=== PATIENT | male | born 1930 | race Caucasian/White ===

== ENCOUNTER 2018-05-08 16:20 | Inpatient (IN) | payer MEDICARE ==
[2018-05-08 16:20] VITALS: BMI 25.7
[2018-05-08] MEDS ORDERED: Sodium Chloride 0.9% 1,000 ML IV STA ×2 (16:53→18:51)
--- NOTE | 2018-05-08 17:20 | RAD ---
HISTORY: cough fever COMPARISON: No prior. FINDINGS: LUNGS: No active pulmonary disease. PLEURA: No significant pleural effusion identified, no pneumothorax apparent. CARDIOVASCULAR: Atherosclerotic aortic calcifications. Cardiomediastinal silhouette prominent. OSSEOUS STRUCTURES: Degenerative changes. VISUALIZED UPPER ABDOMEN: Normal. OTHER FINDINGS: None. IMPRESSION: No active disease.
[2018-05-08 17:49] LABS: VENOUS BLOOD GAS BASE EXCESS -3.9 mmol/L (0.0-2.0); VENOUS BLOOD GAS PCO2 29 mmHg (40-60); VENOUS BLOOD GAS PO2 38 mm/Hg (30-55); VENOUS BLOOD PH 7.43 (7.32-7.43)
[2018-05-08] MEDS ORDERED: Acetaminophen 160 mg/5 ml UD ONE (17:51)
[2018-05-08 17:56] LABS: PROTHROMBIN TIME 17.1 Seconds (9.8-13.1)
[2018-05-08 17:57] LABS: INR 1.5 (0.9-1.2); PARTIAL THROMBOPLASTIN TIME 30.2 Seconds (25.6-37.1)
[2018-05-08 18:00] LABS: ALB/GLOB RATIO 0.9 (1.0-2.1); ALBUMIN 3.6 g/dL (3.5-5.0); CALCIUM 8.4 mg/dL (8.4-10.2)
[2018-05-08 18:29] LABS: URINE BACTERIA MANY (<OCC); URINE BILIRUBIN NEGATIVE (NEGATIVE); URINE BLOOD MODERATE (NEGATIVE); URINE CLARITY TURBID (Clear); URINE COLOR AMBER (YELLOW); URINE GLUCOSE (UA) NEG (Normal); URINE LEUKOCYTE ESTERASE LARGE Leu/uL (Negative); URINE PROTEIN 100 mg/dL (NEGATIVE); URINE UROBILINOGEN 0.2-1.0 mg/dL (0.2-1.0); WBC CLUMPS MANY /hpf
[2018-05-08 18:35] LABS: HEMOGLOBIN 10.6 g/dL (12.0-18.0); LYMPH # 0.8 K/uL (1.0-4.3); LYMPH % 6.1 % (20.0-40.0); MEAN CELL VOLUME 88.5 fl (80.0-94.0); MEAN CORPUSCULAR HEMOGLOBIN 30.6 pg (27.0-31.0); MEAN CORPUSCULAR HGB CONC 34.6 g/dL (33.0-37.0); MEAN PLATELET VOLUME 8.9 fl (7.2-11.7); MONO # 1.4 K/uL (0.0-0.8); MONO % 11.1 % (0.0-10.0); NEUT # 10.5 K/uL (1.8-7.0); NEUT % 82.8 % (50.0-75.0); NRBC % 0.1 % (0.0-0.0); PLATELET COUNT 241 K/uL (130-400); RBC 3.45 Mil/uL (4.40-5.90); RED CELL DISTRIBUTION WIDTH 15.8 % (11.5-14.5); WHITE BLOOD COUNT 12.6 K/uL (4.8-10.8)
[2018-05-08 18:44] LABS: BANDS 3 % (0-2); LYMPHOCYTE 5 % (20-50); MONOCYTE 8 % (0-10); NEUTROPHIL 84 % (42-75); PLATELET ESTIMATE NORMAL (NORMAL); TOTAL CELLS COUNTED 100
[2018-05-08 18:45] LABS: ANISOCYTOSIS SLIGHT; OVALOCYTES SLIGHT; POIKILOCYTOSIS SLIGHT
--- NOTE | 2018-05-08 18:54 | ED PDOC ---
HPI: General Adult Time Seen by Provider: 05/08/18 16:43 Chief Complaint (Nursing): Fever Chief Complaint (Provider): fever History Per: Family History/Exam Limitations: clinical condition Onset/Duration Of Symptoms: Days (3) Current Symptoms Are (Timing): Still Present Severity: Moderate Recently: Hospitalized Additional Complaint(s): 87yo male recently suffered hemorrhagic stroke admitted to [facility], then to rehab, home for about a week, for last several days family has noted fevers, mild decreased responsiveness. They note mild cough and mild SOB. They state no vomiting, diarrhea and diapers have appeared wet without gross blood. They note chronic wound near rectum/sacrum. PEG feeds otherwise normal. They also believe he's had some facial swelling but no erythema, no trauma or falls. PMD [place] in , hasnt seen in awhile since [facility] admission for ICH Past Medical History Reviewed: Historical Data Vital Signs: Last Vital Signs Temp 100.9 F H 05/08/18 16:29 Pulse 110 H 05/08/18 18:16 Resp 19 05/08/18 18:16 BP 140/83 05/08/18 18:16 Pulse Ox 99 05/08/18 19:39 - Medical History PMH: CVA Denies: Anxiety, Bipolar Disorder, Depression, Post Traumatic Stress Disorder , Chronic Kidney Disease, Schizophrenia - Family History Family History: States: Unknown Family Hx - Living Arrangements Living Arrangements: With Family (home w family care) - Social History Current smoker - smoking cessation education provided: No - Immunization History Hx Tetanus Toxoid Vaccination: No Hx Influenza Vaccination: No Hx Pneumococcal Vaccination: No - Home Medications Home Medications: Ambulatory Orders Medication Instructions Recorded Ibuprofen [Motrin Tab] 200 mg PO Q6 PRN 05/08/18 amLODIPine [Norvasc] 10 mg PO DAILY PRN 05/08/18 - Allergies Allergies/Adverse Reactions: Allergies Allergy/AdvReac Type Severity Reaction Status Date / Time No Known Allergies Allergy Verified 05/03/17 22:46 Review of Systems Review Of Systems: ROS cannot be obtained secondary to pt's inabilty to answer questions. Physical Exam - Reviewed Nursing Documentation Reviewed: Yes Vital Signs Reviewed: Yes - Physical Exam Appears: Positive for: Uncomfortable (SOB, decreased responsiveness) Head Exam: Positive for: ATRAUMATIC, NORMAL INSPECTION, NORMOCEPHALIC Skin: Positive for: Normal Color, Warm, DRY Eye Exam: Positive for: EOMI, Normal appearance, PERRL Neck: Positive for: Normal, Painless ROM Cardiovascular/Chest: Positive for: Regular Rate, Rhythm Respiratory: Positive for: Decreased Breath Sounds Gastrointestinal/Abdominal: Positive for: Soft, Distended (bladder). Negative for: Asicites Back: Positive for: Other (sacral /rectal ulcer) Extremity: Positive for: Swelling (anasarca mild) Neurologic/Psych: Positive for: Other (L sided weakness, alert to physical stimuli, nonverbal (slightly diminished from baseline)) - Laboratory Results Result Diagrams: 05/08/18 17:41 05/08/18 17:41 - ECG O2 Sat by Pulse Oximetry: 99 - Critical Care Total Time (In Min): 45 Comments: pt required immediate bedside attention due to concern for AMS and sepsis Medical Decision Making Medical Decision Making: workup for fever initiated, r/o sepsis, r/o progression bleed, r/o urinary obstruction, metabolic derangement labs reviewed reveal marked elev 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, then clamped for 30min IVF initiated CXR report from radiologist reviewed CT brain and C/A/P ordered given AMS and fever, although source likely Urine which demonstrates +WBC and leuks Patient has been at [facility] hence hospital acquired infections suspected Vanco and Zosyn initiated after cultures obtained Lactate <2 d/w Dr Quigley for potential ICU stay, will keep in tele overflow in [employer] made aware d/w Dr Moran covering Dr Borrego nephrology all results d/w family 730p danielle blood tinged, turbid, clamped again to allow for further decompression Disposition - Clinical Impression Clinical Impression: Sepsis, Acute renal failure, Obstructive uropathy, Urinary retention, UTI ( urinary tract infection) - Disposition Disposition Time: 18:50 Condition: GUARDED - POA Present On Arrival: Pressure Ulcer (sacral rectal area)
[2018-05-08 19:23] LABS: TROPONIN I 0.013 ng/mL (0.00-0.120)
[2018-05-08] MEDS ORDERED: Vancomycin 1 g Inj ONE (19:41)
--- NOTE | 2018-05-08 19:42 | ED PDOC ---
- Laboratory Results Result Diagrams: 05/08/18 17:41 05/08/18 17:41 - ECG O2 Sat by Pulse Oximetry: 99 Medical Decision Making Medical Decision Making: Time: 1899 --Patient endorsed to provider by Dr. Ellis, pending return call from Dr. Garcia and CT imaging results to rule out pneumonia or other abdominal abnormalities. Patient will be admitted to telemetry after results. Time: 1951 --CT head FINDINGS: Brain: Small thin approximately 7 mm left parietal/posterior temporal/occipital convexity chronic subdural hematoma, which may contain some very trace debris or acute-subacute blood products. It results in minimal left parietotemporal mass effect. No midline shift. Lobulated ovoid approximately 2 cm diameter hypodensity at the right thalamus most likely represents focal infarct of indeterminate age, but most likely late subacute to chronic. Multiple small old scattered lacunar infarcts within the basal ganglia and periventricular white matter. Right frontal focal gliosis. Diffuse cerebral volume loss and chronic microvascular white matter changes. Ventricles: Unremarkable. Bones/joints: Unremarkable. No acute fracture. Soft tissues: Unremarkable. Sinuses: Unremarkable as visualized. Mastoid air cells: Unremarkable as visualized. IMPRESSION: Small thin approximately 7 mm left parietal/posterior temporal/occipital convexity chronic subdural hematoma, which may contain some very trace debris or acute-subacute blood products. It results in minimal left parietotemporal mass effect. Right thalamic small focal infarct of indeterminate age, but most probably late subacute to chronic. Correlation with prior imaging on-site or at outside institutions would be very helpful to determine the age of this focal infarct. Alternatively, a noncontrast brain MRI may be obtained for further evaluation if also clinically indicated. Other chronic changes as above. Scribe Attestation: Documented by Aura Joseph, acting as a scribe for Segun Ovalle MD. Provider Scribe Attestation: All medical record entries made by the Scribe were at my direction and personally dictated by me. I have reviewed the chart and agree that the record accurately reflects my personal performance of the history, physical exam, medical decision making, and the department course for this patient. I have also personally directed, reviewed, and agree with the discharge instructions and disposition. Disposition - Clinical Impression Clinical Impression: Sepsis, Acute renal failure, Obstructive uropathy, Urinary retention, UTI ( urinary tract infection) - Disposition Condition: GUARDED
[2018-05-09] MEDS: Dextrose 5%/0.45% NS 1,000 ML IV SCH ×2 (00:59→12:48)
[2018-05-09] MEDS ORDERED: Acetaminophen 325 MG/10.15 ML ONE ×2 (03:17→03:27)
[2018-05-09 06:46] LABS: BASO % 0.1 % (0.0-2.0); HEMOGLOBIN 8.8 g/dL (12.0-18.0); LYMPH # 0.6 K/uL (1.0-4.3); LYMPH % 4.5 % (20.0-40.0); MEAN CELL VOLUME 89.5 fl (80.0-94.0); MEAN CORPUSCULAR HEMOGLOBIN 30.4 pg (27.0-31.0); MEAN PLATELET VOLUME 8.7 fl (7.2-11.7); MONO # 0.8 K/uL (0.0-0.8); MONO % 6.6 % (0.0-10.0); NEUT # 10.9 K/uL (1.8-7.0); NEUT % 88.8 % (50.0-75.0); RBC 2.91 Mil/uL (4.40-5.90); RED CELL DISTRIBUTION WIDTH 16.4 % (11.5-14.5); WHITE BLOOD COUNT 12.3 K/uL (4.8-10.8)
[2018-05-09 06:53] LABS: ALB/GLOB RATIO 0.8 (1.0-2.1); ALBUMIN 2.9 g/dL (3.5-5.0); CALCIUM 8.3 mg/dL (8.4-10.2)
--- NOTE | 2018-05-09 08:28 | CT ---
PROCEDURE: CT HEAD WITHOUT CONTRAST. HISTORY: r/o ICH COMPARISON: None available. TECHNIQUE: Axial computed tomography images were obtained through the head/brain without intravenous contrast. Radiation dose: Total exam DLP = 1372.4 mGy-cm. This CT exam was performed using one or more of the following dose reduction techniques: Automated exposure control, adjustment of the mA and/or kV according to patient size, and/or use of iterative reconstruction technique. FINDINGS: HEMORRHAGE: Thin left parieto-occipital hypodense collection. BRAIN: No mass effect or edema. Atrophy. Chronic microvascular ischemic changes. Bilateral basal ganglia and left thalamic lacunar infarctions. Hypodense area in the right thalamus, age indeterminate but likely related to subacute to chronic infarction. VENTRICLES: Prominent. No hydrocephalus. CALVARIUM: Unremarkable. PARANASAL SINUSES: Unremarkable as visualized. No significant inflammatory changes. MASTOID AIR CELLS: Unremarkable as visualized. No inflammatory changes. OTHER FINDINGS: None. IMPRESSION: Small faint approximately 7 mm left parieto-occipital convexity subdural collection. Right thalamic area of hypodensity, age indeterminate, but likely represents a late subacute to chronic infarction.
[2018-05-09] MEDS: Pantoprazole 40 MG in Sodium Chloride 0.9% 100 ML IVPB SCH ×3 (10:03→19:00)
--- NOTE | 2018-05-09 10:34 | CP.PCM.CON ---
Past Patient History - Infectious Disease Hx of Infectious Diseases: None - Past Social History Smoking Status: Smoker Currrent Status Unknown - CARDIAC Hx Cardiac Disorders: No - PULMONARY Hx Respiratory Disorders: No - NEUROLOGICAL Hx Neurological Disorder: Yes HX Cerebrovascular Accident: Yes - HEENT Hx HEENT Problems: No - RENAL Hx Chronic Kidney Disease: No - ENDOCRINE/METABOLIC Hx Endocrine Disorders: No - HEMATOLOGICAL/ONCOLOGICAL Hx Blood Disorders: No - INTEGUMENTARY Hx Dermatological Problems: No - MUSCULOSKELETAL/RHEUMATOLOGICAL Other/Comment: Hx left knee swelling - GASTROINTESTINAL Hx Gastrointestinal Disorders: No - GENITOURINARY/GYNECOLOGICAL Hx Genitourinary Disorders: No - PSYCHIATRIC Hx Anxiety: No Hx Bipolar Disorder: No Hx Depression: No Hx Post Traumatic Stress Disorder: No Hx Schizophrenia: No Hx Substance Use: No - SURGICAL HISTORY Hx Surgeries: No - ANESTHESIA Hx Anesthesia: No Meds Allergies/Adverse Reactions: Allergies Allergy/AdvReac Type Severity Reaction Status Date / Time No Known Allergies Allergy Verified 05/03/17 22:46 - Medications Medications: Current Medications Acetaminophen (Tylenol 325mg Tab) 650 mg GT Q4 PRN PRN Reason: Fever >100.4 F Last Admin: 05/09/18 03:40 Dose: 650 mg Dextrose/Sodium Chloride (Dextrose 5%/0.45% Ns 1000 Ml) 1,000 mls @ 100 mls/hr IV .Q10H [facility] Stop: 05/10/18 01:59 Last Admin: 05/09/18 00:59 Dose: 100 mls/hr Piperacillin Sod/Tazobactam (Sod 2.25 gm/ Sodium Chloride) 100 mls @ 100 mls/ hr IVPB Q8 JIN PRN Reason: Protocol Pantoprazole Sodium 40 mg/ (Sodium Chloride) 100 mls @ 20 mls/hr IVPB Q5H JIN PRN Reason: 8 MG/HR Last Admin: 05/09/18 10:03 Dose: 20 mls/hr Tamsulosin HCl (Flomax) 0.8 mg PEG DAILY [facility] Results - Vital Signs Recent Vital Signs: Last Vital Signs Temp 99.9 F H 05/09/18 08:11 Pulse 105 H 05/09/18 08:11 Resp 18 05/09/18 08:11 BP 102/74 05/09/18 08:11 Pulse Ox 96 05/09/18 08:11 - Labs Result Diagrams: 05/09/18 06:27 05/09/18 06:27 Labs: Laboratory Results - last 24 hr 05/08/18 05/08/18 05/08/18 17:41 17:41 17:41 WBC 12.6 H RBC 3.45 L Hgb 10.6 L Hct 30.6 L MCV 88.5 MCH 30.6 MCHC 34.6 RDW 15.8 H Plt Count 241 MPV 8.9 Neut % (Auto) 82.8 H Lymph % (Auto) 6.1 L [place] % (Auto) 11.1 H Eos % (Auto) 0.0 Baso % (Auto) 0.0 Neut # (Auto) 10.5 H Lymph # (Auto) 0.8 L Knox # (Auto) 1.4 H Eos # (Auto) 0.0 Baso # (Auto) 0.0 Neutrophils % (Manual) 84 H Band Neutrophils % 3 H Lymphocytes % (Manual) 5 L Monocytes % (Manual) 8 Platelet Estimate Normal Poikilocytosis (manual Slight Anisocytosis (manual) Slight Ovalocytes Slight PT 17.1 H INR 1.5 H APTT 30.2 pO2 VBG pH VBG pCO2 VBG HCO3 VBG Total CO2 VBG O2 Sat (Calc) VBG Base Excess VBG Potassium Glucose Lactate FiO2 Sodium 135 Potassium 5.6 H Chloride 100 Carbon Dioxide 17 L Anion Gap 24 H BUN 117 H* Creatinine 10.7 H* Est GFR ( Amer) 6 Est GFR (Non-Af Amer) 5 Random Glucose 123 H Calcium 8.4 Phosphorus 2.9 Magnesium 2.8 H Total Bilirubin 0.8 AST 37 ALT 35 Alkaline Phosphatase 169 H Total Creatine Kinase Troponin I Total Protein 7.6 Albumin 3.6 Globulin 4.0 H Albumin/Globulin Ratio 0.9 L Lipase 245 TSH 3rd Generation Venous Blood Potassium Urine Color Urine Clarity Urine pH Ur Specific [place] Urine Protein Urine Glucose (UA) Urine Ketones Urine Blood Urine Nitrate Urine Bilirubin Urine Urobilinogen Ur Leukocyte Esterase Urine RBC (Auto) Urine WBC Clumps (Auto) Urine Microscopic WBC Urine Bacteria 05/08/18 05/08/18 05/08/18 17:44 18:17 18:59 WBC RBC Hgb Hct MCV MCH MCHC RDW Plt Count MPV Neut % (Auto) Lymph % (Auto) Knox % (Auto) Eos % (Auto) Baso % (Auto) Neut # (Auto) Lymph # (Auto) Knox # (Auto) Eos # (Auto) Baso # (Auto) Neutrophils % (Manual) Band Neutrophils % Lymphocytes % (Manual) Monocytes % (Manual) Platelet Estimate Poikilocytosis (manual Anisocytosis (manual) Ovalocytes PT INR APTT pO2 38 VBG pH 7.43 VBG pCO2 29 L VBG HCO3 21.3 VBG Total CO2 20.1 L VBG O2 Sat (Calc) 80.1 H VBG Base Excess -3.9 L VBG Potassium 5.7 H Glucose 133 H Lactate 1.6 FiO2 21.0 Sodium 132.0 Potassium Chloride 101.0 Carbon Dioxide Anion Gap BUN Creatinine Est GFR ( Amer) Est GFR (Non-Af Amer) Random Glucose Calcium Phosphorus Magnesium Total Bilirubin AST ALT Alkaline Phosphatase Total Creatine Kinase 40 L Troponin I 0.0130 Total Protein Albumin Globulin Albumin/Globulin Ratio Lipase TSH 3rd Generation Venous Blood Potassium 5.7 H Urine Color Tere Urine Clarity Turbid Urine pH 7.0 Ur Specific [place] 1.010 Urine Protein 100 Urine Glucose (UA) Neg Urine Ketones Negative Urine Blood Moderate Urine Nitrate Positive H Urine Bilirubin Negative Urine Urobilinogen 0.2-1.0 Ur Leukocyte Esterase Large Urine RBC (Auto) 95 H Urine WBC Clumps (Auto) Many H Urine Microscopic WBC 7604 H Urine Bacteria Many H 05/09/18 05/09/18 06:27 06:27 WBC 12.3 H RBC 2.91 L Hgb 8.8 L Hct 26.0 L MCV 89.5 MCH 30.4 MCHC 34.0 RDW 16.4 H Plt Count 197 MPV 8.7 Neut % (Auto) 88.8 H Lymph % (Auto) 4.5 L Knox % (Auto) 6.6 Eos % (Auto) 0.0 Baso % (Auto) 0.1 Neut # (Auto) 10.9 H Lymph # (Auto) 0.6 L [place] # (Auto) 0.8 Eos # (Auto) 0.0 Baso # (Auto) 0.0 Neutrophils % (Manual) Band Neutrophils % Lymphocytes % (Manual) Monocytes % (Manual) Platelet Estimate Poikilocytosis (manual Anisocytosis (manual) Ovalocytes PT INR APTT pO2 VBG pH VBG pCO2 VBG HCO3 VBG Total CO2 VBG O2 Sat (Calc) VBG Base Excess VBG Potassium Glucose Lactate FiO2 Sodium 140 Potassium 4.1 Chloride 109 H Carbon Dioxide 18 L Anion Gap 17 BUN 89 H Creatinine 6.7 H Est GFR ( Amer) 9 Est GFR (Non-Af Amer) 8 Random Glucose 169 H Calcium 8.3 L Phosphorus Magnesium Total Bilirubin 0.7 AST 33 ALT 29 Alkaline Phosphatase 124 Total Creatine Kinase Troponin I Total Protein 6.5 Albumin 2.9 L Globulin 3.6 Albumin/Globulin Ratio 0.8 L Lipase TSH 3rd Generation 1.66 Venous Blood Potassium Urine Color Urine Clarity Urine pH Ur Specific [place] Urine Protein Urine Glucose (UA) Urine Ketones Urine Blood Urine Nitrate Urine Bilirubin Urine Urobilinogen Ur Leukocyte Esterase Urine RBC (Auto) Urine WBC Clumps (Auto) Urine Microscopic WBC Urine Bacteria
[2018-05-09 15:03] LABS: ABG ALLEN TEST YES
--- NOTE | 2018-05-09 15:37 | CT ---
PROCEDURE: CT Chest, Abdomen and Pelvis without intravenous contrast HISTORY: fever, cough, abd distension recent stroke COMPARISON: None. TECHNIQUE: Radiation dose: Total exam DLP = 1148.8 mGy-cm. This CT exam was performed using one or more of the following dose reduction techniques: Automated exposure control, adjustment of the mA and/or kV according to patient size, and/or use of iterative reconstruction technique. FINDINGS: LUNGS: Left lower lobe atelectasis/infiltrate. No nodule, mass or consolidation. MEDIASTINUM: Unremarkable. Normal caliber aorta and pulmonary arterial trunk. Cardiomegaly. Coronary arterial and valvular calcifications. LYMPH NODES: Unremarkable. PLEURA: Unremarkable. No pneumothorax. No pleural fluid. LIVER: Unremarkable. No gross lesion or ductal dilatation. GALLBLADDER AND BILE DUCTS: Cholelithiasis without gallbladder wall thickening x-rays or pericholecystic fluid. PANCREAS: Unremarkable. No gross lesion or ductal dilatation. SPLEEN: Unremarkable. ADRENALS: Bilateral nodular thickening. KIDNEYS AND URETERS: Bilateral hydroureteronephrosis without obstructing calculus. No hydronephrosis. No solid mass. VASCULATURE: Calcific atherosclerosis. Infrarenal 3.5 cm abdominal aortic aneurysm. BOWEL: Gastrostomy. Smooth rectal wall thickening. No obstruction. No gross mural thickening. APPENDIX: Normal appendix. PERITONEUM: Unremarkable. No free fluid. No free air. LYMPH NODES: Unremarkable. No enlarged lymph nodes. BLADDER: Collapsed around a Rashid catheter with markedly thickened wall. REPRODUCTIVE: Prostatomegaly. BONES: Lucency within the T6 vertebral body. Multilevel degenerative changes. OTHER FINDINGS: None. IMPRESSION: Bilateral hydroureteronephrosis likely secondary to chronic bladder outlet obstruction despite presence of Rashid catheter. Cholelithiasis without CT evidence for acute cholecystitis. Smooth rectal wall thickening may be seen with proctitis in the proper clinical setting. Lucency within the T6 vertebral body with suggestion of sclerotic margins which may represent a nonacute finding. If there is clinical concern for acute fracture. MRI the thoracic spine can be obtained further evaluation. 3.5 cm infrarenal abdominal aortic aneurysm. Additional findings as above.
[2018-05-09 15:50] LABS: BASO % 0.3 % (0.0-2.0); HEMOGLOBIN 9.5 g/dL (12.0-18.0); LYMPH # 0.5 K/uL (1.0-4.3); LYMPH % 4.2 % (20.0-40.0); MEAN CELL VOLUME 88.5 fl (80.0-94.0); MEAN CORPUSCULAR HEMOGLOBIN 30.5 pg (27.0-31.0); MEAN CORPUSCULAR HGB CONC 34.4 g/dL (33.0-37.0); MEAN PLATELET VOLUME 8.7 fl (7.2-11.7); MONO # 0.7 K/uL (0.0-0.8); MONO % 5.7 % (0.0-10.0); NEUT # 11.4 K/uL (1.8-7.0); NEUT % 89.8 % (50.0-75.0); NRBC % 0.1 % (0.0-0.0); RBC 3.12 Mil/uL (4.40-5.90); RED CELL DISTRIBUTION WIDTH 15.9 % (11.5-14.5); WHITE BLOOD COUNT 12.7 K/uL (4.8-10.8)
[2018-05-09 16:10] LABS: ALB/GLOB RATIO 0.9 (1.0-2.1); ALBUMIN 3.1 g/dL (3.5-5.0); CALCIUM 8.3 mg/dL (8.4-10.2)
--- NOTE | 2018-05-09 16:50 | CP.PCM.CON ---
Past Patient History - Infectious Disease Hx of Infectious Diseases: None - Past Medical History & Family History Past Medical History?: No - Past Social History Smoking Status: Former Smoker - CARDIAC Hx Cardiac Disorders: Yes - PULMONARY Hx Respiratory Disorders: No - NEUROLOGICAL Hx Neurological Disorder: Yes - HEENT Hx HEENT Problems: No - RENAL Hx Chronic Kidney Disease: No - ENDOCRINE/METABOLIC Hx Endocrine Disorders: No - HEMATOLOGICAL/ONCOLOGICAL Hx Blood Disorders: No - INTEGUMENTARY Hx Dermatological Problems: No - MUSCULOSKELETAL/RHEUMATOLOGICAL Hx Falls: Yes Other/Comment: Hx left knee swelling - GASTROINTESTINAL Hx Gastrointestinal Disorders: No - GENITOURINARY/GYNECOLOGICAL Hx Genitourinary Disorders: No - PSYCHIATRIC Hx Anxiety: No Hx Bipolar Disorder: No Hx Depression: No Hx Post Traumatic Stress Disorder: No Hx Schizophrenia: No Hx Substance Use: No - SURGICAL HISTORY Hx Surgeries: No - ANESTHESIA Hx Anesthesia: No Meds Allergies/Adverse Reactions: Allergies Allergy/AdvReac Type Severity Reaction Status Date / Time No Known Allergies Allergy Verified 05/03/17 22:46 - Medications Medications: Current Medications Acetaminophen (Tylenol 325mg Tab) 650 mg GT Q4 PRN PRN Reason: Fever >100.4 F Last Admin: 05/09/18 12:47 Dose: 650 mg Dextrose/Sodium Chloride (Dextrose 5%/0.45% Ns 1000 Ml) 1,000 mls @ 100 mls/hr IV .Q10H [facility] Stop: 05/10/18 01:59 Last Admin: 05/09/18 12:48 Dose: 100 mls/hr Piperacillin Sod/Tazobactam (Sod 2.25 gm/ Sodium Chloride) 100 mls @ 100 mls/ hr IVPB Q8 JIN PRN Reason: Protocol Last Admin: 05/09/18 12:45 Dose: 100 mls/hr Pantoprazole Sodium 40 mg/ (Sodium Chloride) 100 mls @ 20 mls/hr IVPB Q5H [facility] PRN Reason: 8 MG/HR Last Admin: 05/09/18 14:09 Dose: 20 mls/hr Tamsulosin HCl (Flomax) 0.8 mg PEG DAILY [facility] Results - Vital Signs Recent Vital Signs: Last Vital Signs Temp 100.4 F H 05/09/18 12:47 Pulse 107 H 05/09/18 11:03 Resp 20 05/09/18 11:03 BP 120/77 05/09/18 11:03 Pulse Ox 95 07/07/18 11:03 - Labs Result Diagrams: 05/09/18 15:30 05/09/18 15:30 Labs: Laboratory Results - last 24 hr 05/08/18 05/08/18 05/08/18 17:41 17:41 17:41 WBC 12.6 H RBC 3.45 L Hgb 10.6 L Hct 30.6 L MCV 88.5 MCH 30.6 MCHC 34.6 RDW 15.8 H Plt Count 241 MPV 8.9 Neut % (Auto) 82.8 H Lymph % (Auto) 6.1 L [place] % (Auto) 11.1 H Eos % (Auto) 0.0 Baso % (Auto) 0.0 Neut # (Auto) 10.5 H Lymph # (Auto) 0.8 L [place] # (Auto) 1.4 H Eos # (Auto) 0.0 Baso # (Auto) 0.0 Neutrophils % (Manual) 84 H Band Neutrophils % 3 H Lymphocytes % (Manual) 5 L Monocytes % (Manual) 8 Platelet Estimate Normal Poikilocytosis (manual Slight Anisocytosis (manual) Slight Ovalocytes Slight PT 17.1 H INR 1.5 H APTT 30.2 pCO2 pO2 HCO3 ABG pH ABG Total CO2 ABG O2 Saturation ABG O2 Content ABG Base Excess ABG Hemoglobin ABG Carboxyhemoglobin POC ABG HHb (Measured) ABG Methemoglobin ABG O2 Capacity Guilherme Test VBG pH VBG pCO2 VBG HCO3 VBG Total CO2 VBG O2 Sat (Calc) VBG Base Excess VBG Potassium A-a O2 Difference Hgb O2 Saturation Glucose Lactate FiO2 Sodium 135 Potassium 5.6 H Chloride 100 Carbon Dioxide 17 L Anion Gap 24 H BUN 117 H* Creatinine 10.7 H* Est GFR ( Amer) 6 Est GFR (Non-Af Amer) 5 Random Glucose 123 H Calcium 8.4 Phosphorus 2.9 Magnesium 2.8 H Total Bilirubin 0.8 AST 37 ALT 35 Alkaline Phosphatase 169 H Total Creatine Kinase Troponin I Total Protein 7.6 Albumin 3.6 Globulin 4.0 H Albumin/Globulin Ratio 0.9 L Lipase 245 TSH 3rd Generation Venous Blood Potassium Urine Color Urine Clarity Urine pH Ur Specific [place] Urine Protein Urine Glucose (UA) Urine Ketones Urine Blood Urine Nitrate Urine Bilirubin Urine Urobilinogen Ur Leukocyte Esterase Urine RBC (Auto) Urine WBC Clumps (Auto) Urine Microscopic WBC Urine Bacteria 05/08/18 05/08/18 05/08/18 17:44 18:17 18:59 WBC RBC Hgb Hct MCV MCH MCHC RDW Plt Count MPV Neut % (Auto) Lymph % (Auto) [place] % (Auto) Eos % (Auto) Baso % (Auto) Neut # (Auto) Lymph # (Auto) [place] # (Auto) Eos # (Auto) Baso # (Auto) Neutrophils % (Manual) Band Neutrophils % Lymphocytes % (Manual) Monocytes % (Manual) Platelet Estimate Poikilocytosis (manual Anisocytosis (manual) Ovalocytes PT INR APTT pCO2 pO2 38 HCO3 ABG pH ABG Total CO2 ABG O2 Saturation ABG O2 Content ABG Base Excess ABG Hemoglobin ABG Carboxyhemoglobin POC ABG HHb (Measured) ABG Methemoglobin ABG O2 Capacity Guilherme Test VBG pH 7.43 VBG pCO2 29 L VBG HCO3 21.3 VBG Total CO2 20.1 L VBG O2 Sat (Calc) 80.1 H VBG Base Excess -3.9 L VBG Potassium 5.7 H A-a O2 Difference Hgb O2 Saturation Glucose 133 H Lactate 1.6 FiO2 21.0 Sodium 132.0 Potassium Chloride 101.0 Carbon Dioxide Anion Gap BUN Creatinine Est GFR ( Amer) Est GFR (Non-Af Amer) Random Glucose Calcium Phosphorus Magnesium Total Bilirubin AST ALT Alkaline Phosphatase Total Creatine Kinase 40 L Troponin I 0.0130 Total Protein Albumin Globulin Albumin/Globulin Ratio Lipase TSH 3rd Generation Venous Blood Potassium 5.7 H Urine Color Tere Urine Clarity Turbid Urine pH 7.0 Ur Specific [place] 1.010 Urine Protein 100 Urine Glucose (UA) Neg Urine Ketones Negative Urine Blood Moderate Urine Nitrate Positive H Urine Bilirubin Negative Urine Urobilinogen 0.2-1.0 Ur Leukocyte Esterase Large Urine RBC (Auto) 95 H Urine WBC Clumps (Auto) Many H Urine Microscopic WBC 7604 H Urine Bacteria Many H 05/09/18 05/09/18 05/09/18 06:27 06:27 14:45 WBC 12.3 H RBC 2.91 L Hgb 8.8 L Hct 26.0 L MCV 89.5 MCH 30.4 MCHC 34.0 RDW 16.4 H Plt Count 197 MPV 8.7 Neut % (Auto) 88.8 H Lymph % (Auto) 4.5 L [place] % (Auto) 6.6 Eos % (Auto) 0.0 Baso % (Auto) 0.1 Neut # (Auto) 10.9 H Lymph # (Auto) 0.6 L [place] # (Auto) 0.8 Eos # (Auto) 0.0 Baso # (Auto) 0.0 Neutrophils % (Manual) Band Neutrophils % Lymphocytes % (Manual) Monocytes % (Manual) Platelet Estimate Poikilocytosis (manual Anisocytosis (manual) Ovalocytes PT INR APTT pCO2 28 L pO2 76 L HCO3 23.4 ABG pH 7.48 H ABG Total CO2 21.8 L ABG O2 Saturation 98.9 H ABG O2 Content 12.6 L ABG Base Excess -1.9 ABG Hemoglobin 9.3 L ABG Carboxyhemoglobin 1.6 H POC ABG HHb (Measured) 1.1 ABG Methemoglobin 1.6 ABG O2 Capacity 12.7 L Guilherme Test Yes VBG pH VBG pCO2 VBG HCO3 VBG Total CO2 VBG O2 Sat (Calc) VBG Base Excess VBG Potassium A-a O2 Difference 39.0 Hgb O2 Saturation 95.6 Glucose Lactate FiO2 21.0 Sodium 140 Potassium 4.1 Chloride 109 H Carbon Dioxide 18 L Anion Gap 17 BUN 89 H Creatinine 6.7 H Est GFR ( Amer) 9 Est GFR (Non-Af Amer) 8 Random Glucose 169 H Calcium 8.3 L Phosphorus Magnesium Total Bilirubin 0.7 AST 33 ALT 29 Alkaline Phosphatase 124 Total Creatine Kinase Troponin I Total Protein 6.5 Albumin 2.9 L Globulin 3.6 Albumin/Globulin Ratio 0.8 L Lipase TSH 3rd Generation 1.66 Venous Blood Potassium Urine Color Urine Clarity Urine pH Ur Specific [place] Urine Protein Urine Glucose (UA) Urine Ketones Urine Blood Urine Nitrate Urine Bilirubin Urine Urobilinogen Ur Leukocyte Esterase Urine RBC (Auto) Urine WBC Clumps (Auto) Urine Microscopic WBC Urine Bacteria 05/09/18 05/09/18 15:30 15:30 WBC 12.7 H RBC 3.12 L Hgb 9.5 L Hct 27.6 L MCV 88.5 MCH 30.5 MCHC 34.4 RDW 15.9 H Plt Count 215 MPV 8.7 Neut % (Auto) 89.8 H Lymph % (Auto) 4.2 L [place] % (Auto) 5.7 Eos % (Auto) 0.0 Baso % (Auto) 0.3 Neut # (Auto) 11.4 H Lymph # (Auto) 0.5 L [place] # (Auto) 0.7 Eos # (Auto) 0.0 Baso # (Auto) 0.0 Neutrophils % (Manual) Band Neutrophils % Lymphocytes % (Manual) Monocytes % (Manual) Platelet Estimate Poikilocytosis (manual Anisocytosis (manual) Ovalocytes PT INR APTT pCO2 pO2 HCO3 ABG pH ABG Total CO2 ABG O2 Saturation ABG O2 Content ABG Base Excess ABG Hemoglobin ABG Carboxyhemoglobin POC ABG HHb (Measured) ABG Methemoglobin ABG O2 Capacity Guilherme Test VBG pH VBG pCO2 VBG HCO3 VBG Total CO2 VBG O2 Sat (Calc) VBG Base Excess VBG Potassium A-a O2 Difference Hgb O2 Saturation Glucose Lactate FiO2 Sodium 142 Potassium 3.6 Chloride 112 H Carbon Dioxide 18 L Anion Gap 16 BUN 73 H Creatinine 5.1 H Est GFR ( Amer) 13 Est GFR (Non-Af Amer) 11 Random Glucose 135 H Calcium 8.3 L Phosphorus Magnesium 2.2 Total Bilirubin 0.8 AST 27 ALT 31 Alkaline Phosphatase 124 Total Creatine Kinase Troponin I Total Protein 6.6 Albumin 3.1 L Globulin 3.6 Albumin/Globulin Ratio 0.9 L Lipase TSH 3rd Generation Venous Blood Potassium Urine Color Urine Clarity Urine pH Ur Specific [place] Urine Protein Urine Glucose (UA) Urine Ketones Urine Blood Urine Nitrate Urine Bilirubin Urine Urobilinogen Ur Leukocyte Esterase Urine RBC (Auto) Urine WBC Clumps (Auto) Urine Microscopic WBC Urine Bacteria
--- NOTE | 2018-05-09 17:24 | CP.PCM.CON ---
<Savanna Greene - Last Filed: 05/09/18 17:26> History of Present Illness - History of Present Illness History of Present Illness: Initial PGY5 GI Consult Jonathan Linn is a 87M who recently suffered hemorrhagic stroke [place] [facility] [place] to [place] for AMS, lethargy, fever, and chills. Pt was [place] [facility] [place]orr[place] CV[place]. He was then then sent to rehab. He has been home now for 1 week. As per family, he had fevers, mild decreased responsiveness. They also noted mild cough and mild SOB. They deny vomiting, diarrhea and diapers have appeared wet without gross blood. They note chronic wound near rectum/sacrum. PEG feeds otherwise normal a home. Upon checking residuals in the ER PMHx: CVA, HTN PSHx: family denies Social Hx: denies any smoking, illicit drugs, ETOH Family hx: Reviewed, neg as per family Endo hx: denies ROS: 12 point ROS conducted, neg other than above Past Patient History - Infectious Disease Hx of Infectious Diseases: None - Past Medical History & Family History Past Medical History?: No - Past Social History Smoking Status: Former Smoker - CARDIAC Hx Cardiac Disorders: Yes - PULMONARY Hx Respiratory Disorders: No - NEUROLOGICAL Hx Neurological Disorder: Yes - HEENT Hx HEENT Problems: No - RENAL Hx Chronic Kidney Disease: No - ENDOCRINE/METABOLIC Hx Endocrine Disorders: No - HEMATOLOGICAL/ONCOLOGICAL Hx Blood Disorders: No - INTEGUMENTARY Hx Dermatological Problems: No - MUSCULOSKELETAL/RHEUMATOLOGICAL Hx Falls: Yes Other/Comment: Hx left knee swelling - GASTROINTESTINAL Hx Gastrointestinal Disorders: No - GENITOURINARY/GYNECOLOGICAL Hx Genitourinary Disorders: No - PSYCHIATRIC Hx Anxiety: No Hx Bipolar Disorder: No Hx Depression: No Hx Post Traumatic Stress Disorder: No Hx Schizophrenia: No Hx Substance Use: No - SURGICAL HISTORY Hx Surgeries: No - ANESTHESIA Hx Anesthesia: No Meds Allergies/Adverse Reactions: Allergies Allergy/AdvReac Type Severity Reaction Status Date / Time No Known Allergies Allergy Verified 05/03/17 22:46 - Medications Medications: Current Medications Acetaminophen (Tylenol 325mg Tab) 650 mg GT Q4 PRN PRN Reason: Fever >100.4 F Last Admin: 05/09/18 12:47 Dose: 650 mg Dextrose/Sodium Chloride (Dextrose 5%/0.45% Ns 1000 Ml) 1,000 mls @ 100 mls/hr IV .Q10H [facility] Stop: 05/10/18 01:59 Last Admin: 05/09/18 12:48 Dose: 100 mls/hr Piperacillin Sod/Tazobactam (Sod 2.25 gm/ Sodium Chloride) 100 mls @ 100 mls/ hr IVPB Q8 JIN PRN Reason: Protocol Last Admin: 05/09/18 12:45 Dose: 100 mls/hr Pantoprazole Sodium 40 mg/ (Sodium Chloride) 100 mls @ 20 mls/hr IVPB Q5H [facility] PRN Reason: 8 MG/HR Last Admin: 05/09/18 14:09 Dose: 20 mls/hr Tamsulosin HCl (Flomax) 0.8 mg PEG DAILY [facility] Physical Exam - Constitutional Appears: No Acute Distress, Chronically Ill - Head Exam Head Exam: ATRAUMATIC, NORMOCEPHALIC - Eye Exam Eye Exam: Normal appearance Pupil Exam: NORMAL ACCOMODATION - ENT Exam ENT Exam: Mucous Membranes Moist, Normal Exam - Neck Exam Neck exam: Positive for: Normal Inspection - Respiratory Exam Respiratory Exam: Clear to Auscultation Bilateral, NORMAL BREATHING PATTERN. absent: Prolonged Expiratory Phase, Rales, Rhonchi, Wheezes, Respiratory Distress - Cardiovascular Exam Cardiovascular Exam: REGULAR RHYTHM, +S1, +S2 - GI/Abdominal Exam GI & Abdominal Exam: Normal Bowel Sounds, Soft. absent: Distended, Guarding, Hernia, Organomegaly, Rebound, Rigid Additional comments: PEG in place, without induation; PEG residuals revealed no bleeding or coffee- grounds - Extremities Exam Extremities exam: Negative for: joint swelling, pedal edema - Back Exam Back exam: NORMAL INSPECTION - Neurological Exam Neurological exam: Alert, Altered - Psychiatric Exam Additional comments: could not assess - Skin Skin Exam: Dry, Intact, Normal Color, Warm Results - Vital Signs Recent Vital Signs: Last Vital Signs Temp 100.4 F H 05/09/18 12:47 Pulse 107 H 05/09/18 11:03 Resp 20 05/09/18 11:03 BP 120/77 05/09/18 11:03 Pulse Ox 95 05/09/18 11:03 - Labs Result Diagrams: 05/09/18 15:30 05/09/18 15:30 Labs: Laboratory Results - last 24 hr 05/08/18 05/08/18 05/08/18 17:41 17:41 17:41 WBC 12.6 H RBC 3.45 L Hgb 10.6 L Hct 30.6 L MCV 88.5 MCH 30.6 MCHC 34.6 RDW 15.8 H Plt Count 241 MPV 8.9 Neut % (Auto) 82.8 H Lymph % (Auto) 6.1 L [place] % (Auto) 11.1 H Eos % (Auto) 0.0 Baso % (Auto) 0.0 Neut # (Auto) 10.5 H Lymph # (Auto) 0.8 L [place] # (Auto) 1.4 H Eos # (Auto) 0.0 Baso # (Auto) 0.0 Neutrophils % (Manual) 84 H Band Neutrophils % 3 H Lymphocytes % (Manual) 5 L Monocytes % (Manual) 8 Platelet Estimate Normal Poikilocytosis (manual Slight Anisocytosis (manual) Slight Ovalocytes Slight PT 17.1 H INR 1.5 H APTT 30.2 pCO2 pO2 HCO3 ABG pH ABG Total CO2 ABG O2 Saturation ABG O2 Content ABG Base Excess ABG Hemoglobin ABG Carboxyhemoglobin POC ABG HHb (Measured) ABG Methemoglobin ABG O2 Capacity Guilherme Test VBG pH VBG pCO2 VBG HCO3 VBG Total CO2 VBG O2 Sat (Calc) VBG Base Excess VBG Potassium A-a O2 Difference Hgb O2 Saturation Glucose Lactate FiO2 Sodium 135 Potassium 5.6 H Chloride 100 Carbon Dioxide 17 L Anion Gap 24 H BUN 117 H* Creatinine 10.7 H* Est GFR ( Amer) 6 Est GFR (Non-Af Amer) 5 Random Glucose 123 H Calcium 8.4 Phosphorus 2.9 Magnesium 2.8 H Total Bilirubin 0.8 AST 37 ALT 35 Alkaline Phosphatase 169 H Total Creatine Kinase Troponin I Total Protein 7.6 Albumin 3.6 Globulin 4.0 H Albumin/Globulin Ratio 0.9 L Lipase 245 TSH 3rd Generation Venous Blood Potassium Urine Color Urine Clarity Urine pH Ur Specific [place] Urine Protein Urine Glucose (UA) Urine Ketones Urine Blood Urine Nitrate Urine Bilirubin Urine Urobilinogen Ur Leukocyte Esterase Urine RBC (Auto) Urine WBC Clumps (Auto) Urine Microscopic WBC Urine Bacteria 05/08/18 05/08/18 05/08/18 17:44 18:17 18:59 WBC RBC Hgb Hct MCV MCH MCHC RDW Plt Count MPV Neut % (Auto) Lymph % (Auto) [place] % (Auto) Eos % (Auto) Baso % (Auto) Neut # (Auto) Lymph # (Auto) [place] # (Auto) Eos # (Auto) Baso # (Auto) Neutrophils % (Manual) Band Neutrophils % Lymphocytes % (Manual) Monocytes % (Manual) Platelet Estimate Poikilocytosis (manual Anisocytosis (manual) Ovalocytes PT INR APTT pCO2 pO2 38 HCO3 ABG pH ABG Total CO2 ABG O2 Saturation ABG O2 Content ABG Base Excess ABG Hemoglobin ABG Carboxyhemoglobin POC ABG HHb (Measured) ABG Methemoglobin ABG O2 Capacity Guilherme Test VBG pH 7.43 VBG pCO2 29 L VBG HCO3 21.3 VBG Total CO2 20.1 L VBG O2 Sat (Calc) 80.1 H VBG Base Excess -3.9 L VBG Potassium 5.7 H A-a O2 Difference Hgb O2 Saturation Glucose 133 H Lactate 1.6 FiO2 21.0 Sodium 132.0 Potassium Chloride 101.0 Carbon Dioxide Anion Gap BUN Creatinine Est GFR ( Amer) Est GFR (Non-Af Amer) Random Glucose Calcium Phosphorus Magnesium Total Bilirubin AST ALT Alkaline Phosphatase Total Creatine Kinase 40 L Troponin I 0.0130 Total Protein Albumin Globulin Albumin/Globulin Ratio Lipase TSH 3rd Generation Venous Blood Potassium 5.7 H Urine Color Tere Urine Clarity Turbid Urine pH 7.0 Ur Specific [place] 1.010 Urine Protein 100 Urine Glucose (UA) Neg Urine Ketones Negative Urine Blood Moderate Urine Nitrate Positive H Urine Bilirubin Negative Urine Urobilinogen 0.2-1.0 Ur Leukocyte Esterase Large Urine RBC (Auto) 95 H Urine WBC Clumps (Auto) Many H Urine Microscopic WBC 7604 H Urine Bacteria Many H 05/09/18 05/09/18 05/09/18 06:27 06:27 14:45 WBC 12.3 H RBC 2.91 L Hgb 8.8 L Hct 26.0 L MCV 89.5 MCH 30.4 MCHC 34.0 RDW 16.4 H Plt Count 197 MPV 8.7 Neut % (Auto) 88.8 H Lymph % (Auto) 4.5 L [place] % (Auto) 6.6 Eos % (Auto) 0.0 Baso % (Auto) 0.1 Neut # (Auto) 10.9 H Lymph # (Auto) 0.6 L [place] # (Auto) 0.8 Eos # (Auto) 0.0 Baso # (Auto) 0.0 Neutrophils % (Manual) Band Neutrophils % Lymphocytes % (Manual) Monocytes % (Manual) Platelet Estimate Poikilocytosis (manual Anisocytosis (manual) Ovalocytes PT INR APTT pCO2 28 L pO2 76 L HCO3 23.4 ABG pH 7.48 H ABG Total CO2 21.8 L ABG O2 Saturation 98.9 H ABG O2 Content 12.6 L ABG Base Excess -1.9 ABG Hemoglobin 9.3 L ABG Carboxyhemoglobin 1.6 H POC ABG HHb (Measured) 1.1 ABG Methemoglobin 1.6 ABG O2 Capacity 12.7 L Guilherme Test Yes VBG pH VBG pCO2 VBG HCO3 VBG Total CO2 VBG O2 Sat (Calc) VBG Base Excess VBG Potassium A-a O2 Difference 39.0 Hgb O2 Saturation 95.6 Glucose Lactate FiO2 21.0 Sodium 140 Potassium 4.1 Chloride 109 H Carbon Dioxide 18 L Anion Gap 17 BUN 89 H Creatinine 6.7 H Est GFR ( Amer) 9 Est GFR (Non-Af Amer) 8 Random Glucose 169 H Calcium 8.3 L Phosphorus Magnesium Total Bilirubin 0.7 AST 33 ALT 29 Alkaline Phosphatase 124 Total Creatine Kinase Troponin I Total Protein 6.5 Albumin 2.9 L Globulin 3.6 Albumin/Globulin Ratio 0.8 L Lipase TSH 3rd Generation 1.66 Venous Blood Potassium Urine Color Urine Clarity Urine pH Ur Specific Erin Urine Protein Urine Glucose (UA) Urine Ketones Urine Blood Urine Nitrate Urine Bilirubin Urine Urobilinogen Ur Leukocyte Esterase Urine RBC (Auto) Urine WBC Clumps (Auto) Urine Microscopic WBC Urine Bacteria 05/09/18 05/09/18 15:30 15:30 WBC 12.7 H RBC 3.12 L Hgb 9.5 L Hct 27.6 L MCV 88.5 MCH 30.5 MCHC 34.4 RDW 15.9 H Plt Count 215 MPV 8.7 Neut % (Auto) 89.8 H Lymph % (Auto) 4.2 L [place] % (Auto) 5.7 Eos % (Auto) 0.0 Baso % (Auto) 0.3 Neut # (Auto) 11.4 H Lymph # (Auto) 0.5 L [place] # (Auto) 0.7 Eos # (Auto) 0.0 Baso # (Auto) 0.0 Neutrophils % (Manual) Band Neutrophils % Lymphocytes % (Manual) Monocytes % (Manual) Platelet Estimate Poikilocytosis (manual Anisocytosis (manual) Ovalocytes PT INR APTT pCO2 pO2 HCO3 ABG pH ABG Total CO2 ABG O2 Saturation ABG O2 Content ABG Base Excess ABG Hemoglobin ABG Carboxyhemoglobin POC ABG HHb (Measured) ABG Methemoglobin ABG O2 Capacity Guilherme Test VBG pH VBG pCO2 VBG HCO3 VBG Total CO2 VBG O2 Sat (Calc) VBG Base Excess VBG Potassium A-a O2 Difference Hgb O2 Saturation Glucose Lactate FiO2 Sodium 142 Potassium 3.6 Chloride 112 H Carbon Dioxide 18 L Anion Gap 16 BUN 73 H Creatinine 5.1 H Est GFR ( Amer) 13 Est GFR (Non-Af Amer) 11 Random Glucose 135 H Calcium 8.3 L Phosphorus Magnesium 2.2 Total Bilirubin 0.8 AST 27 ALT 31 Alkaline Phosphatase 124 Total Creatine Kinase Troponin I Total Protein 6.6 Albumin 3.1 L Globulin 3.6 Albumin/Globulin Ratio 0.9 L Lipase TSH 3rd Generation Venous Blood Potassium Urine Color Urine Clarity Urine pH Ur Specific Erin Urine Protein Urine Glucose (UA) Urine Ketones Urine Blood Urine Nitrate Urine Bilirubin Urine Urobilinogen Ur Leukocyte Esterase Urine RBC (Auto) Urine WBC Clumps (Auto) Urine Microscopic WBC Urine Bacteria Assessment & Plan - Assessment and Plan (Free Text) Assessment: Jonathan Linn is a 87M w/ hx of CVA who presents to the ER for AMS, lethargy, fever, chills Coffee-grounds? 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 De Los Santos <Casey De Los Santos - Last Filed: 05/09/18 18:51> Meds - Medications Medications: Current Medications Acetaminophen (Tylenol 325mg Tab) 650 mg GT Q4 PRN PRN Reason: Fever >100.4 F Last Admin: 05/09/18 12:47 Dose: 650 mg Finasteride (Proscar) 5 mg PO DAILY [facility] Dextrose/Sodium Chloride (Dextrose 5%/0.45% Ns 1000 Ml) 1,000 mls @ 100 mls/hr IV .Q10H [facility] Stop: 05/10/18 01:59 Last Admin: 05/09/18 12:48 Dose: 100 mls/hr Piperacillin Sod/Tazobactam (Sod 2.25 gm/ Sodium Chloride) 100 mls @ 100 mls/ hr IVPB Q8 [facility] PRN Reason: Protocol Last Admin: 05/09/18 17:25 Dose: 100 mls/hr Pantoprazole Sodium 40 mg/ (Sodium Chloride) 100 mls @ 20 mls/hr IVPB Q5H [facility] PRN Reason: 8 MG/HR Last Admin: 05/09/18 14:09 Dose: 20 mls/hr Tamsulosin HCl (Flomax) 0.8 mg PEG DAILY [facility] Results - Vital Signs Recent Vital Signs: Last Vital Signs Temp 97.6 F 05/09/18 17:05 Pulse 107 H 05/09/18 17:05 Resp 17 05/09/18 17:05 BP 94/69 L 05/09/18 17:05 Pulse Ox 98 05/09/18 17:05 - Labs Result Diagrams: 05/09/18 15:30 05/09/18 15:30 Labs: Laboratory Results - last 24 hr 05/08/18 05/09/18 05/09/18 18:59 06:27 06:27 WBC 12.3 H RBC 2.91 L Hgb 8.8 L Hct 26.0 L MCV 89.5 MCH 30.4 MCHC 34.0 RDW 16.4 H Plt Count 197 MPV 8.7 Neut % (Auto) 88.8 H Lymph % (Auto) 4.5 L [place] % (Auto) 6.6 Eos % (Auto) 0.0 Baso % (Auto) 0.1 Neut # (Auto) 10.9 H Lymph # (Auto) 0.6 L [place] # (Auto) 0.8 Eos # (Auto) 0.0 Baso # (Auto) 0.0 pCO2 pO2 HCO3 ABG pH ABG Total CO2 ABG O2 Saturation ABG O2 Content ABG Base Excess ABG Hemoglobin ABG Carboxyhemoglobin POC ABG HHb (Measured) ABG Methemoglobin ABG O2 Capacity Guilherme Test A-a O2 Difference Hgb O2 Saturation FiO2 Sodium 140 Potassium 4.1 Chloride 109 H Carbon Dioxide 18 L Anion Gap 17 BUN 89 H Creatinine 6.7 H Est GFR ( Amer) 9 Est GFR (Non-Af Amer) 8 Random Glucose 169 H Calcium 8.3 L Magnesium Total Bilirubin 0.7 AST 33 ALT 29 Alkaline Phosphatase 124 Total Creatine Kinase 40 L Troponin I 0.0130 Total Protein 6.5 Albumin 2.9 L Globulin 3.6 Albumin/Globulin Ratio 0.8 L TSH 3rd Generation 1.66 05/09/18 05/09/18 05/09/18 14:45 15:30 15:30 WBC 12.7 H RBC 3.12 L Hgb 9.5 L Hct 27.6 L MCV 88.5 MCH 30.5 MCHC 34.4 RDW 15.9 H Plt Count 215 MPV 8.7 Neut % (Auto) 89.8 H Lymph % (Auto) 4.2 L [place] % (Auto) 5.7 Eos % (Auto) 0.0 Baso % (Auto) 0.3 Neut # (Auto) 11.4 H Lymph # (Auto) 0.5 L [place] # (Auto) 0.7 Eos # (Auto) 0.0 Baso # (Auto) 0.0 pCO2 28 L pO2 76 L HCO3 23.4 ABG pH 7.48 H ABG Total CO2 21.8 L ABG O2 Saturation 98.9 H ABG O2 Content 12.6 L ABG Base Excess -1.9 ABG Hemoglobin 9.3 L ABG Carboxyhemoglobin 1.6 H POC ABG HHb (Measured) 1.1 ABG Methemoglobin 1.6 ABG O2 Capacity 12.7 L Guilherme Test Yes A-a O2 Difference 39.0 Hgb O2 Saturation 95.6 FiO2 21.0 Sodium 142 Potassium 3.6 Chloride 112 H Carbon Dioxide 18 L Anion Gap 16 BUN 73 H Creatinine 5.1 H Est GFR ( Amer) 13 Est GFR (Non-Af Amer) 11 Random Glucose 135 H Calcium 8.3 L Magnesium 2.2 Total Bilirubin 0.8 AST 27 ALT 31 Alkaline Phosphatase 124 Total Creatine Kinase Troponin I Total Protein 6.6 Albumin 3.1 L Globulin 3.6 Albumin/Globulin Ratio 0.9 L TSH 3rd Generation Attending/Attestation - Attestation I have personally seen and examined this patient.: Yes I have fully participated in the care of the patient.: Yes I have reviewed all pertinent clinical information: Yes Notes (Text): 05/09/18 18:47 This is a 87 yr old M with history of CVA who presents to the ER for AMS, lethargy, fever, chills in setting of obstructive uropathy. PEG working and can be used for medications and feeds. No active GI bleeding. Thank you for letting us participate in the care of your patient. Local PEG care. Aspiration precautions
--- NOTE | 2018-05-09 18:38 | CP.PCM.CON ---
History of Present Illness - History of Present Illness History of Present Illness: Nephrology Consultation Note: Assessment: critical Acute Kidney Injury (N17.9) likely due to obstructive uropathy: improving sepsis with UTI b/l hydroureteronephrosis likely due to prostate enlargement HTN, hx of CVA comatose status Anemia, acidosis Plan No acute need for renal replacement therapy at this time. good UOP. cr trending down Patient not on ACEI/ARB due to FISH. maintain hemodynamics stable Monitor Input/Output, daily weights and renal function with basic metabolic panel continue with IVF , ID and GI consulted continue with flomax anemia management as per primary team Dose meds/antibiotics for reduced GFR. Avoid fleets enema/magnesium based laxatives. Avoid nephrotoxins/NSAIDs/ iodinated contrast (unless needed emergently) Glycemic control Further work up/management as per primary team Thanks for allowing me to participate in care of your patient. Will follow patient with you. Please call if any Qs. d/w daughter bedside Dr Abdon Salinas Office: [phone] Chief Complaint; fever reason for consult: FISH HPI: Pt is a 87 M with hx of hypertension (years), CVA resulting impaired swallow required PEG tube, non-communicative state since then, [place] [facility] [place], y[place] back home by family 1 week ago was brought to ER c /o fever and also dry diapers. pt unable to provide any hx. hx provided by daughter. renal consult for fish pt was found to be in urine retention in ER s/p danielle > 4 L urine output. seen by urologist as well ROS: pt unable to provide Physical Examination: General Appearance: Comfortable, in no acute respiratory distress. Vitals reviewed and noted as below Head; Atraumatic, normocephalic ENT: unable EYES: unable Neck; supple no lymphadenopathy, no thyromegaly or bruit Lungs: Normal respiratory rate/effort. Breath sounds bilateral equal and clear anteriorly Heart: Normal rate. s1s2 normal. No rub or gallop. Extremities: no edema. No varicose veins Neurological: Patient is non communicative, doesn't follow commands Skin: Warm and dry. Normal turgor. No rash. Palpitation: Normal elasticity for age Abdomen: Abdomen is soft. Bowel sounds +. There is no abdominal tenderness, no guarding/rigidity no organomegaly. has peg tube Psych: unable MSK: no joint tenderness or swelling. Digits and nails normal, no deformity : kidney or bladder not palpable. has danielle Labs/imaging reviewed. Past medical history, past surgical history, family history, social history, allergy reviewed and noted as below Family hx: no hx of CKD. Rest non-contributory Past Patient History - Infectious Disease Hx of Infectious Diseases: None - Past Medical History & Family History Past Medical History?: No - Past Social History Smoking Status: Former Smoker - CARDIAC Hx Cardiac Disorders: Yes - PULMONARY Hx Respiratory Disorders: No - NEUROLOGICAL Hx Neurological Disorder: Yes - HEENT Hx HEENT Problems: No - RENAL Hx Chronic Kidney Disease: No - ENDOCRINE/METABOLIC Hx Endocrine Disorders: No - HEMATOLOGICAL/ONCOLOGICAL Hx Blood Disorders: No - INTEGUMENTARY Hx Dermatological Problems: No - MUSCULOSKELETAL/RHEUMATOLOGICAL Hx Falls: Yes Other/Comment: Hx left knee swelling - GASTROINTESTINAL Hx Gastrointestinal Disorders: No - GENITOURINARY/GYNECOLOGICAL Hx Genitourinary Disorders: No - PSYCHIATRIC Hx Anxiety: No Hx Bipolar Disorder: No Hx Depression: No Hx Post Traumatic Stress Disorder: No Hx Schizophrenia: No Hx Substance Use: No - SURGICAL HISTORY Hx Surgeries: No - ANESTHESIA Hx Anesthesia: No Meds Allergies/Adverse Reactions: Allergies Allergy/AdvReac Type Severity Reaction Status Date / Time No Known Allergies Allergy Verified 05/03/17 22:46 - Medications Medications: Current Medications Acetaminophen (Tylenol 325mg Tab) 650 mg GT Q4 PRN PRN Reason: Fever >100.4 F Last Admin: 05/09/18 12:47 Dose: 650 mg Finasteride (Proscar) 5 mg PO DAILY JIN Dextrose/Sodium Chloride (Dextrose 5%/0.45% Ns 1000 Ml) 1,000 mls @ 100 mls/hr IV .Q10H JIN Stop: 05/10/18 01:59 Last Admin: 05/09/18 12:48 Dose: 100 mls/hr Piperacillin Sod/Tazobactam (Sod 2.25 gm/ Sodium Chloride) 100 mls @ 100 mls/ hr IVPB Q8 JIN PRN Reason: Protocol Last Admin: 05/09/18 17:25 Dose: 100 mls/hr Pantoprazole Sodium 40 mg/ (Sodium Chloride) 100 mls @ 20 mls/hr IVPB Q5H JIN PRN Reason: 8 MG/HR Last Admin: 05/09/18 14:09 Dose: 20 mls/hr Tamsulosin HCl (Flomax) 0.8 mg PEG DAILY [facility] Results - Vital Signs Recent Vital Signs: Last Vital Signs Temp 97.6 F 05/09/18 17:05 Pulse 107 H 05/09/18 17:05 Resp 17 05/09/18 17:05 BP 94/69 L 05/09/18 17:05 Pulse Ox 98 05/09/18 17:05 - Labs Result Diagrams: 05/09/18 15:30 05/09/18 15:30 Labs: Laboratory Results - last 24 hr 05/08/18 05/08/18 05/08/18 17:41 18:17 18:59 WBC 12.6 H RBC 3.45 L Hgb 10.6 L Hct 30.6 L MCV 88.5 MCH 30.6 MCHC 34.6 RDW 15.8 H Plt Count 241 MPV 8.9 Neut % (Auto) 82.8 H Lymph % (Auto) 6.1 L [place] % (Auto) 11.1 H Eos % (Auto) 0.0 Baso % (Auto) 0.0 Neut # (Auto) 10.5 H Lymph # (Auto) 0.8 L [place] # (Auto) 1.4 H Eos # (Auto) 0.0 Baso # (Auto) 0.0 Neutrophils % (Manual) 84 H Band Neutrophils % 3 H Lymphocytes % (Manual) 5 L Monocytes % (Manual) 8 Platelet Estimate Normal Poikilocytosis (manual Slight Anisocytosis (manual) Slight Ovalocytes Slight pCO2 pO2 HCO3 ABG pH ABG Total CO2 ABG O2 Saturation ABG O2 Content ABG Base Excess ABG Hemoglobin ABG Carboxyhemoglobin POC ABG HHb (Measured) ABG Methemoglobin ABG O2 Capacity Guilherme Test A-a O2 Difference Hgb O2 Saturation FiO2 Sodium Potassium Chloride Carbon Dioxide Anion Gap BUN Creatinine Est GFR ( Amer) Est GFR (Non-Af Amer) Random Glucose Calcium Magnesium Total Bilirubin AST ALT Alkaline Phosphatase Total Creatine Kinase 40 L Troponin I 0.0130 Total Protein Albumin Globulin Albumin/Globulin Ratio TSH 3rd Generation Urine Color Tere Urine Clarity Turbid Urine pH 7.0 Ur Specific [place] 1.010 Urine Protein 100 Urine Glucose (UA) Neg Urine Ketones Negative Urine Blood Moderate Urine Nitrate Positive H Urine Bilirubin Negative Urine Urobilinogen 0.2-1.0 Ur Leukocyte Esterase Large Urine RBC (Auto) 95 H Urine WBC Clumps (Auto) Many H Urine Microscopic WBC 7604 H Urine Bacteria Many H 05/09/18 05/09/18 05/09/18 06:27 06:27 14:45 WBC 12.3 H RBC 2.91 L Hgb 8.8 L Hct 26.0 L MCV 89.5 MCH 30.4 MCHC 34.0 RDW 16.4 H Plt Count 197 MPV 8.7 Neut % (Auto) 88.8 H Lymph % (Auto) 4.5 L [place] % (Auto) 6.6 Eos % (Auto) 0.0 Baso % (Auto) 0.1 Neut # (Auto) 10.9 H Lymph # (Auto) 0.6 L [place] # (Auto) 0.8 Eos # (Auto) 0.0 Baso # (Auto) 0.0 Neutrophils % (Manual) Band Neutrophils % Lymphocytes % (Manual) Monocytes % (Manual) Platelet Estimate Poikilocytosis (manual Anisocytosis (manual) Ovalocytes pCO2 28 L pO2 76 L HCO3 23.4 ABG pH 7.48 H ABG Total CO2 21.8 L ABG O2 Saturation 98.9 H ABG O2 Content 12.6 L ABG Base Excess -1.9 ABG Hemoglobin 9.3 L ABG Carboxyhemoglobin 1.6 H POC ABG HHb (Measured) 1.1 ABG Methemoglobin 1.6 ABG O2 Capacity 12.7 L Guilherme Test Yes A-a O2 Difference 39.0 Hgb O2 Saturation 95.6 FiO2 21.0 Sodium 140 Potassium 4.1 Chloride 109 H Carbon Dioxide 18 L Anion Gap 17 BUN 89 H Creatinine 6.7 H Est GFR ( Amer) 9 Est GFR (Non-Af Amer) 8 Random Glucose 169 H Calcium 8.3 L Magnesium Total Bilirubin 0.7 AST 33 ALT 29 Alkaline Phosphatase 124 Total Creatine Kinase Troponin I Total Protein 6.5 Albumin 2.9 L Globulin 3.6 Albumin/Globulin Ratio 0.8 L TSH 3rd Generation 1.66 Urine Color Urine Clarity Urine pH Ur Specific [place] Urine Protein Urine Glucose (UA) Urine Ketones Urine Blood Urine Nitrate Urine Bilirubin Urine Urobilinogen Ur Leukocyte Esterase Urine RBC (Auto) Urine WBC Clumps (Auto) Urine Microscopic WBC Urine Bacteria 05/09/18 05/09/18 15:30 15:30 WBC 12.7 H RBC 3.12 L Hgb 9.5 L Hct 27.6 L MCV 88.5 MCH 30.5 MCHC 34.4 RDW 15.9 H Plt Count 215 MPV 8.7 Neut % (Auto) 89.8 H Lymph % (Auto) 4.2 L [place] % (Auto) 5.7 Eos % (Auto) 0.0 Baso % (Auto) 0.3 Neut # (Auto) 11.4 H Lymph # (Auto) 0.5 L [place] # (Auto) 0.7 Eos # (Auto) 0.0 Baso # (Auto) 0.0 Neutrophils % (Manual) Band Neutrophils % Lymphocytes % (Manual) Monocytes % (Manual) Platelet Estimate Poikilocytosis (manual Anisocytosis (manual) Ovalocytes pCO2 pO2 HCO3 ABG pH ABG Total CO2 ABG O2 Saturation ABG O2 Content ABG Base Excess ABG Hemoglobin ABG Carboxyhemoglobin POC ABG HHb (Measured) ABG Methemoglobin ABG O2 Capacity Guilherme Test A-a O2 Difference Hgb O2 Saturation FiO2 Sodium 142 Potassium 3.6 Chloride 112 H Carbon Dioxide 18 L Anion Gap 16 BUN 73 H Creatinine 5.1 H Est GFR ( Amer) 13 Est GFR (Non-Af Amer) 11 Random Glucose 135 H Calcium 8.3 L Magnesium 2.2 Total Bilirubin 0.8 AST 27 ALT 31 Alkaline Phosphatase 124 Total Creatine Kinase Troponin I Total Protein 6.6 Albumin 3.1 L Globulin 3.6 Albumin/Globulin Ratio 0.9 L TSH 3rd Generation Urine Color Urine Clarity Urine pH Ur Specific [place] Urine Protein Urine Glucose (UA) Urine Ketones Urine Blood Urine Nitrate Urine Bilirubin Urine Urobilinogen Ur Leukocyte Esterase Urine RBC (Auto) Urine WBC Clumps (Auto) Urine Microscopic WBC Urine Bacteria
--- NOTE | 2018-05-09 19:18 | CP.PCM.CON ---
History of Present Illness - History of Present Illness History of Present Illness: Neurology Consultation Note: Mr. Linn is an 87-year-old man with a past medical history of hypertension and recent intracerebral hemorrhage in March 2018, [place] [facility] [place], but brought to [facility] for fever, chills and altered mental status. Labs showed elevated WBC and acute kidney injury. Neurology was consulted to assist with the management and care. CT scan of the head showed right frontal lobe encephalomalacia. The patient was somnolent when I saw him, but did move the right side and localized. His daughter was at bedside and said that he spoke with her earlier and said that he is tired. Review of Systems - Review of Systems All systems: reviewed and no additional remarkable complaints except Past Patient History - Infectious Disease Hx of Infectious Diseases: None - Past Medical History & Family History Past Medical History?: No - Past Social History Smoking Status: Former Smoker - CARDIAC Hx Cardiac Disorders: Yes - PULMONARY Hx Respiratory Disorders: No - NEUROLOGICAL Hx Neurological Disorder: Yes - HEENT Hx HEENT Problems: No - RENAL Hx Chronic Kidney Disease: No - ENDOCRINE/METABOLIC Hx Endocrine Disorders: No - HEMATOLOGICAL/ONCOLOGICAL Hx Blood Disorders: No - INTEGUMENTARY Hx Dermatological Problems: No - MUSCULOSKELETAL/RHEUMATOLOGICAL Hx Falls: Yes Other/Comment: Hx left knee swelling - GASTROINTESTINAL Hx Gastrointestinal Disorders: No - GENITOURINARY/GYNECOLOGICAL Hx Genitourinary Disorders: No - PSYCHIATRIC Hx Anxiety: No Hx Bipolar Disorder: No Hx Depression: No Hx Post Traumatic Stress Disorder: No Hx Schizophrenia: No Hx Substance Use: No - SURGICAL HISTORY Hx Surgeries: No - ANESTHESIA Hx Anesthesia: No Meds Allergies/Adverse Reactions: Allergies Allergy/AdvReac Type Severity Reaction Status Date / Time No Known Allergies Allergy Verified 05/03/17 22:46 - Medications Medications: Current Medications Acetaminophen (Tylenol 325mg Tab) 650 mg GT Q4 PRN PRN Reason: Fever >100.4 F Last Admin: 05/09/18 12:47 Dose: 650 mg Finasteride (Proscar) 5 mg PO DAILY JIN Dextrose/Sodium Chloride (Dextrose 5%/0.45% Ns 1000 Ml) 1,000 mls @ 100 mls/hr IV .Q10H JIN Stop: 05/10/18 01:59 Last Admin: 05/09/18 12:48 Dose: 100 mls/hr Piperacillin Sod/Tazobactam (Sod 2.25 gm/ Sodium Chloride) 100 mls @ 100 mls/ hr IVPB Q8 JIN PRN Reason: Protocol Last Admin: 05/09/18 17:25 Dose: 100 mls/hr Pantoprazole Sodium 40 mg/ (Sodium Chloride) 100 mls @ 20 mls/hr IVPB Q5H JIN PRN Reason: 8 MG/HR Last Admin: 05/09/18 14:09 Dose: 20 mls/hr Tamsulosin HCl (Flomax) 0.8 mg PEG DAILY [facility] Physical Exam - Neurological Exam Neurological exam: Altered, CN II-XII Intact Additional comments: Somnolent, but responsive. Moves RUE and RLE normally, little movement of left side noted. Reflexes are brisk on the left with upgoing plantar responses. Results - Vital Signs Recent Vital Signs: Last Vital Signs Temp 97.6 F 05/09/18 17:05 Pulse 107 H 05/09/18 17:05 Resp 17 05/09/18 17:05 BP 94/69 L 05/09/18 17:05 Pulse Ox 98 05/09/18 17:05 - Labs Result Diagrams: 05/09/18 15:30 05/09/18 15:30 Labs: Laboratory Results - last 24 hr 05/08/18 05/09/18 05/09/18 18:59 06:27 06:27 WBC 12.3 H RBC 2.91 L Hgb 8.8 L Hct 26.0 L MCV 89.5 MCH 30.4 MCHC 34.0 RDW 16.4 H Plt Count 197 MPV 8.7 Neut % (Auto) 88.8 H Lymph % (Auto) 4.5 L [place] % (Auto) 6.6 Eos % (Auto) 0.0 Baso % (Auto) 0.1 Neut # (Auto) 10.9 H Lymph # (Auto) 0.6 L [place] # (Auto) 0.8 Eos # (Auto) 0.0 Baso # (Auto) 0.0 pCO2 pO2 HCO3 ABG pH ABG Total CO2 ABG O2 Saturation ABG O2 Content ABG Base Excess ABG Hemoglobin ABG Carboxyhemoglobin POC ABG HHb (Measured) ABG Methemoglobin ABG O2 Capacity Guilherme Test A-a O2 Difference Hgb O2 Saturation FiO2 Sodium 140 Potassium 4.1 Chloride 109 H Carbon Dioxide 18 L Anion Gap 17 BUN 89 H Creatinine 6.7 H Est GFR ( Amer) 9 Est GFR (Non-Af Amer) 8 Random Glucose 169 H Calcium 8.3 L Magnesium Total Bilirubin 0.7 AST 33 ALT 29 Alkaline Phosphatase 124 Troponin I 0.0130 Total Protein 6.5 Albumin 2.9 L Globulin 3.6 Albumin/Globulin Ratio 0.8 L TSH 3rd Generation 1.66 05/09/18 05/09/18 05/09/18 14:45 15:30 15:30 WBC 12.7 H RBC 3.12 L Hgb 9.5 L Hct 27.6 L MCV 88.5 MCH 30.5 MCHC 34.4 RDW 15.9 H Plt Count 215 MPV 8.7 Neut % (Auto) 89.8 H Lymph % (Auto) 4.2 L [place] % (Auto) 5.7 Eos % (Auto) 0.0 Baso % (Auto) 0.3 Neut # (Auto) 11.4 H Lymph # (Auto) 0.5 L [place] # (Auto) 0.7 Eos # (Auto) 0.0 Baso # (Auto) 0.0 pCO2 28 L pO2 76 L HCO3 23.4 ABG pH 7.48 H ABG Total CO2 21.8 L ABG O2 Saturation 98.9 H ABG O2 Content 12.6 L ABG Base Excess -1.9 ABG Hemoglobin 9.3 L ABG Carboxyhemoglobin 1.6 H POC ABG HHb (Measured) 1.1 ABG Methemoglobin 1.6 ABG O2 Capacity 12.7 L Guilherme Test Yes A-a O2 Difference 39.0 Hgb O2 Saturation 95.6 FiO2 21.0 Sodium 142 Potassium 3.6 Chloride 112 H Carbon Dioxide 18 L Anion Gap 16 BUN 73 H Creatinine 5.1 H Est GFR ( Amer) 13 Est GFR (Non-Af Amer) 11 Random Glucose 135 H Calcium 8.3 L Magnesium 2.2 Total Bilirubin 0.8 AST 27 ALT 31 Alkaline Phosphatase 124 Troponin I Total Protein 6.6 Albumin 3.1 L Globulin 3.6 Albumin/Globulin Ratio 0.9 L TSH 3rd Generation Assessment & Plan (1) Toxic metabolic encephalopathy Assessment and Plan: This is likely due to acute renal failure, infection and dehydration. I recommend correction of underlying cause. CT head does not show any acute findings. Continue supportive care. Thank you. Status: Acute Priority: High
[2018-05-09] MEDS ORDERED: Acetaminophen 650mg/20.3ml solution UD PO PRN (22:09)
[2018-05-10] MEDS: Pantoprazole 40 MG in Sodium Chloride 0.9% 100 ML IVPB SCH ×5 (00:25→20:08)
--- NOTE | 2018-05-10 05:36 | CON ---
DATE: 05/09/2018 COMPREHENSIVE UROLOGIC CONSULTATION TIME OF CONSULTATION: Roughly 5:45 p.m. BRIEF HISTORY: The patient is an 87-year-old male from [facility], with a more than 12-year history of BPH, who originally started on BPH medications 12 years ago, but stopped these medications one year after starting the medications. The patient now presents with a hemorrhagic stroke on 03/28/2018 at the [facility] and was eventually discharged home for rehabilitation when he became weak and had to be re-admitted to [facility] via the ER. The patient was admitted with acute renal failure with BUN and creatinine of 117 and 10.7 respectively with a GFR of 5 on 05/08/2018. A Rashid catheter was inserted into the bladder with more than 900 mL of annalisa urine removed with the Rashid catheter. Most of the history for this patient was obtained from his daughter Cheryl because patient was slightly lethargic at this hour, but was more alert this morning according to his daughter Cheryl. The patient's only past medical history was hypertension and he was previously on Norvasc for treatment of hypertension. This medication was stopped during this admission and after the stroke. PAST SURGICAL HISTORY: The patient has no past surgical history. SOCIAL HISTORY: No history of any tobacco use or alcohol use. ALLERGIES: NO KNOWN ALLERGIES TO ANY MEDICATIONS. FAMILY HISTORY: No family history of cancer including prostate cancer. The patient is currently lethargic and unable to give any type of history. The patient had abdominopelvic CT done in the ER, which showed chronic bilateral hydronephrosis. No renal masses. PHYSICAL EXAMINATION: HEENT: Grossly within normal limits. NECK: Supple. Thyroid, not palpable. ABDOMEN: Soft. Not distended or tender. No CVA tenderness. No suprapubic tenderness, with an indwelling Rashid catheter. RECTAL: Shows normal rectal tone without fluctuance or masses. : Prostate is enlarged, wide, smooth, symmetrical, nontender, without nodules or indurations, and is relatively flat. LABORATORY EVALUATION: On 05/09/2018, shows a chem profile with a sodium of 142, potassium 3.6, chloride 112, CO2 18, BUN and creatinine of 73 and 5.1 which has markedly improved over 24 hours with an indwelling Rashid catheter. His CFR is now 11 up from 5 on admission with the indwelling Rashid catheter. His random glucose is 135. Calcium 8.3, phosphorus on 05/08/2018 was 2.9, magnesium today 05/09/2018 is 2.2, total bilirubin 0.8, AST 27, ALT 31, alkaline phosphatase was 124. His urinalysis on 05/08/2018 showed the color was annalisa, clarity was turbid, pH was 7, specific gravity 1.010, protein 100, glucose negative, ketones negative, blood moderate, nitrite positive, bilirubin negative, urobilinogen is 0.2 to 1, leukocyte esterase large, 95 rbc's, many wbc clumps, 7604 wbc's, and many bacteria per high-power field indicating a urosepsis. Her CBC on 05/09/2018 shows a WBC count of 12.7, hemoglobin of 9.5 and hematocrit of 27.6 indicating a severe anemia, platelet count was 215,000. Urine C and S shows positive to gram-negative rods. The patient was started on tamsulosin 0.8 mg in the ER and to this regimen, we will add finasteride 5 mg daily for treatment of BPH and acute urinary retention. The patient is currently on IV Zosyn and vancomycin. Blood culture is also positive for gram-negative rods. DIAGNOSTIC IMPRESSION: 1. Urosepsis. 2. Benign prostatic hypertrophy. 3. Urinary retention. 4. Acute renal failure. 5. Chronic bilateral hydronephrosis secondary to benign prostatic hypertrophy and outlet obstruction. PLAN: Plan for this patient will be to maintain the Rashid catheter till his BUN and creatinine return to normal and the urosepsis is completely resolved. Then, the patient can be given a voiding trial. The patient may eventually need a PSA after the urosepsis is completely resolved. Akira Lopez MD MTDAnne
--- NOTE | 2018-05-10 06:20 | CP.PCM.HP ---
History of Present Illness - History of Present Illness History of Present Illness: CC: AMS History of Present Illness: An 87yo male with H/O recently suffered hemorrhagic stroke admitted to [facility] [place], then to rehab, home PT/OT for about a week, for last several days family has noted fever, and decreased responsiveness. They note mild cough and mild SOB. They state no vomiting, diarrhea and diapers have appeared wet without gross blood. They note chronic wound near rectum/sacrum. PEG feeds otherwise normal. They also believe he's had some facial swelling but no erythema, no trauma or falls. In the ER, patient was found to have Acute Urinary Retention, Obstructive Uropathy, UTI/Sepsis, Acute Renal Failure and SDH with Mass Effect (First ICH March 28). As per the daughter, patient has been having recent Memory Issues and Wandering Problem even prior to the ICH but was able to come back home. +Residual Left sided Weakness since the first Ischemic CVA in 2013. Family declined Seizure Prophylaxis Present on Admission - Present on Admission Any Indicators Present on Admission: No Review of Systems - Review of Systems All systems: reviewed and no additional remarkable complaints except Past Patient History - Infectious Disease Hx of Infectious Diseases: None - Past Medical History & Family History Past Medical History?: No Past Family History: Reviewed and not pertinent - Past Social History Smoking Status: Former Smoker Alcohol: None Drugs: Denies - CARDIAC Hx Cardiac Disorders: Yes - PULMONARY Hx Respiratory Disorders: No - NEUROLOGICAL Hx Neurological Disorder: Yes - HEENT Hx HEENT Problems: No - RENAL Hx Chronic Kidney Disease: No - ENDOCRINE/METABOLIC Hx Endocrine Disorders: No - HEMATOLOGICAL/ONCOLOGICAL Hx Blood Disorders: No - INTEGUMENTARY Hx Dermatological Problems: No - MUSCULOSKELETAL/RHEUMATOLOGICAL Hx Falls: Yes Other/Comment: Hx left knee swelling - GASTROINTESTINAL Hx Gastrointestinal Disorders: No - GENITOURINARY/GYNECOLOGICAL Hx Genitourinary Disorders: No - PSYCHIATRIC Hx Anxiety: No Hx Bipolar Disorder: No Hx Depression: No Hx Post Traumatic Stress Disorder: No Hx Schizophrenia: No Hx Substance Use: No - SURGICAL HISTORY Hx Surgeries: No - ANESTHESIA Hx Anesthesia: No Meds Allergies/Adverse Reactions: Allergies Allergy/AdvReac Type Severity Reaction Status Date / Time No Known Allergies Allergy Verified 05/03/17 22:46 Physical Exam - Constitutional Appears: Toxic, Agitated, Chronically Ill - Head Exam Head Exam: ATRAUMATIC, NORMAL INSPECTION, NORMOCEPHALIC - Eye Exam Eye Exam: absent: Conjunctival injection, Scleral icterus Pupil Exam: NORMAL ACCOMODATION, PERRL - ENT Exam ENT Exam: Mucous Membranes Dry, Normal Exam - Neck Exam Neck exam: Positive for: Normal Inspection - Respiratory Exam Respiratory Exam: Clear to Auscultation Bilateral, NORMAL BREATHING PATTERN - Cardiovascular Exam Cardiovascular Exam: Tachycardia, REGULAR RHYTHM, +S1, +S2, Systolic Murmur - GI/Abdominal Exam GI & Abdominal Exam: Normal Bowel Sounds, Soft. absent: Guarding, Rigid, Tenderness Additional comments: +G-Tube - Exam Additional comments: Rashid Cath in place - Extremities Exam Extremities exam: Positive for: normal capillary refill, normal inspection - Back Exam Back exam: NORMAL INSPECTION - Neurological Exam Neurological exam: Altered, Motor Sensory Deficit - Psychiatric Exam Psychiatric exam: Normal Affect, Normal Mood - Skin Skin Exam: Dry, Intact, Normal Color, Warm Results - Vital Signs Recent Vital Signs: Last Vital Signs Temp 97.5 F L 05/10/18 02:18 Pulse 120 H 05/10/18 02:18 Resp 18 05/10/18 02:18 BP 106/69 05/10/18 02:18 Pulse Ox 97 05/10/18 02:18 - Labs Result Diagrams: 05/10/18 07:08 05/10/18 07:08 Labs: Laboratory Results - last 24 hr 05/09/18 05/09/18 05/09/18 06:27 06:27 14:45 WBC 12.3 H RBC 2.91 L Hgb 8.8 L Hct 26.0 L MCV 89.5 MCH 30.4 MCHC 34.0 RDW 16.4 H Plt Count 197 MPV 8.7 Neut % (Auto) 88.8 H Lymph % (Auto) 4.5 L Schleicher % (Auto) 6.6 Eos % (Auto) 0.0 Baso % (Auto) 0.1 Neut # (Auto) 10.9 H Lymph # (Auto) 0.6 L Schleicher # (Auto) 0.8 Eos # (Auto) 0.0 Baso # (Auto) 0.0 pCO2 28 L pO2 76 L HCO3 23.4 ABG pH 7.48 H ABG Total CO2 21.8 L ABG O2 Saturation 98.9 H ABG O2 Content 12.6 L ABG Base Excess -1.9 ABG Hemoglobin 9.3 L ABG Carboxyhemoglobin 1.6 H POC ABG HHb (Measured) 1.1 ABG Methemoglobin 1.6 ABG O2 Capacity 12.7 L Guilherme Test Yes A-a O2 Difference 39.0 Hgb O2 Saturation 95.6 FiO2 21.0 Sodium 140 Potassium 4.1 Chloride 109 H Carbon Dioxide 18 L Anion Gap 17 BUN 89 H Creatinine 6.7 H Est GFR ( Amer) 9 Est GFR (Non-Af Amer) 8 Random Glucose 169 H Calcium 8.3 L Magnesium Total Bilirubin 0.7 AST 33 ALT 29 Alkaline Phosphatase 124 Total Protein 6.5 Albumin 2.9 L Globulin 3.6 Albumin/Globulin Ratio 0.8 L TSH 3rd Generation 1.66 05/09/18 05/09/18 15:30 15:30 WBC 12.7 H RBC 3.12 L Hgb 9.5 L Hct 27.6 L MCV 88.5 MCH 30.5 MCHC 34.4 RDW 15.9 H Plt Count 215 MPV 8.7 Neut % (Auto) 89.8 H Lymph % (Auto) 4.2 L Schleicher % (Auto) 5.7 Eos % (Auto) 0.0 Baso % (Auto) 0.3 Neut # (Auto) 11.4 H Lymph # (Auto) 0.5 L Schleicher # (Auto) 0.7 Eos # (Auto) 0.0 Baso # (Auto) 0.0 pCO2 pO2 HCO3 ABG pH ABG Total CO2 ABG O2 Saturation ABG O2 Content ABG Base Excess ABG Hemoglobin ABG Carboxyhemoglobin POC ABG HHb (Measured) ABG Methemoglobin ABG O2 Capacity Guilherme Test A-a O2 Difference Hgb O2 Saturation FiO2 Sodium 142 Potassium 3.6 Chloride 112 H Carbon Dioxide 18 L Anion Gap 16 BUN 73 H Creatinine 5.1 H Est GFR ( Amer) 13 Est GFR (Non-Af Amer) 11 Random Glucose 135 H Calcium 8.3 L Magnesium 2.2 Total Bilirubin 0.8 AST 27 ALT 31 Alkaline Phosphatase 124 Total Protein 6.6 Albumin 3.1 L Globulin 3.6 Albumin/Globulin Ratio 0.9 L TSH 3rd Generation - EKG Data EKG Interpreted by: Myself EKG shows normal: Sinus rhythm Rate: Tachycardia - EKG Data EKG comments: RBBB. LAD. Non-Specific T-T Changes. - Imaging and Cardiology CT scan - head Status: Report reviewed by me Additional comment: CT HEAD WITHOUT CONTRAST. HISTORY: r/o ICH COMPARISON: None available. TECHNIQUE: Axial computed tomography images were obtained through the head/brain without intravenous contrast. Radiation dose: Total exam DLP = 1372.4 mGy-cm. This CT exam was performed using one or more of the following dose reduction techniques: Automated exposure control, adjustment of the mA and/or kV according to patient size, and/or use of iterative reconstruction technique. FINDINGS: HEMORRHAGE: Thin left parieto-occipital hypodense collection. BRAIN: No mass effect or edema. Atrophy. Chronic microvascular ischemic changes. Bilateral basal ganglia and left thalamic lacunar infarctions. Hypodense area in the right thalamus, age indeterminate but likely related to subacute to chronic infarction. VENTRICLES: Prominent. No hydrocephalus. CALVARIUM: Unremarkable. PARANASAL SINUSES: Unremarkable as visualized. No significant inflammatory changes. MASTOID AIR CELLS: Unremarkable as visualized. No inflammatory changes. OTHER FINDINGS: None. IMPRESSION: Small faint approximately 7 mm left parieto-occipital convexity subdural collection. Right thalamic area of hypodensity, age indeterminate, but likely represents a late subacute to chronic infarction. Chest x-ray Status: Report reviewed by me Additional comment: IMPRESSION: No active disease. CT Scan Abdomen/Pelvis: Status: Report reviewed by me Additional comment: CT Chest, Abdomen and Pelvis without intravenous contrast HISTORY: fever, cough, abd distension recent stroke COMPARISON: None. TECHNIQUE: Radiation dose: Total exam DLP = 1148.8 mGy-cm. This CT exam was performed using one or more of the following dose reduction techniques: Automated exposure control, adjustment of the mA and/or kV according to patient size, and/or use of iterative reconstruction technique. FINDINGS: LUNGS: Left lower lobe atelectasis/infiltrate. No nodule, mass or consolidation. MEDIASTINUM: Unremarkable. Normal caliber aorta and pulmonary arterial trunk. Cardiomegaly. Coronary arterial and valvular calcifications. LYMPH NODES: Unremarkable. PLEURA: Unremarkable. No pneumothorax. No pleural fluid. LIVER: Unremarkable. No gross lesion or ductal dilatation. GALLBLADDER AND BILE DUCTS: Cholelithiasis without gallbladder wall thickening x-rays or pericholecystic fluid. PANCREAS: Unremarkable. No gross lesion or ductal dilatation. SPLEEN: Unremarkable. ADRENALS: Bilateral nodular thickening. KIDNEYS AND URETERS: Bilateral hydroureteronephrosis without obstructing calculus. No hydronephrosis. No solid mass. VASCULATURE: Calcific atherosclerosis. Infrarenal 3.5 cm abdominal aortic aneurysm. BOWEL: Gastrostomy. Smooth rectal wall thickening. No obstruction. No gross mural thickening. APPENDIX: Normal appendix. PERITONEUM: Unremarkable. No free fluid. No free air. LYMPH NODES: Unremarkable. No enlarged lymph nodes. BLADDER: Collapsed around a Rashid catheter with markedly thickened wall. REPRODUCTIVE: Prostatomegaly. BONES: Lucency within the T6 vertebral body. Multilevel degenerative changes. OTHER FINDINGS: None. IMPRESSION: Bilateral hydroureteronephrosis likely secondary to chronic bladder outlet obstruction despite presence of Rashid catheter. Cholelithiasis without CT evidence for acute cholecystitis. Smooth rectal wall thickening may be seen with proctitis in the proper clinical setting. Lucency within the T6 vertebral body with suggestion of sclerotic margins which may represent a nonacute finding. If there is clinical concern for acute fracture. MRI the thoracic spine can be obtained further evaluation. 3.5 cm infrarenal abdominal aortic aneurysm. Additional findings as above. Assessment & Plan (1) Altered mental status Assessment and Plan: Toxic Metabolic Encephalopathy; Recent SDH Acute Renal Failure sec to Obstructive Uropathy; B/L Hydronephrosis due to BPH Sepsis sec to UTI IVF IV Vancomycin 1gm Given Zosyn 2.25mg IV Q8hrs PRN Blood Cultures and Urine Cultures Tylenol PRN ID, Renal, Urology and Neurology Consult CBC with diff BMP Status: Acute Priority: High (2) Cerebrovascular accident (CVA) with left hemiparesis Status: Chronic Priority: Medium (3) Hypertension Assessment and Plan: Hold Norvasc Status: Chronic Priority: Low (4) Dyslipidemia Status: Chronic Priority: Low
[2018-05-10 08:06] LABS: BASO % 0.2 % (0.0-2.0); HEMOGLOBIN 8.7 g/dL (12.0-18.0); LYMPH # 0.9 K/uL (1.0-4.3); LYMPH % 7.3 % (20.0-40.0); MEAN CELL VOLUME 89.4 fl (80.0-94.0); MEAN CORPUSCULAR HEMOGLOBIN 30.3 pg (27.0-31.0); MEAN CORPUSCULAR HGB CONC 33.9 g/dL (33.0-37.0); MEAN PLATELET VOLUME 8.9 fl (7.2-11.7); MONO # 0.9 K/uL (0.0-0.8); NEUT # 10.5 K/uL (1.8-7.0); NEUT % 85.5 % (50.0-75.0); RBC 2.87 Mil/uL (4.40-5.90); RED CELL DISTRIBUTION WIDTH 16.3 % (11.5-14.5); WHITE BLOOD COUNT 12.2 K/uL (4.8-10.8)
[2018-05-10] MEDS: Potassium CL 10 MEQ/50 ML 50 ML IVPB SCH ×4 (09:58→14:17)
--- NOTE | 2018-05-10 12:05 | CP.PCM.CON ---
History of Present Illness - History of Present Illness History of Present Illness: 87M who recently suffered hemorrhagic stroke managed at [facility] [place] then d/c to [facility] with PEG tube feedings before discharge home , now presents to the ER for AMS, lethargy, fever, and chills. He has been home now for 1 week. As per family, he had fevers, mild decreased responsiveness. They also noted mild cough and mild SOB. They deny vomiting, diarrhea and diapers have appeared wet without gross blood. They note chronic wound near rectum/sacrum. PEG feeds otherwise normal a home. Upon checking residuals in the ER PMHx: CVA, HTN PSHx: family denies Social Hx: denies any smoking, illicit drugs, ETOH Family hx: Reviewed, neg as per family Endo hx: denies ROS: 12 point ROS conducted, neg other than above Review of Systems - Review of Systems Systems not reviewed;Unavailable: Altered Mental Status - Constitutional Constitutional: As Per HPI - EENT Eyes: absent: As Per HPI, Blind Spots, Blurred Vision, Change in Vision, Decreased Night Vision, Diplopia, Discharge, Dry Eye, Exophthalmos, Floaters, Irritation, Itchy Eyes, Loss of Peripheral Vision, Pain, Photophobia, Requires Corrective Lenses, Sees Flashes, Spots in Vision, Tunnel Vision, Other Visual Disturbances, Loss of Vision, Other Ears: absent: As Per HPI, Decreased Hearing, Ear Discharge, Ear Pain, Tinnitus, Abnormal Hearing, Disequilibrium, Dizziness, Other Nose/Mouth/Throat: absent: As Per HPI, Epistaxis, Nasal Congestion, Nasal Discharge, Nasal Obstruction, Nasal Trauma, Nose Pain, Post Nasal Drip, Sinus Pain, Sinus Pressure, Bleeding Gums, Change in Voice, Dental Pain, Dry Mouth, Dysphagia, Halitosis, Hoarsness, Lip Swelling, Mouth Lesions, Mouth Pain, Odynophagia, Sore Throat, Throat Swelling, Tongue Swelling, Facial Pain, Neck Pain, Neck Mass, Other - Cardiovascular Cardiovascular: As Per HPI - Respiratory Respiratory: absent: As Per HPI, Cough, Dyspnea, Hemoptysis, Dyspnea on Exertion , Wheezing, Snoring, Stridor, Pain on Inspiration, Chest Congestion, Excessive Mucous Production, Change in Mucous Color, Pain with Coughing, Other - Gastrointestinal Gastrointestinal: As Per HPI - Genitourinary Genitourinary: absent: As Per HPI, Change in Urinary Stream, Difficulty Urinating, Dysuria, Flank Pain, Hematuria, Pyuria, Nocturia, Urinary Incontinence, Urinary Frequency, Urinary Hesitance, Urinary Urgency, Voiding Freq/Small Amts, Freq UTI, Hx Renal/Bladder Calculi, Hx /Renal Surgery, Bladder Distension, Other - Integumentary Integumentary: As Per HPI - Neurological Neurological: As Per HPI - Psychiatric Psychiatric: absent: As Per HPI, Abnormal Sleep Pattern, Anhedonia, Anxiety, Auditory Hallucinations, Behavioral Changes, Change in Appetite, Change in Libido, Confusion, Depression, Difficulty Concentrating, Hallucinations, Homicidal Ideation, Hopelessness, Irritability, Memory Loss, Mood Swings, Panic Attacks, Paranoia, Suicidal Ideation, Visual Hallucinations, Tactile Hallucinations, Other - Endocrine Endocrine: absent: As Per HPI, Change in Body Appearance, Change in Libido, Cold Intolorance, Deepening of Voice, Excessive Sweating, Fatigue, Flushing, Heat Intolorance, Increase in Ring/Shoe/Hat Size, Palpitations, Polydipsia, Polyphagia, Polyuria, Other - Hematologic/Lymphatic Hematologic: absent: As Per HPI, Easy Bleeding, Easy Bruising, Lymphadenopathy, Other Past Patient History - Infectious Disease Hx of Infectious Diseases: None - Past Medical History & Family History Past Medical History?: No Past Family History: Reviewed and not pertinent - Past Social History Smoking Status: Former Smoker Alcohol: None Drugs: Denies - CARDIAC Hx Cardiac Disorders: Yes - PULMONARY Hx Respiratory Disorders: No - NEUROLOGICAL Hx Neurological Disorder: Yes - HEENT Hx HEENT Problems: No - RENAL Hx Chronic Kidney Disease: No - ENDOCRINE/METABOLIC Hx Endocrine Disorders: No - HEMATOLOGICAL/ONCOLOGICAL Hx Blood Disorders: No - INTEGUMENTARY Hx Dermatological Problems: No - MUSCULOSKELETAL/RHEUMATOLOGICAL Hx Falls: Yes Other/Comment: Hx left knee swelling - GASTROINTESTINAL Hx Gastrointestinal Disorders: No - GENITOURINARY/GYNECOLOGICAL Hx Genitourinary Disorders: No - PSYCHIATRIC Hx Anxiety: No Hx Bipolar Disorder: No Hx Depression: No Hx Post Traumatic Stress Disorder: No Hx Schizophrenia: No Hx Substance Use: No - SURGICAL HISTORY Hx Surgeries: No - ANESTHESIA Hx Anesthesia: No Meds Allergies/Adverse Reactions: Allergies Allergy/AdvReac Type Severity Reaction Status Date / Time No Known Allergies Allergy Verified 05/03/17 22:46 - Medications Medications: Current Medications Acetaminophen (Tylenol 325mg Tab) 650 mg GT Q4 PRN PRN Reason: Fever >100.4 F Last Admin: 05/09/18 12:47 Dose: 650 mg Acetaminophen (Tylenol 650mg/20.3ml Solution Ud) 650 mg PO Q6 PRN PRN Reason: Pain, moderate (4-7) Last Admin: 05/09/18 22:25 Dose: 650 mg Ferrous Gluconate (Fergon) 324 mg PO TID [facility] Finasteride (Proscar) 5 mg PO DAILY [facility] Last Admin: 05/10/18 09:44 Dose: 5 mg Piperacillin Sod/Tazobactam (Sod 2.25 gm/ Sodium Chloride) 100 mls @ 100 mls/ hr IVPB Q8 JIN PRN Reason: Protocol Last Admin: 05/10/18 09:50 Dose: 100 mls/hr Pantoprazole Sodium 40 mg/ (Sodium Chloride) 100 mls @ 20 mls/hr IVPB Q5H JIN PRN Reason: 8 MG/HR Last Admin: 05/10/18 09:50 Dose: 20 mls/hr Potassium Chloride (Potassium Cl 10meq/50ml Sterile Water) 50 mls @ 50 mls/hr IVPB Q1 [facility] Stop: 05/10/18 13:59 Last Admin: 05/10/18 11:29 Dose: 50 mls/hr Pantoprazole Sodium (Protonix Inj) 40 mg IVP DAILY [facility] Last Admin: 05/10/18 09:45 Dose: 40 mg Sodium Bicarbonate (Sodium Bicarbonate Tab) 650 mg PO BID [facility] Tamsulosin HCl (Flomax) 0.8 mg PEG DAILY [facility] Last Admin: 05/10/18 09:43 Dose: 0.8 mg Vitamin B Complex/Vit C/Folic Acid (Nephro-Paul) 1 tab PO DAILY [facility] Physical Exam - Constitutional Appears: Confused, Chronically Ill - Head Exam Head Exam: ATRAUMATIC, NORMAL INSPECTION, NORMOCEPHALIC - Eye Exam Eye Exam: PERRL. absent: Scleral icterus - ENT Exam ENT Exam: Mucous Membranes Dry, Normal External Ear Exam - Neck Exam Neck exam: Negative for: Lymphadenopathy - Respiratory Exam Respiratory Exam: Decreased Breath Sounds, Prolonged Expiratory Phase, Rhonchi - Cardiovascular Exam Cardiovascular Exam: REGULAR RHYTHM, +S1, +S2 - GI/Abdominal Exam GI & Abdominal Exam: Diminished Bowel Sounds, Distended, Soft. absent: Guarding , Rebound, Rigid, Tenderness - Rectal Exam Rectal Exam: Deferred - Exam Exam: NORMAL INSPECTION - Extremities Exam Extremities exam: Positive for: pedal pulses present. Negative for: calf tenderness, pedal edema, tenderness - Back Exam Back exam: absent: CVA tenderness (L), CVA tenderness (R), paraspinal tenderness - Neurological Exam Neurological exam: Altered, CN II-XII Intact Additional comments: weakness left side - Psychiatric Exam Psychiatric exam: Depressed - Skin Skin Exam: Dry Results - Vital Signs Recent Vital Signs: Last Vital Signs Temp 98.8 F 05/10/18 05:00 Pulse 99 H 05/10/18 05:00 Resp 18 05/10/18 05:00 BP 100/65 05/10/18 05:00 Pulse Ox 100 05/10/18 05:00 - Labs Result Diagrams: 05/10/18 07:08 05/10/18 07:08 Labs: Laboratory Results - last 24 hr 05/09/18 05/09/18 05/09/18 14:45 15:30 15:30 WBC 12.7 H RBC 3.12 L Hgb 9.5 L Hct 27.6 L MCV 88.5 MCH 30.5 MCHC 34.4 RDW 15.9 H Plt Count 215 MPV 8.7 Neut % (Auto) 89.8 H Lymph % (Auto) 4.2 L Oto[place] % (Auto) 5.7 Eos % (Auto) 0.0 Baso % (Auto) 0.3 Neut # (Auto) 11.4 H Lymph # (Auto) 0.5 L [place] # (Auto) 0.7 Eos # (Auto) 0.0 Baso # (Auto) 0.0 pCO2 28 L pO2 76 L HCO3 23.4 ABG pH 7.48 H ABG Total CO2 21.8 L ABG O2 Saturation 98.9 H ABG O2 Content 12.6 L ABG Base Excess -1.9 ABG Hemoglobin 9.3 L ABG Carboxyhemoglobin 1.6 H POC ABG HHb (Measured) 1.1 ABG Methemoglobin 1.6 ABG O2 Capacity 12.7 L Guilherme Test Yes A-a O2 Difference 39.0 Hgb O2 Saturation 95.6 FiO2 21.0 Sodium 142 Potassium 3.6 Chloride 112 H Carbon Dioxide 18 L Anion Gap 16 BUN 73 H Creatinine 5.1 H Est GFR ( Amer) 13 Est GFR (Non-Af Amer) 11 Random Glucose 135 H Calcium 8.3 L Phosphorus Magnesium 2.2 Iron TIBC % Saturation Ferritin Total Bilirubin 0.8 AST 27 ALT 31 Alkaline Phosphatase 124 Total Protein 6.6 Albumin 3.1 L Globulin 3.6 Albumin/Globulin Ratio 0.9 L 05/10/18 05/10/18 05/10/18 07:08 07:08 07:08 WBC 12.2 H RBC 2.87 L Hgb 8.7 L Hct 25.7 L MCV 89.4 MCH 30.3 MCHC 33.9 RDW 16.3 H Plt Count 203 MPV 8.9 Neut % (Auto) 85.5 H Lymph % (Auto) 7.3 L Oto[place] % (Auto) 7.0 Eos % (Auto) 0.0 Baso % (Auto) 0.2 Neut # (Auto) 10.5 H Lymph # (Auto) 0.9 L [place] # (Auto) 0.9 H Eos # (Auto) 0.0 Baso # (Auto) 0.0 pCO2 pO2 HCO3 ABG pH ABG Total CO2 ABG O2 Saturation ABG O2 Content ABG Base Excess ABG Hemoglobin ABG Carboxyhemoglobin POC ABG HHb (Measured) ABG Methemoglobin ABG O2 Capacity Guilherme Test A-a O2 Difference Hgb O2 Saturation FiO2 Sodium 146 Potassium 3.2 L Chloride 115 H Carbon Dioxide 19 L Anion Gap 15 BUN 53 H Creatinine 3.3 H Est GFR ( Amer) 21 Est GFR (Non-Af Amer) 18 Random Glucose 174 H Calcium 8.0 L Phosphorus 3.8 Magnesium 2.0 Iron 10 L TIBC 222 L % Saturation 5 L Ferritin 663.0 H Total Bilirubin AST ALT Alkaline Phosphatase Total Protein Albumin Globulin Albumin/Globulin Ratio Assessment & Plan (1) Acute renal failure Status: Acute (2) Altered mental status Status: Acute Priority: High (3) Obstructive uropathy Status: Acute (4) Sepsis Status: Acute (5) Toxic metabolic encephalopathy Status: Acute Priority: High (6) UTI (urinary tract infection) Status: Acute (7) Urinary retention Status: Acute (8) Cerebrovascular accident (CVA) with left hemiparesis Status: Chronic Priority: Medium (9) Dyslipidemia Status: Chronic Priority: Low (10) Hypertension Status: Chronic Priority: Low - Assessment and Plan (Free Text) Assessment: severe dehydration and probable urosepsis wounds noted- will need careful wound care rx as ordered await cultures and will adjust IV antibiotics accordingly
[2018-05-10] MEDS: Multivitamin Vitamin B Complex (Nephro-Vite) Tab PO SCH (12:52)
[2018-05-10] MEDS: Cefepime 1 GM in Sodium Chloride 0.9% 100 ML IVPB SCH (12:59)
--- NOTE | 2018-05-10 17:11 | CP.PCM.PN ---
Subjective - Date & Time of Evaluation Date of Evaluation: 05/10/18 Time of Evaluation: 17:10 - Subjective Subjective: Nephrology Consultation Note: Assessment: stable Acute Kidney Injury (N17.9) likely due to obstructive uropathy: improving sepsis with UTI b/l hydroureteronephrosis likely due to prostate enlargement HTN, hx of CVA comatose status Anemia, acidosis Plan No acute need for renal replacement therapy at this time. good UOP. cr trending down Patient not on ACEI/ARB due to FISH. maintain hemodynamics stable Monitor Input/Output, daily weights and renal function with basic metabolic panel continue with IVF , ID and GI consulted continue with flomax anemia management as per primary team started iron, MVI and sodium bicarb Dose meds/antibiotics for reduced GFR. Avoid fleets enema/magnesium based laxatives. Avoid nephrotoxins/NSAIDs/ iodinated contrast (unless needed emergently) Glycemic control Further work up/management as per primary team Thanks for allowing me to participate in care of your patient. Will follow patient with you. Please call if any Qs. d/w daughter bedside Dr Abdon Salinas Office: [phone] Chief Complaint; unable reason for consult: FISH HPI: Pt is a 87 M with hx of hypertension (years), CVA resulting impaired swallow required PEG tube, non-communicative state since then, was [place] [facility]c to [place], [place] back home by family 1 week ago was brought to ER c /o fever and also dry diapers. pt unable to provide any hx. hx provided by daughter. renal consult for fish pt was found to be in urine retention in ER s/p danielle > 4 L urine output. seen by urologist as well ROS: pt unable to provide Physical Examination: General Appearance: Comfortable, in no acute respiratory distress. Vitals reviewed and noted as below Head; Atraumatic, normocephalic ENT: unable EYES: unable Neck; supple no lymphadenopathy, no thyromegaly or bruit Lungs: Normal respiratory rate/effort. Breath sounds bilateral equal and clear anteriorly Heart: Normal rate. s1s2 normal. No rub or gallop. Extremities: no edema. No varicose veins Neurological: Patient is non communicative, doesn't follow commands. open eyes Skin: Warm and dry. Normal turgor. No rash. Palpitation: Normal elasticity for age Abdomen: Abdomen is soft. Bowel sounds +. There is no abdominal tenderness, no guarding/rigidity no organomegaly. has peg tube Psych: unable MSK: no joint tenderness or swelling. Digits and nails normal, no deformity : kidney or bladder not palpable. has danielle Labs/imaging reviewed. Past medical history, past surgical history, family history, social history, allergy reviewed and noted as below Family hx: no hx of CKD. Rest non-contributory Objective - Vital Signs/Intake and Output Vital Signs (last 24 hours): Temp Pulse Resp BP Pulse Ox 99.7 F H 94 H 17 132/80 98 05/10/18 16:07 05/10/18 16:07 05/10/18 16:07 05/10/18 16:07 05/10/18 16:07 Intake and Output: 05/10/18 05/10/18 06:59 18:59 Intake Total 340 Output Total 2500 Balance -2160 - Medications Medications: Current Medications Acetaminophen (Tylenol 325mg Tab) 650 mg GT Q4 PRN PRN Reason: Fever >100.4 F Last Admin: 05/09/18 12:47 Dose: 650 mg Acetaminophen (Tylenol 650mg/20.3ml Solution Ud) 650 mg PO Q6 PRN PRN Reason: Pain, moderate (4-7) Last Admin: 05/09/18 22:25 Dose: 650 mg Ferrous Gluconate (Fergon) 324 mg PO TID [facility] Last Admin: 05/10/18 16:51 Dose: 324 mg Finasteride (Proscar) 5 mg PO DAILY [facility] Last Admin: 05/10/18 09:44 Dose: 5 mg Piperacillin Sod/Tazobactam (Sod 2.25 gm/ Sodium Chloride) 100 mls @ 100 mls/ hr IVPB Q8 JIN PRN Reason: Protocol Last Admin: 05/10/18 16:54 Dose: 100 mls/hr Pantoprazole Sodium 40 mg/ (Sodium Chloride) 100 mls @ 20 mls/hr IVPB Q5H JIN PRN Reason: 8 MG/HR Last Admin: 05/10/18 15:00 Dose: 20 mls/hr Cefepime HCl 1 gm/ Sodium (Chloride) 100 mls @ 100 mls/hr IVPB DAILY JIN PRN Reason: Protocol Last Admin: 05/10/18 12:59 Dose: 100 mls/hr Pantoprazole Sodium (Protonix Inj) 40 mg IVP DAILY JIN Last Admin: 05/10/18 09:45 Dose: 40 mg Sodium Bicarbonate (Sodium Bicarbonate Tab) 650 mg PO BID JIN Last Admin: 05/10/18 16:52 Dose: 650 mg Tamsulosin HCl (Flomax) 0.8 mg PEG DAILY JIN Last Admin: 05/10/18 09:43 Dose: 0.8 mg Vitamin B Complex/Vit C/Folic Acid (Nephro-Paul) 1 tab PO DAILY JIN Last Admin: 05/10/18 12:52 Dose: 1 tab - Labs Labs: 05/10/18 07:08 05/10/18 07:08 PT 17.1 Seconds (9.8-13.1) H 05/08/18 17:41 INR 1.5 (0.9-1.2) H 05/08/18 17:41 APTT 30.2 Seconds (25.6-37.1) 05/08/18 17:41
[2018-05-10] MEDS: Acetaminophen 650mg/20.3ml solution UD PO PRN (20:25)
[2018-05-11] MEDS: Pantoprazole 40 MG in Sodium Chloride 0.9% 100 ML IVPB SCH ×4 (00:26→15:41)
[2018-05-11] MEDS: Acetaminophen 650mg/20.3ml solution UD PO PRN (03:15)
[2018-05-11] MEDS ORDERED: Dextrose 5%/0.45% NS 1,000 ML IV SCH ×2 (06:15→15:20)
--- NOTE | 2018-05-11 07:09 | CP.PCM.PN ---
Subjective - Date & Time of Evaluation Date of Evaluation: 05/10/18 Time of Evaluation: 11:35 Objective - Vital Signs/Intake and Output Vital Signs (last 24 hours): Temp Pulse Resp BP Pulse Ox 98.8 F 110 H 18 107/68 98 05/11/18 04:47 05/11/18 04:47 05/11/18 04:47 05/11/18 04:47 05/11/18 04:47 Intake and Output: 05/11/18 05/11/18 06:59 18:59 Intake Total 3080 Output Total 4900 Balance -1820 - Medications Medications: Current Medications Acetaminophen (Tylenol 650mg/20.3ml Solution Ud) 650 mg PO Q6 PRN PRN Reason: Pain, moderate (4-7) Last Admin: 05/09/18 22:25 Dose: 650 mg Acetaminophen (Tylenol 650mg/20.3ml Solution Ud) 650 mg PO Q4 PRN PRN Reason: Temperature Last Admin: 05/11/18 03:15 Dose: 650 mg Ferrous Gluconate (Fergon) 324 mg PO TID [facility] Last Admin: 05/10/18 16:51 Dose: 324 mg Finasteride (Proscar) 5 mg PO DAILY [facility] Last Admin: 05/10/18 09:44 Dose: 5 mg Piperacillin Sod/Tazobactam (Sod 2.25 gm/ Sodium Chloride) 100 mls @ 100 mls/ hr IVPB Q8 JIN PRN Reason: Protocol Last Admin: 05/11/18 00:24 Dose: 100 mls/hr Pantoprazole Sodium 40 mg/ (Sodium Chloride) 100 mls @ 20 mls/hr IVPB Q5H JIN PRN Reason: 8 MG/HR Last Admin: 05/11/18 06:11 Dose: 20 mls/hr Cefepime HCl 1 gm/ Sodium (Chloride) 100 mls @ 100 mls/hr IVPB DAILY JIN PRN Reason: Protocol Last Admin: 05/10/18 12:59 Dose: 100 mls/hr Dextrose/Sodium Chloride (Dextrose 5%/0.45% Ns 1000 Ml) 1,000 mls @ 100 mls/hr IV .Q10H [facility] Stop: 05/12/18 06:02 Last Admin: 05/11/18 06:11 Dose: 100 mls/hr Pantoprazole Sodium (Protonix Inj) 40 mg IVP DAILY [facility] Last Admin: 05/10/18 09:45 Dose: 40 mg Sodium Bicarbonate (Sodium Bicarbonate Tab) 650 mg PO BID JIN Last Admin: 05/10/18 16:52 Dose: 650 mg Tamsulosin HCl (Flomax) 0.8 mg PEG DAILY [facility] Last Admin: 05/10/18 09:43 Dose: 0.8 mg Vitamin B Complex/Vit C/Folic Acid (Nephro-Paul) 1 tab PO DAILY [facility] Last Admin: 05/10/18 12:52 Dose: 1 tab - Labs Labs: 05/10/18 07:08 05/10/18 07:08 PT 17.1 Seconds (9.8-13.1) H 05/08/18 17:41 INR 1.5 (0.9-1.2) H 05/08/18 17:41 APTT 30.2 Seconds (25.6-37.1) 05/08/18 17:41 Assessment and Plan (1) Altered mental status Status: Acute (2) Cerebrovascular accident (CVA) with left hemiparesis Status: Chronic (3) Hypertension Status: Chronic (4) Dyslipidemia Status: Chronic
[2018-05-11 07:28] LABS: ALB/GLOB RATIO 0.7 (1.0-2.1); ALBUMIN 2.9 g/dL (3.5-5.0)
[2018-05-11 07:29] LABS: BASO % 0.2 % (0.0-2.0); EOS % 0.2 % (0.0-4.0); HEMOGLOBIN 9.5 g/dL (12.0-18.0); LYMPH # 0.9 K/uL (1.0-4.3); MEAN CELL VOLUME 87.4 fl (80.0-94.0); MEAN CORPUSCULAR HEMOGLOBIN 30.1 pg (27.0-31.0); MEAN CORPUSCULAR HGB CONC 34.5 g/dL (33.0-37.0); MEAN PLATELET VOLUME 8.8 fl (7.2-11.7); MONO # 0.8 K/uL (0.0-0.8); MONO % 7.9 % (0.0-10.0); NEUT # 8.7 K/uL (1.8-7.0); NEUT % 82.7 % (50.0-75.0); RBC 3.16 Mil/uL (4.40-5.90); WHITE BLOOD COUNT 10.5 K/uL (4.8-10.8)
[2018-05-11] MEDS ORDERED: Potassium CL 10 MEQ/50 ML 50 ML IVPB SCH (09:00)
[2018-05-11] MEDS: Multivitamin Vitamin B Complex (Nephro-Vite) Tab PO SCH (09:41)
[2018-05-11] MEDS: Cefepime 1 GM in Sodium Chloride 0.9% 100 ML IVPB SCH ×3 (09:52→21:00)
--- NOTE | 2018-05-11 10:23 | CARD ---
APPROVED REPORT EKG Measurement Heart [id number] <Conclusion> Sinus tachycardia Left axis deviation Right bundle branch block Possible Anterolateral infarct, age undetermined Abnormal ECG
--- NOTE | 2018-05-11 11:03 | CP.PCM.PN ---
Subjective - Date & Time of Evaluation Date of Evaluation: 05/11/18 Time of Evaluation: 10:00 - Subjective Subjective: arousable but confused easily agitated NAD Objective - Vital Signs/Intake and Output Vital Signs (last 24 hours): Temp Pulse Resp BP Pulse Ox 98.8 F 109 H 20 108/68 99 05/11/18 08:13 05/11/18 08:13 05/11/18 08:13 05/11/18 08:13 05/11/18 08:13 Intake and Output: 05/11/18 05/11/18 06:59 18:59 Intake Total 3080 Output Total 4900 Balance -1820 - Medications Medications: Current Medications Acetaminophen (Tylenol 650mg/20.3ml Solution Ud) 650 mg PO Q6 PRN PRN Reason: Pain, moderate (4-7) Last Admin: 05/09/18 22:25 Dose: 650 mg Acetaminophen (Tylenol 650mg/20.3ml Solution Ud) 650 mg PO Q4 PRN PRN Reason: Temperature Last Admin: 05/11/18 03:15 Dose: 650 mg Ferrous Gluconate (Fergon) 324 mg PO TID [facility] Last Admin: 05/11/18 09:41 Dose: 324 mg Finasteride (Proscar) 5 mg PO DAILY [facility] Last Admin: 05/11/18 09:40 Dose: 5 mg Piperacillin Sod/Tazobactam (Sod 2.25 gm/ Sodium Chloride) 100 mls @ 100 mls/ hr IVPB Q8 JIN PRN Reason: Protocol Last Admin: 05/11/18 09:41 Dose: 100 mls/hr Pantoprazole Sodium 40 mg/ (Sodium Chloride) 100 mls @ 20 mls/hr IVPB Q5H JIN PRN Reason: 8 MG/HR Last Admin: 05/11/18 10:21 Dose: 20 mls/hr Cefepime HCl 1 gm/ Sodium (Chloride) 100 mls @ 100 mls/hr IVPB DAILY JIN PRN Reason: Protocol Last Admin: 05/11/18 09:52 Dose: 100 mls/hr Dextrose/Sodium Chloride (Dextrose 5%/0.45% Ns 1000 Ml) 1,000 mls @ 100 mls/hr IV .Q10H [facility] Stop: 05/12/18 06:02 Last Admin: 05/11/18 06:11 Dose: 100 mls/hr Potassium Chloride (Potassium Cl 10meq/50ml Sterile Water) 50 mls @ 50 mls/hr IVPB Q1 [facility] Stop: 05/11/18 12:59 Last Admin: 05/11/18 09:42 Dose: 50 mls/hr Sodium Bicarbonate (Sodium Bicarbonate Tab) 650 mg PO BID [facility] Last Admin: 05/11/18 09:40 Dose: 650 mg Tamsulosin HCl (Flomax) 0.8 mg PEG DAILY [facility] Last Admin: 05/11/18 09:41 Dose: 0.8 mg Vitamin B Complex/Vit C/Folic Acid (Nephro-Paul) 1 tab PO DAILY [facility] Last Admin: 05/11/18 09:41 Dose: 1 tab - Labs Labs: 05/11/18 06:30 05/11/18 06:30 PT 17.1 Seconds (9.8-13.1) H 05/08/18 17:41 INR 1.5 (0.9-1.2) H 05/08/18 17:41 APTT 30.2 Seconds (25.6-37.1) 05/08/18 17:41 - Constitutional Appears: Non-toxic, Chronically Ill - Head Exam Head Exam: NORMOCEPHALIC - Eye Exam Eye Exam: absent: Scleral icterus - ENT Exam ENT Exam: Mucous Membranes Dry - Neck Exam Neck Exam: absent: Lymphadenopathy - Respiratory Exam Respiratory Exam: Decreased Breath Sounds, Rhonchi - Cardiovascular Exam Cardiovascular Exam: REGULAR RHYTHM, +S1, +S2 - GI/Abdominal Exam GI & Abdominal Exam: Distended, Soft - Rectal Exam Rectal Exam: Deferred - Exam Exam: NORMAL INSPECTION - Extremities Exam Extremities Exam: absent: Pedal Edema - Back Exam Back Exam: absent: CVA tenderness (L), CVA tenderness (R) - Neurological Exam Neurological Exam: Awake. absent: Oriented x3 Neuro motor strength exam: Left Upper Extremity: 2/1, Right Upper Extremity: 4, Left Lower Extremity: 2/1, Right Lower Extremity: 4 - Psychiatric Exam Psychiatric exam: Depressed - Skin Skin Exam: Dry Assessment and Plan (1) Acute renal failure Status: Acute (2) Altered mental status Status: Acute (3) Obstructive uropathy Status: Acute (4) Sepsis Status: Acute (5) Toxic metabolic encephalopathy Status: Acute (6) UTI (urinary tract infection) Status: Acute (7) Urinary retention Status: Acute (8) Cerebrovascular accident (CVA) with left hemiparesis Status: Chronic (9) Dyslipidemia Status: Chronic (10) Hypertension Status: Chronic - Assessment and Plan (Free Text) Assessment: cont rx for urosepsis secondary to klebsiella
[2018-05-11 11:11] LABS: ARTERIAL BLOOD GAS HCO3 20.1 mmol/L (21-28); ARTERIAL BLOOD GAS HEMOGLOBIN 10.9 g/dL (11.7-17.4); ARTERIAL BLOOD GAS O2 CAPACITY 15.2 mL/dL (16-24); ARTERIAL BLOOD GAS O2 CONTENT 15.2 ML/dL (15-23); ARTERIAL BLOOD GAS O2 SAT 99.8 % (95-98); ARTERIAL BLOOD GAS PCO2 18 mm/Hg (35-45); ARTERIAL BLOOD GAS PH 7.52 (7.35-7.45); ARTERIAL BLOOD GAS PO2 158 mm/Hg (80-100); ARTERIAL BLOOD GAS TCO2 15.3 mmol/L (22-28)
[2018-05-11] MEDS ORDERED: Potassium Chloride 20 mEq/15 ml LIQ UD PEG ONE ×2 (11:11→15:00)
--- NOTE | 2018-05-11 11:15 | CARD ---
APPROVED REPORT EKG Measurement Heart [id number] <Conclusion> Wide QRS tachycardia Right bundle branch block Left anterior fascicular block Bifascicular block Anterolateral infarct, age undetermined Abnormal ECG
--- NOTE | 2018-05-11 11:17 | PCM.RRT ---
<Rossy Herndon - Last Filed: 05/11/18 15:02> DELIVERY DIRECTOR Nurse Assessment - Situation DELIVERY DIRECTOR Reason for Call: Tachycardia DELIVERY DIRECTOR Called By: RN - IV IV Inserted during DELIVERY DIRECTOR?: Yes - Respiratory Oxygen Delivery Method: Mask Received Nebulizer Treatments: No Was the Patient Ventilated with Bag/Mask 100% O2?: No Secretions Suctioned?: No Was the Patient Intubated?: No Was the Patient Placed on a Ventilator?: No - Diagnostic Test Ordered EKG: Yes Chest X-Ray: Yes CT Scan: No - Stat Labs Ordered DELIVERY DIRECTOR Stat Labs Ordered: CBC, BMP, PT/PTT, TROPONIN, LACTIC ACID, BLOOD C&S X2, ABG CPR started during DELIVERY DIRECTOR?: No - Vital Signs Vital Signs: BP 115/73, RR 24, T 102.3, Pulse Ox 96%, HR 133 - Rama Coma Scale Coma Scale Eye Opening: Spontaneous Coma Scale Motor: Movement to pain stimulus Coma Scale Verbal: Confused/able to answer Coma Scale Total: 13 - Vital Signs at end of DELIVERY DIRECTOR Vital Signs at end of DELIVERY DIRECTOR: HR 112, BP 126/78, T 102.3 , RR 16, pulse Ox 100% on 12 L Non-reabreather. - Recommendations DELIVERY DIRECTOR Level of Care Recommendations: Remain in current setting Notifications: Attending Physician, Family or Designated Caregiver I.Reason for DELIVERY DIRECTOR - A) Acute Change in Patient: Subjective: DELIVERY DIRECTOR called for acute inset tachycardia and agitation, patient was getting IV KCL for hypokalemia when symptoms arose, patient was unable to verbalize any other complain at the time due to his baseline mental status. - Neurological Status (Select all that apply): Disoriented - Respiratory Oxygen Delivery Method: Non Rebreather @% (100 %) Oxygen Flow Rate: 12 - Constitutional Appears: Agitated - Eyes Eye Exam: EOMI, PERRL - Respiratory Exam Respiratory Exam: Clear to Ausculation Bilateral - Cardiovascular Exam Cardiovascular Exam: Tachycardia, REGULAR RHYTHM, RRR, +S1, +S2 - Neurological Exam Neurological Exam: Altered (chronic AMS) Plan - Assessment of Findings&Treatment Plan Ordered labs and imaging as documented above Attending Physician Dr. Murphy notified Tylenol sup given for fever Will continue to monitor patient <Alpa Salcido - Last Filed: 05/11/18 18:42> DELIVERY DIRECTOR Nurse Assessment - Vital Signs Vital Signs: Rapid Response Vital Sign Blood Pressure 115/73 Pulse Rate 151 Respiratory Rate 45 Temperature 102.9 F Oxygen Saturation 96 - Vital Signs at end of DELIVERY DIRECTOR Vital Signs at end of DELIVERY DIRECTOR: Rapid Response End Vital Sign Blood Pressure 126/78 Pulse Rate 141 Respiratory Rate 32 Temperature 102.7 F O2 Sat by Pulse Oximetry 98 Attending/Attestation - Attestation I have personally seen and examined this patient.: Yes I have fully participated in the care of the patient.: Yes I have reviewed all pertinent clinical information, including history, physical exam and plan: Yes Notes (Text): DELIVERY DIRECTOR called because of tachycardia Pt noted to be very agitated and tachycardic. Pt is nonverbal and unable to express what he was feeling ( has hx of CVA) however accdg to RN, she just started infusing KCl when patient suddenly became agitated. Pt was aslo febrile at 102.8 A/P: 1. Agitation, Tachycardia likely sec to Pain due to the KCl infusion and also from the fever - d/c KCL run - give KCl per PEG tube - CRX - EKG : sinus tach , RBBB, no change from previous - ABG - CBC, CMP, Lactic acid, Trop, Blood c/s -Tylenol suppository
[2018-05-11 11:34] LABS: HEMOGLOBIN 10.8 g/dL (12.0-18.0); MEAN CELL VOLUME 87.8 fl (80.0-94.0); MEAN CORPUSCULAR HGB CONC 34.2 g/dL (33.0-37.0); RBC 3.59 Mil/uL (4.40-5.90); RED CELL DISTRIBUTION WIDTH 15.8 % (11.5-14.5); WHITE BLOOD COUNT 12.4 K/uL (4.8-10.8)
[2018-05-11 11:50] LABS: TROPONIN I 0.031 ng/mL (0.00-0.120)
[2018-05-11 11:52] LABS: ALB/GLOB RATIO 0.8 (1.0-2.1); ALBUMIN 3.5 g/dL (3.5-5.0); CALCIUM 8.3 mg/dL (8.4-10.2)
--- NOTE | 2018-05-11 13:12 | RAD ---
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 Hazy opacity in the lung bases. Possible small left-sided effusion. PLEURA: No significant pleural effusion identified, no pneumothorax apparent.Biapical pleural parenchymal thickening noted. CARDIOVASCULAR: Stable cardiomediastinal silhouette. OSSEOUS STRUCTURES: The osseous structures demonstrate degenerative changes. VISUALIZED UPPER ABDOMEN: Upper abdomen is suboptimally evaluated. OTHER FINDINGS: None. IMPRESSION: Increased pulmonary vascular congestion. Hazy opacity in the lung bases. Possible effusion on the left.
--- NOTE | 2018-05-11 15:47 | CP.PCM.PN ---
Subjective - Date & Time of Evaluation Date of Evaluation: 05/11/18 Time of Evaluation: 08:45 - Subjective Subjective: Nephrology Consultation Note: Assessment: stable Acute Kidney Injury (N17.9) likely due to obstructive uropathy: improving sepsis with UTI b/l hydroureteronephrosis likely due to prostate enlargement HTN, hx of CVA comatose status Anemia, acidosis hypokalemia Plan No acute need for renal replacement therapy at this time. Cr continues to improve hold ACEI/ARB due to FISH. maintain hemodynamics stable Monitor Input/Output, daily weights and renal function with basic metabolic panel continue with IVF , ID and GI consulted abx per ID continue with flomax anemia management as per primary team started iron, MVI and sodium bicarb k was repleted this am S: seen and examined, no complaints Physical Examination: General Appearance: Comfortable, in no acute respiratory distress. Vitals reviewed and noted as below Head; Atraumatic, normocephalic ENT: dry op EYES: unable Neck; supple no lymphadenopathy, no thyromegaly or bruit Lungs: Normal respiratory rate/effort. Breath sounds bilateral equal and clear anteriorly Heart: Normal rate. s1s2 normal. No rub or gallop. Extremities: no edema. No varicose veins Neurological: Patient is non communicative, doesn't follow commands. open eyes Skin: Warm and dry. Normal turgor. No rash. Palpitation: Normal elasticity for age Abdomen: Abdomen is soft. Bowel sounds +. There is no abdominal tenderness, no guarding/rigidity no organomegaly. has peg tube Psych: flat MSK: no joint tenderness or swelling. Digits and nails normal, no deformity : kidney or bladder not palpable. has danielle Labs/imaging reviewed. Past medical history, past surgical history, family history, social history, allergy reviewed and noted as below Family hx: no hx of CKD. Rest non-contributory Objective - Vital Signs/Intake and Output Vital Signs (last 24 hours): Temp Pulse Resp BP Pulse Ox 99.7 F H 108 H 18 98/58 L 97 05/11/18 13:15 05/11/18 13:15 05/11/18 13:15 05/11/18 13:15 05/11/18 13:15 Intake and Output: 05/11/18 05/11/18 06:59 18:59 Intake Total 3080 Output Total 4900 Balance -1820 - Medications Medications: Current Medications Acetaminophen (Tylenol 650mg/20.3ml Solution Ud) 650 mg PO Q6 PRN PRN Reason: Pain, moderate (4-7) Last Admin: 05/09/18 22:25 Dose: 650 mg Acetaminophen (Tylenol 650mg/20.3ml Solution Ud) 650 mg PO Q4 PRN PRN Reason: Temperature Last Admin: 05/11/18 03:15 Dose: 650 mg Ferrous Gluconate (Fergon) 324 mg PO TID [facility] Last Admin: 05/11/18 15:40 Dose: Not Given Finasteride (Proscar) 5 mg PO DAILY [facility] Last Admin: 05/11/18 09:40 Dose: 5 mg Pantoprazole Sodium 40 mg/ (Sodium Chloride) 100 mls @ 20 mls/hr IVPB Q5H [facility] PRN Reason: 8 MG/HR Last Admin: 05/11/18 15:41 Dose: 20 mls/hr Cefepime HCl 1 gm/ Sodium (Chloride) 100 mls @ 100 mls/hr IVPB Q12 JIN PRN Reason: Protocol Last Admin: 05/11/18 14:02 Dose: Not Given Dextrose/Sodium Chloride (Dextrose 5%/0.45% Ns 1000 Ml) 1,000 mls @ 150 mls/hr IV .Q6H40M [facility] Stop: 05/12/18 06:02 Last Admin: 05/11/18 15:43 Dose: 150 mls/hr Sodium Bicarbonate (Sodium Bicarbonate Tab) 650 mg PO BID [facility] Last Admin: 05/11/18 09:40 Dose: 650 mg Tamsulosin HCl (Flomax) 0.8 mg PEG DAILY [facility] Last Admin: 05/11/18 09:41 Dose: 0.8 mg Vitamin B Complex/Vit C/Folic Acid (Nephro-Paul) 1 tab PO DAILY [facility] Last Admin: 05/11/18 09:41 Dose: 1 tab - Labs Labs: 05/11/18 11:20 05/11/18 11:20 PT 17.1 Seconds (9.8-13.1) H 05/08/18 17:41 INR 1.5 (0.9-1.2) H 05/08/18 17:41 APTT 30.2 Seconds (25.6-37.1) 05/08/18 17:41
--- NOTE | 2018-05-11 17:11 | CP.PCM.PN ---
<Savanna Greene - Last Filed: 05/11/18 17:14> Subjective - Date & Time of Evaluation Date of Evaluation: 05/11/18 Time of Evaluation: 16:45 - Subjective Subjective: PGY5 GI Follow-up Pt seen and examined bedside still febrile AMS, s/p CVA +fever, chills as per RN PEG dysfunction ROS: 12 point ROS conducted, neg other than above Objective - Vital Signs/Intake and Output Vital Signs (last 24 hours): Temp Pulse Resp BP Pulse Ox 98.1 F 91 H 18 94/60 L 99 05/11/18 16:51 05/11/18 16:51 05/11/18 16:51 05/11/18 16:51 05/11/18 16:51 Intake and Output: 05/11/18 05/11/18 06:59 18:59 Intake Total 3080 Output Total 4900 Balance -1820 - Medications Medications: Current Medications Acetaminophen (Tylenol 650mg/20.3ml Solution Ud) 650 mg PO Q6 PRN PRN Reason: Pain, moderate (4-7) Last Admin: 05/09/18 22:25 Dose: 650 mg Acetaminophen (Tylenol 650mg/20.3ml Solution Ud) 650 mg PO Q4 PRN PRN Reason: Temperature Last Admin: 05/11/18 03:15 Dose: 650 mg Ferrous Gluconate (Fergon) 324 mg PO TID [facility] Last Admin: 05/11/18 16:40 Dose: Not Given Finasteride (Proscar) 5 mg PO DAILY [facility] Last Admin: 05/11/18 09:40 Dose: 5 mg Pantoprazole Sodium 40 mg/ (Sodium Chloride) 100 mls @ 20 mls/hr IVPB Q5H [facility] PRN Reason: 8 MG/HR Last Admin: 05/11/18 15:41 Dose: 20 mls/hr Cefepime HCl 1 gm/ Sodium (Chloride) 100 mls @ 100 mls/hr IVPB Q12 [facility] PRN Reason: Protocol Last Admin: 05/11/18 14:02 Dose: Not Given Potassium Chloride/Dextrose/Sod Cl (Potassium Chl 20 Meq In D5-1/2ns) 1,000 mls @ 150 mls/hr IV .Q6H40M [facility] Stop: 05/12/18 06:02 Sodium Bicarbonate (Sodium Bicarbonate Tab) 650 mg PO BID [facility] Last Admin: 05/11/18 16:40 Dose: Not Given Tamsulosin HCl (Flomax) 0.8 mg PEG DAILY [facility] Last Admin: 05/11/18 09:41 Dose: 0.8 mg Vitamin B Complex/Vit C/Folic Acid (Nephro-Paul) 1 tab PO DAILY [facility] Last Admin: 05/11/18 09:41 Dose: 1 tab - Labs Labs: 05/11/18 11:20 05/11/18 11:20 PT 17.1 Seconds (9.8-13.1) H 05/08/18 17:41 INR 1.5 (0.9-1.2) H 05/08/18 17:41 APTT 30.2 Seconds (25.6-37.1) 05/08/18 17:41 - Constitutional Appears: No Acute Distress, Chronically Ill - Head Exam Head Exam: ATRAUMATIC, NORMOCEPHALIC - Eye Exam Eye Exam: Normal appearance - ENT Exam ENT Exam: Mucous Membranes Moist, Normal Exam - Neck Exam Neck Exam: Normal Inspection - Respiratory Exam Respiratory Exam: Clear to Ausculation Bilateral, NORMAL BREATHING PATTERN. absent: Rales, Rhonchi, Wheezes, Respiratory Distress - Cardiovascular Exam Cardiovascular Exam: REGULAR RHYTHM, +S1, +S2 - GI/Abdominal Exam GI & Abdominal Exam: Soft, Normal Bowel Sounds. absent: Firm, Guarding, Rigid, Tenderness, Organomegaly, Rebound Additional comments: PEG intact, but not flushing - Neurological Exam Neurological Exam: Altered - Skin Skin Exam: Dry, Intact, Normal Color, Warm Assessment and Plan - Assessment and Plan (Free Text) Assessment: Jonathan Linn is a 87M w/ hx of CVA who presents to the ER for AMS, lethargy, fever, chills PEG dysfunction dysphagia 2/2 CVA recent CVA Dysarthria Plan: -could not flush PEG -unsure of PEG placement, <3week? -will likley need new PEG vs EGD guided replacement -will tenatively plan for tomorrow -rest of care as per primary care -renal dysfuction 2/2 obstructive nephropathy -s/p danielle -keep NPO -do not use PEG D/W Dr. De Los Santos <Casey De Los Santos - Last Filed: 05/11/18 18:59> Objective - Vital Signs/Intake and Output Vital Signs (last 24 hours): Temp Pulse Resp BP Pulse Ox 98.1 F 91 H 18 94/60 L 99 05/11/18 16:51 05/11/18 16:51 05/11/18 16:51 05/11/18 16:51 05/11/18 16:51 Intake and Output: 05/11/18 05/11/18 06:59 18:59 Intake Total 3080 Output Total 4900 Balance -1820 - Medications Medications: Current Medications Acetaminophen (Tylenol 650mg/20.3ml Solution Ud) 650 mg PO Q6 PRN PRN Reason: Pain, moderate (4-7) Last Admin: 05/09/18 22:25 Dose: 650 mg Acetaminophen (Tylenol 650mg/20.3ml Solution Ud) 650 mg PO Q4 PRN PRN Reason: Temperature Last Admin: 05/11/18 03:15 Dose: 650 mg Acetaminophen (Tylenol 650 Mg Supp) 650 mg [place] Q4 PRN PRN Reason: Temperature Ferrous Gluconate (Fergon) 324 mg PO TID [facility] Last Admin: 05/11/18 16:40 Dose: Not Given Finasteride (Proscar) 5 mg PO DAILY [facility] Last Admin: 05/11/18 09:40 Dose: 5 mg Pantoprazole Sodium 40 mg/ (Sodium Chloride) 100 mls @ 20 mls/hr IVPB Q5H [facility] PRN Reason: 8 MG/HR Last Admin: 05/11/18 15:41 Dose: 20 mls/hr Cefepime HCl 1 gm/ Sodium (Chloride) 100 mls @ 100 mls/hr IVPB Q12 [facility] PRN Reason: Protocol Last Admin: 05/11/18 14:02 Dose: Not Given Potassium Chloride/Dextrose/Sod Cl (Potassium Chl 20 Meq In D5-1/2ns) 1,000 mls @ 150 mls/hr IV .Q6H40M [facility] Stop: 05/12/18 06:02 Last Admin: 05/11/18 18:00 Dose: 150 mls/hr Morphine Sulfate (Morphine) 1 mg IVP Q4 PRN PRN Reason: Pain, moderate (4-7) Sodium Bicarbonate (Sodium Bicarbonate Tab) 650 mg PO BID [facility] Last Admin: 05/11/18 16:40 Dose: Not Given Tamsulosin HCl (Flomax) 0.8 mg PEG DAILY [facility] Last Admin: 05/11/18 09:41 Dose: 0.8 mg Vitamin B Complex/Vit C/Folic Acid (Nephro-Paul) 1 tab PO DAILY [facility] Last Admin: 05/11/18 09:41 Dose: 1 tab - Labs Labs: 05/11/18 11:20 05/11/18 11:20 PT 17.1 Seconds (9.8-13.1) H 05/08/18 17:41 INR 1.5 (0.9-1.2) H 05/08/18 17:41 APTT 30.2 Seconds (25.6-37.1) 05/08/18 17:41 Attending/Attestation - Attestation I have personally seen and examined this patient.: Yes I have fully participated in the care of the patient.: Yes I have reviewed all pertinent clinical information, including history, physical exam and plan: Yes Notes (Text): 05/11/18 18:57 This is a 87 yr old M with history of CVA who presents to the ER for AMS, lethargy, fever, chills and PEG dysfunction. He has exchange PEG. As per family original PEG was placed at [facility] around 4 weeks ago which was displaced by the patient and then PEG was replaced at bedside in ER at [facility] last week. Since then PEG is not working. Discussed risks, benefits and alternatives of replacing endoscopic PEG. Will tentatively replace PEG tomorrow endoscopically. Do not use PEG.
[2018-05-11] MEDS: Potassium Ch 20mEq in D5-1/2NS 1,000 ML IV SCH (18:00)
[2018-05-11 19:11] LABS: INR 1.5 (0.9-1.2); PROTHROMBIN TIME 16.7 Seconds (9.8-13.1)
[2018-05-11 20:58] LABS: HEMOGLOBIN 8.7 g/dL (12.0-18.0); MEAN CELL VOLUME 87.2 fl (80.0-94.0); MEAN CORPUSCULAR HEMOGLOBIN 29.8 pg (27.0-31.0); MEAN CORPUSCULAR HGB CONC 34.1 g/dL (33.0-37.0); RBC 2.93 Mil/uL (4.40-5.90); RED CELL DISTRIBUTION WIDTH 16.2 % (11.5-14.5); WHITE BLOOD COUNT 10.8 K/uL (4.8-10.8)
[2018-05-11 21:22] LABS: TROPONIN I 0.047 ng/mL (0.00-0.120)
[2018-05-11 21:25] LABS: ALB/GLOB RATIO 0.7 (1.0-2.1); ALBUMIN 2.7 g/dL (3.5-5.0); CALCIUM 7.7 mg/dL (8.4-10.2)
[2018-05-12] MEDS: Pantoprazole 40 MG in Sodium Chloride 0.9% 100 ML IVPB SCH ×3 (00:04→08:28)
[2018-05-12] MEDS: Potassium Ch 20mEq in D5-1/2NS 1,000 ML IV SCH (00:05)
[2018-05-12 05:33] LABS: HEMOGLOBIN 9.9 g/dL (12.0-18.0); MEAN CELL VOLUME 87.2 fl (80.0-94.0); MEAN CORPUSCULAR HGB CONC 34.4 g/dL (33.0-37.0); RBC 3.28 Mil/uL (4.40-5.90); RED CELL DISTRIBUTION WIDTH 16.3 % (11.5-14.5); WHITE BLOOD COUNT 11.2 K/uL (4.8-10.8)
[2018-05-12 05:41] LABS: CALCIUM 7.8 mg/dL (8.4-10.2)
--- NOTE | 2018-05-12 08:14 | CP.PCM.PN ---
Subjective - Date & Time of Evaluation Date of Evaluation: 05/11/18 Time of Evaluation: 14:30 Objective - Vital Signs/Intake and Output Vital Signs (last 24 hours): Temp Pulse Resp BP Pulse Ox 100.1 F H 99 H 18 131/83 97 05/12/18 05:23 05/12/18 05:23 05/12/18 05:23 05/12/18 05:23 05/12/18 05:23 Intake and Output: 05/12/18 05/12/18 06:59 18:59 Intake Total 450 Output Total 1500 Balance -1050 - Medications Medications: Current Medications Acetaminophen (Tylenol 650mg/20.3ml Solution Ud) 650 mg PO Q6 PRN PRN Reason: Pain, moderate (4-7) Last Admin: 05/09/18 22:25 Dose: 650 mg Acetaminophen (Tylenol 650mg/20.3ml Solution Ud) 650 mg PO Q4 PRN PRN Reason: Temperature Last Admin: 05/11/18 03:15 Dose: 650 mg Acetaminophen (Tylenol 650 Mg Supp) 650 mg [place] Q4 PRN PRN Reason: Temperature Ferrous Gluconate (Fergon) 324 mg PO TID [facility] Last Admin: 05/11/18 16:40 Dose: Not Given Finasteride (Proscar) 5 mg PO DAILY [facility] Last Admin: 05/11/18 09:40 Dose: 5 mg Pantoprazole Sodium 40 mg/ (Sodium Chloride) 100 mls @ 20 mls/hr IVPB Q5H [facility] PRN Reason: 8 MG/HR Last Admin: 05/12/18 03:37 Dose: 20 mls/hr Cefepime HCl 1 gm/ Sodium (Chloride) 100 mls @ 100 mls/hr IVPB Q12 [facility] PRN Reason: Protocol Last Admin: 05/11/18 21:00 Dose: 100 mls/hr Potassium Chloride (Potassium Chloride 20 Meq/100 Ml) 100 mls @ 50 mls/hr IVPB Q2 [facility] Stop: 05/12/18 11:59 Morphine Sulfate (Morphine) 1 mg IVP Q4 PRN PRN Reason: Pain, moderate (4-7) Sodium Bicarbonate (Sodium Bicarbonate Tab) 650 mg PO BID [facility] Last Admin: 05/11/18 16:40 Dose: Not Given Tamsulosin HCl (Flomax) 0.8 mg PEG DAILY [facility] Last Admin: 05/11/18 09:41 Dose: 0.8 mg Vitamin B Complex/Vit C/Folic Acid (Nephro-Paul) 1 tab PO DAILY [facility] Last Admin: 05/11/18 09:41 Dose: 1 tab - Labs Labs: 05/12/18 04:20 05/12/18 04:20 PT 16.7 Seconds (9.8-13.1) H 05/11/18 17:59 INR 1.5 (0.9-1.2) H 05/11/18 17:59 APTT 30.2 Seconds (25.6-37.1) 05/08/18 17:41 Assessment and Plan (1) Altered mental status Status: Acute (2) Cerebrovascular accident (CVA) with left hemiparesis Status: Chronic (3) Hypertension Status: Chronic (4) Dyslipidemia Status: Chronic
[2018-05-12] MEDS: Cefepime 1 GM in Sodium Chloride 0.9% 100 ML IVPB SCH ×2 (08:26→22:00)
[2018-05-12] MEDS: Multivitamin Vitamin B Complex (Nephro-Vite) Tab PO SCH (08:49)
--- NOTE | 2018-05-12 09:35 | PN ---
DATE: 05/10/2018 FOLLOWUP NOTE TIME OF FOLLOWUP: Roughly 3:50 p.m. SUBJECTIVE: The patient is somewhat lethargic this afternoon. His Rashid catheter is draining annalisa urine well. His urine C and S was positive for Klebsiella pneumonia, sensitive to Bactrim, ciprofloxacin, cefepime, gentamicin, piperacillin/tazobactam. The patient is currently on cefepime and Zosyn IV antibiotics. It is also sensitive to ertapenem and meropenem. The patient's BUN and creatinine continues to improve with Rashid catheter drainage, got down to 53 and 3.3 respectively with a GFR of 18. This GFR has improved from the previous level of 11 on 05/09/2018. These labs show good progressive improvement in his renal function with the Rashid catheter drainage. However, the patient is still currently not ambulatory, status post his hemorrhagic stroke which may also make it more difficult for the patient to void. LABORATORY DATA: His CBC ranged relatively stable with a WBC count of 12.2, hemoglobin of 8.7 and hematocrit of 25.7 indicating a severe anemia. Platelet count was 203,000. DIAGNOSTIC IMPRESSION: 1. Urinary retention. 2. Benign prostatic hypertrophy. 3. Urosepsis. PLAN: Continue the patient on his current IV regimen as per Infectious Disease. The patient is currently on Flomax 0.8 mg plus finasteride 5 mg daily for treatment of BPH and acute urinary retention. Rashid catheter must remain indwelling till his urosepsis is completely resolved with a sterile urine and his BUN, creatinine and GFR stabilized. Akira Lopez MD MTDD
[2018-05-12] MEDS: Potassium Chloride 20 mEq 100 ML IVPB SCH (10:30)
[2018-05-12] MEDS: Potassium Chl 40 mEq in D5-1/2 1,000 ML IV SCH (10:31)
[2018-05-12] MEDS ORDERED: Propofol 10 mg/ml Inj (20 ML) ONE ×2 (11:01→12:41)
--- NOTE | 2018-05-12 11:11 | CP.PCM.PN ---
Subjective - Date & Time of Evaluation Date of Evaluation: 05/12/18 Time of Evaluation: 11:11 - Subjective Subjective: Patient M bed and the daughter at the bedside. Patient opening his eyes but not responding and not verbalizing Patient having intravenous fluid but not eating because that PEG is not working and is going for replacement. Objective - Vital Signs/Intake and Output Vital Signs (last 24 hours): Temp Pulse Resp BP Pulse Ox 98.4 F 107 H 18 145/83 97 05/12/18 08:21 05/12/18 08:21 05/12/18 08:21 05/12/18 08:21 05/12/18 08:21 Intake and Output: 05/12/18 05/12/18 06:59 18:59 Intake Total 450 Output Total 1500 Balance -1050 - Medications Medications: Current Medications Acetaminophen (Tylenol 650mg/20.3ml Solution Ud) 650 mg PO Q6 PRN PRN Reason: Pain, moderate (4-7) Last Admin: 05/09/18 22:25 Dose: 650 mg Acetaminophen (Tylenol 650mg/20.3ml Solution Ud) 650 mg PO Q4 PRN PRN Reason: Temperature Last Admin: 05/11/18 03:15 Dose: 650 mg Acetaminophen (Tylenol 650 Mg Supp) 650 mg [place] Q4 PRN PRN Reason: Temperature Ferrous Gluconate (Fergon) 324 mg PO TID [facility] Last Admin: 05/12/18 08:27 Dose: Not Given Finasteride (Proscar) 5 mg PO DAILY [facility] Last Admin: 05/12/18 08:28 Dose: Not Given Cefepime HCl 1 gm/ Sodium (Chloride) 100 mls @ 100 mls/hr IVPB Q12 [facility] PRN Reason: Protocol Last Admin: 05/12/18 08:26 Dose: 100 mls/hr Potassium Chloride (Potassium Chloride 20 Meq/100 Ml) 100 mls @ 50 mls/hr IVPB Q2 [facility] Stop: 05/12/18 11:59 Last Admin: 05/12/18 10:30 Dose: 50 mls/hr Potassium Chloride/Dextrose/Sod Cl (Potassium Chl 40 Meq In D5-1/2ns) 1,000 mls @ 150 mls/hr IV .Q6H40M [facility] Stop: 05/13/18 08:51 Last Admin: 05/12/18 10:31 Dose: 150 mls/hr Morphine Sulfate (Morphine) 1 mg IVP Q4 PRN PRN Reason: Pain, moderate (4-7) Pantoprazole Sodium (Protonix Inj) 40 mg IVP DAILY [facility] Last Admin: 05/12/18 10:30 Dose: 40 mg Sodium Bicarbonate (Sodium Bicarbonate Tab) 650 mg PO BID [facility] Last Admin: 05/12/18 08:28 Dose: Not Given Tamsulosin HCl (Flomax) 0.8 mg PEG DAILY [facility] Last Admin: 05/11/18 09:41 Dose: 0.8 mg Vitamin B Complex/Vit C/Folic Acid (Nephro-Paul) 1 tab PO DAILY [facility] Last Admin: 05/12/18 08:49 Dose: Not Given - Labs Labs: 05/12/18 04:20 05/12/18 04:20 PT 16.7 Seconds (9.8-13.1) H 05/11/18 17:59 INR 1.5 (0.9-1.2) H 05/11/18 17:59 APTT 30.2 Seconds (25.6-37.1) 05/08/18 17:41 - Constitutional Appears: No Acute Distress - ENT Exam ENT Exam: Mucous Membranes Moist - Neck Exam Neck Exam: absent: Lymphadenopathy - Respiratory Exam Respiratory Exam: NORMAL BREATHING PATTERN - Cardiovascular Exam Cardiovascular Exam: absent: JVD, Rubs - GI/Abdominal Exam GI & Abdominal Exam: Soft, Normal Bowel Sounds - Extremities Exam Extremities Exam: absent: Calf Tenderness - Back Exam Back Exam: absent: CVA tenderness (L), CVA tenderness (R) - Neurological Exam Neurological Exam: Altered - Psychiatric Exam Psychiatric exam: Flat Affect - Skin Skin Exam: absent: Cyanosis Assessment and Plan (1) Acute renal failure Assessment & Plan: Acute Kidney Injury (N17.9) likely due to obstructive uropathy: improving sepsis with UTI b/l hydroureteronephrosis likely due to prostate enlargement HTN, hx of CVA Anemia, acidosis corrected Hypokalemia Plan No acute need for renal replacement therapy at this time. good UOP. cr trending down Patient not on ACEI/ARB due to FISH. maintain hemodynamics stable Monitor Input/Output, daily weights and renal function with basic metabolic panel continue with IVF , ID and GI consulted continue with flomax anemia management as per primary team started iron, MVI and sodium bicarb Patient needed to be given additional doses of potassium chloride Patient is going for PEG replacement Status: Acute (2) Altered mental status Status: Acute (3) Obstructive uropathy Status: Acute (4) Sepsis Status: Acute (5) Urinary retention Status: Acute (6) Cerebrovascular accident (CVA) with left hemiparesis Status: Chronic
[2018-05-12] MEDS ORDERED: Sodium Chloride 0.9% 250 ML IV ONE (11:35)
--- NOTE | 2018-05-12 12:28 | CP.PCM.PN ---
Subjective - Date & Time of Evaluation Date of Evaluation: 05/12/18 Time of Evaluation: 09:00 - Subjective Subjective: growing klebs in urine and blood switched to cefepime renal function improving will need min 14 days iv rx Objective - Vital Signs/Intake and Output Vital Signs (last 24 hours): Temp Pulse Resp BP Pulse Ox 99.6 F 112 H 27 H 133/85 95 05/12/18 11:36 05/12/18 11:36 05/12/18 11:36 05/12/18 11:36 05/12/18 11:36 Intake and Output: 05/12/18 05/12/18 06:59 18:59 Intake Total 450 Output Total 1500 Balance -1050 - Medications Medications: Current Medications Acetaminophen (Tylenol 650mg/20.3ml Solution Ud) 650 mg PO Q6 PRN PRN Reason: Pain, moderate (4-7) Last Admin: 05/09/18 22:25 Dose: 650 mg Acetaminophen (Tylenol 650mg/20.3ml Solution Ud) 650 mg PO Q4 PRN PRN Reason: Temperature Last Admin: 05/11/18 03:15 Dose: 650 mg Acetaminophen (Tylenol 650 Mg Supp) [address] Q4 PRN PRN Reason: Temperature Ferrous Gluconate (Fergon) 324 mg PO TID [facility] Last Admin: 05/12/18 08:27 Dose: Not Given Finasteride (Proscar) 5 mg PO DAILY [facility] Last Admin: 05/12/18 08:28 Dose: Not Given Cefepime HCl 1 gm/ Sodium (Chloride) 100 mls @ 100 mls/hr IVPB Q12 [facility] PRN Reason: Protocol Last Admin: 05/12/18 08:26 Dose: 100 mls/hr Potassium Chloride/Dextrose/Sod Cl (Potassium Chl 40 Meq In D5-1/2ns) 1,000 mls @ 150 mls/hr IV .Q6H40M [facility] Stop: 05/13/18 08:51 Last Admin: 05/12/18 10:31 Dose: 150 mls/hr Morphine Sulfate (Morphine) 1 mg IVP Q4 PRN PRN Reason: Pain, moderate (4-7) Pantoprazole Sodium (Protonix Inj) 40 mg IVP DAILY [facility] Last Admin: 05/12/18 10:30 Dose: 40 mg Sodium Bicarbonate (Sodium Bicarbonate Tab) 650 mg PO BID [facility] Last Admin: 05/12/18 08:28 Dose: Not Given Tamsulosin HCl (Flomax) 0.8 mg PEG DAILY [facility] Last Admin: 05/11/18 09:41 Dose: 0.8 mg Vitamin B Complex/Vit C/Folic Acid (Nephro-Paul) 1 tab PO DAILY [facility] Last Admin: 05/12/18 08:49 Dose: Not Given - Labs Labs: 05/12/18 04:20 05/12/18 04:20 PT 16.7 Seconds (9.8-13.1) H 05/11/18 17:59 INR 1.5 (0.9-1.2) H 05/11/18 17:59 APTT 30.2 Seconds (25.6-37.1) 05/08/18 17:41 - Constitutional Appears: Non-toxic, Chronically Ill - Head Exam Head Exam: NORMOCEPHALIC - Eye Exam Eye Exam: PERRL - ENT Exam ENT Exam: Mucous Membranes Dry - Neck Exam Neck Exam: absent: Lymphadenopathy - Respiratory Exam Respiratory Exam: Decreased Breath Sounds - Cardiovascular Exam Cardiovascular Exam: REGULAR RHYTHM - GI/Abdominal Exam GI & Abdominal Exam: Distended - Rectal Exam Rectal Exam: Deferred - Exam Exam: NORMAL INSPECTION Assessment and Plan (1) Acute renal failure Status: Acute (2) Altered mental status Status: Acute (3) Obstructive uropathy Status: Acute (4) Sepsis Status: Acute (5) Toxic metabolic encephalopathy Status: Acute (6) UTI (urinary tract infection) Status: Acute (7) Urinary retention Status: Acute (8) Cerebrovascular accident (CVA) with left hemiparesis Status: Chronic (9) Dyslipidemia Status: Chronic (10) Hypertension Status: Chronic
[2018-05-12] MEDS ORDERED: Etomidate 20 mg/10ml Inj IV ONE (12:40)
[2018-05-12] MEDS ORDERED: ePHEDrine 50 mg/ml Inj ONE ×2 (13:03→13:19)
--- NOTE | 2018-05-12 19:22 | CP.PCM.PN ---
Subjective - Date & Time of Evaluation Date of Evaluation: 05/12/18 Time of Evaluation: 18:25 Objective - Vital Signs/Intake and Output Vital Signs (last 24 hours): Temp Pulse Resp BP Pulse Ox 98.1 F 113 H 20 132/86 97 05/12/18 16:37 05/12/18 16:37 05/12/18 16:37 05/12/18 16:37 05/12/18 16:37 Intake and Output: 05/12/18 05/13/18 18:59 06:59 Intake Total 100 Balance 100 - Medications Medications: Current Medications Acetaminophen (Tylenol 650mg/20.3ml Solution Ud) 650 mg PO Q6 PRN PRN Reason: Pain, moderate (4-7) Last Admin: 05/09/18 22:25 Dose: 650 mg Acetaminophen (Tylenol 650mg/20.3ml Solution Ud) 650 mg PO Q4 PRN PRN Reason: Temperature Last Admin: 05/11/18 03:15 Dose: 650 mg Acetaminophen (Tylenol 650 Mg Supp) 650 mg [place] Q4 PRN PRN Reason: Temperature Ferrous Gluconate (Fergon) 324 mg PO TID [facility] Last Admin: 05/12/18 16:50 Dose: 324 mg Finasteride (Proscar) 5 mg PO DAILY [facility] Last Admin: 05/12/18 08:28 Dose: Not Given Cefepime HCl 1 gm/ Sodium (Chloride) 100 mls @ 100 mls/hr IVPB Q12 [facility] PRN Reason: Protocol Last Admin: 05/12/18 08:26 Dose: 100 mls/hr Potassium Chloride/Dextrose/Sod Cl (Potassium Chl 40 Meq In D5-1/2ns) 1,000 mls @ 150 mls/hr IV .Q6H40M [facility] Stop: 05/13/18 08:51 Last Admin: 05/12/18 10:31 Dose: 150 mls/hr Morphine Sulfate (Morphine) 1 mg IVP Q4 PRN PRN Reason: Pain, moderate (4-7) Pantoprazole Sodium (Protonix Inj) 40 mg IVP BID [facility] Last Admin: 05/12/18 16:50 Dose: 40 mg Sodium Bicarbonate (Sodium Bicarbonate Tab) 650 mg PO BID [facility] Last Admin: 05/12/18 16:50 Dose: 650 mg Tamsulosin HCl (Flomax) 0.8 mg PEG DAILY [facility] Last Admin: 05/11/18 09:41 Dose: 0.8 mg Vitamin B Complex/Vit C/Folic Acid (Nephro-Paul) 1 tab PO DAILY [facility] Last Admin: 05/12/18 08:49 Dose: Not Given - Labs Labs: 05/12/18 04:20 05/12/18 04:20 PT 16.7 Seconds (9.8-13.1) H 05/11/18 17:59 INR 1.5 (0.9-1.2) H 05/11/18 17:59 APTT 30.2 Seconds (25.6-37.1) 05/08/18 17:41 Assessment and Plan (1) Altered mental status Status: Acute (2) Cerebrovascular accident (CVA) with left hemiparesis Status: Chronic (3) Hypertension Status: Chronic (4) Dyslipidemia Status: Chronic
[2018-05-13] MEDS: Potassium Chl 40 mEq in D5-1/2 1,000 ML IV SCH ×2 (00:52→09:56)
[2018-05-13 06:05] LABS: HEMOGLOBIN 9.8 g/dL (12.0-18.0); MEAN CELL VOLUME 87.3 fl (80.0-94.0); MEAN CORPUSCULAR HEMOGLOBIN 29.4 pg (27.0-31.0); MEAN CORPUSCULAR HGB CONC 33.7 g/dL (33.0-37.0); RBC 3.35 Mil/uL (4.40-5.90); RED CELL DISTRIBUTION WIDTH 16.4 % (11.5-14.5); WHITE BLOOD COUNT 13.4 K/uL (4.8-10.8)
[2018-05-13 06:16] LABS: BLOOD UREA NITROGEN 19 mg/dl (9-20); GFR AFRICAN-AMERICAN > 60; GFR NON-AFRICAN AMERICAN 52
[2018-05-13] MEDS: Cefepime 1 GM in Sodium Chloride 0.9% 100 ML IVPB SCH (09:45)
[2018-05-13] MEDS: Multivitamin Vitamin B Complex (Nephro-Vite) Tab PO SCH ×2 (10:03→12:34)
[2018-05-13] MEDS ORDERED: Potassium Chloride 20 mEq/15 ml LIQ UD PEG STA (10:52)
--- NOTE | 2018-05-13 11:07 | CP.PCM.PN ---
<Savanna Greene - Last Filed: 05/13/18 11:07> Subjective - Date & Time of Evaluation Date of Evaluation: 05/13/18 Time of Evaluation: 08:20 - Subjective Subjective: PGY GI Consult Pt seen and examined bedside without complaints no overnight events family at bedside ROS: 12 point ROS conducted, neg other than above Objective - Vital Signs/Intake and Output Vital Signs (last 24 hours): Temp Pulse Resp BP Pulse Ox 97.9 F 109 H 18 130/86 99 05/13/18 07:55 05/13/18 07:55 05/13/18 07:55 05/13/18 07:55 05/13/18 07:55 Intake and Output: 05/13/18 05/13/18 06:59 18:59 Intake Total 1800 Output Total 1600 Balance 200 - Medications Medications: Current Medications Acetaminophen (Tylenol 650mg/20.3ml Solution Ud) 650 mg PO Q6 PRN PRN Reason: Pain, moderate (4-7) Last Admin: 05/09/18 22:25 Dose: 650 mg Acetaminophen (Tylenol 650mg/20.3ml Solution Ud) 650 mg PO Q4 PRN PRN Reason: Temperature Last Admin: 05/11/18 03:15 Dose: 650 mg Acetaminophen (Tylenol 650 Mg Supp) 650 mg [place] Q4 PRN PRN Reason: Temperature Ferrous Gluconate (Fergon) 324 mg PO TID [facility] Last Admin: 05/12/18 16:50 Dose: 324 mg Finasteride (Proscar) 5 mg PO DAILY [facility] Last Admin: 05/12/18 08:28 Dose: Not Given Cefepime HCl 1 gm/ Sodium (Chloride) 100 mls @ 100 mls/hr IVPB Q12 [facility] PRN Reason: Protocol Last Admin: 05/13/18 09:45 Dose: 100 mls/hr Morphine Sulfate (Morphine) 1 mg IVP Q4 PRN PRN Reason: Pain, moderate (4-7) Pantoprazole Sodium (Protonix Inj) 40 mg IVP BID [facility] Last Admin: 05/13/18 09:58 Dose: 40 mg Potassium Chloride (Potassium Chloride Oral Soln) 40 meq PEG ONCE STA Stop: 05/13/18 10:53 Sodium Bicarbonate (Sodium Bicarbonate Tab) 650 mg PO BID [facility] Last Admin: 05/12/18 16:50 Dose: 650 mg Tamsulosin HCl (Flomax) 0.8 mg PEG DAILY [facility] Last Admin: 05/11/18 09:41 Dose: 0.8 mg Vitamin B Complex/Vit C/Folic Acid (Nephro-Paul) 1 tab PO DAILY [facility] Last Admin: 05/12/18 08:49 Dose: Not Given - Labs Labs: 05/13/18 04:20 05/13/18 04:20 PT 16.7 Seconds (9.8-13.1) H 05/11/18 17:59 INR 1.5 (0.9-1.2) H 05/11/18 17:59 APTT 30.2 Seconds (25.6-37.1) 05/08/18 17:41 - Constitutional Appears: No Acute Distress, Chronically Ill - Head Exam Head Exam: ATRAUMATIC, NORMOCEPHALIC - Eye Exam Eye Exam: Normal appearance - ENT Exam ENT Exam: Mucous Membranes Moist, Normal Exam - Neck Exam Neck Exam: Normal Inspection - Respiratory Exam Respiratory Exam: Clear to Ausculation Bilateral, NORMAL BREATHING PATTERN. absent: Rales, Rhonchi, Wheezes, Respiratory Distress - Cardiovascular Exam Cardiovascular Exam: REGULAR RHYTHM, +S1, +S2 - GI/Abdominal Exam GI & Abdominal Exam: Soft, Normal Bowel Sounds. absent: Firm, Guarding, Rigid, Tenderness, Mass, Organomegaly Additional comments: peg tube intact and functional - Extremities Exam Extremities Exam: absent: Joint Swelling, Pedal Edema - Neurological Exam Neurological Exam: Altered, Awake - Psychiatric Exam Additional comments: cannot assess due to AMS - Skin Skin Exam: Dry, Intact, Normal Color, Warm Assessment and Plan - Assessment and Plan (Free Text) Assessment: Jonathan Linn is a 87M w/ hx of CVA who presents to the ER for AMS, lethargy, fever, chills PEG dysfunction s/p replacement with new PEG 05/12/18 dysphagia 2/2 CVA recent CVA Dysarthria Plan: -keep NPO -can use PEG for feeds, water and meds -change dry dressing daily -feeds as per checker loader -use binder -flush with water 100cc after every every meal and use including meds -rest of care as per primary team -will sign off D/W Dr. De Los Santos <Casey De Los Santos - Last Filed: 05/13/18 14:22> Objective - Vital Signs/Intake and Output Vital Signs (last 24 hours): Temp Pulse Resp BP Pulse Ox 98.1 F 114 H 18 109/76 96 05/13/18 11:46 05/13/18 11:46 05/13/18 11:46 05/13/18 11:46 05/13/18 11:46 Intake and Output: 05/13/18 05/13/18 06:59 18:59 Intake Total 1800 Output Total 1600 Balance 200 - Medications Medications: Current Medications Acetaminophen (Tylenol 650mg/20.3ml Solution Ud) 650 mg PO Q6 PRN PRN Reason: Pain, moderate (4-7) Last Admin: 05/09/18 22:25 Dose: 650 mg Acetaminophen (Tylenol 650mg/20.3ml Solution Ud) 650 mg PO Q4 PRN PRN Reason: Temperature Last Admin: 05/11/18 03:15 Dose: 650 mg Acetaminophen (Tylenol 650 Mg Supp) 650 mg [place] Q4 PRN PRN Reason: Temperature Ferrous Gluconate (Fergon) 324 mg PO TID [facility] Last Admin: 05/13/18 12:35 Dose: Not Given Finasteride (Proscar) 5 mg PO DAILY [facility] Last Admin: 05/13/18 12:34 Dose: Not Given Meropenem 500 mg/ Sodium (Chloride) 100 mls @ 100 mls/hr IVPB Q8 [facility] PRN Reason: Protocol Morphine Sulfate (Morphine) 1 mg IVP Q4 PRN PRN Reason: Pain, moderate (4-7) Pantoprazole Sodium (Protonix Inj) 40 mg IVP BID [facility] Last Admin: 05/13/18 09:58 Dose: 40 mg Sodium Bicarbonate (Sodium Bicarbonate Tab) 650 mg PO BID [facility] Last Admin: 05/13/18 12:34 Dose: Not Given Tamsulosin HCl (Flomax) 0.8 mg PEG DAILY [facility] Last Admin: 05/11/18 09:41 Dose: 0.8 mg Vitamin B Complex/Vit C/Folic Acid (Nephro-Paul) 1 tab PO DAILY [facility] Last Admin: 05/13/18 12:34 Dose: Not Given - Labs Labs: 05/13/18 12:16 05/13/18 12:16 PT 16.7 Seconds (9.8-13.1) H 05/11/18 17:59 INR 1.5 (0.9-1.2) H 05/11/18 17:59 APTT 30.2 Seconds (25.6-37.1) 05/08/18 17:41 Attending/Attestation - Attestation I have personally seen and examined this patient.: Yes I have fully participated in the care of the patient.: Yes I have reviewed all pertinent clinical information, including history, physical exam and plan: Yes Notes (Text): 05/13/18 14:21 This is a 87 year old M with history of CVA who presents to the ER for AMS, lethargy, fever, chills and PEG dysfunction s/p replacement with new PEG from old stoma exchange done yesterday under endoscopy. Local PEG care and aspiration precautions. Can use PEG today. Thank you for letting us participate in the care of your patient
[2018-05-13 12:26] LABS: HEMOGLOBIN 9.7 g/dL (12.0-18.0); MEAN CELL VOLUME 86.6 fl (80.0-94.0); MEAN CORPUSCULAR HEMOGLOBIN 29.1 pg (27.0-31.0); MEAN CORPUSCULAR HGB CONC 33.6 g/dL (33.0-37.0); RBC 3.35 Mil/uL (4.40-5.90); RED CELL DISTRIBUTION WIDTH 16.2 % (11.5-14.5); WHITE BLOOD COUNT 14.2 K/uL (4.8-10.8)
[2018-05-13 12:27] LABS: HEPATITIS B SURFACE AG Negative (NEGATIVE)
--- NOTE | 2018-05-13 12:30 | CP.PCM.PN ---
Subjective - Date & Time of Evaluation Date of Evaluation: 05/13/18 Time of Evaluation: 08:00 - Subjective Subjective: awake and alert interacting with family aphasic nad Objective - Vital Signs/Intake and Output Vital Signs (last 24 hours): Temp Pulse Resp BP Pulse Ox 98.1 F 114 H 18 109/76 96 05/13/18 11:46 05/13/18 11:46 05/13/18 11:46 05/13/18 11:46 05/13/18 11:46 Intake and Output: 05/13/18 05/13/18 06:59 18:59 Intake Total 1800 Output Total 1600 Balance 200 - Medications Medications: Current Medications Acetaminophen (Tylenol 650mg/20.3ml Solution Ud) 650 mg PO Q6 PRN PRN Reason: Pain, moderate (4-7) Last Admin: 05/09/18 22:25 Dose: 650 mg Acetaminophen (Tylenol 650mg/20.3ml Solution Ud) 650 mg PO Q4 PRN PRN Reason: Temperature Last Admin: 05/11/18 03:15 Dose: 650 mg Acetaminophen (Tylenol 650 Mg Supp) 650 mg [place] Q4 PRN PRN Reason: Temperature Ferrous Gluconate (Fergon) 324 mg PO TID [facility] Last Admin: 05/12/18 16:50 Dose: 324 mg Finasteride (Proscar) 5 mg PO DAILY [facility] Last Admin: 05/12/18 08:28 Dose: Not Given Cefepime HCl 1 gm/ Sodium (Chloride) 100 mls @ 100 mls/hr IVPB Q12 [facility] PRN Reason: Protocol Last Admin: 05/13/18 09:45 Dose: 100 mls/hr Morphine Sulfate (Morphine) 1 mg IVP Q4 PRN PRN Reason: Pain, moderate (4-7) Pantoprazole Sodium (Protonix Inj) 40 mg IVP BID [facility] Last Admin: 05/13/18 09:58 Dose: 40 mg Sodium Bicarbonate (Sodium Bicarbonate Tab) 650 mg PO BID [facility] Last Admin: 05/12/18 16:50 Dose: 650 mg Tamsulosin HCl (Flomax) 0.8 mg PEG DAILY [facility] Last Admin: 05/11/18 09:41 Dose: 0.8 mg Vitamin B Complex/Vit C/Folic Acid (Nephro-Paul) 1 tab PO DAILY [facility] Last Admin: 05/12/18 08:49 Dose: Not Given - Labs Labs: 05/13/18 12:16 05/13/18 04:20 PT 16.7 Seconds (9.8-13.1) H 05/11/18 17:59 INR 1.5 (0.9-1.2) H 05/11/18 17:59 APTT 30.2 Seconds (25.6-37.1) 05/08/18 17:41 - Constitutional Appears: Non-toxic, Chronically Ill - Head Exam Head Exam: NORMOCEPHALIC - Eye Exam Eye Exam: absent: Scleral icterus - ENT Exam ENT Exam: Mucous Membranes Dry - Neck Exam Neck Exam: absent: Lymphadenopathy - Respiratory Exam Respiratory Exam: Decreased Breath Sounds - Cardiovascular Exam Cardiovascular Exam: REGULAR RHYTHM - GI/Abdominal Exam GI & Abdominal Exam: Distended - Rectal Exam Rectal Exam: Deferred - Exam Exam: NORMAL INSPECTION Assessment and Plan (1) Acute renal failure Status: Acute (2) Altered mental status Status: Acute (3) Obstructive uropathy Status: Acute (4) Sepsis Status: Acute (5) Toxic metabolic encephalopathy Status: Acute (6) UTI (urinary tract infection) Status: Acute (7) Urinary retention Status: Acute (8) Cerebrovascular accident (CVA) with left hemiparesis Status: Chronic (9) Dyslipidemia Status: Chronic (10) Hypertension Status: Chronic
[2018-05-13 12:33] LABS: HEPATITIS A IGM NEGATIVE (NEGATIVE); HEPATITIS B CORE AB NEGATIVE (NEGATIVE)
[2018-05-13 12:34] LABS: ALB/GLOB RATIO 0.7 (1.0-2.1); ALBUMIN 3.1 g/dL (3.5-5.0); ALT/SGPT 120 U/L (21-72); AST/SGOT 124 U/L (17-59); BLOOD UREA NITROGEN 19 mg/dl (9-20); GFR AFRICAN-AMERICAN > 60; GFR NON-AFRICAN AMERICAN 52
[2018-05-13 12:44] LABS: HEPATITIS C ANTIBODY NEGATIVE (NEGATIVE)
--- NOTE | 2018-05-13 13:49 | CP.PCM.PN ---
Subjective - Date & Time of Evaluation Date of Evaluation: 05/13/18 Time of Evaluation: 13:47 - Subjective Subjective: Patient is aphasic but his Noah interaction with the family No nausea no vomiting Objective - Vital Signs/Intake and Output Vital Signs (last 24 hours): Temp Pulse Resp BP Pulse Ox 98.1 F 114 H 18 109/76 96 05/13/18 11:46 05/13/18 11:46 05/13/18 11:46 05/13/18 11:46 05/13/18 11:46 Intake and Output: 05/13/18 05/13/18 06:59 18:59 Intake Total 1800 Output Total 1600 Balance 200 - Medications Medications: Current Medications Acetaminophen (Tylenol 650mg/20.3ml Solution Ud) 650 mg PO Q6 PRN PRN Reason: Pain, moderate (4-7) Last Admin: 05/09/18 22:25 Dose: 650 mg Acetaminophen (Tylenol 650mg/20.3ml Solution Ud) 650 mg PO Q4 PRN PRN Reason: Temperature Last Admin: 05/11/18 03:15 Dose: 650 mg Acetaminophen (Tylenol 650 Mg Supp) 650 mg [place] Q4 PRN PRN Reason: Temperature Ferrous Gluconate (Fergon) 324 mg PO TID [facility] Last Admin: 05/13/18 12:35 Dose: Not Given Finasteride (Proscar) 5 mg PO DAILY [facility] Last Admin: 05/13/18 12:34 Dose: Not Given Meropenem 500 mg/ Sodium (Chloride) 100 mls @ 100 mls/hr IVPB Q8 [facility] PRN Reason: Protocol Morphine Sulfate (Morphine) 1 mg IVP Q4 PRN PRN Reason: Pain, moderate (4-7) Pantoprazole Sodium (Protonix Inj) 40 mg IVP BID [facility] Last Admin: 05/13/18 09:58 Dose: 40 mg Sodium Bicarbonate (Sodium Bicarbonate Tab) 650 mg PO BID [facility] Last Admin: 05/13/18 12:34 Dose: Not Given Tamsulosin HCl (Flomax) 0.8 mg PEG DAILY [facility] Last Admin: 05/11/18 09:41 Dose: 0.8 mg Vitamin B Complex/Vit C/Folic Acid (Nephro-Paul) 1 tab PO DAILY [facility] Last Admin: 05/13/18 12:34 Dose: Not Given - Labs Labs: 05/13/18 12:16 05/13/18 12:16 PT 16.7 Seconds (9.8-13.1) H 05/11/18 17:59 INR 1.5 (0.9-1.2) H 05/11/18 17:59 APTT 30.2 Seconds (25.6-37.1) 05/08/18 17:41 - Constitutional Appears: No Acute Distress - ENT Exam ENT Exam: Mucous Membranes Moist - Neck Exam Neck Exam: absent: Lymphadenopathy - Respiratory Exam Respiratory Exam: NORMAL BREATHING PATTERN. absent: Rales - Cardiovascular Exam Cardiovascular Exam: absent: Gallop, JVD - GI/Abdominal Exam GI & Abdominal Exam: Soft, Normal Bowel Sounds - Extremities Exam Extremities Exam: absent: Calf Tenderness - Back Exam Back Exam: absent: CVA tenderness (L), CVA tenderness (R) - Neurological Exam Neurological Exam: Awake. absent: Normal Gait - Psychiatric Exam Psychiatric exam: Flat Affect - Skin Skin Exam: absent: Cyanosis Assessment and Plan (1) Acute renal failure Assessment & Plan: acute kidney injury Patient appeared to be recovering serum creatinine coming down and improving. sepsis with UTI b/l hydroureteronephrosis likely due to prostate enlargement HTN, hx of CVA Anemia, acidosis corrected Hypokalemia continue potassium supplement as needed Status: Acute (2) Altered mental status Status: Acute (3) Obstructive uropathy Status: Acute (4) Sepsis Status: Acute (5) Urinary retention Status: Acute (6) Cerebrovascular accident (CVA) with left hemiparesis Status: Chronic
[2018-05-13] MEDS: Meropenem 500 MG in Sodium Chloride 0.9% 100 ML IVPB SCH (17:38)
[2018-05-14] MEDS: Meropenem 500 MG in Sodium Chloride 0.9% 100 ML IVPB SCH ×3 (02:01→17:32)
[2018-05-14 05:38] LABS: HEMOGLOBIN 9.9 g/dL (12.0-18.0); MEAN CELL VOLUME 86.5 fl (80.0-94.0); MEAN CORPUSCULAR HEMOGLOBIN 29.6 pg (27.0-31.0); MEAN CORPUSCULAR HGB CONC 34.2 g/dL (33.0-37.0); RBC 3.33 Mil/uL (4.40-5.90); RED CELL DISTRIBUTION WIDTH 16.3 % (11.5-14.5); WHITE BLOOD COUNT 14.2 K/uL (4.8-10.8)
[2018-05-14] MEDS: Dextrose 5%/0.45% NS 1,000 ML IV SCH (05:48)
[2018-05-14 06:24] LABS: ALB/GLOB RATIO 0.6 (1.0-2.1); ALBUMIN 2.9 g/dL (3.5-5.0); ALT/SGPT 142 U/L (21-72); AST/SGOT 169 U/L (17-59); BLOOD UREA NITROGEN 20 mg/dl (9-20); CALCIUM 7.9 mg/dL (8.4-10.2); GFR AFRICAN-AMERICAN > 60; GFR NON-AFRICAN AMERICAN 57
--- NOTE | 2018-05-14 08:44 | CP.PCM.PN ---
Subjective - Date & Time of Evaluation Date of Evaluation: 05/13/18 Time of Evaluation: 16:30 - Subjective Subjective: Seen and examined at the bed side. No fever spike. S/P change PEG tube. Patient more awake. Continue Fail swallow evaluation. Objective - Vital Signs/Intake and Output Vital Signs (last 24 hours): Temp Pulse Resp BP Pulse Ox 99.6 F 109 H 18 118/80 96 05/14/18 08:17 05/14/18 08:17 05/14/18 08:17 05/14/18 08:17 05/14/18 08:17 Intake and Output: 05/14/18 05/14/18 06:59 18:59 Intake Total 1400 Output Total 1000 Balance 400 - Medications Medications: Current Medications Acetaminophen (Tylenol 650mg/20.3ml Solution Ud) 650 mg PO Q6 PRN PRN Reason: Pain, moderate (4-7) Last Admin: 05/09/18 22:25 Dose: 650 mg Acetaminophen (Tylenol 650mg/20.3ml Solution Ud) 650 mg PO Q4 PRN PRN Reason: Temperature Last Admin: 05/11/18 03:15 Dose: 650 mg Acetaminophen (Tylenol 650 Mg Supp) 650 mg [place] Q4 PRN PRN Reason: Temperature Ferrous Gluconate (Fergon) 324 mg PO TID [facility] Last Admin: 05/13/18 17:36 Dose: Not Given Finasteride (Proscar) 5 mg PO DAILY [facility] Last Admin: 05/13/18 12:34 Dose: Not Given Meropenem 500 mg/ Sodium (Chloride) 100 mls @ 100 mls/hr IVPB Q8 [facility] PRN Reason: Protocol Last Admin: 05/14/18 02:01 Dose: 100 mls/hr Dextrose/Sodium Chloride (Dextrose 5%/0.45% Ns 1000 Ml) 1,000 mls @ 80 mls/hr IV .[id number] [facility] Stop: 05/15/18 02:08 Last Admin: 05/14/18 05:48 Dose: 80 mls/hr Morphine Sulfate (Morphine) 1 mg IVP Q4 PRN PRN Reason: Pain, moderate (4-7) Pantoprazole Sodium (Protonix Inj) 40 mg IVP BID [facility] Last Admin: 05/13/18 17:50 Dose: 40 mg Sodium Bicarbonate (Sodium Bicarbonate Tab) 650 mg PO BID [facility] Last Admin: 05/13/18 17:57 Dose: Not Given Tamsulosin HCl (Flomax) 0.8 mg PEG DAILY [facility] Last Admin: 05/11/18 09:41 Dose: 0.8 mg Vitamin B Complex/Vit C/Folic Acid (Nephro-Paul) 1 tab PO DAILY [facility] Last Admin: 05/13/18 12:34 Dose: Not Given - Labs Labs: 05/14/18 05:10 05/14/18 05:10 PT 16.7 Seconds (9.8-13.1) H 05/11/18 17:59 INR 1.5 (0.9-1.2) H 05/11/18 17:59 APTT 30.2 Seconds (25.6-37.1) 05/08/18 17:41 - Constitutional Appears: No Acute Distress, Chronically Ill - Head Exam Head Exam: ATRAUMATIC, NORMAL INSPECTION, NORMOCEPHALIC - Eye Exam Eye Exam: EOMI, Normal appearance, PERRL Pupil Exam: NORMAL ACCOMODATION, PERRL - ENT Exam ENT Exam: Mucous Membranes Moist, Normal Exam - Neck Exam Neck Exam: Full ROM, Normal Inspection. absent: Lymphadenopathy - Respiratory Exam Respiratory Exam: Clear to Ausculation Bilateral, NORMAL BREATHING PATTERN - Cardiovascular Exam Cardiovascular Exam: REGULAR RHYTHM, +S1, +S2, Murmur - GI/Abdominal Exam GI & Abdominal Exam: Soft, Normal Bowel Sounds. absent: Tenderness Additional comments: +PEG site Clean - Extremities Exam Extremities Exam: Full ROM, Normal Capillary Refill, Normal Inspection. absent : Joint Swelling, Pedal Edema - Back Exam Back Exam: NORMAL INSPECTION - Neurological Exam Neurological Exam: Alert, Awake - Psychiatric Exam Psychiatric exam: Flat Affect - Skin Skin Exam: Dry, Intact, Normal Color, Warm Assessment and Plan (1) Altered mental status Assessment & Plan: Metabolic Encephalopathy- Sepsis/Uremia/CVA- Improving Klebsiella P Bactremia Sepsis, UTI Continue Cefepime 2gm IV Q12hrs ID and Nephrology onboard Status: Acute (2) Acute renal failure Assessment & Plan: Resolved Obstructie Uropathy S/P Rashid Cath B/L Hydronephrosis BPH IVF Status: Acute (3) Hypokalemia Assessment & Plan: Replenish PRN Monitor BMP Status: Acute (4) Cerebrovascular accident (CVA) with left hemiparesis Assessment & Plan: SDH Residual Dysphagia S/P PEG Change Physical Deconditoning Resume feeding PT/OT evaluation, and Treatment Status: Chronic (5) Hypertension Status: Chronic (6) Dyslipidemia Status: Chronic
[2018-05-14] MEDS ORDERED: Potassium Chloride 20 mEq/15 ml LIQ UD PEG ONE (08:49)
--- NOTE | 2018-05-14 09:22 | CP.PCM.PN ---
Subjective - Date & Time of Evaluation Date of Evaluation: 05/14/18 Time of Evaluation: 09:20 - Subjective Subjective: Patient and bed not verbalizing although his awake Patient has aphasia Objective - Vital Signs/Intake and Output Vital Signs (last 24 hours): Temp Pulse Resp BP Pulse Ox 99.6 F 109 H 18 118/80 96 05/14/18 08:17 05/14/18 08:17 05/14/18 08:17 05/14/18 08:17 05/14/18 08:17 Intake and Output: 05/14/18 05/14/18 06:59 18:59 Intake Total 1400 Output Total 1000 Balance 400 - Medications Medications: Current Medications Acetaminophen (Tylenol 650mg/20.3ml Solution Ud) 650 mg PO Q6 PRN PRN Reason: Pain, moderate (4-7) Last Admin: 05/09/18 22:25 Dose: 650 mg Acetaminophen (Tylenol 650mg/20.3ml Solution Ud) 650 mg PO Q4 PRN PRN Reason: Temperature Last Admin: 05/11/18 03:15 Dose: 650 mg Acetaminophen (Tylenol 650 Mg Supp) 650 mg [place] Q4 PRN PRN Reason: Temperature Ferrous Gluconate (Fergon) 324 mg PO TID [facility] Last Admin: 05/13/18 17:36 Dose: Not Given Finasteride (Proscar) 5 mg PO DAILY [facility] Last Admin: 05/13/18 12:34 Dose: Not Given Meropenem 500 mg/ Sodium (Chloride) 100 mls @ 100 mls/hr IVPB Q8 [facility] PRN Reason: Protocol Last Admin: 05/14/18 02:01 Dose: 100 mls/hr Dextrose/Sodium Chloride (Dextrose 5%/0.45% Ns 1000 Ml) 1,000 mls @ 80 mls/hr IV .[id number] [facility] Stop: 05/15/18 02:08 Last Admin: 05/14/18 05:48 Dose: 80 mls/hr Morphine Sulfate (Morphine) 1 mg IVP Q4 PRN PRN Reason: Pain, moderate (4-7) Pantoprazole Sodium (Protonix Inj) 40 mg IVP BID [facility] Last Admin: 05/13/18 17:50 Dose: 40 mg Sodium Bicarbonate (Sodium Bicarbonate Tab) 650 mg PO BID [facility] Last Admin: 05/13/18 17:57 Dose: Not Given Tamsulosin HCl (Flomax) 0.8 mg PEG DAILY [facility] Last Admin: 05/11/18 09:41 Dose: 0.8 mg Vitamin B Complex/Vit C/Folic Acid (Nephro-Paul) 1 tab PO DAILY [facility] Last Admin: 05/13/18 12:34 Dose: Not Given - Labs Labs: 05/14/18 05:10 05/14/18 05:10 PT 16.7 Seconds (9.8-13.1) H 05/11/18 17:59 INR 1.5 (0.9-1.2) H 05/11/18 17:59 APTT 30.2 Seconds (25.6-37.1) 05/08/18 17:41 - Constitutional Appears: No Acute Distress - ENT Exam ENT Exam: Mucous Membranes Moist - Respiratory Exam Respiratory Exam: NORMAL BREATHING PATTERN - Cardiovascular Exam Cardiovascular Exam: absent: Gallop, JVD, Rubs - GI/Abdominal Exam GI & Abdominal Exam: Soft, Normal Bowel Sounds - Extremities Exam Extremities Exam: absent: Calf Tenderness - Back Exam Back Exam: absent: CVA tenderness (L), CVA tenderness (R) - Neurological Exam Neurological Exam: Alert - Psychiatric Exam Psychiatric exam: Normal Affect - Skin Skin Exam: absent: Cyanosis Assessment and Plan (1) Acute renal failure Assessment & Plan: acute kidney injury Patient appeared to be recovering serum creatinine coming down and improving. sepsis with UTI history of CVA Suggest to do ultrasound of the kidney and PSA if not done Status: Acute (2) Altered mental status Status: Acute (3) Obstructive uropathy Status: Acute (4) Sepsis Status: Acute (5) Urinary retention Status: Acute (6) Cerebrovascular accident (CVA) with left hemiparesis Status: Chronic
[2018-05-14] MEDS: Multivitamin Vitamin B Complex (Nephro-Vite) Tab PO SCH (09:50)
--- NOTE | 2018-05-14 15:21 | PQF ---
PROVIDER RESPONSE TEXT: Removal of old PEG was endoscopic with replacement of new PEG REVIEWER QUERY TEXT: Procedure Clarification Requirements for documentation of procedures now require additional specificity regarding the approac h. Your help is needed in clarifying the following. Was the removal of the PEG tube via: Percutaneous or percutaneous endoscopic approach Or via natural or artificial opening approach Or via natural or artificial opening endoscopic approach Or an external approach 05/12 Upper GI Endoscopy report: Indications: Replace PEG tube due to clogged Gastrostomy tube Impression includes: Intact Gastrostomy with an occluded G-tube present.---An externally removable PE G placement was successfully completed; see full report in the EMR 05/13 GI progress note: PEG dysfunction s/p replacement with new PEG 05/12/18 from old stoma exchange d one yesterday under endoscopy Query created by: Zulema Pulido on 05/14/2018 2:41 PM Electronically signed by: Casey De Los Santos MD 05/14/2018 3:18 PM
--- NOTE | 2018-05-14 18:44 | US ---
Date of service: 05/14/2018 PROCEDURE: Ultrasound of the Kidneys HISTORY: arf COMPARISON: None available. TECHNIQUE: Sonogram of the kidneys. FINDINGS: RIGHT KIDNEY: Measures: 11.2 x 4.7 x 5.7 cm. Upper/ midpole cyst measuring 1.0 x 1.4 x 1.2 cm. Midpole cyst measured 1.3 x 1.3 x 1.5 cm. Normal in size, contour and echogenicity. No stone, solid mass lesion or hydronephrosis visualized. LEFT KIDNEY: Measures: 12.2 x 3.8 x 4.4 cm. Upper/midpole cyst measuring 3.5 x 3.1 x 3.7 cm. Lower pole cyst measuring 2.6 x 2.9 x 2.1 cm. Normal in size, contour and echogenicity. No stone, solid mass lesion or hydronephrosis visualized. OTHER FINDINGS: None. IMPRESSION: Bilateral renal cysts.
--- NOTE | 2018-05-14 22:33 | CP.PCM.PN ---
Subjective - Date & Time of Evaluation Date of Evaluation: 05/14/18 Time of Evaluation: 17:05 Objective - Vital Signs/Intake and Output Vital Signs (last 24 hours): Temp Pulse Resp BP Pulse Ox 98.3 F 114 H 20 106/75 97 05/14/18 20:02 05/14/18 20:02 05/14/18 20:02 05/14/18 20:02 05/14/18 20:02 - Medications Medications: Current Medications Acetaminophen (Tylenol 650mg/20.3ml Solution Ud) 650 mg PO Q6 PRN PRN Reason: Pain, moderate (4-7) Last Admin: 05/09/18 22:25 Dose: 650 mg Acetaminophen (Tylenol 650mg/20.3ml Solution Ud) 650 mg PO Q4 PRN PRN Reason: Temperature Last Admin: 05/11/18 03:15 Dose: 650 mg Acetaminophen (Tylenol 650 Mg Supp) 650 mg [place] Q4 PRN PRN Reason: Temperature Ferrous Gluconate (Fergon) 324 mg PO TID [facility] Last Admin: 05/14/18 17:31 Dose: 324 mg Finasteride (Proscar) 5 mg PO DAILY [facility] Last Admin: 05/14/18 09:50 Dose: 5 mg Meropenem 500 mg/ Sodium (Chloride) 100 mls @ 100 mls/hr IVPB Q8 [facility] PRN Reason: Protocol Last Admin: 05/14/18 17:32 Dose: 100 mls/hr Dextrose/Sodium Chloride (Dextrose 5%/0.45% Ns 1000 Ml) 1,000 mls @ 80 mls/hr IV .[id number] [facility] Stop: 05/15/18 02:08 Last Admin: 05/14/18 05:48 Dose: 80 mls/hr Morphine Sulfate (Morphine) 1 mg IVP Q4 PRN PRN Reason: Pain, moderate (4-7) Pantoprazole Sodium (Protonix Inj) 40 mg IVP BID [facility] Last Admin: 05/14/18 17:32 Dose: 40 mg Sodium Bicarbonate (Sodium Bicarbonate Tab) 650 mg PO BID [facility] Last Admin: 05/14/18 17:32 Dose: 650 mg Tamsulosin HCl (Flomax) 0.8 mg PEG DAILY [facility] Last Admin: 05/11/18 09:41 Dose: 0.8 mg Vitamin B Complex/Vit C/Folic Acid (Nephro-Paul) 1 tab PO DAILY [facility] Last Admin: 05/14/18 09:50 Dose: 1 tab - Labs Labs: 05/14/18 05:10 05/14/18 05:10 PT 16.7 Seconds (9.8-13.1) H 05/11/18 17:59 INR 1.5 (0.9-1.2) H 05/11/18 17:59 APTT 30.2 Seconds (25.6-37.1) 05/08/18 17:41 Assessment and Plan (1) Altered mental status Status: Acute (2) Acute renal failure Status: Acute (3) Hypokalemia Status: Acute (4) Cerebrovascular accident (CVA) with left hemiparesis Status: Chronic (5) Hypertension Status: Chronic (6) Dyslipidemia Status: Chronic
[2018-05-15] MEDS: Meropenem 500 MG in Sodium Chloride 0.9% 100 ML IVPB SCH ×3 (00:57→17:00)
[2018-05-15] MEDS: Dextrose 5%/0.45% NS 1,000 ML IV SCH (03:47)
[2018-05-15 05:43] LABS: HEMOGLOBIN 9.3 g/dL (12.0-18.0); MEAN CELL VOLUME 86.9 fl (80.0-94.0); MEAN CORPUSCULAR HEMOGLOBIN 29.6 pg (27.0-31.0); MEAN CORPUSCULAR HGB CONC 34.1 g/dL (33.0-37.0); RBC 3.15 Mil/uL (4.40-5.90); RED CELL DISTRIBUTION WIDTH 16.8 % (11.5-14.5); WHITE BLOOD COUNT 12.7 K/uL (4.8-10.8)
[2018-05-15 07:25] LABS: ALB/GLOB RATIO 0.6 (1.0-2.1); ALBUMIN 2.7 g/dL (3.5-5.0); ALT/SGPT 139 U/L (21-72); AST/SGOT 132 U/L (17-59); BLOOD UREA NITROGEN 26 mg/dl (9-20); CALCIUM 7.8 mg/dL (8.4-10.2); GFR AFRICAN-AMERICAN > 60; GFR NON-AFRICAN AMERICAN 57
--- NOTE | 2018-05-15 08:15 | CP.PCM.PN ---
Subjective - Date & Time of Evaluation Date of Evaluation: 05/15/18 Time of Evaluation: 08:13 - Subjective Subjective: No significant changes clinically Vital signs stable Feeding tube Objective - Vital Signs/Intake and Output Vital Signs (last 24 hours): Temp Pulse Resp BP Pulse Ox 98.8 F 93 H 20 98/64 L 97 05/15/18 08:02 05/15/18 08:02 05/15/18 08:02 05/15/18 08:02 05/15/18 08:02 Intake and Output: 05/15/18 05/15/18 06:59 18:59 Intake Total 1580 Output Total 300 Balance 1280 - Medications Medications: Current Medications Acetaminophen (Tylenol 650mg/20.3ml Solution Ud) 650 mg PO Q6 PRN PRN Reason: Pain, moderate (4-7) Last Admin: 05/09/18 22:25 Dose: 650 mg Acetaminophen (Tylenol 650mg/20.3ml Solution Ud) 650 mg PO Q4 PRN PRN Reason: Temperature Last Admin: 05/11/18 03:15 Dose: 650 mg Acetaminophen (Tylenol 650 Mg Supp) [address] Q4 PRN PRN Reason: Temperature Ferrous Gluconate (Fergon) 324 mg PO TID [facility] Last Admin: 05/14/18 17:31 Dose: 324 mg Finasteride (Proscar) 5 mg PO DAILY [facility] Last Admin: 05/14/18 09:50 Dose: 5 mg Meropenem 500 mg/ Sodium (Chloride) 100 mls @ 100 mls/hr IVPB Q8 JIN PRN Reason: Protocol Last Admin: 05/15/18 00:57 Dose: 100 mls/hr Morphine Sulfate (Morphine) 1 mg IVP Q4 PRN PRN Reason: Pain, moderate (4-7) Pantoprazole Sodium (Protonix Inj) 40 mg IVP BID [facility] Last Admin: 05/14/18 17:32 Dose: 40 mg Sodium Bicarbonate (Sodium Bicarbonate Tab) 650 mg PO BID [facility] Last Admin: 05/14/18 17:32 Dose: 650 mg Tamsulosin HCl (Flomax) 0.8 mg PEG DAILY [facility] Last Admin: 05/11/18 09:41 Dose: 0.8 mg Vitamin B Complex/Vit C/Folic Acid (Nephro-Paul) 1 tab PO DAILY [facility] Last Admin: 05/14/18 09:50 Dose: 1 tab - Labs Labs: 05/15/18 05:25 05/15/18 06:34 PT 16.7 Seconds (9.8-13.1) H 05/11/18 17:59 INR 1.5 (0.9-1.2) H 05/11/18 17:59 APTT 30.2 Seconds (25.6-37.1) 05/08/18 17:41 - Constitutional Appears: No Acute Distress - ENT Exam ENT Exam: Mucous Membranes Moist - Neck Exam Neck Exam: absent: Lymphadenopathy - Respiratory Exam Respiratory Exam: NORMAL BREATHING PATTERN - Cardiovascular Exam Cardiovascular Exam: absent: JVD, Rubs - GI/Abdominal Exam GI & Abdominal Exam: Soft, Normal Bowel Sounds - Extremities Exam Extremities Exam: absent: Calf Tenderness - Back Exam Back Exam: absent: CVA tenderness (L), CVA tenderness (R) - Neurological Exam Neurological Exam: Altered Assessment and Plan (1) Acute renal failure Assessment & Plan: Serum creatinine continued to improve patient is recovering from acute renal failure Ultrasound of the kidney no hydronephrosis bilateral renal cyst as noted Status: Acute (2) Altered mental status Status: Acute (3) Obstructive uropathy Status: Acute (4) Sepsis Status: Acute (5) Urinary retention Status: Acute (6) Cerebrovascular accident (CVA) with left hemiparesis Status: Chronic
[2018-05-15] MEDS ORDERED: Potassium Chloride 20 mEq ER Tab PO ONE (09:28)
[2018-05-15] MEDS ORDERED: Potassium Chloride 20 mEq/15 ml LIQ UD PO ONE (11:16)
[2018-05-15] MEDS: Multivitamin Vitamin B Complex (Nephro-Vite) Tab PO SCH (11:20)
[2018-05-15 12:32] VITALS: RESP 18; TEMP 97.9
--- NOTE | 2018-05-15 12:42 | CP.PCM.PN ---
Subjective - Date & Time of Evaluation Date of Evaluation: 05/15/18 Time of Evaluation: 07:00 - Subjective Subjective: awake alert responsive follows simple commands in his language daughter at bedside nad Objective - Vital Signs/Intake and Output Vital Signs (last 24 hours): Temp Pulse Resp BP Pulse Ox 97.9 F 100 H 18 100/67 98 05/15/18 12:31 05/15/18 12:31 05/15/18 12:31 05/15/18 12:31 05/15/18 12:31 Intake and Output: 05/15/18 05/15/18 06:59 18:59 Intake Total 1580 Output Total 300 Balance 1280 - Medications Medications: Current Medications Acetaminophen (Tylenol 650mg/20.3ml Solution Ud) 650 mg PO Q6 PRN PRN Reason: Pain, moderate (4-7) Last Admin: 05/09/18 22:25 Dose: 650 mg Acetaminophen (Tylenol 650mg/20.3ml Solution Ud) 650 mg PO Q4 PRN PRN Reason: Temperature Last Admin: 05/11/18 03:15 Dose: 650 mg Acetaminophen (Tylenol 650 Mg Supp) 650 mg [place] Q4 PRN PRN Reason: Temperature Ferrous Gluconate (Fergon) 324 mg PO TID [facility] Last Admin: 05/15/18 11:19 Dose: 324 mg Finasteride (Proscar) 5 mg PO DAILY [facility] Last Admin: 05/15/18 11:21 Dose: 5 mg Meropenem 500 mg/ Sodium (Chloride) 100 mls @ 100 mls/hr IVPB Q8 JIN PRN Reason: Protocol Last Admin: 05/15/18 09:10 Dose: 100 mls/hr Morphine Sulfate (Morphine) 1 mg IVP Q4 PRN PRN Reason: Pain, moderate (4-7) Pantoprazole Sodium (Protonix Inj) 40 mg IVP BID [facility] Last Admin: 05/15/18 11:19 Dose: 40 mg Sodium Bicarbonate (Sodium Bicarbonate Tab) 650 mg PO BID [facility] Last Admin: 05/15/18 11:21 Dose: 650 mg Tamsulosin HCl (Flomax) 0.8 mg PEG DAILY [facility] Last Admin: 05/11/18 09:41 Dose: 0.8 mg Vitamin B Complex/Vit C/Folic Acid (Nephro-Paul) 1 tab PO DAILY [facility] Last Admin: 05/15/18 11:20 Dose: 1 tab - Labs Labs: 05/15/18 05:25 05/15/18 06:34 PT 16.7 Seconds (9.8-13.1) H 05/11/18 17:59 INR 1.5 (0.9-1.2) H 05/11/18 17:59 APTT 30.2 Seconds (25.6-37.1) 05/08/18 17:41 - Constitutional Appears: Non-toxic, Chronically Ill - Head Exam Head Exam: NORMOCEPHALIC - Eye Exam Eye Exam: PERRL - ENT Exam ENT Exam: Mucous Membranes Dry - Neck Exam Neck Exam: absent: Lymphadenopathy - Respiratory Exam Respiratory Exam: Decreased Breath Sounds - Cardiovascular Exam Cardiovascular Exam: REGULAR RHYTHM - GI/Abdominal Exam GI & Abdominal Exam: Distended, Soft - Rectal Exam Rectal Exam: Deferred - Exam Exam: NORMAL INSPECTION - Extremities Exam Extremities Exam: absent: Pedal Edema - Back Exam Back Exam: absent: CVA tenderness (L), CVA tenderness (R) - Neurological Exam Neurological Exam: Alert, Awake, CN II-XII Intact, Motor Sensory Deficit Neuro motor strength exam: Left Upper Extremity: 2/1, Right Upper Extremity: 4, Left Lower Extremity: 2/1, Right Lower Extremity: 4 - Psychiatric Exam Psychiatric exam: Depressed - Skin Skin Exam: Dry, Intact Assessment and Plan (1) Acute renal failure Status: Acute (2) Altered mental status Status: Acute (3) Obstructive uropathy Status: Acute (4) Sepsis Status: Acute (5) Toxic metabolic encephalopathy Status: Acute (6) UTI (urinary tract infection) Status: Acute (7) Urinary retention Status: Acute (8) Cerebrovascular accident (CVA) with left hemiparesis Status: Chronic (9) Dyslipidemia Status: Chronic (10) Hypertension Status: Chronic - Assessment and Plan (Free Text) Assessment: cont iv rx for min 14 days
--- NOTE | 2018-05-15 14:19 | CP.PCM.PCO ---
Assessment/Plan - Assessment and Plan (Free Text) Assessment: Patient seen and examined this morning. VSS, labs reviewed with Dr Murphy. Patient's wbc decreasing 12.7. Potassium replaced via peg. New peg working well.
--- NOTE | 2018-05-15 14:44 | CP.PCM.PN ---
Subjective - Date & Time of Evaluation Date of Evaluation: 05/15/18 Time of Evaluation: 10:45 Objective - Vital Signs/Intake and Output Vital Signs (last 24 hours): Temp Pulse Resp BP Pulse Ox 97.9 F 100 H 18 100/67 98 05/15/18 12:31 05/15/18 12:31 05/15/18 12:31 05/15/18 12:31 05/15/18 12:31 Intake and Output: 05/15/18 05/15/18 06:59 18:59 Intake Total 1580 Output Total 300 Balance 1280 - Medications Medications: Current Medications Acetaminophen (Tylenol 650mg/20.3ml Solution Ud) 650 mg PO Q6 PRN PRN Reason: Pain, moderate (4-7) Last Admin: 05/09/18 22:25 Dose: 650 mg Acetaminophen (Tylenol 650mg/20.3ml Solution Ud) 650 mg PO Q4 PRN PRN Reason: Temperature Last Admin: 05/11/18 03:15 Dose: 650 mg Acetaminophen (Tylenol 650 Mg Supp) 650 mg [place] Q4 PRN PRN Reason: Temperature Ferrous Gluconate (Fergon) 324 mg PO TID [facility] Last Admin: 05/15/18 11:19 Dose: 324 mg Finasteride (Proscar) 5 mg PO DAILY [facility] Last Admin: 05/15/18 11:21 Dose: 5 mg Meropenem 500 mg/ Sodium (Chloride) 100 mls @ 100 mls/hr IVPB Q8 JIN PRN Reason: Protocol Last Admin: 05/15/18 09:10 Dose: 100 mls/hr Morphine Sulfate (Morphine) 1 mg IVP Q4 PRN PRN Reason: Pain, moderate (4-7) Pantoprazole Sodium (Protonix Inj) 40 mg IVP BID [facility] Last Admin: 05/15/18 11:19 Dose: 40 mg Sodium Bicarbonate (Sodium Bicarbonate Tab) 650 mg PO BID [facility] Last Admin: 05/15/18 11:21 Dose: 650 mg Tamsulosin HCl (Flomax) 0.8 mg PEG DAILY [facility] Last Admin: 05/11/18 09:41 Dose: 0.8 mg Vitamin B Complex/Vit C/Folic Acid (Nephro-Paul) 1 tab PO DAILY [facility] Last Admin: 05/15/18 11:20 Dose: 1 tab - Labs Labs: 05/15/18 05:25 05/15/18 06:34 PT 16.7 Seconds (9.8-13.1) H 05/11/18 17:59 INR 1.5 (0.9-1.2) H 05/11/18 17:59 APTT 30.2 Seconds (25.6-37.1) 05/08/18 17:41 Assessment and Plan (1) Altered mental status Status: Acute (2) Acute renal failure Status: Acute (3) Hypokalemia Status: Acute (4) Cerebrovascular accident (CVA) with left hemiparesis Status: Chronic (5) Hypertension Status: Chronic (6) Dyslipidemia Status: Chronic
[2018-05-15 16:24] VITALS: BP 109/72; PULSE 95; O2SAT 96
== END 2018-05-15 17:49 | DRG 853 ==
LOC: H.ER 16:20 → H.ERHOLD 18:24 → H.TEL 05-09 10:39
PROVIDERS: ADMIT Internal Medicine; ATTEND Internal Medicine
PROC: 0DP64UZ Removal of Feeding Device from Stomach, Percutaneous Endoscopic Approach (ICD-10-PCS; principal; 2018-05-11)
PROC: 0DH63UZ Insertion of Feeding Device into Stomach, Percutaneous Approach (ICD-10-PCS; 2018-05-11)
DX: A41.59 Other Gram-negative sepsis (principal); G92 Toxic encephalopathy; R40.20 Unspecified coma; K94.23 Gastrostomy malfunction; N17.9 Acute kidney failure, unspecified; E87.2 Acidosis; I69.154 Hemiplegia and hemiparesis following nontraumatic intracerebral hemorrhage affecting left non-dominant side; N39.0 Urinary tract infection, site not specified; N13.8 Other obstructive and reflux uropathy; N13.6 Pyonephrosis; E87.6 Hypokalemia; N40.1 Benign prostatic hyperplasia with lower urinary tract symptoms; I69.120 Aphasia following nontraumatic intracerebral hemorrhage; B96.1 Klebsiella pneumoniae [K. pneumoniae] as the cause of diseases classified elsewhere; E86.0 Dehydration; R33.8 Other retention of urine; I69.191 Dysphagia following nontraumatic intracerebral hemorrhage; R13.10 Dysphagia, unspecified; I10 Essential (primary) hypertension; E78.5 Hyperlipidemia, unspecified; D64.9 Anemia, unspecified; Z87.891 Personal history of nicotine dependence

== ENCOUNTER 2018-05-15 16:16 | Inpatient (IN) | payer OTHER ==
[2018-05-15 18:11] VITALS: BMI 22.9
[2018-05-15] MEDS ORDERED: Acetaminophen 650mg/20.3ml solution UD PO PRN ×2 (21:29→21:31)
[2018-05-16] MEDS ORDERED: Patient's Own Med (Meropenem 500 Mg In Ns [Merrem Iv 500 Mg/Ns 50 Ml] 500 MG) IV SCH (01:00)
[2018-05-16] MEDS: Meropenem 500 MG in Sodium Chloride 0.9% 100 ML IVPB SCH ×3 (01:00→16:52)
--- NOTE | 2018-05-16 08:42 | CP.PCM.PN ---
Subjective - Date & Time of Evaluation Date of Evaluation: 05/16/18 Time of Evaluation: 08:34 - Subjective Subjective: Patient seen and examined, daughter at bedside. No acute events overnight. No reported abdominal pain, nausea, vomiting. Tolerating PEG feeding without any difficulty. Review of vitals from today shows tachycardia. Review of systems not available secondary to patient altered mental status. Objective - Vital Signs/Intake and Output Vital Signs (last 24 hours): Temp Pulse Resp BP Pulse Ox 97.9 F 100 H 20 108/65 95 05/16/18 08:26 05/16/18 08:26 05/16/18 08:26 05/16/18 08:26 05/16/18 08:26 Intake and Output: 05/16/18 05/16/18 06:59 18:59 Intake Total 1700 Output Total 800 Balance 900 - Medications Medications: Current Medications Acetaminophen (Tylenol 650 Mg Supp) 650 mg [place] Q4 PRN PRN Reason: Fever >100.4 F Acetaminophen (Tylenol 650mg/20.3ml Solution Ud) 650 mg PO Q6 PRN PRN Reason: Pain, moderate (4-7) Acetaminophen (Tylenol 650mg/20.3ml Solution Ud) 650 mg PO Q4 PRN PRN Reason: Temperature Ferrous Gluconate (Fergon) 324 mg PO TID [facility] Finasteride (Proscar) 5 mg PO DAILY [facility] Meropenem 500 mg/ Sodium (Chloride) 100 mls @ 100 mls/hr IVPB Q8 [facility] Last Admin: 05/16/18 01:00 Dose: 100 mls/hr Dextrose/Sodium Chloride (Dextrose 5%-0.45% Ns 500 Ml) 1,000 mls @ 80 mls/hr IV .[id number] [facility] Stop: 05/16/18 21:36 Last Admin: 05/15/18 22:07 Dose: 80 mls/hr Pantoprazole Sodium (Protonix Inj) 40 mg IVP BID [facility] Sodium Bicarbonate (Sodium Bicarbonate Tab) 650 mg PO BID [facility] Vitamin B Complex/Vit C/Folic Acid (Nephro-Paul) 1 tab PO DAILY [facility] - Constitutional Appears: No Acute Distress, Chronically Ill - Head Exam Head Exam: NORMAL INSPECTION - Eye Exam Eye Exam: Normal appearance, PERRL - ENT Exam ENT Exam: Mucous Membranes Moist - Respiratory Exam Respiratory Exam: Clear to Ausculation Bilateral - Cardiovascular Exam Cardiovascular Exam: +S1, +S2 - GI/Abdominal Exam GI & Abdominal Exam: Soft, Normal Bowel Sounds Additional comments: PEG site in LUQ appears clean/dry non-tender to palpation in four quadrants - Extremities Exam Extremities Exam: Normal Inspection - Skin Skin Exam: Dry, Intact, Normal Color, Warm Assessment and Plan - Assessment and Plan (Free Text) Assessment: Altered mental status - recent CVA Dysphagia, s/p PEG Plan: - PEG site examined, appears normal - Gastrostomy tube functioning well, patient tolerating tube feeding without difficulty - No further planned GI intervention, will sign off case. Please reconsult as necessary, thank you.
[2018-05-16] MEDS ORDERED: Multivitamin Vitamin B Complex (Nephro-Vite) Tab PO SCH (09:00)
--- NOTE | 2018-05-16 10:44 | CP.PCM.CON ---
History of Present Illness - History of Present Illness History of Present Illness: Nephrology Consultation Note: Assessment: stable Acute Kidney Injury (N17.9) likely due to obstructive uropathy: improving sepsis with UTI b/l hydroureteronephrosis likely due to prostate enlargement HTN, hx of CVA Anemia, acidosis Plan Renal function improved danielle and abx for sepsis, continue to monitor, uop good continue with flomax follow h and h abx per ID on po iron on bicarb reason for consult: FISH HPI: Pt is a 87 M with hx of hypertension (years), CVA resulting impaired swallow required PEG tube, non-communicative state since then, was hospitalized at [facility], d/c to rehab, yara back home by family 1 week ago was brought to ER c /o fever found to have urosepsis and fish. He was treated w/ abx and danielle placement and FISH resolved. He is now in TCU for rehab following that hospitalization. ROS: pt unable to provide as pt non verbal pmh: as below famhx: no esrd in family sochx: no smoke/etoh/ivdu meds: as below all: nkda Physical Examination: General Appearance: Comfortable, in no acute respiratory distress. Vitals reviewed and noted as below Head; Atraumatic, normocephalic ENT: nc/at EYES: opens eyse to voice Neck; supple no lymphadenopathy, no thyromegaly or bruit Lungs: Normal respiratory rate/effort. Breath sounds bilateral equal and clear anteriorly Heart: Normal rate. s1s2 normal. No rub or gallop. Extremities: no edema. No varicose veins Neurological: Patient is non communicative, doesn't follow commands. open eyes Skin: Warm and dry. Normal turgor. No rash. Palpitation: Normal elasticity for age Abdomen: Abdomen is soft. Bowel sounds +. There is no abdominal tenderness, no guarding/rigidity no organomegaly. has peg tube Psych: unable to assess, appears flat MSK: no joint tenderness or swelling. Digits and nails normal, no deformity : kidney or bladder not palpable. has danielle Labs/imaging reviewed. Past medical history, past surgical history, family history, social history, allergy reviewed and noted as below Family hx: no hx of CKD. Rest non-contributory Past Patient History - Infectious Disease Hx of Infectious Diseases: None - Past Medical History & Family History Past Medical History?: Yes - Past Social History Smoking Status: Former Smoker - CARDIAC Hx Cardiac Disorders: Yes Hx Angina: No Hx Atrial Fibrillation: No (sinus tacycardia >150) Hx Cardia Arrhythmia: Yes Hx Circulatory Problems: No Hx Congestive Heart Failure: No Hx Heart Attack: No Hx Heart Murmur: No Hx Heart Transplant: No Hx Hypercholesterolemia: No Hx Hypertension: Yes Hx Hypotension: No Hx Internal Defibrillator: No Hx Mitral Valve Prolapse: No Hx Pacemaker: No Hx Peripheral Edema: No Hx Peripheral Vascular Disease: No - PULMONARY Hx Respiratory Disorders: No Hx Asthma: No Hx Bronchitis: No Hx Chronic Obstructive Pulmonary Disease (COPD): No Hx Emphysema: No Hx Lung Cancer: No Hx Pneumonia: No Hx Pulmonary Edema: No Hx Pulmonary Embolism: No Hx Respiratory Aspiration: No Hx Respiratory Tract Infection: No Hx Sleep Apnea: No Hx Tuberculosis: No - NEUROLOGICAL Hx Neurological Disorder: Yes Hx Alzheimer's Disease: No HX Cerebrovascular Accident: Yes Hx Dementia: Yes Hx Dizziness: Yes Hx Meningitis: No Hx Migraine: No Hx Multiple Sclerosis: No Hx Paralysis: Yes Hx Seizures: No Hx Syncope: No Hx Transient Ischemic Attacks (TIA): No Hx Vertigo: No - HEENT Hx HEENT Problems: Yes Hx Blind: No Hx Cataracts: Yes Hx Deafness: Yes Hx Epistaxis: No Hx Glaucoma: No Hx Macular Degeneration: No Hx Sinusitis: No - RENAL Hx Chronic Kidney Disease: Yes Hx Dialysis: No Hx Kidney Stones: No Hx Neurogenic Bladder: No Hx Pyelonephritis: No Hx Renal (Kidney) Cancer: No Hx Renal Failure: No Other/Comment: renal insuffiency - ENDOCRINE/METABOLIC Hx Endocrine Disorders: No Hx Adrenal Cancer: No Hx Diabetes Insipidus: No Hx Diabetes Mellitus Type 1: No Hx Diabetes Mellitus Type 2: No Hx Hyperthyroidism: No Hx Hypothyroidism: No Hx Systemic Lupus Erythematosus: No - HEMATOLOGICAL/ONCOLOGICAL Hx Blood Disorders: No Hx AIDS: No Hx Anemia: No Hx Blood Transfusions: No Hx Blood Transfusion Reaction: No Hx Bruising: No Hx Cancer: No Hx Chemotherapy: No Hx Cirrhosis: No Hx Gum Bleeding: No Hx Hemophilia: No Hx Hepatitis A: No Hx Hepatitis B: No Hx Hepatitis C: No Hx Human Immunodeficiency Virus (HIV): No Hx Leukemia: No Hx Metastesis: No Hx Shingles: No Hx Sickle Cell Disease: No Hx Unexplained Bleeding: No Hx von Willebrand's Disease: No - INTEGUMENTARY Hx Dermatological Problems: No Hx Basil Cell: No Hx Nicole: No Hx Cellulitis: No Hx Eczema: No Hx Melanoma: No Hx Psoriasis: No Hx Squamous Cell: No - MUSCULOSKELETAL/RHEUMATOLOGICAL Hx Musculoskeletal Disorders: Yes Hx Arthritis: Yes Hx Back Pain: Yes Hx Falls: Yes Hx Fractures: Yes (facial) Hx Gout: No Hx Herniated Disk: No Hx Myasthenia Gravis: No Hx Osteoarthritis: No Hx Osteomyelitis: No Hx Osteoporosis: No Hx Rhabdomyolysis: No Hx Rheumatoid Arthritis: No Hx Spinal Stenosis: No Hx Unsteady Gait: Yes Other/Comment: Hx left knee swelling - GASTROINTESTINAL Hx Gastrointestinal Disorders: No Hx Bowel Surgery: No Hx Clostridium Difficile: No Hx Colitis: No Hx Colostomy: No Hx Constipation: Yes Hx Crohn's Disease: No Hx Diarrhea: No Hx Diverticulitis: No Hx Esophageal Varices: No Hx Fatty Liver Disease: No Hx Gall Bladder Disease: No Hx Gastritis: No Hx Gastroesophageal Reflux: No Hx Hemorrhoids: No Hx Ileostomy: No Hx Irritable Bowel: No Hx Liver Failure: No Hx Nausea: No Hx Pancreatitis: No HX Swallowing Problems: No Hx Ulcer: No Hx Vomiting: No - GENITOURINARY/GYNECOLOGICAL Hx Genitourinary Disorders: No Hx Bladder Cancer: No Hx Bladder Stone: No Hx Hematuria: No Hx Incontinence: Yes Hx Prostate Cancer: No Hx Prostate Problems: Yes Hx Reproductive Disorders: No Hx Sexually Transmitted Disorders: No Hx Urinary Tract Infection: No - PSYCHIATRIC Hx Psychophysiologic Disorder: Yes Hx Anxiety: No Hx Bipolar Disorder: No Hx Depression: No Hx Emotional Abuse: No Hx Hallucinations: No Hx Panic Symptoms: No Hx Paranoia: No Hx Post Traumatic Stress Disorder: No Hx Psychosis: No Hx Physical Abuse: No Hx Schizophrenia: No Hx Sexual Abuse: No Hx Substance Use: No Other/Comment: confused - SURGICAL HISTORY Hx Surgeries: Yes Hx Abdominal Aortic Aneurysm Repair: No Hx Amputation: No Hx Angiogram: No Hx Angioplasty: No Hx Appendectomy: No Hx Arteriovenous Shunt: No Hx Arthroscopy: No Hx Bile Duct Stent: No Hx Breast Biopsy: No Hx Cataract Extraction: No Hx Cardiac Catheterization: No Hx Carotid Endarterectomy: No Hx Section: No Hx Cholecystectomy: No Hx Coronary Artery Bypass Graft: No Hx Coronary Stent: No Hx Dilation and Curettage: Yes Hx Eye Surgery: No Hx Femoral-Popliteal Bypass Graft: No Hx Gastric Bypass Surgery: No Hx Herniorrhaphy: No Hx Hysterectomy: No Hx Joint Replacement: No Hx Kidney Transplant: No Hx Liver Transplant: No Hx Mastectomy: No Hx Musculoskeletal Surgery: No Hx Open Heart Surgery: No Hx Open Reduction Internal Fixation: No Hx Orthopedic Surgery: No Hx Parathyroidectomy: No Hx Penile Implant: No Hx Pulmonary Surgery: No Hx Splenectomy: No Hx Thyroidectomy: No Hx Tonsillectomy: No Hx Tubal Ligation: No Hx Valve Replacement: No Hx Vascular Surgery: No Hx Vascular Access Device: No Other/Comment: peg tube insertion - ANESTHESIA Hx Anesthesia: Yes Hx Anesthesia Reactions: No Hx Malignant Hyperthermia: No Has any member of the family had a problem w/ anesthesia?: Yes (daughter heart racing) Meds Allergies/Adverse Reactions: Allergies Allergy/AdvReac Type Severity Reaction Status Date / Time No Known Allergies Allergy Verified 05/15/18 18:52 - Medications Medications: Current Medications Acetaminophen (Tylenol 650 Mg Supp) [address] Q4 PRN PRN Reason: Fever >100.4 F Acetaminophen (Tylenol 650mg/20.3ml Solution Ud) 650 mg PO Q6 PRN PRN Reason: Pain, moderate (4-7) Acetaminophen (Tylenol 650mg/20.3ml Solution Ud) 650 mg PO Q4 PRN PRN Reason: Temperature Ferrous Sulfate (Feosol Liq) 300 mg PEG BID [facility] Finasteride (Proscar) 5 mg PO DAILY [facility] Last Admin: 05/16/18 08:56 Dose: 5 mg Meropenem 500 mg/ Sodium (Chloride) 100 mls @ 100 mls/hr IVPB Q8 [facility] Last Admin: 05/16/18 08:55 Dose: 100 mls/hr Dextrose/Sodium Chloride (Dextrose 5%-0.45% Ns 500 Ml) 1,000 mls @ 80 mls/hr IV .[id number] [facility] Stop: 05/16/18 21:36 Last Admin: 05/15/18 22:07 Dose: 80 mls/hr Multivitamins/Vitamin C (Multi-Delyn Liquid) 15 ml PEG DAILY [facility] Pantoprazole Sodium (Protonix Inj) 40 mg IVP BID [facility] Last Admin: 05/16/18 08:56 Dose: 40 mg Sodium Bicarbonate (Sodium Bicarbonate Tab) 650 mg GT BID [facility] Results - Vital Signs Recent Vital Signs: Last Vital Signs Temp 97.9 F 05/16/18 08:26 Pulse 100 H 05/16/18 08:26 Resp 20 05/16/18 08:26 BP 108/65 05/16/18 08:26 Pulse Ox 95 05/16/18 08:26
--- NOTE | 2018-05-16 16:12 | CP.PCM.HP ---
History of Present Illness - History of Present Illness History of Present Illness: CC: TCU for IV abx and PT/OT for Physical Deconditioning History of Present Illness: An 87yom who was admitted to telemetry for Acute Renal Failure, Obstructive Uropathy, B/L Uretero-Hydronephrosis, Sepsis with G-ve Bactremia and SDH with Mass effect after he presented with AMS. In the Hospital course, he improved with Rashid ACth, IVF and IV antibiotics, and transfrred to TCU for IV merem for 10 days, and PT/OT. Today he is awake and alert with improved. No fever. Present on Admission - Present on Admission Any Indicators Present on Admission: No Review of Systems - Review of Systems All systems: reviewed and no additional remarkable complaints except Past Patient History - Infectious Disease Hx of Infectious Diseases: None - Past Medical History & Family History Past Medical History?: Yes Past Family History: Reviewed and not pertinent - Past Social History Smoking Status: Former Smoker Alcohol: None Drugs: Denies - CARDIAC Hx Cardiac Disorders: Yes Hx Angina: No Hx Atrial Fibrillation: No Hx Cardia Arrhythmia: Yes Hx Circulatory Problems: No Hx Congestive Heart Failure: No Hx Heart Attack: No Hx Heart Murmur: No Hx Heart Transplant: No Hx Hypercholesterolemia: No Hx Hypertension: Yes Hx Hypotension: No Hx Internal Defibrillator: No Hx Mitral Valve Prolapse: No Hx Pacemaker: No Hx Peripheral Edema: No Hx Peripheral Vascular Disease: No - PULMONARY Hx Respiratory Disorders: No Hx Asthma: No Hx Bronchitis: No Hx Chronic Obstructive Pulmonary Disease (COPD): No Hx Emphysema: No Hx Lung Cancer: No Hx Pneumonia: No Hx Pulmonary Edema: No Hx Pulmonary Embolism: No Hx Respiratory Aspiration: No Hx Respiratory Tract Infection: No Hx Sleep Apnea: No Hx Tuberculosis: No - NEUROLOGICAL HX Cerebrovascular Accident: Yes - HEENT Hx HEENT Problems: Yes Hx Blind: No Hx Cataracts: Yes Hx Deafness: Yes Hx Epistaxis: No Hx Glaucoma: No Hx Macular Degeneration: No Hx Sinusitis: No - RENAL Hx Chronic Kidney Disease: Yes Hx Dialysis: No Hx Kidney Stones: No Hx Neurogenic Bladder: No Hx Pyelonephritis: No Hx Renal (Kidney) Cancer: No Hx Renal Failure: No Other/Comment: renal insuffiency - ENDOCRINE/METABOLIC Hx Endocrine Disorders: No Hx Adrenal Cancer: No Hx Diabetes Insipidus: No Hx Diabetes Mellitus Type 1: No Hx Diabetes Mellitus Type 2: No Hx Hyperthyroidism: No Hx Hypothyroidism: No Hx Systemic Lupus Erythematosus: No - HEMATOLOGICAL/ONCOLOGICAL Hx Blood Disorders: No Hx AIDS: No Hx Anemia: No Hx Blood Transfusions: No Hx Blood Transfusion Reaction: No Hx Bruising: No Hx Cancer: No Hx Chemotherapy: No Hx Cirrhosis: No Hx Gum Bleeding: No Hx Hemophilia: No Hx Hepatitis A: No Hx Hepatitis B: No Hx Hepatitis C: No Hx Human Immunodeficiency Virus (HIV): No Hx Leukemia: No Hx Metastesis: No Hx Shingles: No Hx Sickle Cell Disease: No Hx Unexplained Bleeding: No Hx von Willebrand's Disease: No - INTEGUMENTARY Hx Dermatological Problems: No Hx Basil Cell: No Hx Nicole: No Hx Cellulitis: No Hx Eczema: No Hx Melanoma: No Hx Psoriasis: No Hx Squamous Cell: No - MUSCULOSKELETAL/RHEUMATOLOGICAL Hx Musculoskeletal Disorders: Yes Hx Arthritis: Yes Hx Back Pain: Yes Hx Falls: Yes Hx Fractures: Yes (facial) Hx Gout: No Hx Herniated Disk: No Hx Myasthenia Gravis: No Hx Osteoarthritis: No Hx Osteomyelitis: No Hx Osteoporosis: No Hx Rhabdomyolysis: No Hx Rheumatoid Arthritis: No Hx Spinal Stenosis: No Hx Unsteady Gait: Yes Other/Comment: Hx left knee swelling - GASTROINTESTINAL Hx Gastrointestinal Disorders: No Hx Bowel Surgery: No Hx Clostridium Difficile: No Hx Colitis: No Hx Colostomy: No Hx Constipation: Yes Hx Crohn's Disease: No Hx Diarrhea: No Hx Diverticulitis: No Hx Esophageal Varices: No Hx Fatty Liver Disease: No Hx Gall Bladder Disease: No Hx Gastritis: No Hx Gastroesophageal Reflux: No Hx Hemorrhoids: No Hx Ileostomy: No Hx Irritable Bowel: No Hx Liver Failure: No Hx Nausea: No Hx Pancreatitis: No HX Swallowing Problems: No Hx Ulcer: No Hx Vomiting: No - GENITOURINARY/GYNECOLOGICAL Hx Genitourinary Disorders: No Hx Bladder Cancer: No Hx Bladder Stone: No Hx Hematuria: No Hx Incontinence: Yes Hx Prostate Cancer: No Hx Prostate Problems: Yes Hx Reproductive Disorders: No Hx Sexually Transmitted Disorders: No Hx Urinary Tract Infection: No - PSYCHIATRIC Hx Psychophysiologic Disorder: Yes Hx Anxiety: No Hx Bipolar Disorder: No Hx Depression: No Hx Emotional Abuse: No Hx Hallucinations: No Hx Panic Symptoms: No Hx Paranoia: No Hx Post Traumatic Stress Disorder: No Hx Psychosis: No Hx Physical Abuse: No Hx Schizophrenia: No Hx Sexual Abuse: No Hx Substance Use: No Other/Comment: confused - SURGICAL HISTORY Hx Surgeries: Yes Hx Abdominal Aortic Aneurysm Repair: No Hx Amputation: No Hx Angiogram: No Hx Angioplasty: No Hx Appendectomy: No Hx Arteriovenous Shunt: No Hx Arthroscopy: No Hx Bile Duct Stent: No Hx Breast Biopsy: No Hx Cataract Extraction: No Hx Cardiac Catheterization: No Hx Carotid Endarterectomy: No Hx Section: No Hx Cholecystectomy: No Hx Coronary Artery Bypass Graft: No Hx Coronary Stent: No Hx Dilation and Curettage: Yes Hx Eye Surgery: No Hx Femoral-Popliteal Bypass Graft: No Hx Gastric Bypass Surgery: No Hx Herniorrhaphy: No Hx Hysterectomy: No Hx Joint Replacement: No Hx Kidney Transplant: No Hx Liver Transplant: No Hx Mastectomy: No Hx Musculoskeletal Surgery: No Hx Open Heart Surgery: No Hx Open Reduction Internal Fixation: No Hx Orthopedic Surgery: No Hx Parathyroidectomy: No Hx Penile Implant: No Hx Pulmonary Surgery: No Hx Splenectomy: No Hx Thyroidectomy: No Hx Tonsillectomy: No Hx Tubal Ligation: No Hx Valve Replacement: No Hx Vascular Surgery: No Hx Vascular Access Device: No Other/Comment: peg tube insertion - ANESTHESIA Hx Anesthesia: Yes Hx Anesthesia Reactions: No Hx Malignant Hyperthermia: No Has any member of the family had a problem w/ anesthesia?: Yes (Daughter Heart Racing) Meds Allergies/Adverse Reactions: Allergies Allergy/AdvReac Type Severity Reaction Status Date / Time No Known Allergies Allergy Verified 05/15/18 18:52 Physical Exam - Constitutional Appears: No Acute Distress - Head Exam Head Exam: ATRAUMATIC, NORMAL INSPECTION, NORMOCEPHALIC - Eye Exam Eye Exam: EOMI, Normal appearance, PERRL Pupil Exam: NORMAL ACCOMODATION, PERRL - ENT Exam ENT Exam: Mucous Membranes Moist, Normal Exam - Neck Exam Neck exam: Positive for: Full Rom, Normal Inspection - Respiratory Exam Respiratory Exam: Clear to Auscultation Bilateral, NORMAL BREATHING PATTERN - Cardiovascular Exam Cardiovascular Exam: REGULAR RHYTHM, +S1, +S2 - GI/Abdominal Exam GI & Abdominal Exam: Normal Bowel Sounds, Soft. absent: Tenderness Additional comments: +PEG site -Clean - Extremities Exam Extremities exam: Positive for: normal inspection - Back Exam Back exam: NORMAL INSPECTION - Neurological Exam Neurological exam: Altered, Motor Sensory Deficit - Psychiatric Exam Psychiatric exam: Flat Affect - Skin Skin Exam: Dry, Intact, Normal Color, Warm Results - Vital Signs Recent Vital Signs: Last Vital Signs Temp 98.2 F 05/16/18 15:54 Pulse 100 H 05/16/18 15:54 Resp 20 05/16/18 15:54 BP 103/64 05/16/18 15:54 Pulse Ox 98 05/16/18 15:54 - Labs Result Diagrams: 05/18/18 05:45 05/18/18 05:45 Assessment & Plan (1) Toxic metabolic encephalopathy Assessment and Plan: Uremia-resolved Sepsis- Improved Status: Resolved Priority: Medium (2) Physical deconditioning Assessment and Plan: PT/OT Status: Acute Priority: Low (3) Acute renal failure Assessment and Plan: Obstructive Uropathy S/P Rashid Cath IVF Nephrology onboard Status: Resolved Priority: Low (4) Dyslipidemia Status: Chronic Priority: Low (5) Hypertension Status: Chronic Priority: Low (6) Dysphagia as late effect of stroke Assessment and Plan: S/P PEG Tube G-tube feeding Speech Therapy Status: Chronic Priority: High
[2018-05-16] MEDS: Ferrous Sulfate 300 mg/5 mL Liq UD PEG SCH (16:51)
[2018-05-17] MEDS: Meropenem 500 MG in Sodium Chloride 0.9% 100 ML IVPB SCH ×3 (01:14→18:10)
[2018-05-17 07:32] LABS: HEMOGLOBIN 9.2 g/dL (12.0-18.0); MEAN CORPUSCULAR HEMOGLOBIN 29.8 pg (27.0-31.0); MEAN CORPUSCULAR HGB CONC 34.3 g/dL (33.0-37.0); RBC 3.09 Mil/uL (4.40-5.90); RED CELL DISTRIBUTION WIDTH 16.4 % (11.5-14.5); WHITE BLOOD COUNT 14.8 K/uL (4.8-10.8)
[2018-05-17 07:50] LABS: ALB/GLOB RATIO 0.6 (1.0-2.1); ALBUMIN 2.9 g/dL (3.5-5.0); ALT/SGPT 103 U/L (21-72); AST/SGOT 85 U/L (17-59); BLOOD UREA NITROGEN 26 mg/dl (9-20); GFR AFRICAN-AMERICAN > 60; GFR NON-AFRICAN AMERICAN > 60
[2018-05-17] MEDS: Multi Vitamins 15 mL UD Oral Solution PEG SCH (09:33)
[2018-05-17] MEDS: Ferrous Sulfate 300 mg/5 mL Liq UD PEG SCH ×2 (09:33→18:10)
[2018-05-17] MEDS ORDERED: Potassium Chloride 20 mEq/15 ml LIQ UD GT ONE (11:45)
--- NOTE | 2018-05-17 12:12 | CP.PCM.CON ---
History of Present Illness - History of Present Illness History of Present Illness: 87M who recently suffered hemorrhagic stroke managed at [facility] then d/c to [facility] with PEG tube feedings before discharge home , recently presented to the ER for AMS, lethargy, fever, and chills Admitted to Telemetry at [facility] for sepsis renal failure obstructive uropathy UTI and decubiti Now transferred to TCU for cont of antibotic rx PMHx: CVA, HTN PSHx: family denies Social Hx: denies any smoking, illicit drugs, ETOH Family hx: Reviewed, neg as per family Endo hx: denies Review of Systems - Review of Systems Systems not reviewed;Unavailable: Altered Mental Status - Constitutional Constitutional: As Per HPI - EENT Eyes: absent: As Per HPI, Blind Spots, Blurred Vision, Change in Vision, Decreased Night Vision, Diplopia, Discharge, Dry Eye, Exophthalmos, Floaters, Irritation, Itchy Eyes, Loss of Peripheral Vision, Pain, Photophobia, Requires Corrective Lenses, Sees Flashes, Spots in Vision, Tunnel Vision, Other Visual Disturbances, Loss of Vision, Other Ears: absent: As Per HPI, Decreased Hearing, Ear Discharge, Ear Pain, Tinnitus, Abnormal Hearing, Disequilibrium, Dizziness, Other Nose/Mouth/Throat: absent: As Per HPI, Epistaxis, Nasal Congestion, Nasal Discharge, Nasal Obstruction, Nasal Trauma, Nose Pain, Post Nasal Drip, Sinus Pain, Sinus Pressure, Bleeding Gums, Change in Voice, Dental Pain, Dry Mouth, Dysphagia, Halitosis, Hoarsness, Lip Swelling, Mouth Lesions, Mouth Pain, Odynophagia, Sore Throat, Throat Swelling, Tongue Swelling, Facial Pain, Neck Pain, Neck Mass, Other - Cardiovascular Cardiovascular: As Per HPI - Respiratory Respiratory: absent: As Per HPI, Cough, Dyspnea, Hemoptysis, Dyspnea on Exertion , Wheezing, Snoring, Stridor, Pain on Inspiration, Chest Congestion, Excessive Mucous Production, Change in Mucous Color, Pain with Coughing, Other - Gastrointestinal Gastrointestinal: As Per HPI - Genitourinary Genitourinary: absent: As Per HPI, Change in Urinary Stream, Difficulty Urinating, Dysuria, Flank Pain, Hematuria, Pyuria, Nocturia, Urinary Incontinence, Urinary Frequency, Urinary Hesitance, Urinary Urgency, Voiding Freq/Small Amts, Freq UTI, Hx Renal/Bladder Calculi, Hx /Renal Surgery, Bladder Distension, Other - Integumentary Integumentary: As Per HPI - Neurological Neurological: As Per HPI - Psychiatric Psychiatric: absent: As Per HPI, Abnormal Sleep Pattern, Anhedonia, Anxiety, Auditory Hallucinations, Behavioral Changes, Change in Appetite, Change in Libido, Confusion, Depression, Difficulty Concentrating, Hallucinations, Homicidal Ideation, Hopelessness, Irritability, Memory Loss, Mood Swings, Panic Attacks, Paranoia, Suicidal Ideation, Visual Hallucinations, Tactile Hallucinations, Other - Endocrine Endocrine: absent: As Per HPI, Change in Body Appearance, Change in Libido, Cold Intolorance, Deepening of Voice, Excessive Sweating, Fatigue, Flushing, Heat Intolorance, Increase in Ring/Shoe/Hat Size, Palpitations, Polydipsia, Polyphagia, Polyuria, Other - Hematologic/Lymphatic Hematologic: absent: As Per HPI, Easy Bleeding, Easy Bruising, Lymphadenopathy, Other Past Patient History - Infectious Disease Hx of Infectious Diseases: None - Past Medical History & Family History Past Medical History?: Yes - Past Social History Smoking Status: Former Smoker - CARDIAC Hx Cardiac Disorders: Yes Hx Angina: No Hx Atrial Fibrillation: No (sinus tacycardia >150) Hx Cardia Arrhythmia: Yes Hx Circulatory Problems: No Hx Congestive Heart Failure: No Hx Heart Attack: No Hx Heart Murmur: No Hx Heart Transplant: No Hx Hypercholesterolemia: No Hx Hypertension: Yes Hx Hypotension: No Hx Internal Defibrillator: No Hx Mitral Valve Prolapse: No Hx Pacemaker: No Hx Peripheral Edema: No Hx Peripheral Vascular Disease: No - PULMONARY Hx Respiratory Disorders: No Hx Asthma: No Hx Bronchitis: No Hx Chronic Obstructive Pulmonary Disease (COPD): No Hx Emphysema: No Hx Lung Cancer: No Hx Pneumonia: No Hx Pulmonary Edema: No Hx Pulmonary Embolism: No Hx Respiratory Aspiration: No Hx Respiratory Tract Infection: No Hx Sleep Apnea: No Hx Tuberculosis: No - NEUROLOGICAL HX Cerebrovascular Accident: Yes - HEENT Hx HEENT Problems: Yes Hx Blind: No Hx Cataracts: Yes Hx Deafness: Yes Hx Epistaxis: No Hx Glaucoma: No Hx Macular Degeneration: No Hx Sinusitis: No - RENAL Hx Chronic Kidney Disease: Yes Hx Dialysis: No Hx Kidney Stones: No Hx Neurogenic Bladder: No Hx Pyelonephritis: No Hx Renal (Kidney) Cancer: No Hx Renal Failure: No Other/Comment: renal insuffiency - ENDOCRINE/METABOLIC Hx Endocrine Disorders: No Hx Adrenal Cancer: No Hx Diabetes Insipidus: No Hx Diabetes Mellitus Type 1: No Hx Diabetes Mellitus Type 2: No Hx Hyperthyroidism: No Hx Hypothyroidism: No Hx Systemic Lupus Erythematosus: No - HEMATOLOGICAL/ONCOLOGICAL Hx Blood Disorders: No Hx AIDS: No Hx Anemia: No Hx Blood Transfusions: No Hx Blood Transfusion Reaction: No Hx Bruising: No Hx Cancer: No Hx Chemotherapy: No Hx Cirrhosis: No Hx Gum Bleeding: No Hx Hemophilia: No Hx Hepatitis A: No Hx Hepatitis B: No Hx Hepatitis C: No Hx Human Immunodeficiency Virus (HIV): No Hx Leukemia: No Hx Metastesis: No Hx Shingles: No Hx Sickle Cell Disease: No Hx Unexplained Bleeding: No Hx von Willebrand's Disease: No - INTEGUMENTARY Hx Dermatological Problems: No Hx Basil Cell: No Hx Nicole: No Hx Cellulitis: No Hx Eczema: No Hx Melanoma: No Hx Psoriasis: No Hx Squamous Cell: No - MUSCULOSKELETAL/RHEUMATOLOGICAL Hx Musculoskeletal Disorders: Yes Hx Arthritis: Yes Hx Back Pain: Yes Hx Falls: Yes Hx Fractures: Yes (facial) Hx Gout: No Hx Herniated Disk: No Hx Myasthenia Gravis: No Hx Osteoarthritis: No Hx Osteomyelitis: No Hx Osteoporosis: No Hx Rhabdomyolysis: No Hx Rheumatoid Arthritis: No Hx Spinal Stenosis: No Hx Unsteady Gait: Yes Other/Comment: Hx left knee swelling - GASTROINTESTINAL Hx Gastrointestinal Disorders: No Hx Bowel Surgery: No Hx Clostridium Difficile: No Hx Colitis: No Hx Colostomy: No Hx Constipation: Yes Hx Crohn's Disease: No Hx Diarrhea: No Hx Diverticulitis: No Hx Esophageal Varices: No Hx Fatty Liver Disease: No Hx Gall Bladder Disease: No Hx Gastritis: No Hx Gastroesophageal Reflux: No Hx Hemorrhoids: No Hx Ileostomy: No Hx Irritable Bowel: No Hx Liver Failure: No Hx Nausea: No Hx Pancreatitis: No HX Swallowing Problems: No Hx Ulcer: No Hx Vomiting: No - GENITOURINARY/GYNECOLOGICAL Hx Genitourinary Disorders: No Hx Bladder Cancer: No Hx Bladder Stone: No Hx Hematuria: No Hx Incontinence: Yes Hx Prostate Cancer: No Hx Prostate Problems: Yes Hx Reproductive Disorders: No Hx Sexually Transmitted Disorders: No Hx Urinary Tract Infection: No - PSYCHIATRIC Hx Psychophysiologic Disorder: Yes Hx Anxiety: No Hx Bipolar Disorder: No Hx Depression: No Hx Emotional Abuse: No Hx Hallucinations: No Hx Panic Symptoms: No Hx Paranoia: No Hx Post Traumatic Stress Disorder: No Hx Psychosis: No Hx Physical Abuse: No Hx Schizophrenia: No Hx Sexual Abuse: No Hx Substance Use: No Other/Comment: confused - SURGICAL HISTORY Hx Surgeries: Yes Hx Abdominal Aortic Aneurysm Repair: No Hx Amputation: No Hx Angiogram: No Hx Angioplasty: No Hx Appendectomy: No Hx Arteriovenous Shunt: No Hx Arthroscopy: No Hx Bile Duct Stent: No Hx Breast Biopsy: No Hx Cataract Extraction: No Hx Cardiac Catheterization: No Hx Carotid Endarterectomy: No Hx Section: No Hx Cholecystectomy: No Hx Coronary Artery Bypass Graft: No Hx Coronary Stent: No Hx Dilation and Curettage: Yes Hx Eye Surgery: No Hx Femoral-Popliteal Bypass Graft: No Hx Gastric Bypass Surgery: No Hx Herniorrhaphy: No Hx Hysterectomy: No Hx Joint Replacement: No Hx Kidney Transplant: No Hx Liver Transplant: No Hx Mastectomy: No Hx Musculoskeletal Surgery: No Hx Open Heart Surgery: No Hx Open Reduction Internal Fixation: No Hx Orthopedic Surgery: No Hx Parathyroidectomy: No Hx Penile Implant: No Hx Pulmonary Surgery: No Hx Splenectomy: No Hx Thyroidectomy: No Hx Tonsillectomy: No Hx Tubal Ligation: No Hx Valve Replacement: No Hx Vascular Surgery: No Hx Vascular Access Device: No Other/Comment: peg tube insertion - ANESTHESIA Hx Anesthesia: Yes Hx Anesthesia Reactions: No Hx Malignant Hyperthermia: No Has any member of the family had a problem w/ anesthesia?: Yes (daughter heart racing) Meds Allergies/Adverse Reactions: Allergies Allergy/AdvReac Type Severity Reaction Status Date / Time No Known Allergies Allergy Verified 05/15/18 18:52 - Medications Medications: Current Medications Acetaminophen (Tylenol 650 Mg Supp) 650 mg AL Q4 PRN PRN Reason: Fever >100.4 F Acetaminophen (Tylenol 650mg/20.3ml Solution Ud) 650 mg PO Q6 PRN PRN Reason: Pain, moderate (4-7) Acetaminophen (Tylenol 650mg/20.3ml Solution Ud) 650 mg PO Q4 PRN PRN Reason: Temperature Ferrous Sulfate (Feosol Liq) 300 mg PEG BID [facility] Last Admin: 05/17/18 09:33 Dose: 300 mg Finasteride (Proscar) 5 mg PO DAILY [facility] Last Admin: 05/17/18 09:33 Dose: 5 mg Meropenem 500 mg/ Sodium (Chloride) 100 mls @ 100 mls/hr IVPB Q8 [facility] Last Admin: 05/17/18 09:33 Dose: 100 mls/hr Lactulose (Enulose) 20 gm GT Q12 [facility] Multivitamins/Vitamin C (Multi-Delyn Liquid) 15 ml PEG DAILY [facility] Last Admin: 05/17/18 09:33 Dose: 15 ml Pantoprazole Sodium (Protonix Inj) 40 mg IVP BID [facility] Last Admin: 05/17/18 09:33 Dose: 40 mg Physical Exam - Constitutional Appears: No Acute Distress, Chronically Ill - Head Exam Head Exam: ATRAUMATIC, NORMOCEPHALIC - Eye Exam Eye Exam: absent: Scleral icterus - ENT Exam ENT Exam: Mucous Membranes Dry, Normal External Ear Exam - Neck Exam Neck exam: Negative for: Lymphadenopathy - Respiratory Exam Respiratory Exam: Decreased Breath Sounds, Clear to Auscultation Bilateral - Cardiovascular Exam Cardiovascular Exam: REGULAR RHYTHM, +S1, +S2 - GI/Abdominal Exam GI & Abdominal Exam: Diminished Bowel Sounds, Distended, Soft. absent: Guarding , Rebound, Rigid, Tenderness - Rectal Exam Rectal Exam: Deferred - Exam Exam: NORMAL INSPECTION - Extremities Exam Extremities exam: Positive for: pedal pulses present. Negative for: calf tenderness, pedal edema, tenderness - Back Exam Back exam: absent: CVA tenderness (L), CVA tenderness (R), paraspinal tenderness - Neurological Exam Neurological exam: Alert, Altered, CN II-XII Intact, Motor Sensory Deficit Additional comments: left sided weakness and aphasia noted - Psychiatric Exam Psychiatric exam: Depressed - Skin Skin Exam: Dry Results - Vital Signs Recent Vital Signs: Last Vital Signs Temp 98.2 F 05/17/18 09:26 Pulse 96 H 05/17/18 09:26 Resp 20 05/17/18 09:26 BP 96/64 L 05/17/18 09:26 Pulse Ox 97 05/17/18 09:26 - Labs Result Diagrams: 05/17/18 06:30 05/17/18 06:30 Labs: Laboratory Results - last 24 hr 05/17/18 05/17/18 06:30 06:30 WBC 14.8 H RBC 3.09 L Hgb 9.2 L Hct 26.9 L MCV 87.0 MCH 29.8 MCHC 34.3 RDW 16.4 H Plt Count 247 Sodium 143 Potassium 3.5 L Chloride 111 H Carbon Dioxide 25 Anion Gap 11 BUN 26 H Creatinine 1.0 Est GFR ( Amer) > 60 Est GFR (Non-Af Amer) > 60 Random Glucose 120 H Calcium 8.0 L Total Bilirubin 0.5 AST 85 H D ALT 103 H D Alkaline Phosphatase 187 H Total Protein 7.4 Albumin 2.9 L Globulin 4.6 H Albumin/Globulin Ratio 0.6 L Assessment & Plan (1) Acute renal failure Status: Acute (2) Altered mental status Status: Acute Priority: High (3) Obstructive uropathy Status: Acute (4) Sepsis Status: Acute (5) Toxic metabolic encephalopathy Status: Acute Priority: High - Assessment and Plan (Free Text) Assessment: will reculture for fever cont iv rx for min 14 days
--- NOTE | 2018-05-17 14:42 | CP.PCM.PN ---
Subjective - Date & Time of Evaluation Date of Evaluation: 05/17/18 Time of Evaluation: 14:00 - Subjective Subjective: Seen and examined at the bed side. No new complaint. Objective - Vital Signs/Intake and Output Vital Signs (last 24 hours): Temp Pulse Resp BP Pulse Ox 98.2 F 96 H 20 96/64 L 97 05/17/18 09:26 05/17/18 09:26 05/17/18 09:26 05/17/18 09:26 05/17/18 09:26 Intake and Output: 05/17/18 05/17/18 06:59 18:59 Intake Total 800 Output Total 700 Balance 100 - Medications Medications: Current Medications Acetaminophen (Tylenol 650 Mg Supp) 650 mg [place] Q4 PRN PRN Reason: Fever >100.4 F Acetaminophen (Tylenol 650mg/20.3ml Solution Ud) 650 mg PO Q6 PRN PRN Reason: Pain, moderate (4-7) Acetaminophen (Tylenol 650mg/20.3ml Solution Ud) 650 mg PO Q4 PRN PRN Reason: Temperature Ferrous Sulfate (Feosol Liq) 300 mg PEG BID [facility] Last Admin: 05/17/18 09:33 Dose: 300 mg Finasteride (Proscar) 5 mg PO DAILY [facility] Last Admin: 05/17/18 09:33 Dose: 5 mg Meropenem 500 mg/ Sodium (Chloride) 100 mls @ 100 mls/hr IVPB Q8 [facility] Last Admin: 05/17/18 09:33 Dose: 100 mls/hr Lactulose (Enulose) 20 gm GT Q12 [facility] Last Admin: 05/17/18 12:07 Dose: 20 gm Multivitamins/Vitamin C (Multi-Delyn Liquid) 15 ml PEG DAILY [facility] Last Admin: 05/17/18 09:33 Dose: 15 ml Pantoprazole Sodium (Protonix Inj) 40 mg IVP BID [facility] Last Admin: 05/17/18 09:33 Dose: 40 mg - Labs Labs: 05/17/18 06:30 05/17/18 06:30 - Constitutional Appears: No Acute Distress - Head Exam Head Exam: ATRAUMATIC, NORMAL INSPECTION, NORMOCEPHALIC - Eye Exam Eye Exam: EOMI, Normal appearance, PERRL Pupil Exam: NORMAL ACCOMODATION, PERRL - ENT Exam ENT Exam: Mucous Membranes Moist, Normal Exam - Neck Exam Neck Exam: Full ROM, Normal Inspection. absent: Lymphadenopathy - Respiratory Exam Respiratory Exam: Clear to Ausculation Bilateral, NORMAL BREATHING PATTERN - Cardiovascular Exam Cardiovascular Exam: REGULAR RHYTHM, +S1, +S2. absent: Murmur - GI/Abdominal Exam GI & Abdominal Exam: Soft. absent: Tenderness Additional comments: +PEG tube - Extremities Exam Extremities Exam: Full ROM, Normal Capillary Refill, Normal Inspection. absent : Joint Swelling, Pedal Edema - Back Exam Back Exam: NORMAL INSPECTION - Neurological Exam Neurological Exam: Motor Sensory Deficit - Psychiatric Exam Psychiatric exam: Flat Affect - Skin Skin Exam: Dry, Intact, Normal Color, Warm Assessment and Plan (1) Altered mental status Assessment & Plan: Uremia-resolved Sepsis- Improved Status: Resolved Priority: Medium (2) Physical deconditioning Assessment and Plan: PT/OT Status: Acute Priority: Low (3) Acute renal failure Assessment and Plan: Obstructive Uropathy S/P Rashid Cath IVF Nephrology onboard Status: Resolved Priority: Low (4) Dyslipidemia Status: Chronic Priority: Low (5) Hypertension Status: Chronic Priority: Low (6) Dysphagia as late effect of stroke Assessment and Plan: S/P PEG Tube G-tube feeding Speech Therapy Status: Resolved
[2018-05-17 18:36] LABS: URINE BILIRUBIN NEGATIVE (NEGATIVE); URINE BLOOD NEGATIVE (NEGATIVE); URINE CLARITY SLIGHTY-CLOUDY (Clear); URINE COLOR YELLOW (YELLOW); URINE GLUCOSE (UA) NEG (Normal); URINE LEUKOCYTE ESTERASE NEG Leu/uL (Negative); URINE PROTEIN 100 mg/dL (NEGATIVE)
--- NOTE | 2018-05-17 22:03 | PN ---
DATE: 05/17/2018 SUBJECTIVE: The patient is resting comfortably in the bed and so far has been mostly bedridden during this admission, currently in rehab. His Rashid catheter is still draining annalisa urine well. No hematuria or clots visualized. The patient has not been ambulating so far. PHYSICAL EXAMINATION: ABDOMEN: Soft, nondistended, nontender. No CVA tenderness. No suprapubic tenderness. : Rashid catheter draining annalisa urine well. PLAN: Plan for this patient is to continue to maintain the Rashid catheter to gravity drainage until the patient starts to possibly ambulate. Akira Lopez MD
[2018-05-18] MEDS: Meropenem 500 MG in Sodium Chloride 0.9% 100 ML IVPB SCH ×3 (01:05→16:40)
[2018-05-18 06:36] LABS: BASO % 0.3 % (0.0-2.0); EOS # 0.2 K/uL (0.0-0.7); EOS % 1.3 % (0.0-4.0); HEMOGLOBIN 9.2 g/dL (12.0-18.0); LYMPH # 2.1 K/uL (1.0-4.3); LYMPH % 16.6 % (20.0-40.0); MEAN CELL VOLUME 87.1 fl (80.0-94.0); MEAN CORPUSCULAR HEMOGLOBIN 30.2 pg (27.0-31.0); MEAN CORPUSCULAR HGB CONC 34.6 g/dL (33.0-37.0); MEAN PLATELET VOLUME 9.1 fl (7.2-11.7); MONO # 0.6 K/uL (0.0-0.8); MONO % 4.8 % (0.0-10.0); NEUT # 9.6 K/uL (1.8-7.0); NRBC % 0.1 % (0.0-0.0); RBC 3.05 Mil/uL (4.40-5.90); RED CELL DISTRIBUTION WIDTH 16.9 % (11.5-14.5); WHITE BLOOD COUNT 12.4 K/uL (4.8-10.8)
[2018-05-18 06:50] LABS: ALB/GLOB RATIO 0.7 (1.0-2.1); ALBUMIN 2.9 g/dL (3.5-5.0); ALT/SGPT 91 U/L (21-72); AST/SGOT 74 U/L (17-59); BLOOD UREA NITROGEN 27 mg/dl (9-20); CALCIUM 8.2 mg/dL (8.4-10.2); GFR AFRICAN-AMERICAN > 60; GFR NON-AFRICAN AMERICAN > 60
[2018-05-18] MEDS: Multi Vitamins 15 mL UD Oral Solution PEG SCH (09:34)
[2018-05-18] MEDS: Ferrous Sulfate 300 mg/5 mL Liq UD PEG SCH ×2 (09:34→16:40)
[2018-05-18 16:29] VITALS: RESP 20
[2018-05-18] MEDS ORDERED: Acetaminophen 650mg/20.3ml solution UD GT PRN ×2 (16:44→16:47)
--- NOTE | 2018-05-18 17:45 | RAD ---
Date of service: 05/18/2018 HISTORY: r/o pneumonia COMPARISON: Chest radiograph dated 05/11/2018. FINDINGS: LUNGS: Prominence of the pulmonary vasculature may be secondary to AP technique and/or pulmonary vascular congestion. No focal consolidation. PLEURA: No significant pleural effusion identified, no pneumothorax apparent. CARDIOVASCULAR: Atherosclerotic aortic calcifications. Cardiomediastinal silhouette within normal limits. OSSEOUS STRUCTURES: Unchanged. VISUALIZED UPPER ABDOMEN: Normal. OTHER FINDINGS: None. IMPRESSION: Prominence of the pulmonary vasculature may be secondary to AP technique and/or pulmonary vascular congestion. No focal consolidation or pleural effusion
[2018-05-18 19:42] VITALS: BP 124/71; PULSE 105; TEMP 98.1; O2SAT 97
--- NOTE | 2018-05-18 23:10 | CP.PCM.PN ---
Subjective - Date & Time of Evaluation Date of Evaluation: 05/18/18 Time of Evaluation: 09:50 - Subjective Subjective: Seen and examined at the bed side. PAtient feeling sleepy. As per his daughter at the bed side, he was awake and alert, and participated in PT/OT this morning and now feeling drowsy. Had diarrhea after Lactulose use for Constipation for several days. No fever or chills. Objective - Vital Signs/Intake and Output Vital Signs (last 24 hours): Temp Pulse Resp BP Pulse Ox 98.1 F 105 H 20 124/71 97 05/18/18 19:41 05/18/18 19:41 05/18/18 19:41 05/18/18 19:41 05/18/18 19:41 - Labs Labs: 05/18/18 05:45 05/18/18 05:45 Assessment and Plan (1) Altered mental status Assessment & Plan: Uremia-resolved Sepsis- Improved Status: Resolved Priority: Medium (2) Physical deconditioning Assessment and Plan: PT/OT Status: Acute Priority: Low (3) Acute renal failure Assessment and Plan: Obstructive Uropathy S/P Rashid Cath IVF Nephrology onboard Status: Resolved Priority: Low (4) Dyslipidemia Status: Chronic Priority: Low (5) Hypertension Status: Chronic Priority: Low (6) Dysphagia as late effect of stroke Assessment and Plan: S/P PEG Tube G-tube feeding Speech Therapy Status: Resolved
--- NOTE | 2018-05-19 17:06 | CP.PCM.DIS ---
Provider - Provider Date of Admission: 05/15/18 18:11 Attending physician: Millie Murphy MD Primary care physician: Ivette Rothman MD Time Spent in preparation of Discharge (in minutes): 25 Diagnosis - Discharge Diagnosis (1) Pulmonary congestion Status: Acute (2) Dvt femoral (deep venous thrombosis) Status: Acute Hospital Course - Lab Results Lab Results: Micro Results 05/17/18 18:23 Urine,Catheterized Urine Culture - Final No Growth (<1,000 CFU/ML) Most Recent Lab Values WBC 12.4 K/uL (4.8-10.8) H 05/18/18 05:45 RBC 3.05 Mil/uL (4.40-5.90) L 05/18/18 05:45 Hgb 9.2 g/dL (12.0-18.0) L 05/18/18 05:45 Hct 26.6 % (35.0-51.0) L 05/18/18 05:45 MCV 87.1 fl (80.0-94.0) 05/18/18 05:45 MCH 30.2 pg (27.0-31.0) 05/18/18 05:45 MCHC 34.6 g/dL (33.0-37.0) 05/18/18 05:45 RDW 16.9 % (11.5-14.5) H 05/18/18 05:45 Plt Count 260 K/uL (130-400) 05/18/18 05:45 MPV 9.1 fl (7.2-11.7) 05/18/18 05:45 Neut % (Auto) 77.0 % (50.0-75.0) H 05/18/18 05:45 Lymph % (Auto) 16.6 % (20.0-40.0) L 05/18/18 05:45 [place] % (Auto) 4.8 % (0.0-10.0) 05/18/18 05:45 Eos % (Auto) 1.3 % (0.0-4.0) 05/18/18 05:45 Baso % (Auto) 0.3 % (0.0-2.0) 05/18/18 05:45 Neut # (Auto) 9.6 K/uL (1.8-7.0) H 05/18/18 05:45 Lymph # (Auto) 2.1 K/uL (1.0-4.3) 05/18/18 05:45 [place] # (Auto) 0.6 K/uL (0.0-0.8) 05/18/18 05:45 Eos # (Auto) 0.2 K/uL (0.0-0.7) 05/18/18 05:45 Baso # (Auto) 0.0 K/uL (0.0-0.2) 05/18/18 05:45 Sodium 146 mmol/l (132-148) 05/18/18 05:45 Potassium 3.7 MMOL/L (3.6-5.0) 05/18/18 05:45 Chloride 112 mmol/L (98-107) H 05/18/18 05:45 Carbon Dioxide 23 mmol/L (22-30) 05/18/18 05:45 Anion Gap 15 (10-20) 05/18/18 05:45 BUN 27 mg/dl (9-20) H 05/18/18 05:45 Creatinine 0.9 mg/dl (0.8-1.5) 05/18/18 05:45 Est GFR ( Amer) > 60 05/18/18 05:45 Est GFR (Non-Af Amer) > 60 05/18/18 05:45 Random Glucose 127 mg/dL (75-110) H 05/18/18 05:45 Calcium 8.2 mg/dL (8.4-10.2) L 05/18/18 05:45 Total Bilirubin 0.4 mg/dl (0.2-1.3) 05/18/18 05:45 AST 74 U/L (17-59) H 05/18/18 05:45 ALT 91 U/L (21-72) H 05/18/18 05:45 Alkaline Phosphatase 193 U/L (38-126) H 05/18/18 05:45 Total Protein 7.3 G/DL (6.3-8.2) 05/18/18 05:45 Albumin 2.9 g/dL (3.5-5.0) L 05/18/18 05:45 Globulin 4.4 gm/dL (2.2-3.9) H 05/18/18 05:45 Albumin/Globulin Ratio 0.7 (1.0-2.1) L 05/18/18 05:45 Urine Color Yellow (YELLOW) 05/17/18 18:23 Urine Clarity Slighty-cloudy (Clear) 05/17/18 18:23 Urine pH 6.0 (5.0-8.0) 05/17/18 18:23 Ur Specific [place] 1.017 (1.003-1.030) 05/17/18 18:23 Urine Protein 100 mg/dL (NEGATIVE) 05/17/18 18:23 Urine Glucose (UA) Neg mg/dL (Normal) 05/17/18 18:23 Urine Ketones Negative mg/dL (NEGATIVE) 05/17/18 18: Urine Blood Negative (NEGATIVE) 05/17/18 18: Urine Nitrate Negative (NEGATIVE) 05/17/18 18:23 Urine Bilirubin Negative (NEGATIVE) 05/17/18 18:23 Urine Urobilinogen 4.0 mg/dL (0.2-1.0) 05/17/18 18:23 Ur Leukocyte Esterase Neg Lyle/uL (Negative) 05/17/18 18:23 Discharge Exam - Head Exam Head Exam: ATRAUMATIC, NORMAL INSPECTION, NORMOCEPHALIC Discharge Plan - Follow Up Plan Condition: GUARDED Disposition: Trans to Other Acute Care Hosp Instructions: Pulmonary Embolism (DC), Pulmonary Embolism (GEN), Deep Venous Thrombosis (DC), Deep Venous Thrombosis (GEN) Referrals: Ivette Rothman MD [Primary Care Provider] -
== END 2018-05-18 22:45 | disposition short-term general hospital (02) | DRG 871 ==
LOC: H.TCU 18:11
PROVIDERS: ADMIT Internal Medicine; ATTEND Internal Medicine
PROC: F07M6FZ Therapeutic Exercise Treatment of Musculoskeletal System - Whole Body using Assistive, Adaptive, Supportive or Protective Equipment (ICD-10-PCS; 2018-05-15)
PROC: F08Z4FZ Home Management Treatment using Assistive, Adaptive, Supportive or Protective Equipment (ICD-10-PCS; 2018-05-15)
PROC: 3E0G76Z Introduction of Nutritional Substance into Upper GI, Via Natural or Artificial Opening (ICD-10-PCS; principal; 2018-05-18)
PROC: 3E03329 Introduction of Other Anti-infective into Peripheral Vein, Percutaneous Approach (ICD-10-PCS; 2018-05-18)
DX: A41.9 Sepsis, unspecified organism (principal); G92 Toxic encephalopathy; E87.2 Acidosis; N13.30 Unspecified hydronephrosis; N17.9 Acute kidney failure, unspecified; N39.0 Urinary tract infection, site not specified; D64.9 Anemia, unspecified; E78.5 Hyperlipidemia, unspecified; F03.90 Unspecified dementia, unspecified severity, without behavioral disturbance, psychotic disturbance, mood disturbance, and anxiety; H91.90 Unspecified hearing loss, unspecified ear; I12.9 Hypertensive chronic kidney disease with stage 1 through stage 4 chronic kidney disease, or unspecified chronic kidney disease; I69.391 Dysphagia following cerebral infarction; K59.00 Constipation, unspecified; N18.9 Chronic kidney disease, unspecified; N40.0 Benign prostatic hyperplasia without lower urinary tract symptoms; Z74.01 Bed confinement status; Z87.891 Personal history of nicotine dependence; Z93.1 Gastrostomy status; F45.9 Somatoform disorder, unspecified; H26.9 Unspecified cataract; M19.90 Unspecified osteoarthritis, unspecified site; R00.0 Tachycardia, unspecified; R19.7 Diarrhea, unspecified; R26.81 Unsteadiness on feet; R05 Cough; R93.8 Abnormal findings on diagnostic imaging of other specified body structures; R91.8 Other nonspecific abnormal finding of lung field

== ENCOUNTER 2018-05-18 23:14 | Inpatient (IN) | payer MEDICARE ==
--- NOTE | 2018-05-18 23:34 | ED PDOC ---
Lower Extremity Pain/Injury Time Seen by Provider: 05/18/18 23:23 Chief Complaint (Nursing): Lower Extremity Problem/Injury Chief Complaint (Provider): DVT History Per: Patient History/Exam Limitations: clinical condition Onset/Duration Of Symptoms: Other Current Symptoms Are (Timing): Still Present Additional Complaint(s): 87 y/o [place] male with a PMHx of recent admission for sepsis with renal insufficiency and intracranial bleed brought to ED from TCU for medical admission. Patient currently on TCU, however he was sent for Doppler study of RLE. Doppler study showed that the patient had an acute DVT of the left common femoral vein. This was conveyed to Dr. Murphy, patients PCP, who requested that the patient be transferred to the ICU. Patient is a poor historian due to his clinical condition. PCP: Dr. Murphy Past Medical History Reviewed: Historical Data, Nursing Documentation, Vital Signs Vital Signs: Last Vital Signs Temp 98.9 F 05/18/18 23:16 Pulse 102 H 05/18/18 23:16 Resp 17 05/18/18 23:16 BP 92/63 L 05/18/18 23:16 Pulse Ox 96 05/18/18 23:16 - Medical History PMH: Arthritis, Cardia Arrhythmia, CVA, Dementia, Fractures (facial), HTN, Chronic Kidney Disease Denies: Alzheimer's Disease, Anemia, Anxiety, Asthma, Atrial Fibrillation ( sinus tacycardia >150), Bipolar Disorder, Bronchitis, CAD, CHF, COPD, Crohn's Disease, Depression, Diverticulitis, Emphysema, Gastritis, Gall Bladder Disease , HIV, Hypercholesterolemia, Hyperthyroidism, Hypothyroidism, Kidney Stones, Migraine, Mitral Valve Prolapse, Multiple Sclerosis, Osteoporosis, Pancreatitis , Paranoia, Peripheral Edema, Pneumonia, Post Traumatic Stress Disorder, Pulmonary Embolism, Rheumatoid Arthritis, Schizophrenia, Seizures, Sickle Cell Disease, Sexually Transmitted Disease, Sleep Apnea, TIA - Surgical History Surgical History: Denies: Appendectomy, CABG, Carotid Endarterectomy, Cholecystectomy, Coronary Stent, Pacemaker, Tonsillectomy - Family History Family History: States: Unknown Family Hx - Social History Current smoker - smoking cessation education provided: No Alcohol: None Drugs: Denies - Immunization History Hx Tetanus Toxoid Vaccination: No Hx Influenza Vaccination: No Hx Pneumococcal Vaccination: No - Home Medications Home Medications: Ambulatory Orders Medication Instructions Recorded Acetaminophen [Tylenol 650 mg Supp] [address] Q4 PRN sup 05/15/18 Finasteride [Proscar] 5 mg PO DAILY tab 05/15/18 MEROPENEM 500 MG in NS [Merrem IV 500 mg IV Q8 #30 bag 05/15/18 500 MG/NS 50 ML] Acetaminophen [Tylenol 650 mg GT Q4 PRN 05/18/18 325MG/10.15ML UD] Ferrous Sulfate [Feosol Liq] 300 mg PEG BID 05/18/18 Lactulose [Enulose] 20 gm GT Q12 05/18/18 Multivitamin UD 15 mL Oral 15 ml PEG DAILY 05/18/18 [Multi-Delyn Liquid] Pantoprazole [Protonix Inj] 40 mg IV BID 05/18/18 - Allergies Allergies/Adverse Reactions: Allergies Allergy/AdvReac Type Severity Reaction Status Date / Time No Known Allergies Allergy Verified 05/15/18 18:52 Review of Systems Review Of Systems: ROS cannot be obtained secondary to pt's inabilty to answer questions. Physical Exam - Reviewed Nursing Documentation Reviewed: Yes Vital Signs Reviewed: Yes - Physical Exam Appears: Positive for: Non-toxic, No Acute Distress Head Exam: Positive for: ATRAUMATIC, NORMAL INSPECTION, NORMOCEPHALIC Skin: Positive for: Normal Color, Warm, Dry. Negative for: Rash Eye Exam: Positive for: EOMI, Normal appearance, PERRL ENT: Positive for: Normal ENT Inspection Neck: Positive for: Normal, Painless ROM, Supple Cardiovascular/Chest: Positive for: Regular Rate, Rhythm. Negative for: Murmur Respiratory: Positive for: Normal Breath Sounds. Negative for: Respiratory Distress Gastrointestinal/Abdominal: Positive for: Normal Exam, Soft. Negative for: Tenderness Back: Positive for: Normal Inspection. Negative for: L CVA Tenderness, R CVA Tenderness, Other Extremity: Positive for: Swelling (mild swelling to LLE) Neurologic/Psych: Positive for: Alert, Oriented (person only), Mood/Affect (flat ). Negative for: Motor/Sensory Deficits - ECG O2 Sat by Pulse Oximetry: 96 (RA) Pulse Ox Interpretation: Normal Medical Decision Making Medical Decision Makin:29 Impression: 87 y/o male with acute DVT Plan: -CT angiochest -EKG -Reevaluation 02:11 Case was discussed with Dr. Murphy. Pt is not a candidate for anticoagulation due to history of intracerebral bleed. Pt to be admitted to ICU for likely IVC filter placement tomorrow. 4AM Patient downgraded to ICU as per dr corrigan decision based on patient being made DNR/DNI by him Scribe Attestation: Documented by Tapan Baltazar, acting as a scribe for Daniele Ybarra MD. Provider Scribe Attestation: All medical record entries made by the Scribe were at my direction and personally dictated by me. I have reviewed the chart and agree that the record accurately reflects my personal performance of the history, physical exam, medical decision making, and the department course for this patient. I have also personally directed, reviewed, and agree with the discharge instructions and disposition. Disposition - Clinical Impression Clinical Impression: Dvt femoral (deep venous thrombosis) - Patient ED Disposition Is Patient to be Admitted: Yes - Disposition Disposition Time: 02:11 Condition: STABLE - Pt Status Changed To: Hospital Disposition Of: Inpatient - Admit Certification Admit to Inpatient:: After my assessment, the patient will require hospitalization for at least two midnights. This is because of the severity of symptoms shown, intensity of services needed, and/or the medical risk in this patient being treated as an outpatient.
[2018-05-19] MEDS ORDERED: Iodixanol 320 MG/ML 100 ML BOTTLE IV ONE (00:42)
[2018-05-19] MEDS ORDERED: Sodium Chloride 0.9% 50 ML IV ONE (00:42)
--- NOTE | 2018-05-19 00:54 | CP.PCM.CON ---
History of Present Illness - History of Present Illness History of Present Illness: Attending: Dr Murphy PMD: Dr Padilla ID: Dr Rodney Nephrology : Dr Vazquez Reason for consult: Request for admisddCritical care management Chief Complaint: Lower extremity DVT The patient was seen and examined in the ED HPI: The Hx was obtained from the patient's family and after review of the medical records. He is an 87 years old male with hx of CVA in 2013, and recently suffered a hemorrhagic stroke admitted to [facility], then rehab and on admitted to the [facility] with fever and diagnosed with UTI/Sepsis with E Coli Bacteremia, and acute Kidney Injury secondary to obstructive Uropathy. He was transferred to TCU on 05/15/18 for continued care and antibiotics. Because of pain to the lower extremities, Duplex Ultra Sound was done which showed Left femoral DVT.The patient was then Transferred down to ED to be readmitted on the Medical floors. PMH: Arthritis, Cardia Arrhythmia, CVA 2013 with left side , Dementia, Fractures (facial), HTN, Chronic Kidney Injury, Bilateral Hydroureteonephrosis; Cholelithiasis; Urinary retention; PSH: Appendectomy; CABG; Carotod Endarterectomy; Coronary stents placement; Pacemaker, Tonsillectomy SH: No illegal drug use; No Alcohol; Former Smoker; live with family Allergies: NKDA Medication: reviewed Review of Systems - Review of Systems Review of Systems: Review of systems is limited because the patient is slow in mentation. Past Patient History - Infectious Disease Hx of Infectious Diseases: None - Past Medical History & Family History Past Medical History?: Yes - Past Social History Smoking Status: Former Smoker Chewing Tobacco Use: No Cigar Use: No Alcohol: None Home Situation {Lives}: With Family - CARDIAC Hx Atrial Fibrillation: No (sinus tacycardia >150) Hx Cardia Arrhythmia: Yes Hx Congestive Heart Failure: No Hx Hypercholesterolemia: No Hx Hypertension: Yes Hx Mitral Valve Prolapse: No Hx Pacemaker: No Hx Peripheral Edema: No - PULMONARY Hx Asthma: No Hx Bronchitis: No Hx Chronic Obstructive Pulmonary Disease (COPD): No Hx Emphysema: No Hx Pneumonia: No Hx Pulmonary Embolism: No Hx Sleep Apnea: No - NEUROLOGICAL Hx Alzheimer's Disease: No Hx Dementia: Yes Hx Migraine: No Hx Multiple Sclerosis: No Hx Seizures: No Hx Transient Ischemic Attacks (TIA): No - HEENT Hx HEENT Problems: Yes Hx Blind: No Hx Cataracts: Yes Hx Deafness: Yes Hx Epistaxis: No Hx Glaucoma: No Hx Macular Degeneration: No - RENAL Hx Chronic Kidney Disease: Yes Hx Kidney Stones: No Hx Renal Failure: Yes - ENDOCRINE/METABOLIC Hx Hyperthyroidism: No Hx Hypothyroidism: No - HEMATOLOGICAL/ONCOLOGICAL Hx Anemia: No Hx Human Immunodeficiency Virus (HIV): No Hx Sickle Cell Disease: No - INTEGUMENTARY Hx Dermatological Problems: No Hx Basil Cell: No Hx Nicole: No Hx Cellulitis: No Hx Eczema: No Hx Melanoma: No Hx Psoriasis: No Hx Squamous Cell: No - MUSCULOSKELETAL/RHEUMATOLOGICAL Hx Arthritis: Yes Hx Fractures: Yes (facial) Hx Osteoporosis: No Hx Rheumatoid Arthritis: No - GASTROINTESTINAL Hx Crohn's Disease: No Hx Diverticulitis: No Hx Gall Bladder Disease: No Hx Gastritis: No Hx Pancreatitis: No - GENITOURINARY/GYNECOLOGICAL Hx Sexually Transmitted Disorders: No - PSYCHIATRIC Hx Anxiety: No Hx Bipolar Disorder: No Hx Depression: No Hx Post Traumatic Stress Disorder: No Hx Schizophrenia: No Hx Substance Use: No - SURGICAL HISTORY Hx Appendectomy: No Hx Carotid Endarterectomy: No Hx Cholecystectomy: No Hx Coronary Artery Bypass Graft: No Hx Coronary Stent: No Hx Tonsillectomy: No - ANESTHESIA Hx Anesthesia: Yes Hx Anesthesia Reactions: No Hx Malignant Hyperthermia: No Meds Allergies/Adverse Reactions: Allergies Allergy/AdvReac Type Severity Reaction Status Date / Time No Known Allergies Allergy Verified 05/15/18 18:52 Physical Exam - Constitutional Appears: No Acute Distress - Head Exam Head Exam: ATRAUMATIC, NORMAL INSPECTION, NORMOCEPHALIC - Eye Exam Eye Exam: EOMI, Normal appearance Pupil Exam: NORMAL ACCOMODATION, PERRL - ENT Exam ENT Exam: Mucous Membranes Moist, Normal External Ear Exam - Neck Exam Neck exam: Positive for: Full Rom, Normal Inspection. Negative for: Lymphadenopathy, Tenderness - Respiratory Exam Respiratory Exam: absent: Rales, Rhonchi, Wheezes - Cardiovascular Exam Cardiovascular Exam: absent: Gallop, REGULAR RHYTHM, RRR, +S1, +S2 - GI/Abdominal Exam GI & Abdominal Exam: Normal Bowel Sounds, Soft Additional comments: PEG in center of abdomen - Rectal Exam Rectal Exam: Deferred - Extremities Exam Extremities exam: Positive for: normal inspection. Negative for: joint swelling , pedal edema Additional comments: Tendernness to the - Back Exam Back exam: NORMAL INSPECTION. absent: CVA tenderness (L), CVA tenderness (R) - Neurological Exam Neurological exam: CN II-XII Intact, Oriented x3, Reflexes Normal - Psychiatric Exam Psychiatric exam: Flat Affect - Skin Skin Exam: Normal Color, Urticaria, Warm Results - Vital Signs Recent Vital Signs: Last Vital Signs Temp 98.9 F 05/18/18 23:16 Pulse 102 H 05/18/18 23:16 Resp 17 05/18/18 23:16 BP 92/63 L 05/18/18 23:16 Pulse Ox 96 05/18/18 23:34 - Imaging and Cardiology US lower extremities Status: Report reviewed by me Additional comment: EXAM: US Duplex Bilateral Lower Extremity Veins EXAM DATE/TIME: 05/18/2018 8:24 PM FINDINGS: Right deep veins: Unremarkable. No DVT in the right common femoral, femoral, proximal deep femoral or popliteal veins. The veins demonstrate normal color flow, are normally compressible, with normal phasic flow and/or augmentation response. Right superficial veins: Unremarkable. No thrombus in the visualized right great saphenous vein. Left deep veins: Nonocclusive deep venous thrombus extending from the left common femoral artery through the distal femoral vein. The popliteal vein is patent. Left superficial veins: No thrombus in the visualized left great saphenous vein. Soft tissues: No acute findings. No popliteal cyst. IMPRESSION: Nonocclusive deep venous thrombus extending from the left common femoral artery through the distal femoral vein. CTA Chest Additional comment: EXAM: CT Angiography Chest With Intravenous Contrast FINDINGS: Pulmonary arteries: Unremarkable. No pulmonary embolism. Aorta: Calcified tortuous thoracic aorta. No thoracic aortic aneurysm. Lungs: Atelectasis posterior lungs. No mass. Pleural space: Unremarkable. No significant effusion. No pneumothorax. Heart: Coronary artery calcifications. No significant pericardial effusion. No evidence of RV dysfunction. Bones/joints: No acute fracture. No dislocation. Soft tissues: Unremarkable. Lymph nodes: Unremarkable. No enlarged lymph nodes. Gallbladder and bile ducts: Large stone in the gallbladder. Gallbladder otherwise unremarkable. Small amount of probable pneumobilia in the liver. Kidneys and ureters: Bilateral renal cysts some measuring larger than a centimeter in size. There is some high attenuation exophytic lesions in the right kidney possibly representing very small hemorrhagic cysts but incompletely characterized on this exam. Tubes, lines and devices: PEG tube. IMPRESSION: 1. No pulmonary embolism. 2. Large stone in the gallbladder. Gallbladder otherwise unremarkable. Assessment & Plan - Assessment and Plan (Free Text) Assessment: #. DVT from left common femoral artery through the distal femoral #. Physical Deconditioning #. Dysphagia as late effect of stroke #. Acute Kidney Injury #. Sepsis secondary to UTI with obstructive Uropathy Plan: 87 years old male with hx of CVA in 2013, and recently suffered a hemorrhagic stroke admitted to [facility], then rehab and on 05/08/18 admitted to the [facility] with fever and diagnosed with UTI/Sepsis with E Coli Bacteremia, and acute Kidney Injury secondary to obstructive Uropathy. He was transferred to TCU on 05/15/18 for continued care and antibiotics. Because of pain to the lower extremities, Duplex Ultra Sound was done which showed Left femoral DVT.The patient was then Transferred down to ED to be readmitted on the Medical floors. #. DVT from left common femoral artery through the distal femoral. Because of recent Cerebral Hemorrhage Anticoagulant would not be given at this time - Consult IR For IVC filter #. Physical Deconditioning - PT/OT #. Dysphagia as late effect of stroke - PEG Tube Feeding #. Acute Kidney Injury - Dr vazquez nephrology was on Consult #. Sepsis secondary to UTI with obstructive Uropathy - Dr Rodney Id on consult - continue with Meropenem #. DVT prophylaxis: No Anticoagulant Because of recent Intracraneal bleed. No SCD because of the DVT in left lower extremity The Patient will need a IVC Filter placement. #. Code Status: DNR/DNI In Conclusion This patient being DNR/DNI does not meet criteria for Admission to the ICU. Dave Peralta MD - Date & Time Date: 05/19/18 Time: 00:54
[2018-05-19] MEDS ORDERED: Acetaminophen 325 MG/10.15 ML GT PRN (02:04)
[2018-05-19 03:38] VITALS: BMI 21.3
--- NOTE | 2018-05-19 07:42 | CT ---
Date of service: 05/19/2018 PROCEDURE: CT Chest with contrast (Pulmonary Angiogram) HISTORY: chest pain r/o PE COMPARISON: None available. TECHNIQUE: Axial computed tomography images were obtained of the chest in the pulmonary arterial phase of enhancement. Coronal and sagittal reformatted images were created and reviewed. Maximum intensity projection (MIP) reconstructed images in the following planes: Axial only. Intravenous contrast dose: 90 cc Visipaque 320. Mean Hounsfield unit values in the main pulmonary artery: 299.50 Radiation dose: Total exam DLP = 425.48 mGy-cm. This CT exam was performed using one or more of the following dose reduction techniques: Automated exposure control, adjustment of the mA and/or kV according to patient size, and/or use of iterative reconstruction technique. FINDINGS: PULMONARY ARTERIES: Unremarkable. No pulmonary embolism. AORTA: No acute findings. No thoracic aortic aneurysm. LUNGS: Unremarkable. No nodule, mass or pulmonary consolidation. PLEURAL SPACES: Unremarkable. No effusion or pneumothorax. HEART: Unremarkable. No cardiomegaly. No significant pericardial effusion. LYMPH NODES: No lymphadenopathy. BONES, CHEST WALL: Multilevel degenerative changes. . No fracture or destructive lesion OTHER FINDINGS: Cholelithiasis without CT evidence of acute cholecystitis. IMPRESSION: Unremarkable CT pulmonary angiogram. No pulmonary embolus. Additional benign and/or incidental findings described above. Concordant results (preliminary interpretation) provided by [employer]. Procedure Completed: 01:08 Preliminary ([facility]) Report: Dictated and Authenticated: 02:11 Final Interpretation: 07:41
[2018-05-19 08:15] LABS: BASO % 0.2 % (0.0-2.0); EOS # 0.1 K/uL (0.0-0.7); EOS % 0.3 % (0.0-4.0); HEMOGLOBIN 9.6 g/dL (12.0-18.0); LYMPH # 2.2 K/uL (1.0-4.3); LYMPH % 12.4 % (20.0-40.0); MEAN CELL VOLUME 87.9 fl (80.0-94.0); MEAN CORPUSCULAR HEMOGLOBIN 30.1 pg (27.0-31.0); MEAN CORPUSCULAR HGB CONC 34.3 g/dL (33.0-37.0); MEAN PLATELET VOLUME 9.3 fl (7.2-11.7); MONO % 5.6 % (0.0-10.0); NEUT # 14.5 K/uL (1.8-7.0); NEUT % 81.5 % (50.0-75.0); NRBC % 0.1 % (0.0-0.0); RBC 3.19 Mil/uL (4.40-5.90); RED CELL DISTRIBUTION WIDTH 17.1 % (11.5-14.5); WHITE BLOOD COUNT 17.8 K/uL (4.8-10.8)
[2018-05-19 08:30] LABS: BLOOD UREA NITROGEN 28 mg/dl (9-20); CALCIUM 8.3 mg/dL (8.4-10.2); GFR AFRICAN-AMERICAN > 60; GFR NON-AFRICAN AMERICAN > 60
[2018-05-19 08:38] LABS: INR 1.4 (0.9-1.2); PARTIAL THROMBOPLASTIN TIME 31.9 Seconds (25.6-37.1); PROTHROMBIN TIME 15.2 Seconds (9.8-13.1)
[2018-05-19] MEDS ORDERED: Patient's Own Med (Meropenem 500 Mg In Ns [Merrem Iv 500 Mg/Ns 50 Ml] 500 MG) IV SCH (09:00)
--- NOTE | 2018-05-19 09:40 | PCM.IRP ---
Chief Complaint: IR requested to perform mechanical thrombectomy for DVT. Mr. Linn seen this am. Pt with bilateral SFV DVT on recent venous duplex, negative PE. Pt has no significant leg swelling. Thrombectomy is not indicated in this pt given lack of leg swelling and advanced age. Also, mechanical thrombectomy device is not availabe at [facility]. Objective - Vital Signs/Intake and Output Vital Signs (last 24 hours): Vital Signs - 24 hr 05/18/18 05/19/18 05/19/18 23:16 02:12 02:55 Temperature 98.9 F 99.1 F 98.4 F Pulse Rate 102 H 99 H 98 H Pulse Rate [ Apical] Respiratory 17 17 23 Rate Blood Pressure 92/63 L 126/74 105/66 O2 Sat by Pulse 96 99 95 Oximetry 05/19/18 05/19/18 05/19/18 03:01 03:34 05:00 Temperature 99.1 F 98.1 F Pulse Rate 99 H 96 H Pulse Rate [ 97 H Apical] Respiratory 17 18 20 Rate Blood Pressure 126/74 106/76 O2 Sat by Pulse 99 Oximetry 05/19/18 05/19/18 05/19/18 05:15 08:10 08:27 Temperature 98.3 F Pulse Rate 98 H 97 H Pulse Rate [ Apical] Respiratory 12 Rate Blood Pressure 116/62 O2 Sat by Pulse 96 99 Oximetry Intake and Output (last 12 hours): Intake & Output 05/18/18 05/19/18 05/19/18 18:59 06:59 18:59 Output Total 850 Balance -850 Weight 153 lb 1.6 oz Output: Urine 850 Urethral (Rashid) 850 Other: # Voids Urethral (Rashid) 0 - Medications Medications: Current Medications Acetaminophen (Tylenol 325mg/10.15ml Ud) 650 mg GT Q4 PRN PRN Reason: Fever >100.4 F Acetaminophen (Tylenol 650 Mg Supp) 650 mg ND Q4 PRN PRN Reason: Temperature Ferrous Sulfate (Feosol Liq) 300 mg PEG BID JIN Finasteride (Proscar) 5 mg PO DAILY JIN Home Med (Meropenem 500 Mg In Ns [Merrem Iv 500 Mg/Ns 50 Ml]) 500 mg IV Q8 JIN Lactulose (Enulose) 20 gm GT Q12 JIN Multivitamins/Vitamin C (Multi-Delyn Liquid) 15 ml PEG DAILY JIN Pantoprazole Sodium (Protonix Inj) 40 mg IV BID JIN - Labs Labs (last 24 hours): Laboratory Results - last 24 hr 05/19/18 05/19/18 05/19/18 07:40 07:40 07:40 WBC 17.8 H RBC 3.19 L Hgb 9.6 L Hct 28.0 L MCV 87.9 MCH 30.1 MCHC 34.3 RDW 17.1 H Plt Count 302 MPV 9.3 Neut % (Auto) 81.5 H Lymph % (Auto) 12.4 L Garrard % (Auto) 5.6 Eos % (Auto) 0.3 Baso % (Auto) 0.2 Neut # (Auto) 14.5 H Lymph # (Auto) 2.2 Garrard # (Auto) 1.0 H Eos # (Auto) 0.1 Baso # (Auto) 0.0 PT 15.2 H INR 1.4 H APTT 31.9 Sodium 144 Potassium 4.8 Chloride 111 H Carbon Dioxide 23 Anion Gap 15 BUN 28 H Creatinine 0.9 Est GFR ( Amer) > 60 Est GFR (Non-Af Amer) > 60 Random Glucose 110 Calcium 8.3 L
--- NOTE | 2018-05-19 10:57 | CP.PCM.CON ---
History of Present Illness - History of Present Illness History of Present Illness: 87 years old male with hx of CVA in 2013, and recently suffered a hemorrhagic stroke admitted to [facility], then rehab and on 05/08/18 admitted to the [facility] with fever and diagnosed with UTI/Sepsis with E Coli Bacteremia, and acute Kidney Injury secondary to obstructive Uropathy. He was transferred to TCU on 05/15/18 for continued care and antibiotics. Because of pain to the lower extremities, Duplex Ultra Sound was done which showed Left femoral DVT.The patient was then Transferred down to ED to be readmitted on the Medical floors. PMH: Arthritis, Cardia Arrhythmia, CVA 2013 with left side , Dementia, Fractures (facial), HTN, Chronic Kidney Injury, Bilateral Hydroureteonephrosis; Cholelithiasis; Urinary retention; PSH: Appendectomy; CABG; Carotod Endarterectomy; Coronary stents placement; Pacemaker, Tonsillectomy SH: No illegal drug use; No Alcohol; Former Smoker; live with family Allergies: NKDA Medication: reviewed Review of Systems - Review of Systems Systems not reviewed;Unavailable: Altered Mental Status All systems: reviewed and no additional remarkable complaints except - Constitutional Constitutional: As Per HPI - EENT Eyes: absent: As Per HPI, Blind Spots, Blurred Vision, Change in Vision, Decreased Night Vision, Diplopia, Discharge, Dry Eye, Exophthalmos, Floaters, Irritation, Itchy Eyes, Loss of Peripheral Vision, Pain, Photophobia, Requires Corrective Lenses, Sees Flashes, Spots in Vision, Tunnel Vision, Other Visual Disturbances, Loss of Vision, Other Ears: absent: As Per HPI, Decreased Hearing, Ear Discharge, Ear Pain, Tinnitus, Abnormal Hearing, Disequilibrium, Dizziness, Other Nose/Mouth/Throat: absent: As Per HPI, Epistaxis, Nasal Congestion, Nasal Discharge, Nasal Obstruction, Nasal Trauma, Nose Pain, Post Nasal Drip, Sinus Pain, Sinus Pressure, Bleeding Gums, Change in Voice, Dental Pain, Dry Mouth, Dysphagia, Halitosis, Hoarsness, Lip Swelling, Mouth Lesions, Mouth Pain, Odynophagia, Sore Throat, Throat Swelling, Tongue Swelling, Facial Pain, Neck Pain, Neck Mass, Other - Cardiovascular Cardiovascular: As Per HPI - Respiratory Respiratory: As Per HPI - Gastrointestinal Gastrointestinal: absent: As Per HPI, Abdominal Pain, Belching, Bloating, Change in Bowel Habits, Change in Stool Character, Coffee Ground Emesis, Constipation, Cramping, Diarrhea, Dyspepsia, Dysphagia, Early Satiety, Excessive Flatus, Fecal Incontinence, Heartburn, Hematemesis, Hematochezia, Loose Stools, Melena, Nausea, Odynophagia, Temesmus, Vomiting, Other - Genitourinary Genitourinary: As Per HPI - Musculoskeletal Musculoskeletal: absent: As Per HPI, Abnormal Gait, Arthralgias, Atrophy, Back Pain, Deformity, Joint Swelling, Limited Range of Motion, Loss of Height, Muscle Cramps, Muscle Weakness, Myalgias, Neck Pain, Numbness, Radiating Pain into Limb, Stiffness, Tingling, Other Past Patient History - Infectious Disease Hx of Infectious Diseases: None - Past Medical History & Family History Past Medical History?: Yes - Past Social History Alcohol: None Drugs: Denies - CARDIAC Hx Atrial Fibrillation: No (sinus tacycardia >150) Hx Cardia Arrhythmia: Yes Hx Congestive Heart Failure: No Hx Hypercholesterolemia: No Hx Hypertension: Yes Hx Mitral Valve Prolapse: No Hx Pacemaker: No Hx Peripheral Edema: No - PULMONARY Hx Asthma: No Hx Bronchitis: No Hx Chronic Obstructive Pulmonary Disease (COPD): No Hx Emphysema: No Hx Pneumonia: No Hx Pulmonary Embolism: No Hx Sleep Apnea: No - NEUROLOGICAL Hx Alzheimer's Disease: No Hx Dementia: Yes Hx Migraine: No Hx Multiple Sclerosis: No Hx Seizures: No Hx Transient Ischemic Attacks (TIA): No - HEENT Hx HEENT Problems: Yes Hx Blind: No Hx Cataracts: Yes Hx Deafness: Yes Hx Epistaxis: No Hx Glaucoma: No Hx Macular Degeneration: No - RENAL Hx Chronic Kidney Disease: Yes Hx Kidney Stones: No - ENDOCRINE/METABOLIC Hx Hyperthyroidism: No Hx Hypothyroidism: No - HEMATOLOGICAL/ONCOLOGICAL Hx Anemia: No Hx Human Immunodeficiency Virus (HIV): No Hx Sickle Cell Disease: No - INTEGUMENTARY Hx Dermatological Problems: No Hx Basil Cell: No Hx Nicole: No Hx Cellulitis: No Hx Eczema: No Hx Melanoma: No Hx Psoriasis: No Hx Squamous Cell: No - MUSCULOSKELETAL/RHEUMATOLOGICAL Hx Arthritis: Yes Hx Fractures: Yes (facial) Hx Osteoporosis: No Hx Rheumatoid Arthritis: No - GASTROINTESTINAL Hx Crohn's Disease: No Hx Diverticulitis: No Hx Gall Bladder Disease: No Hx Gastritis: No Hx Pancreatitis: No - GENITOURINARY/GYNECOLOGICAL Hx Sexually Transmitted Disorders: No - PSYCHIATRIC Hx Anxiety: No Hx Bipolar Disorder: No Hx Depression: No Hx Paranoia: No Hx Post Traumatic Stress Disorder: No Hx Schizophrenia: No - SURGICAL HISTORY Hx Appendectomy: No Hx Carotid Endarterectomy: No Hx Cholecystectomy: No Hx Coronary Artery Bypass Graft: No Hx Coronary Stent: No Hx Tonsillectomy: No - ANESTHESIA Hx Anesthesia: Yes Hx Anesthesia Reactions: No Hx Malignant Hyperthermia: No Meds Allergies/Adverse Reactions: Allergies Allergy/AdvReac Type Severity Reaction Status Date / Time No Known Allergies Allergy Verified 05/15/18 18:52 - Medications Medications: Current Medications Acetaminophen (Tylenol 325mg/10.15ml Ud) 650 mg GT Q4 PRN PRN Reason: Fever >100.4 F Acetaminophen (Tylenol 650 Mg Supp) 650 mg MD Q4 PRN PRN Reason: Temperature Ferrous Sulfate (Feosol Liq) 300 mg PEG BID JIN Finasteride (Proscar) 5 mg PO DAILY JIN Home Med (Meropenem 500 Mg In Ns [Merrem Iv 500 Mg/Ns 50 Ml]) 500 mg IV Q8 JIN Lactulose (Enulose) 20 gm GT Q12 JIN Multivitamins/Vitamin C (Multi-Delyn Liquid) 15 ml PEG DAILY JIN Pantoprazole Sodium (Protonix Inj) 40 mg IV BID JIN Physical Exam - Constitutional Appears: Confused, Chronically Ill - Head Exam Head Exam: NORMOCEPHALIC - Eye Exam Eye Exam: absent: Scleral icterus - ENT Exam ENT Exam: Mucous Membranes Dry, Normal External Ear Exam - Neck Exam Neck exam: Negative for: Lymphadenopathy - Respiratory Exam Respiratory Exam: Decreased Breath Sounds, Rhonchi - Cardiovascular Exam Cardiovascular Exam: REGULAR RHYTHM, +S1, +S2 - GI/Abdominal Exam GI & Abdominal Exam: Diminished Bowel Sounds, Distended, Soft. absent: Tenderness - Rectal Exam Rectal Exam: Deferred - Exam Exam: NORMAL INSPECTION - Extremities Exam Extremities exam: Positive for: pedal edema, pedal pulses present. Negative for : calf tenderness, tenderness - Back Exam Back exam: absent: CVA tenderness (L), CVA tenderness (R) - Neurological Exam Neurological exam: Alert, CN II-XII Intact Additional comments: left hemiparesis - Psychiatric Exam Psychiatric exam: Depressed - Skin Skin Exam: Dry Results - Vital Signs Recent Vital Signs: Last Vital Signs Temp 98.3 F 05/19/18 08:27 Pulse 103 H 05/19/18 10:34 Resp 14 05/19/18 10:34 BP 111/72 05/19/18 10:34 Pulse Ox 97 05/19/18 10:34 - Labs Result Diagrams: 05/19/18 07:40 05/19/18 07:40 Labs: Laboratory Results - last 24 hr 05/19/18 05/19/18 05/19/18 07:40 07:40 07:40 WBC 17.8 H RBC 3.19 L Hgb 9.6 L Hct 28.0 L MCV 87.9 MCH 30.1 MCHC 34.3 RDW 17.1 H Plt Count 302 MPV 9.3 Neut % (Auto) 81.5 H Lymph % (Auto) 12.4 L [place] % (Auto) 5.6 Eos % (Auto) 0.3 Baso % (Auto) 0.2 Neut # (Auto) 14.5 H Lymph # (Auto) 2.2 [place] # (Auto) 1.0 H Eos # (Auto) 0.1 Baso # (Auto) 0.0 PT 15.2 H INR 1.4 H APTT 31.9 Sodium 144 Potassium 4.8 Chloride 111 H Carbon Dioxide 23 Anion Gap 15 BUN 28 H Creatinine 0.9 Est GFR ( Amer) > 60 Est GFR (Non-Af Amer) > 60 Random Glucose 110 Calcium 8.3 L Assessment & Plan (1) Dvt femoral (deep venous thrombosis) Status: Acute (2) Sepsis Status: Acute (3) UTI (urinary tract infection) Status: Acute (4) Cerebrovascular accident (CVA) with left hemiparesis Status: Chronic Priority: Medium (5) Toxic metabolic encephalopathy Status: Resolved Priority: Medium - Assessment and Plan (Free Text) Assessment: cont iv antibiotics PE negative + DVT prognosis poor
[2018-05-19] MEDS: Ferrous Sulfate 300 mg/5 mL Liq UD PEG SCH ×2 (12:47→17:10)
[2018-05-19] MEDS: Meropenem 500 MG in Sodium Chloride 0.9% 100 ML IVPB SCH ×2 (12:49→17:09)
[2018-05-19] MEDS: Multi Vitamins 15 mL UD Oral Solution PEG SCH (13:11)
--- NOTE | 2018-05-19 15:25 | CARD ---
APPROVED REPORT Date of service: 05/19/2018 EKG Measurement Heart [id number] <Conclusion> Normal sinus rhythm Right bundle branch block Abnormal ECG
[2018-05-19] MEDS: Cefepime 2 GM in Sodium Chloride 0.9% 100 ML IVPB SCH ×2 (16:08→21:21)
--- NOTE | 2018-05-19 19:26 | CP.PCM.HP ---
History of Present Illness - History of Present Illness History of Present Illness: CC: Admitted to TCU for IV antibiotics and PT/OT due to Physical deconditioning and Recent SDH History of Present Illness: An 87yom who was admitted to ICU for New Left Common Femoral Vein DVT and dyspnea, and anable to anticoagulate due to SDH. Was admitted first for Acute Renal Failure, Obstructive Uropathy, B/L Uretero-Hydronephrosis, Sepsis with G- ve Bactremia and SDH with Mass effect after he presented with AMS. In the Hospital course, he improved with chamge IV antibiotics to Cefepime and supportive care, and transferred to TCU for IV Cefpime for 10 more days, and PT/ OT for Physical Deconditioning and Dysphagia.. Today he is awake and alert with significant improved. No fever. Present on Admission - Present on Admission Any Indicators Present on Admission: No Review of Systems - Review of Systems All systems: reviewed and no additional remarkable complaints except Past Patient History - Infectious Disease Hx of Infectious Diseases: None - Past Medical History & Family History Past Medical History?: Yes Past Family History: Reviewed and not pertinent - Past Social History Smoking Status: Never Smoked Alcohol: None Drugs: Denies - CARDIAC Hx Atrial Fibrillation: No (sinus tacycardia >150) Hx Cardia Arrhythmia: Yes Hx Congestive Heart Failure: No Hx Hypercholesterolemia: No Hx Hypertension: Yes Hx Mitral Valve Prolapse: No Hx Pacemaker: No Hx Peripheral Edema: No - PULMONARY Hx Asthma: No Hx Bronchitis: No Hx Chronic Obstructive Pulmonary Disease (COPD): No Hx Emphysema: No Hx Pneumonia: No Hx Pulmonary Embolism: No Hx Sleep Apnea: No - NEUROLOGICAL Hx Alzheimer's Disease: No Hx Dementia: Yes Hx Migraine: No Hx Multiple Sclerosis: No Hx Seizures: No Hx Transient Ischemic Attacks (TIA): No - HEENT Hx HEENT Problems: Yes Hx Blind: No Hx Cataracts: Yes Hx Deafness: Yes Hx Epistaxis: No Hx Glaucoma: No Hx Macular Degeneration: No - RENAL Hx Chronic Kidney Disease: Yes Hx Kidney Stones: No - ENDOCRINE/METABOLIC Hx Hyperthyroidism: No Hx Hypothyroidism: No - HEMATOLOGICAL/ONCOLOGICAL Hx Anemia: No Hx Human Immunodeficiency Virus (HIV): No Hx Sickle Cell Disease: No - INTEGUMENTARY Hx Dermatological Problems: No Hx Basil Cell: No Hx Nicole: No Hx Cellulitis: No Hx Eczema: No Hx Melanoma: No Hx Psoriasis: No Hx Squamous Cell: No - MUSCULOSKELETAL/RHEUMATOLOGICAL Hx Arthritis: Yes Hx Fractures: Yes (facial) Hx Osteoporosis: No Hx Rheumatoid Arthritis: No - GASTROINTESTINAL Hx Crohn's Disease: No Hx Diverticulitis: No Hx Gall Bladder Disease: No Hx Gastritis: No Hx Pancreatitis: No - GENITOURINARY/GYNECOLOGICAL Hx Sexually Transmitted Disorders: No - PSYCHIATRIC Hx Anxiety: No Hx Bipolar Disorder: No Hx Depression: No Hx Paranoia: No Hx Post Traumatic Stress Disorder: No Hx Schizophrenia: No - SURGICAL HISTORY Hx Appendectomy: No Hx Carotid Endarterectomy: No Hx Cholecystectomy: No Hx Coronary Artery Bypass Graft: No Hx Coronary Stent: No Hx Tonsillectomy: No - ANESTHESIA Hx Anesthesia: Yes Hx Anesthesia Reactions: No Hx Malignant Hyperthermia: No Meds Home Medications: Home Medication List Medication Instructions Recorded Confirmed Type Cefepime IV 2 gm in NS [Maxipime 2 gm IVPB Q12 10 Days #20 bag 05/22/18 Rx 2gm] Allergies/Adverse Reactions: Allergies Allergy/AdvReac Type Severity Reaction Status Date / Time No Known Allergies Allergy Verified 05/15/18 18:52 Physical Exam - Constitutional Appears: No Acute Distress, Chronically Ill - Head Exam Head Exam: ATRAUMATIC, NORMAL INSPECTION, NORMOCEPHALIC - Eye Exam Eye Exam: EOMI, Normal appearance, PERRL Pupil Exam: NORMAL ACCOMODATION, PERRL - ENT Exam ENT Exam: Mucous Membranes Moist, Normal Exam - Neck Exam Neck exam: Positive for: Normal Inspection - Respiratory Exam Respiratory Exam: Clear to Auscultation Bilateral, NORMAL BREATHING PATTERN - Cardiovascular Exam Cardiovascular Exam: REGULAR RHYTHM, +S1, +S2, Systolic Murmur - GI/Abdominal Exam GI & Abdominal Exam: Normal Bowel Sounds, Soft. absent: Tenderness Additional comments: +PEG Tube site clean, and on Continuous feeding - Extremities Exam Extremities exam: Positive for: normal capillary refill, normal inspection - Back Exam Back exam: NORMAL INSPECTION - Neurological Exam Neurological exam: Alert, Motor Sensory Deficit - Psychiatric Exam Psychiatric exam: Flat Affect - Skin Skin Exam: Dry, Intact, Normal Color, Warm Results - Vital Signs Recent Vital Signs: Last Vital Signs Temp 97.7 F 05/19/18 16:00 Pulse 87 05/19/18 18:11 Resp 26 H 05/19/18 18:11 BP 99/68 L 05/19/18 18:11 Pulse Ox 98 05/19/18 18:11 - Labs Result Diagrams: 05/21/18 10:06 05/21/18 10:06 Labs: Laboratory Results - last 24 hr 05/19/18 05/19/18 05/19/18 07:40 07:40 07:40 WBC 17.8 H RBC 3.19 L Hgb 9.6 L Hct 28.0 L MCV 87.9 MCH 30.1 MCHC 34.3 RDW 17.1 H Plt Count 302 MPV 9.3 Neut % (Auto) 81.5 H Lymph % (Auto) 12.4 L [place] % (Auto) 5.6 Eos % (Auto) 0.3 Baso % (Auto) 0.2 Neut # (Auto) 14.5 H Lymph # (Auto) 2.2 [place] # (Auto) 1.0 H Eos # (Auto) 0.1 Baso # (Auto) 0.0 PT 15.2 H INR 1.4 H APTT 31.9 Sodium 144 Potassium 4.8 Chloride 111 H Carbon Dioxide 23 Anion Gap 15 BUN 28 H Creatinine 0.9 Est GFR ( Amer) > 60 Est GFR (Non-Af Amer) > 60 POC Glucose (mg/dL) Random Glucose 110 Calcium 8.3 L 05/19/18 05/19/18 11:44 16:52 WBC RBC Hgb Hct MCV MCH MCHC RDW Plt Count MPV Neut % (Auto) Lymph % (Auto) [place] % (Auto) Eos % (Auto) Baso % (Auto) Neut # (Auto) Lymph # (Auto) [place] # (Auto) Eos # (Auto) Baso # (Auto) PT INR APTT Sodium Potassium Chloride Carbon Dioxide Anion Gap BUN Creatinine Est GFR ( Amer) Est GFR (Non-Af Amer) POC Glucose (mg/dL) 108 104 Random Glucose Calcium - Imaging and Cardiology US lower extremities Status: Report reviewed by me CT Chest with PE Protocol: Status: Report reviewed by me Additional comment: Date of service: 05/19/2018 PROCEDURE: CT Chest with contrast (Pulmonary Angiogram) HISTORY: chest pain r/o PE COMPARISON: None available. TECHNIQUE: Axial computed tomography images were obtained of the chest in the pulmonary arterial phase of enhancement. Coronal and sagittal reformatted images were created and reviewed. Maximum intensity projection (MIP) reconstructed images in the following planes : Axial only. Intravenous contrast dose: 90 cc Visipaque 320. Mean Hounsfield unit values in the main pulmonary artery: 299.50 Radiation dose: Total exam DLP = 425.48 mGy-cm. This CT exam was performed using one or more of the following dose reduction techniques: Automated exposure control, adjustment of the mA and/or kV according to patient size, and/or use of iterative reconstruction technique. FINDINGS: PULMONARY ARTERIES: Unremarkable. No pulmonary embolism. AORTA: No acute findings. No thoracic aortic aneurysm. LUNGS: Unremarkable. No nodule, mass or pulmonary consolidation. PLEURAL SPACES: Unremarkable. No effusion or pneumothorax. HEART: Unremarkable. No cardiomegaly. No significant pericardial effusion. LYMPH NODES: No lymphadenopathy. BONES, CHEST WALL: Multilevel degenerative changes. . No fracture or destructive lesion OTHER FINDINGS: Cholelithiasis without CT evidence of acute cholecystitis. IMPRESSION: Unremarkable CT pulmonary angiogram. No pulmonary embolus. Additional benign and/or incidental findings described above. Concordant results (preliminary interpretation) provided by [facility]. Assessment & Plan (1) Toxic metabolic encephalopathy Assessment and Plan: Urosepsis, Bactremia Continue IV Cefepime for atotal of 14 days (Today Day#4) C/W IV Cefepime ID On board Status: Resolved Priority: Medium (2) Dvt femoral (deep venous thrombosis) Assessment and Plan: Anticoagulation Contraindicated due to Recent SDH with Mass Effect Family Declined IVC Filter, and family understands the risk for PE Physical Therapy to the Right LE and Upper body Status: Acute Priority: High (3) Cerebrovascular accident (CVA) with left hemiparesis Assessment and Plan: Continue Statin Status: Chronic Priority: Medium (4) Obstructive uropathy Assessment and Plan: due to BPH, Septic Shock Acute Renal Failure0 Resolved after Rashid Catheter B/L Hydronephrosis Continue Folycath IV Cefepime for 10 More days Urology onbaord Status: Acute (5) Hypertension Status: Chronic Priority: Low (6) Physical deconditioning Assessment and Plan: PT/OT Status: Chronic Priority: Low
[2018-05-19] MEDS ORDERED: Albuterol-Ipratrop 3 mg / 0.5 (3 ml) UD INH STA (21:32)
[2018-05-20] MEDS: Meropenem 500 MG in Sodium Chloride 0.9% 100 ML IVPB SCH ×2 (01:23→08:50)
[2018-05-20] MEDS: Cefepime 2 GM in Sodium Chloride 0.9% 100 ML IVPB SCH ×2 (08:43→22:02)
[2018-05-20] MEDS: Ferrous Sulfate 300 mg/5 mL Liq UD PEG SCH ×2 (08:58→17:53)
[2018-05-20] MEDS: Multi Vitamins 15 mL UD Oral Solution PEG SCH (08:59)
--- NOTE | 2018-05-20 11:01 | CP.PCM.PN ---
Subjective - Date & Time of Evaluation Date of Evaluation: 05/20/18 Time of Evaluation: 10:00 - Subjective Subjective: afeb nad weak bedridden NAD Objective - Vital Signs/Intake and Output Vital Signs (last 24 hours): Temp Pulse Resp BP Pulse Ox 98.1 F 90 32 H 103/63 95 05/20/18 08:00 05/20/18 09:00 05/20/18 08:00 05/20/18 08:00 05/20/18 08:00 Intake and Output: 05/20/18 05/20/18 06:59 18:59 Intake Total 740 Output Total 700 Balance 40 - Medications Medications: Current Medications Acetaminophen (Tylenol 325mg/10.15ml Ud) 650 mg GT Q4 PRN PRN Reason: Fever >100.4 F Last Admin: 05/19/18 13:20 Dose: 650 mg Acetaminophen (Tylenol 650 Mg Supp) 650 mg GA Q4 PRN PRN Reason: Temperature Ferrous Sulfate (Feosol Liq) 300 mg PEG BID [facility] Last Admin: 05/20/18 08:58 Dose: 300 mg Finasteride (Proscar) 5 mg PO DAILY JIN Last Admin: 05/20/18 08:59 Dose: 5 mg Cefepime HCl 2 gm/ Sodium (Chloride) 100 mls @ 100 mls/hr IVPB Q12 JIN PRN Reason: Protocol Last Admin: 05/20/18 08:43 Dose: 100 mls/hr Multivitamins/Vitamin C (Multi-Delyn Liquid) 15 ml PEG DAILY [facility] Last Admin: 05/20/18 08:59 Dose: 15 ml Pantoprazole Sodium (Protonix Inj) 40 mg IV BID JIN Last Admin: 05/20/18 08:59 Dose: 40 mg - Labs Labs: 05/19/18 07:40 05/19/18 07:40 PT 15.2 Seconds (9.8-13.1) H 05/19/18 07:40 INR 1.4 (0.9-1.2) H 05/19/18 07:40 APTT 31.9 Seconds (25.6-37.1) 05/19/18 07:40 - Constitutional Appears: Non-toxic, Chronically Ill - Head Exam Head Exam: NORMOCEPHALIC - Eye Exam Eye Exam: PERRL - ENT Exam ENT Exam: Mucous Membranes Dry - Neck Exam Neck Exam: absent: Lymphadenopathy - Respiratory Exam Respiratory Exam: Decreased Breath Sounds - Cardiovascular Exam Cardiovascular Exam: REGULAR RHYTHM - GI/Abdominal Exam GI & Abdominal Exam: Distended, Soft - Rectal Exam Rectal Exam: Deferred - Exam Exam: NORMAL INSPECTION - Extremities Exam Extremities Exam: Pedal Edema - Back Exam Back Exam: absent: CVA tenderness (L), CVA tenderness (R) - Neurological Exam Neurological Exam: Alert, Altered, Awake, Motor Sensory Deficit - Psychiatric Exam Psychiatric exam: Depressed Assessment and Plan (1) Dvt femoral (deep venous thrombosis) Status: Acute (2) Sepsis Status: Acute (3) UTI (urinary tract infection) Status: Acute (4) Cerebrovascular accident (CVA) with left hemiparesis Status: Chronic (5) Toxic metabolic encephalopathy Status: Resolved - Assessment and Plan (Free Text) Assessment: iv antibiotics renewed to complete 14 days rx
[2018-05-20 14:24] LABS: URINE BILIRUBIN NEGATIVE (NEGATIVE); URINE BLOOD SMALL (NEGATIVE); URINE CLARITY SLIGHTY-CLOUDY (Clear); URINE COLOR YELLOW (YELLOW); URINE GLUCOSE (UA) NEG (Normal); URINE HYALINE CAST 0-2 /hpf (0-2); URINE LEUKOCYTE ESTERASE NEG Leu/uL (Negative); URINE PROTEIN 30 mg/dL (NEGATIVE); URINE UROBILINOGEN 0.2-1.0 mg/dL (0.2-1.0)
[2018-05-21] MEDS: Ferrous Sulfate 300 mg/5 mL Liq UD PEG SCH ×2 (10:02→16:32)
[2018-05-21] MEDS: Cefepime 2 GM in Sodium Chloride 0.9% 100 ML IVPB SCH ×2 (10:02→21:08)
[2018-05-21] MEDS: Multi Vitamins 15 mL UD Oral Solution PEG SCH (10:02)
[2018-05-21 10:19] LABS: BASO # 0.1 K/uL (0.0-0.2); BASO % 0.4 % (0.0-2.0); EOS # 0.4 K/uL (0.0-0.7); EOS % 3.5 % (0.0-4.0); LYMPH # 1.7 K/uL (1.0-4.3); LYMPH % 13.6 % (20.0-40.0); MEAN CELL VOLUME 89.7 fl (80.0-94.0); MEAN CORPUSCULAR HEMOGLOBIN 30.3 pg (27.0-31.0); MEAN CORPUSCULAR HGB CONC 33.8 g/dL (33.0-37.0); MEAN PLATELET VOLUME 9.6 fl (7.2-11.7); MONO # 0.8 K/uL (0.0-0.8); NEUT # 9.6 K/uL (1.8-7.0); NEUT % 76.5 % (50.0-75.0); NRBC % 0.1 % (0.0-0.0); RBC 3.29 Mil/uL (4.40-5.90); RED CELL DISTRIBUTION WIDTH 16.8 % (11.5-14.5); WHITE BLOOD COUNT 12.6 K/uL (4.8-10.8)
[2018-05-21 10:49] LABS: ALB/GLOB RATIO 0.7 (1.0-2.1); ALBUMIN 3.2 g/dL (3.5-5.0); ALT/SGPT 71 U/L (21-72); AST/SGOT 81 U/L (17-59); BLOOD UREA NITROGEN 35 mg/dl (9-20); CALCIUM 8.5 mg/dL (8.4-10.2); GFR AFRICAN-AMERICAN > 60; GFR NON-AFRICAN AMERICAN > 60
--- NOTE | 2018-05-21 17:33 | CP.PCM.PN ---
Subjective - Date & Time of Evaluation Date of Evaluation: 05/21/18 Time of Evaluation: 08:00 - Subjective Subjective: low grade temps nad Objective - Vital Signs/Intake and Output Vital Signs (last 24 hours): Temp Pulse Resp BP Pulse Ox 99.6 F 100 H 20 100/62 95 05/21/18 16:15 05/21/18 16:15 05/21/18 16:15 05/21/18 16:15 05/21/18 16:15 Intake and Output: 05/21/18 05/21/18 06:59 18:59 Intake Total 570 Output Total 700 Balance -130 - Medications Medications: Current Medications Acetaminophen (Tylenol 325mg/10.15ml Ud) 650 mg GT Q4 PRN PRN Reason: Fever >100.4 F Last Admin: 05/19/18 13:20 Dose: 650 mg Acetaminophen (Tylenol 650 Mg Supp) 650 mg SC Q4 PRN PRN Reason: Temperature Ferrous Sulfate (Feosol Liq) 300 mg PEG BID [facility] Last Admin: 05/21/18 16:32 Dose: 300 mg Finasteride (Proscar) 5 mg PO DAILY [facility] Last Admin: 05/21/18 10:02 Dose: 5 mg Cefepime HCl 2 gm/ Sodium (Chloride) 100 mls @ 100 mls/hr IVPB Q12 JIN PRN Reason: Protocol Last Admin: 05/21/18 10:02 Dose: 100 mls/hr Multivitamins/Vitamin C (Multi-Delyn Liquid) 15 ml PEG DAILY [facility] Last Admin: 05/21/18 10:02 Dose: 15 ml Pantoprazole Sodium (Protonix Inj) 40 mg IV BID [facility] Last Admin: 05/21/18 16:32 Dose: 40 mg - Labs Labs: 05/21/18 10:06 05/21/18 10:06 PT 15.2 Seconds (9.8-13.1) H 05/19/18 07:40 INR 1.4 (0.9-1.2) H 05/19/18 07:40 APTT 31.9 Seconds (25.6-37.1) 05/19/18 07:40 - Constitutional Appears: Non-toxic, Confused, Cachectic, Chronically Ill - Head Exam Head Exam: NORMOCEPHALIC - Eye Exam Eye Exam: PERRL. absent: Scleral icterus - ENT Exam ENT Exam: Mucous Membranes Dry - Neck Exam Neck Exam: absent: Lymphadenopathy - Respiratory Exam Respiratory Exam: Decreased Breath Sounds - Cardiovascular Exam Cardiovascular Exam: REGULAR RHYTHM - GI/Abdominal Exam GI & Abdominal Exam: Distended - Rectal Exam Rectal Exam: Deferred - Exam Exam: NORMAL INSPECTION - Extremities Exam Extremities Exam: absent: Pedal Edema - Back Exam Back Exam: absent: CVA tenderness (L), CVA tenderness (R) - Neurological Exam Neurological Exam: Alert, Altered, CN II-XII Intact. absent: Oriented x3 - Psychiatric Exam Psychiatric exam: Depressed Assessment and Plan (1) Dvt femoral (deep venous thrombosis) Status: Acute (2) Sepsis Status: Acute (3) UTI (urinary tract infection) Status: Acute (4) Cerebrovascular accident (CVA) with left hemiparesis Status: Chronic (5) Toxic metabolic encephalopathy Status: Resolved - Assessment and Plan (Free Text) Assessment: cont iv cefepime 2 g q12h x 14 days
--- NOTE | 2018-05-21 18:32 | RAD ---
Date of service: 05/21/2018 HISTORY: congestion COMPARISON: Portable chest 05/18/2018. FINDINGS: LUNGS: No interval acute infiltrate identified bilaterally. PLEURA: Trace of pleural effusion is difficult to completely exclude. Patient rotated toward the left limiting the evaluation. No right pleural effusion. No pneumothorax bilaterally. CARDIOVASCULAR: Pulmonary vascular pattern appears unremarkable. Cardiac size is stable and remains normal in size. OSSEOUS STRUCTURES: No significant abnormalities. VISUALIZED UPPER ABDOMEN: Normal. OTHER FINDINGS: None. IMPRESSION: Trace left pleural effusion is in question. No pulmonary vascular congestion, infiltrate or pneumothorax bilaterally.
--- NOTE | 2018-05-22 07:42 | CP.PCM.PN ---
Subjective - Date & Time of Evaluation Date of Evaluation: 05/20/18 Objective - Vital Signs/Intake and Output Vital Signs (last 24 hours): Temp Pulse Resp BP Pulse Ox 98.8 F 100 H 19 92/58 L 96 05/22/18 00:00 05/22/18 00:00 05/22/18 00:00 05/22/18 00:00 05/22/18 00:00 Intake and Output: 05/22/18 05/22/18 06:59 18:59 Intake Total 640 Output Total 700 Balance -60 - Medications Medications: Current Medications Acetaminophen (Tylenol 325mg/10.15ml Ud) 650 mg GT Q4 PRN PRN Reason: Fever >100.4 F Last Admin: 05/19/18 13:20 Dose: 650 mg Acetaminophen (Tylenol 650 Mg Supp) 650 mg [place] Q4 PRN PRN Reason: Temperature Ferrous Sulfate (Feosol Liq) 300 mg PEG BID [facility] Last Admin: 05/21/18 16:32 Dose: 300 mg Finasteride (Proscar) 5 mg PO DAILY [facility] Last Admin: 05/21/18 10:02 Dose: 5 mg Cefepime HCl 2 gm/ Sodium (Chloride) 100 mls @ 100 mls/hr IVPB Q12 JIN PRN Reason: Protocol Last Admin: 05/21/18 21:08 Dose: 100 mls/hr Multivitamins/Vitamin C (Multi-Delyn Liquid) 15 ml PEG DAILY [facility] Last Admin: 05/21/18 10:02 Dose: 15 ml Pantoprazole Sodium (Protonix Inj) 40 mg IV BID [facility] Last Admin: 05/21/18 16:32 Dose: 40 mg - Labs Labs: 05/21/18 10:06 05/21/18 10:06 PT 15.2 Seconds (9.8-13.1) H 05/19/18 07:40 INR 1.4 (0.9-1.2) H 05/19/18 07:40 APTT 31.9 Seconds (25.6-37.1) 05/19/18 07:40 Assessment and Plan (1) Dvt femoral (deep venous thrombosis) Status: Acute (2) Cerebrovascular accident (CVA) with left hemiparesis Status: Chronic (3) Hypertension Status: Chronic
--- NOTE | 2018-05-22 07:43 | CP.PCM.PN ---
Subjective - Date & Time of Evaluation Date of Evaluation: 05/21/18 Time of Evaluation: 12:15 Objective - Vital Signs/Intake and Output Vital Signs (last 24 hours): Temp Pulse Resp BP Pulse Ox 98.8 F 100 H 19 92/58 L 96 05/22/18 00:00 05/22/18 00:00 05/22/18 00:00 05/22/18 00:00 05/22/18 00:00 Intake and Output: 05/22/18 05/22/18 06:59 18:59 Intake Total 640 Output Total 700 Balance -60 - Medications Medications: Current Medications Acetaminophen (Tylenol 325mg/10.15ml Ud) 650 mg GT Q4 PRN PRN Reason: Fever >100.4 F Last Admin: 05/19/18 13:20 Dose: 650 mg Acetaminophen (Tylenol 650 Mg Supp) 650 mg [place] Q4 PRN PRN Reason: Temperature Ferrous Sulfate (Feosol Liq) 300 mg PEG BID [facility] Last Admin: 05/21/18 16:32 Dose: 300 mg Finasteride (Proscar) 5 mg PO DAILY [facility] Last Admin: 05/21/18 10:02 Dose: 5 mg Cefepime HCl 2 gm/ Sodium (Chloride) 100 mls @ 100 mls/hr IVPB Q12 JIN PRN Reason: Protocol Last Admin: 05/21/18 21:08 Dose: 100 mls/hr Multivitamins/Vitamin C (Multi-Delyn Liquid) 15 ml PEG DAILY [facility] Last Admin: 05/21/18 10:02 Dose: 15 ml Pantoprazole Sodium (Protonix Inj) 40 mg IV BID [facility] Last Admin: 05/21/18 16:32 Dose: 40 mg - Labs Labs: 05/21/18 10:06 05/21/18 10:06 PT 15.2 Seconds (9.8-13.1) H 05/19/18 07:40 INR 1.4 (0.9-1.2) H 05/19/18 07:40 APTT 31.9 Seconds (25.6-37.1) 05/19/18 07:40 Assessment and Plan (1) Dvt femoral (deep venous thrombosis) Status: Acute (2) Cerebrovascular accident (CVA) with left hemiparesis Status: Chronic (3) Hypertension Status: Chronic
[2018-05-22] MEDS: Cefepime 2 GM in Sodium Chloride 0.9% 100 ML IVPB SCH (09:21)
[2018-05-22] MEDS: Ferrous Sulfate 300 mg/5 mL Liq UD PEG SCH (09:23)
[2018-05-22] MEDS: Multi Vitamins 15 mL UD Oral Solution PEG SCH (09:24)
--- NOTE | 2018-05-22 14:29 | CP.PCM.PN ---
Subjective - Date & Time of Evaluation Date of Evaluation: 05/22/18 Time of Evaluation: 09:00 - Subjective Subjective: AWAKE ALERT NAD AFEB Objective - Vital Signs/Intake and Output Vital Signs (last 24 hours): Temp Pulse Resp BP Pulse Ox 98.4 F 100 H 20 94/60 L 98 05/22/18 07:59 05/22/18 07:59 05/22/18 07:59 05/22/18 07:59 05/22/18 07:59 Intake and Output: 05/22/18 05/22/18 06:59 18:59 Intake Total 640 Output Total 700 Balance -60 - Medications Medications: Current Medications Acetaminophen (Tylenol 325mg/10.15ml Ud) 650 mg GT Q4 PRN PRN Reason: Fever >100.4 F Last Admin: 05/19/18 13:20 Dose: 650 mg Acetaminophen (Tylenol 650 Mg Supp) 650 mg [place] Q4 PRN PRN Reason: Temperature Ferrous Sulfate (Feosol Liq) 300 mg PEG BID [facility] Last Admin: 05/22/18 09:23 Dose: 300 mg Finasteride (Proscar) 5 mg PO DAILY [facility] Last Admin: 05/22/18 09:24 Dose: 5 mg Cefepime HCl 2 gm/ Sodium (Chloride) 100 mls @ 100 mls/hr IVPB Q12 JIN PRN Reason: Protocol Last Admin: 05/22/18 09:21 Dose: 100 mls/hr Multivitamins/Vitamin C (Multi-Delyn Liquid) 15 ml PEG DAILY [facility] Last Admin: 05/22/18 09:24 Dose: 15 ml Pantoprazole Sodium (Protonix Inj) 40 mg IV BID [facility] Last Admin: 05/22/18 09:23 Dose: 40 mg - Labs Labs: 05/21/18 10:06 05/21/18 10:06 PT 15.2 Seconds (9.8-13.1) H 05/19/18 07:40 INR 1.4 (0.9-1.2) H 05/19/18 07:40 APTT 31.9 Seconds (25.6-37.1) 05/19/18 07:40 - Constitutional Appears: Non-toxic, Chronically Ill - Head Exam Head Exam: NORMOCEPHALIC - Eye Exam Eye Exam: absent: Scleral icterus - ENT Exam ENT Exam: Mucous Membranes Dry - Neck Exam Neck Exam: absent: Thyromegaly - Respiratory Exam Respiratory Exam: Decreased Breath Sounds - Cardiovascular Exam Cardiovascular Exam: REGULAR RHYTHM - GI/Abdominal Exam GI & Abdominal Exam: Distended, Soft Assessment and Plan (1) Dvt femoral (deep venous thrombosis) Status: Acute (2) Sepsis Status: Acute (3) UTI (urinary tract infection) Status: Acute (4) Cerebrovascular accident (CVA) with left hemiparesis Status: Chronic (5) Toxic metabolic encephalopathy Status: Resolved
[2018-05-22 15:01] VITALS: BP 104/70; PULSE 99; RESP 18; TEMP 97.8; O2SAT 99
--- NOTE | 2018-05-22 18:42 | CP.PCM.DIS ---
Provider - Provider Date of Admission: 05/18/18 23:30 Attending physician: Millie Murphy MD Time Spent in preparation of Discharge (in minutes): 25 Diagnosis - Discharge Diagnosis (1) Dvt femoral (deep venous thrombosis) Status: Acute (2) Cerebrovascular accident (CVA) with left hemiparesis Status: Chronic Priority: Medium (3) Hypertension Status: Chronic Priority: Low Hospital Course - Lab Results Lab Results: Micro Results 05/20/18 22:21 Naris MRSA Culture (Admit) - Final MRSA NOT DETECTED 05/20/18 13:45 Urine,Rashid Urine Culture - Final No Growth (<1,000 CFU/ML) 05/19/18 18:00 Naris MRSA Culture (Admit) - Final MRSA NOT DETECTED Most Recent Lab Values WBC 12.6 K/uL (4.8-10.8) H 05/21/18 10:06 RBC 3.29 Mil/uL (4.40-5.90) L 05/21/18 10:06 Hgb 10.0 g/dL (12.0-18.0) L 05/21/18 10:06 Hct 29.5 % (35.0-51.0) L 05/21/18 10:06 MCV 89.7 fl (80.0-94.0) 05/21/18 10:06 MCH 30.3 pg (27.0-31.0) 05/21/18 10:06 MCHC 33.8 g/dL (33.0-37.0) 05/21/18 10:06 RDW 16.8 % (11.5-14.5) H 05/21/18 10:06 Plt Count 303 K/uL (130-400) 05/21/18 10:06 MPV 9.6 fl (7.2-11.7) 05/21/18 10:06 Neut % (Auto) 76.5 % (50.0-75.0) H 05/21/18 10:06 Lymph % (Auto) 13.6 % (20.0-40.0) L 05/21/18 10:06 Cass % (Auto) 6.0 % (0.0-10.0) 05/21/18 10:06 Eos % (Auto) 3.5 % (0.0-4.0) 05/21/18 10:06 Baso % (Auto) 0.4 % (0.0-2.0) 05/21/18 10:06 Neut # (Auto) 9.6 K/uL (1.8-7.0) H 05/21/18 10:06 Lymph # (Auto) 1.7 K/uL (1.0-4.3) 05/21/18 10:06 Cass # (Auto) 0.8 K/uL (0.0-0.8) 05/21/18 10:06 Eos # (Auto) 0.4 K/uL (0.0-0.7) 05/21/18 10:06 Baso # (Auto) 0.1 K/uL (0.0-0.2) 05/21/18 10:06 PT 15.2 Seconds (9.8-13.1) H 05/19/18 07:40 INR 1.4 (0.9-1.2) H 05/19/18 07:40 APTT 31.9 Seconds (25.6-37.1) 05/19/18 07:40 Sodium 142 mmol/l (132-148) 05/21/18 10:06 Potassium 4.6 MMOL/L (3.6-5.0) 05/21/18 10:06 Chloride 111 mmol/L (98-107) H 05/21/18 10:06 Carbon Dioxide 21 mmol/L (22-30) L 05/21/18 10:06 Anion Gap 15 (10-20) 05/21/18 10:06 BUN 35 mg/dl (9-20) H 05/21/18 10:06 Creatinine 0.8 mg/dl (0.8-1.5) 05/21/18 10:06 Est GFR ( Amer) > 60 05/21/18 10:06 Est GFR (Non-Af Amer) > 60 05/21/18 10:06 POC Glucose (mg/dL) 115 mg/dL (65-110) H 05/20/18 12:08 Random Glucose 122 mg/dL (75-110) H 05/21/18 10:06 Calcium 8.5 mg/dL (8.4-10.2) 05/21/18 10:06 Total Bilirubin 0.8 mg/dl (0.2-1.3) 05/21/18 10:06 AST 81 U/L (17-59) H 05/21/18 10:06 ALT 71 U/L (21-72) 05/21/18 10:06 Alkaline Phosphatase 159 U/L (38-126) H 05/21/18 10:06 Total Protein 8.1 G/DL (6.3-8.2) 05/21/18 10:06 Albumin 3.2 g/dL (3.5-5.0) L 05/21/18 10:06 Globulin 4.9 gm/dL (2.2-3.9) H 05/21/18 10:06 Albumin/Globulin Ratio 0.7 (1.0-2.1) L 05/21/18 10:06 Urine Color Yellow (YELLOW) 05/20/18 13:45 Urine Clarity Slighty-cloudy (Clear) 05/20/18 13:45 Urine pH 6.0 (5.0-8.0) 05/20/18 13:45 Ur Specific [place] 1.021 (1.003-1.030) 05/20/18 13:45 Urine Protein 30 mg/dL (NEGATIVE) 05/20/18 13:45 Urine Glucose (UA) Neg mg/dL (Normal) 05/20/18 13:45 Urine Ketones Negative mg/dL (NEGATIVE) 05/20/18 13:45 Urine Blood Small (NEGATIVE) 05/20/18 13:45 Urine Nitrate Negative (NEGATIVE) 05/20/18 13:45 Urine Bilirubin Negative (NEGATIVE) 05/20/18 13:45 Urine Urobilinogen 0.2-1.0 mg/dL (0.2-1.0) 05/20/18 13:45 Ur Leukocyte Esterase Neg Lyle/uL (Negative) 05/20/18 13:45 Urine RBC (Auto) 9 /hpf (0-3) H 05/20/18 13:45 Urine Microscopic WBC 2 /hpf (0-5) 05/20/18 13:45 Hyaline Casts 0-2 /hpf (0-2) 05/20/18 13:45 Discharge Exam - Head Exam Head Exam: NORMOCEPHALIC Discharge Plan - Discharge Medications Prescriptions: Cefepime IV 2 gm in NS [Maxipime 2gm] 2 gm IVPB Q12 10 Days #20 bag - Follow Up Plan Condition: STABLE Disposition: REHAB FACILITY/REHAB UNIT Instructions: Deep Vein Thrombosis (Blood Clots in the Legs) (DC) Additional Instructions: pt. cleared for discharge to TCU today by pt. will continue Cefip Referrals: Parag Rodney MD [Staff Provider] - Millie Murphy MD [Staff Provider] -
== END 2018-05-22 16:10 | DRG 299 ==
LOC: H.ER 23:14 → H.ERHOLD 23:30 → H.ICU/CCU 05-19 02:50 → H.MEDSURG1 05-20 21:20
PROVIDERS: ADMIT Internal Medicine; ATTEND Internal Medicine
DX: I82.412 Acute embolism and thrombosis of left femoral vein (principal); A41.9 Sepsis, unspecified organism; G92 Toxic encephalopathy; N39.0 Urinary tract infection, site not specified; I69.354 Hemiplegia and hemiparesis following cerebral infarction affecting left non-dominant side; I74.3 Embolism and thrombosis of arteries of the lower extremities; K80.20 Calculus of gallbladder without cholecystitis without obstruction; N13.9 Obstructive and reflux uropathy, unspecified; N18.9 Chronic kidney disease, unspecified; Z66 Do not resuscitate; Z74.01 Bed confinement status; Z87.891 Personal history of nicotine dependence; Z95.1 Presence of aortocoronary bypass graft; Z95.5 Presence of coronary angioplasty implant and graft; H26.9 Unspecified cataract; M19.90 Unspecified osteoarthritis, unspecified site; F03.90 Unspecified dementia, unspecified severity, without behavioral disturbance, psychotic disturbance, mood disturbance, and anxiety; H91.90 Unspecified hearing loss, unspecified ear; I12.9 Hypertensive chronic kidney disease with stage 1 through stage 4 chronic kidney disease, or unspecified chronic kidney disease; I69.391 Dysphagia following cerebral infarction

== ENCOUNTER 2018-05-22 13:59 | Inpatient (IN) | payer MEDICARE, OTHER ==
[2018-05-22 16:15] VITALS: BMI 22.9
[2018-05-22 16:50] VITALS: RESP 20
[2018-05-22] MEDS ORDERED: Acetaminophen 325 MG/10.15 ML GT PRN (17:00)
[2018-05-22] MEDS: Ferrous Sulfate 300 mg/5 mL Liq UD PEG SCH (17:45)
[2018-05-22] MEDS: Cefepime 2 GM in Sodium Chloride 0.9% 100 ML IVPB SCH (20:42)
[2018-05-22] MEDS ORDERED: Patient's Own Med (Cefepime Iv 2 Gm In Ns [Maxipime 2gm] 2 GM) IVPB SCH (22:00)
[2018-05-23] MEDS: Cefepime 2 GM in Sodium Chloride 0.9% 100 ML IVPB SCH ×2 (08:38→22:00)
[2018-05-23] MEDS: Multi Vitamins 15 mL UD Oral Solution PEG SCH (08:41)
[2018-05-23] MEDS: Ferrous Sulfate 300 mg/5 mL Liq UD PEG SCH ×2 (08:41→16:31)
--- NOTE | 2018-05-23 17:53 | CP.PCM.CON ---
History of Present Illness - History of Present Illness History of Present Illness: 87 year old male with a history of HTN, CKD, recurrent CVA, last one in 03/2018, LLE DCT, currently admitted to TCU. The patient was found to have a non occlusive thrombus of the left femoral and superficial femoral vein. He has not been receiving anticoagulation due to his recent CVA. CT angio of the chest was negative for PE. Per the patients son, he is recuperating well. Past medical history: HTN, CKD, CVA, LLE DVT Past surgical history: None Family history: Denies hematologic and oncologic problems Social history: Former tobacco abuse, denies alcohol and illicit drug use. Allergies: NKA Review of systems: All remaining review of systems including HEENT, cardiovascular, respiratory, gastrointestinal, genitourinary, musculoskeletal, dermatologic, neurologic, and psychiatric are negative unless mentioned in the HPI. Past Patient History - Infectious Disease Hx of Infectious Diseases: None - Past Medical History & Family History Past Medical History?: Yes - Past Social History Smoking Status: Former Smoker - CARDIAC Hx Congestive Heart Failure: No Hx Hypercholesterolemia: No Hx Hypertension: Yes - PULMONARY Hx Chronic Obstructive Pulmonary Disease (COPD): No - NEUROLOGICAL Hx Alzheimer's Disease: No Hx Dementia: Yes Hx Migraine: No Hx Multiple Sclerosis: No Hx Seizures: No Hx Transient Ischemic Attacks (TIA): No - HEENT Hx HEENT Problems: Yes Hx Blind: No Hx Cataracts: Yes Hx Deafness: Yes Hx Epistaxis: No Hx Glaucoma: No Hx Macular Degeneration: No - RENAL Hx Chronic Kidney Disease: Yes Hx Kidney Stones: No - ENDOCRINE/METABOLIC Hx Hypothyroidism: No - HEMATOLOGICAL/ONCOLOGICAL Hx AIDS: No Hx Human Immunodeficiency Virus (HIV): No Other/Comment: DVT left femoral - INTEGUMENTARY Hx Dermatological Problems: No Hx Basil Cell: No Hx Nicole: No Hx Cellulitis: No Hx Eczema: No Hx Melanoma: No Hx Psoriasis: No Hx Squamous Cell: No - MUSCULOSKELETAL/RHEUMATOLOGICAL Hx Falls: Yes - GASTROINTESTINAL Hx Constipation: Yes Hx Crohn's Disease: No Hx Diverticulitis: No Hx Gall Bladder Disease: No Hx Gastritis: No Hx Pancreatitis: No - GENITOURINARY/GYNECOLOGICAL Hx Sexually Transmitted Disorders: No Other/Comment: Obstructive uropathy - PSYCHIATRIC Hx Substance Use: No Other/Comment: Dementia - SURGICAL HISTORY Hx Appendectomy: No Hx Carotid Endarterectomy: No Hx Cholecystectomy: No Hx Coronary Artery Bypass Graft: No Hx Coronary Stent: No Hx Tonsillectomy: No - ANESTHESIA Hx Anesthesia: Yes Hx Anesthesia Reactions: No Hx Malignant Hyperthermia: No Meds Allergies/Adverse Reactions: Allergies Allergy/AdvReac Type Severity Reaction Status Date / Time No Known Allergies Allergy Verified 05/15/18 18:52 - Medications Medications: Current Medications Acetaminophen (Tylenol 325mg/10.15ml Ud) 650 mg GT Q4 PRN PRN Reason: Fever >100.4 F Acetaminophen (Tylenol 650 Mg Supp) 650 mg [place] Q4 PRN PRN Reason: Temperature Ferrous Sulfate (Feosol Liq) 300 mg PEG BID [facility] Last Admin: 05/23/18 16:31 Dose: 300 mg Finasteride (Proscar) 5 mg PO DAILY [facility] Last Admin: 05/23/18 08:40 Dose: 5 mg Cefepime HCl 2 gm/ Sodium (Chloride) 100 mls @ 100 mls/hr IVPB Q12 [facility] Last Admin: 05/23/18 08:38 Dose: 100 mls/hr Multivitamins/Vitamin C (Multi-Delyn Liquid) 15 ml PEG DAILY [facility] Last Admin: 05/23/18 08:41 Dose: 15 ml Pantoprazole Sodium (Protonix Inj) 40 mg IV Q12 [facility] Last Admin: 05/23/18 08:39 Dose: 40 mg Physical Exam - Head Exam Head Exam: ATRAUMATIC - Eye Exam Eye Exam: Normal appearance - ENT Exam ENT Exam: Mucous Membranes Dry - Respiratory Exam Respiratory Exam: NORMAL BREATHING PATTERN - Cardiovascular Exam Cardiovascular Exam: +S1, +S2 - GI/Abdominal Exam GI & Abdominal Exam: Normal Bowel Sounds - Extremities Exam Extremities exam: Positive for: pedal edema Results - Vital Signs Recent Vital Signs: Last Vital Signs Temp 97.0 F L 05/23/18 16:25 Pulse 90 05/23/18 16:25 Resp 20 05/23/18 16:25 BP 113/75 05/23/18 16:25 Pulse Ox 98 05/23/18 16:25 Assessment & Plan (1) DVT (deep venous thrombosis) Assessment and Plan: likely provoked from immobility anticoagulation has been held due to CVA in 03/2018 agree that patient is high risk for anticoagulation given recent intracranial hemorrhage can consider IVC filter if patient not to be anticoagulated Status: Acute (2) Anemia Assessment and Plan: elevated ferritin consistent with chronic disease Thank you for this interesting consult. Status: Acute
[2018-05-24] MEDS: Cefepime 2 GM in Sodium Chloride 0.9% 100 ML IVPB SCH ×2 (09:14→21:14)
[2018-05-24] MEDS: Multi Vitamins 15 mL UD Oral Solution PEG SCH (09:15)
[2018-05-24] MEDS: Ferrous Sulfate 300 mg/5 mL Liq UD PEG SCH ×2 (09:16→17:43)
[2018-05-24] MEDS ORDERED: Acetaminophen 650mg/20.3ml solution UD GT PRN (09:45)
--- NOTE | 2018-05-24 12:58 | CP.PCM.CON ---
History of Present Illness - History of Present Illness History of Present Illness: 87 years old male with hx of CVA in 2013, and recently suffered a hemorrhagic stroke admitted to [facility] [place], then rehab and on 05/08/18 admitted to the [facility] with fever and diagnosed with UTI/Sepsis with E Coli Bacteremia, and acute Kidney Injury secondary to obstructive Uropathy. He was transferred to TCU on 05/15/18 for continued care and antibiotics. Because of pain to the lower extremities, Duplex Ultra Sound was done which showed Left femoral DVT.The patient was then Transferred down to ED to be readmitted on the Medical floors. currently admitted to TCU. The patient was found to have a non occlusive thrombus of the left femoral and superficial femoral vein. He has not been receiving anticoagulation due to his recent CVA. CT angio of the chest was negative for PE. Per the patients son, he is recuperating well. PMH: Arthritis, Cardia Arrhythmia, CVA 2013 with left side , Dementia, Fractures (facial), HTN, Chronic Kidney Injury, Bilateral Hydroureteonephrosis; Cholelithiasis; Urinary retention; PSH: Appendectomy; CABG; Carotod Endarterectomy; Coronary stents placement; Pacemaker, Tonsillectomy Past surgical history: None Family history: Denies hematologic and oncologic problems Social history: Former tobacco abuse, denies alcohol and illicit drug use. Allergies: NKA medication: reviewed Review of Systems - Review of Systems Systems not reviewed;Unavailable: Altered Mental Status All systems: reviewed and no additional remarkable complaints except - Constitutional Constitutional: As Per HPI - EENT Eyes: absent: As Per HPI, Blind Spots, Blurred Vision, Change in Vision, Decreased Night Vision, Diplopia, Discharge, Dry Eye, Exophthalmos, Floaters, Irritation, Itchy Eyes, Loss of Peripheral Vision, Pain, Photophobia, Requires Corrective Lenses, Sees Flashes, Spots in Vision, Tunnel Vision, Other Visual Disturbances, Loss of Vision, Other Ears: absent: As Per HPI, Decreased Hearing, Ear Discharge, Ear Pain, Tinnitus, Abnormal Hearing, Disequilibrium, Dizziness, Other Nose/Mouth/Throat: absent: As Per HPI, Epistaxis, Nasal Congestion, Nasal Discharge, Nasal Obstruction, Nasal Trauma, Nose Pain, Post Nasal Drip, Sinus Pain, Sinus Pressure, Bleeding Gums, Change in Voice, Dental Pain, Dry Mouth, Dysphagia, Halitosis, Hoarsness, Lip Swelling, Mouth Lesions, Mouth Pain, Odynophagia, Sore Throat, Throat Swelling, Tongue Swelling, Facial Pain, Neck Pain, Neck Mass, Other - Cardiovascular Cardiovascular: As Per HPI - Respiratory Respiratory: As Per HPI - Gastrointestinal Gastrointestinal: absent: As Per HPI, Abdominal Pain, Belching, Bloating, Change in Bowel Habits, Change in Stool Character, Coffee Ground Emesis, Constipation, Cramping, Diarrhea, Dyspepsia, Dysphagia, Early Satiety, Excessive Flatus, Fecal Incontinence, Heartburn, Hematemesis, Hematochezia, Loose Stools, Melena, Nausea, Odynophagia, Temesmus, Vomiting, Other - Genitourinary Genitourinary: As Per HPI - Musculoskeletal Musculoskeletal: absent: As Per HPI, Abnormal Gait, Arthralgias, Atrophy, Back Pain, Deformity, Joint Swelling, Limited Range of Motion, Loss of Height, Muscle Cramps, Muscle Weakness, Myalgias, Neck Pain, Numbness, Radiating Pain into Limb, Stiffness, Tingling, Other Past Patient History - Infectious Disease Hx of Infectious Diseases: None - Past Medical History & Family History Past Medical History?: Yes - Past Social History Smoking Status: Former Smoker - CARDIAC Hx Congestive Heart Failure: No Hx Hypercholesterolemia: No Hx Hypertension: Yes - PULMONARY Hx Chronic Obstructive Pulmonary Disease (COPD): No - NEUROLOGICAL Hx Alzheimer's Disease: No Hx Dementia: Yes Hx Migraine: No Hx Multiple Sclerosis: No Hx Seizures: No Hx Transient Ischemic Attacks (TIA): No - HEENT Hx HEENT Problems: Yes Hx Blind: No Hx Cataracts: Yes Hx Deafness: Yes Hx Epistaxis: No Hx Glaucoma: No Hx Macular Degeneration: No - RENAL Hx Chronic Kidney Disease: Yes Hx Kidney Stones: No - ENDOCRINE/METABOLIC Hx Hypothyroidism: No - HEMATOLOGICAL/ONCOLOGICAL Hx AIDS: No Hx Human Immunodeficiency Virus (HIV): No Other/Comment: DVT left femoral - INTEGUMENTARY Hx Dermatological Problems: No Hx Basil Cell: No Hx Nicole: No Hx Cellulitis: No Hx Eczema: No Hx Melanoma: No Hx Psoriasis: No Hx Squamous Cell: No - MUSCULOSKELETAL/RHEUMATOLOGICAL Hx Falls: Yes - GASTROINTESTINAL Hx Constipation: Yes Hx Crohn's Disease: No Hx Diverticulitis: No Hx Gall Bladder Disease: No Hx Gastritis: No Hx Pancreatitis: No - GENITOURINARY/GYNECOLOGICAL Hx Sexually Transmitted Disorders: No Other/Comment: Obstructive uropathy - PSYCHIATRIC Hx Substance Use: No Other/Comment: Dementia - SURGICAL HISTORY Hx Appendectomy: No Hx Carotid Endarterectomy: No Hx Cholecystectomy: No Hx Coronary Artery Bypass Graft: No Hx Coronary Stent: No Hx Tonsillectomy: No - ANESTHESIA Hx Anesthesia: Yes Hx Anesthesia Reactions: No Hx Malignant Hyperthermia: No Meds Allergies/Adverse Reactions: Allergies Allergy/AdvReac Type Severity Reaction Status Date / Time No Known Allergies Allergy Verified 05/15/18 18:52 - Medications Medications: Current Medications Acetaminophen (Tylenol 650 Mg Supp) 650 mg [place] Q4 PRN PRN Reason: Temperature Acetaminophen (Tylenol 650mg/20.3ml Solution Ud) 650 mg GT Q4 PRN PRN Reason: Fever >100.4 F Ferrous Sulfate (Feosol Liq) 300 mg PEG BID [facility] Last Admin: 05/24/18 09:16 Dose: 300 mg Finasteride (Proscar) 5 mg PO DAILY [facility] Last Admin: 05/24/18 09:16 Dose: 5 mg Cefepime HCl 2 gm/ Sodium (Chloride) 100 mls @ 100 mls/hr IVPB Q12 [facility] Last Admin: 05/24/18 09:14 Dose: 100 mls/hr Multivitamins/Vitamin C (Multi-Delyn Liquid) 15 ml PEG DAILY [facility] Last Admin: 05/24/18 09:15 Dose: 15 ml Pantoprazole Sodium (Protonix Inj) 40 mg IV Q12 [facility] Last Admin: 05/24/18 09:15 Dose: 40 mg Physical Exam - Constitutional Appears: No Acute Distress, Confused, Chronically Ill - Head Exam Head Exam: NORMOCEPHALIC - Eye Exam Eye Exam: PERRL - ENT Exam ENT Exam: Mucous Membranes Dry, Normal External Ear Exam - Neck Exam Neck exam: Negative for: Lymphadenopathy - Respiratory Exam Respiratory Exam: Decreased Breath Sounds, Rhonchi - Cardiovascular Exam Cardiovascular Exam: REGULAR RHYTHM, +S1, +S2 - GI/Abdominal Exam GI & Abdominal Exam: Diminished Bowel Sounds, Soft. absent: Tenderness - Rectal Exam Rectal Exam: Deferred - Exam Exam: NORMAL INSPECTION - Extremities Exam Extremities exam: Negative for: pedal edema - Back Exam Back exam: absent: CVA tenderness (L), CVA tenderness (R) - Neurological Exam Neurological exam: Alert, CN II-XII Intact, Oriented x3, Reflexes Normal - Psychiatric Exam Psychiatric exam: Normal Mood - Skin Skin Exam: Dry, Intact Results - Vital Signs Recent Vital Signs: Last Vital Signs Temp 97.7 F 05/24/18 08:33 Pulse 94 H 05/24/18 08:33 Resp 20 05/24/18 08:33 BP 99/65 L 05/24/18 08:33 Pulse Ox 98 05/24/18 08:33 Assessment & Plan (1) Anemia Status: Acute (2) DVT (deep venous thrombosis) Status: Acute (3) Obstructive uropathy Status: Acute (4) Sepsis Status: Acute (5) UTI (urinary tract infection) Status: Acute - Assessment and Plan (Free Text) Assessment: grew klebs in urine and zBlood iv rx to cont for 14 days
--- NOTE | 2018-05-24 19:43 | CP.PCM.HP ---
History of Present Illness - History of Present Illness History of Present Illness: CC: IV Antibiotics for 10 more days, and PT/OT and Speech Therapy in TCU History of Present Illness: An 87yom who was admitted to ICU for New Left Common Femoral Vein DVT and dyspnea, and anable to anticoagulate due to SDH. Was admitted first for Acute Renal Failure, Obstructive Uropathy, B/L Uretero-Hydronephrosis, Sepsis with G- ve Bactremia and SDH with Mass effect after he presented with AMS. In the Hospital course, he improved with chamge IV antibiotics to Cefepime and supportive care, and transferred to TCU for IV Cefpime for 10 more days, and PT/ OT for Physical Deconditioning and Dysphagia.. Today he is awake and alert with significant improved. No fever. Present on Admission - Present on Admission Any Indicators Present on Admission: No Review of Systems - Review of Systems All systems: reviewed and no additional remarkable complaints except Past Patient History - Infectious Disease Hx of Infectious Diseases: None - Past Medical History & Family History Past Medical History?: Yes - Past Social History Smoking Status: Former Smoker Alcohol: None Drugs: Denies - CARDIAC Hx Congestive Heart Failure: No Hx Hypercholesterolemia: No Hx Hypertension: Yes - PULMONARY Hx Chronic Obstructive Pulmonary Disease (COPD): No - NEUROLOGICAL Hx Alzheimer's Disease: No Hx Dementia: Yes Hx Migraine: No Hx Multiple Sclerosis: No Hx Seizures: No Hx Transient Ischemic Attacks (TIA): No - HEENT Hx HEENT Problems: Yes Hx Blind: No Hx Cataracts: Yes Hx Deafness: Yes Hx Epistaxis: No Hx Glaucoma: No Hx Macular Degeneration: No - RENAL Hx Chronic Kidney Disease: Yes Hx Kidney Stones: No - ENDOCRINE/METABOLIC Hx Hypothyroidism: No - HEMATOLOGICAL/ONCOLOGICAL Hx AIDS: No Hx Human Immunodeficiency Virus (HIV): No Other/Comment: DVT left femoral - INTEGUMENTARY Hx Dermatological Problems: No Hx Basil Cell: No Hx Nicole: No Hx Cellulitis: No Hx Eczema: No Hx Melanoma: No Hx Psoriasis: No Hx Squamous Cell: No - MUSCULOSKELETAL/RHEUMATOLOGICAL Hx Falls: Yes - GASTROINTESTINAL Hx Constipation: Yes Hx Crohn's Disease: No Hx Diverticulitis: No Hx Gall Bladder Disease: No Hx Gastritis: No Hx Pancreatitis: No - GENITOURINARY/GYNECOLOGICAL Hx Sexually Transmitted Disorders: No Other/Comment: Obstructive uropathy - PSYCHIATRIC Hx Substance Use: No Other/Comment: Dementia - SURGICAL HISTORY Hx Appendectomy: No Hx Carotid Endarterectomy: No Hx Cholecystectomy: No Hx Coronary Artery Bypass Graft: No Hx Coronary Stent: No Hx Tonsillectomy: No - ANESTHESIA Hx Anesthesia: Yes Hx Anesthesia Reactions: No Hx Malignant Hyperthermia: No Meds Allergies/Adverse Reactions: Allergies Allergy/AdvReac Type Severity Reaction Status Date / Time No Known Allergies Allergy Verified 05/15/18 18:52 Physical Exam - Constitutional Appears: No Acute Distress, Chronically Ill - Head Exam Head Exam: ATRAUMATIC, NORMAL INSPECTION, NORMOCEPHALIC - Eye Exam Eye Exam: EOMI, Normal appearance, PERRL Pupil Exam: NORMAL ACCOMODATION, PERRL - ENT Exam ENT Exam: Mucous Membranes Moist, Normal Exam - Neck Exam Neck exam: Positive for: Normal Inspection - Respiratory Exam Respiratory Exam: Clear to Auscultation Bilateral, NORMAL BREATHING PATTERN - Cardiovascular Exam Cardiovascular Exam: +S1, +S2, Systolic Murmur - GI/Abdominal Exam GI & Abdominal Exam: Normal Bowel Sounds, Soft. absent: Tenderness - Extremities Exam Extremities exam: Positive for: normal capillary refill, normal inspection - Back Exam Back exam: NORMAL INSPECTION - Neurological Exam Neurological exam: Alert, Motor Sensory Deficit Additional comments: Left Hemiplegia, and Dysphagia - Psychiatric Exam Psychiatric exam: Flat Affect - Skin Skin Exam: Dry, Intact, Normal Color, Warm Results - Vital Signs Recent Vital Signs: Last Vital Signs Temp 97.5 F L 05/24/18 16:38 Pulse 95 H 05/24/18 16:38 Resp 20 05/24/18 16:38 BP 120/76 05/24/18 16:38 Pulse Ox 96 05/24/18 16:38 - Labs Result Diagrams: 05/25/18 04:30 05/25/18 04:30 Assessment & Plan (1) Acute deep vein thrombosis (DVT) of left lower extremity Assessment and Plan: Anticoagulation Contraindicated due to Recent SDH with Mass Effect Family Declined IVC Filter, and family understands the risk for PE Physical Therapy to the Right LE and Upper body Status: Acute Priority: High (2)Toxic metabolic encephalopathy Assessment and Plan: Urosepsis, Bactremia Continue IV Cefepime for atotal of 14 days (Today Day#4) C/W IV Cefepime ID On board Status: Resolved Priority: Medium (3) Cerebrovascular accident (CVA) with left hemiparesis, Dysphagia Assessment and Plan: Continue Statin Swallow eval Speech Therapy Status: Chronic Priority: Medium (4) Obstructive uropathy Assessment and Plan: due to BPH, Septic Shock Acute Renal Failure0 Resolved after Rashid Catheter B/L Hydronephrosis Continue Folycath IV Cefepime for 10 More days Urology onbaord Status: Acute (5) Hypertension Status: Chronic Priority: Low (6) Physical deconditioning Assessment and Plan: PT/OT Status: Chronic Priority: Low (7) DNR/DNI Status: Acute Priority: Low
--- NOTE | 2018-05-24 19:59 | PCM.IRP ---
Objective - Vital Signs/Intake and Output Vital Signs (last 24 hours): Vital Signs - 24 hr 05/23/18 05/24/18 05/24/18 20:06 08:33 16:38 Temperature 97.0 F L 97.7 F 97.5 F L Pulse Rate 98 H 94 H 95 H Respiratory 20 20 20 Rate Blood Pressure 98/62 L 99/65 L 120/76 O2 Sat by Pulse 97 98 96 Oximetry Intake and Output (last 12 hours): Intake & Output 05/24/18 05/24/18 05/25/18 06:59 18:59 06:59 Intake Total 890 Output Total 500 Balance 390 Intake: IV 350 Tube Feeding 540 Output: Urine 500 Urethral (Rashid) 500 Other: Voiding Method Indwelling Catheter Indwelling Catheter - Medications Medications: Current Medications Acetaminophen (Tylenol 650 Mg Supp) 650 mg [place] Q4 PRN PRN Reason: Temperature Acetaminophen (Tylenol 650mg/20.3ml Solution Ud) 650 mg [place] Q4 PRN PRN Reason: Fever >100.4 F Ferrous Sulfate (Feosol Liq) 300 mg PEG BID [facility] Last Admin: 05/24/18 17:43 Dose: 300 mg Finasteride (Proscar) 5 mg PO DAILY [facility] Last Admin: 05/24/18 09:16 Dose: 5 mg Cefepime HCl 2 gm/ Sodium (Chloride) 100 mls @ 100 mls/hr IVPB Q12 [facility] Last Admin: 05/24/18 09:14 Dose: 100 mls/hr Multivitamins/Vitamin C (Multi-Delyn Liquid) 15 ml PEG DAILY [facility] Last Admin: 05/24/18 09:15 Dose: 15 ml Pantoprazole Sodium (Protonix Inj) 40 mg IV Q12 [facility] Last Admin: 05/24/18 09:15 Dose: 40 mg
[2018-05-25 05:17] LABS: BASO % 0.5 % (0.0-2.0); EOS # 0.2 K/uL (0.0-0.7); HEMOGLOBIN 9.4 g/dL (12.0-18.0); LYMPH # 1.7 K/uL (1.0-4.3); LYMPH % 21.4 % (20.0-40.0); MEAN CELL VOLUME 87.8 fl (80.0-94.0); MEAN CORPUSCULAR HEMOGLOBIN 29.6 pg (27.0-31.0); MEAN CORPUSCULAR HGB CONC 33.8 g/dL (33.0-37.0); MEAN PLATELET VOLUME 9.1 fl (7.2-11.7); MONO # 0.6 K/uL (0.0-0.8); MONO % 7.6 % (0.0-10.0); NEUT # 5.3 K/uL (1.8-7.0); NEUT % 68.5 % (50.0-75.0); RBC 3.18 Mil/uL (4.40-5.90); RED CELL DISTRIBUTION WIDTH 16.4 % (11.5-14.5); WHITE BLOOD COUNT 7.8 K/uL (4.8-10.8)
[2018-05-25 05:28] LABS: ALB/GLOB RATIO 0.7 (1.0-2.1); ALBUMIN 3.3 g/dL (3.5-5.0); ALT/SGPT 63 U/L (21-72); AST/SGOT 50 U/L (17-59); BLOOD UREA NITROGEN 30 mg/dl (9-20); CALCIUM 8.9 mg/dL (8.4-10.2); GFR NON-AFRICAN AMERICAN > 60
[2018-05-25] MEDS: Cefepime 2 GM in Sodium Chloride 0.9% 100 ML IVPB SCH ×2 (10:24→20:46)
[2018-05-25] MEDS: Multi Vitamins 15 mL UD Oral Solution PEG SCH (10:25)
[2018-05-25] MEDS: Ferrous Sulfate 300 mg/5 mL Liq UD PEG SCH ×2 (10:25→18:08)
--- NOTE | 2018-05-25 11:27 | CP.PCM.PN ---
Subjective - Date & Time of Evaluation Date of Evaluation: 05/25/18 Time of Evaluation: 09:00 - Subjective Subjective: afeb on iv RX FAMILY BY BEDSIDE APPEARS COMFORTABLE Objective - Vital Signs/Intake and Output Vital Signs (last 24 hours): Temp Pulse Resp BP Pulse Ox 97.1 F L 98 H 20 96/66 L 95 05/25/18 08:20 05/25/18 08:20 05/25/18 08:20 05/25/18 08:20 05/25/18 08:20 - Medications Medications: Current Medications Acetaminophen (Tylenol 650 Mg Supp) 650 mg [place] Q4 PRN PRN Reason: Temperature Acetaminophen (Tylenol 650mg/20.3ml Solution Ud) 650 mg GT Q4 PRN PRN Reason: Fever >100.4 F Ferrous Sulfate (Feosol Liq) 300 mg PEG BID [facility] Last Admin: 05/25/18 10:25 Dose: 300 mg Finasteride (Proscar) 5 mg PO DAILY [facility] Last Admin: 05/25/18 10:25 Dose: 5 mg Cefepime HCl 2 gm/ Sodium (Chloride) 100 mls @ 100 mls/hr IVPB Q12 [facility] Last Admin: 05/25/18 10:24 Dose: 100 mls/hr Multivitamins/Vitamin C (Multi-Delyn Liquid) 15 ml PEG DAILY [facility] Last Admin: 05/25/18 10:25 Dose: 15 ml Pantoprazole Sodium (Protonix Inj) 40 mg IV Q12 [facility] Last Admin: 05/25/18 10:23 Dose: 40 mg - Labs Labs: 05/25/18 04:30 05/25/18 04:30 - Constitutional Appears: Non-toxic, Chronically Ill - Head Exam Head Exam: NORMOCEPHALIC - Eye Exam Eye Exam: PERRL - ENT Exam ENT Exam: Mucous Membranes Dry - Neck Exam Neck Exam: absent: Lymphadenopathy - Respiratory Exam Respiratory Exam: Decreased Breath Sounds - Cardiovascular Exam Cardiovascular Exam: REGULAR RHYTHM - GI/Abdominal Exam GI & Abdominal Exam: Distended - Rectal Exam Rectal Exam: Deferred - Exam Exam: NORMAL INSPECTION - Extremities Exam Extremities Exam: absent: Pedal Edema - Back Exam Back Exam: absent: CVA tenderness (L), CVA tenderness (R) - Neurological Exam Neurological Exam: Alert, Awake Assessment and Plan (1) Anemia Status: Acute (2) DVT (deep venous thrombosis) Status: Acute (3) Obstructive uropathy Status: Acute (4) Sepsis Status: Acute (5) UTI (urinary tract infection) Status: Acute - Assessment and Plan (Free Text) Assessment: CONT IV RX ORDERED
--- NOTE | 2018-05-25 23:59 | CP.PCM.PN ---
Subjective - Date & Time of Evaluation Date of Evaluation: 05/25/18 Time of Evaluation: 14:20 - Subjective Subjective: No New complaint. Failed swallow evaluation. Objective - Vital Signs/Intake and Output Vital Signs (last 24 hours): Temp Pulse Resp BP Pulse Ox 97.7 F 97 H 20 104/70 100 05/25/18 20:53 05/25/18 20:53 05/25/18 20:53 05/25/18 20:53 05/25/18 20:53 - Medications Medications: Current Medications Acetaminophen (Tylenol 650 Mg Supp) 650 mg [place] Q4 PRN PRN Reason: Temperature Acetaminophen (Tylenol 650mg/20.3ml Solution Ud) 650 mg GT Q4 PRN PRN Reason: Fever >100.4 F Ferrous Sulfate (Feosol Liq) 300 mg PEG BID [facility] Last Admin: 05/25/18 18:08 Dose: 300 mg Finasteride (Proscar) 5 mg PO DAILY [facility] Last Admin: 05/25/18 10:25 Dose: 5 mg Cefepime HCl 2 gm/ Sodium (Chloride) 100 mls @ 100 mls/hr IVPB Q12 [facility] Last Admin: 05/25/18 20:46 Dose: 100 mls/hr Multivitamins/Vitamin C (Multi-Delyn Liquid) 15 ml PEG DAILY [facility] Last Admin: 05/25/18 10:25 Dose: 15 ml Pantoprazole Sodium (Protonix Inj) 40 mg IV Q12 [facility] Last Admin: 05/25/18 20:45 Dose: 40 mg - Labs Labs: 05/25/18 04:30 05/25/18 04:30 Assessment and Plan (1) Acute deep vein thrombosis (DVT) of left lower extremity Assessment & Plan: Anticoagulation Contraindicated due to Recent SDH with Mass Effect Family Declined IVC Filter, and family understands the risk for PE Physical Therapy to the Right LE and Upper body Status: Acute Priority: High (2)Toxic metabolic encephalopathy Assessment and Plan: Urosepsis, Bactremia Continue IV Cefepime for atotal of 14 days (Day#7) ID On board Status: Resolved Priority: Medium (3) Cerebrovascular accident (CVA) with left hemiparesis, Dysphagia Assessment and Plan: Continue Statin Periodially Swallow eval Speech Therapy Status: Chronic Priority: Medium (4) Obstructive uropathy Assessment and Plan: due to BPH, Septic Shock Acute Renal Failure0 Resolved after Rashid Catheter B/L Hydronephrosis Continue Folycath IV Cefepime for 10 More days Urology on[facility]ord Status: Acute (5) Hypertension,Essential Status: Chronic Priority: Low (6) Physical deconditioning Assessment and Plan: PT/OT Status: Chronic Priority: Low (7) DNR/DNI Status: Acute
[2018-05-26] MEDS: Cefepime 2 GM in Sodium Chloride 0.9% 100 ML IVPB SCH ×2 (08:47→21:49)
[2018-05-26] MEDS: Multi Vitamins 15 mL UD Oral Solution PEG SCH (08:48)
[2018-05-26] MEDS: Ferrous Sulfate 300 mg/5 mL Liq UD PEG SCH ×2 (08:48→16:38)
--- NOTE | 2018-05-26 19:23 | CP.PCM.PN ---
Subjective - Date & Time of Evaluation Date of Evaluation: 05/26/18 Time of Evaluation: 12:00 - Subjective Subjective: Appears comfortable, daughter at bedside. Objective - Vital Signs/Intake and Output Vital Signs (last 24 hours): Temp Pulse Resp BP Pulse Ox 97.3 F L 103 H 20 98/70 L 96 05/26/18 15:37 05/26/18 15:37 05/26/18 15:37 05/26/18 15:37 05/26/18 15:37 - Medications Medications: Current Medications Acetaminophen (Tylenol 650 Mg Supp) 650 mg [place] Q4 PRN PRN Reason: Temperature Acetaminophen (Tylenol 650mg/20.3ml Solution Ud) 650 mg GT Q4 PRN PRN Reason: Fever >100.4 F Ferrous Sulfate (Feosol Liq) 300 mg PEG BID [facility] Last Admin: 05/26/18 16:38 Dose: 300 mg Finasteride (Proscar) 5 mg PO DAILY [facility] Last Admin: 05/26/18 08:48 Dose: 5 mg Cefepime HCl 2 gm/ Sodium (Chloride) 100 mls @ 100 mls/hr IVPB Q12 [facility] Last Admin: 05/26/18 08:47 Dose: 100 mls/hr Multivitamins/Vitamin C (Multi-Delyn Liquid) 15 ml PEG DAILY [facility] Last Admin: 05/26/18 08:48 Dose: 15 ml Pantoprazole Sodium (Protonix Inj) 40 mg IV Q12 [facility] Last Admin: 05/26/18 08:49 Dose: 40 mg Pantoprazole Sodium (Protonix Susp) 40 mg PEG DAILY [facility] - Labs Labs: 05/25/18 04:30 05/25/18 04:30 - Head Exam Head Exam: ATRAUMATIC - Eye Exam Eye Exam: Normal appearance - ENT Exam ENT Exam: Mucous Membranes Dry - Respiratory Exam Respiratory Exam: NORMAL BREATHING PATTERN - Cardiovascular Exam Cardiovascular Exam: +S1, +S2 - GI/Abdominal Exam GI & Abdominal Exam: Normal Bowel Sounds - Extremities Exam Extremities Exam: Normal Inspection Assessment and Plan (1) DVT (deep venous thrombosis) Assessment & Plan: likely provoked from immobility unable to anticoagulate given recent intracranial hemorrhage family declined IVC filter Status: Acute (2) Anemia Assessment & Plan: anemia of chronic disease Status: Acute
[2018-05-27] MEDS: Ferrous Sulfate 300 mg/5 mL Liq UD PEG SCH ×2 (09:01→16:52)
[2018-05-27] MEDS: Multi Vitamins 15 mL UD Oral Solution PEG SCH (09:01)
[2018-05-27] MEDS: Cefepime 2 GM in Sodium Chloride 0.9% 100 ML IVPB SCH ×2 (09:02→21:58)
[2018-05-27] MEDS: Pantoprazole 40 mg Susp UD PEG SCH (10:02)
--- NOTE | 2018-05-27 12:38 | CP.PCM.PN ---
Subjective - Date & Time of Evaluation Date of Evaluation: 05/27/18 Time of Evaluation: 09:00 - Subjective Subjective: events noted dr herrera on consult Objective - Vital Signs/Intake and Output Vital Signs (last 24 hours): Temp Pulse Resp BP Pulse Ox 97.5 F L 93 H 20 93/71 L 98 05/27/18 08:16 05/27/18 08:16 05/27/18 08:16 05/27/18 08:16 05/27/18 08:16 Intake and Output: 05/27/18 05/27/18 06:59 18:59 Output Total 1000 Balance -1000 - Medications Medications: Current Medications Acetaminophen (Tylenol 650 Mg Supp) 650 mg [place] Q4 PRN PRN Reason: Temperature Acetaminophen (Tylenol 650mg/20.3ml Solution Ud) 650 mg GT Q4 PRN PRN Reason: Fever >100.4 F Ferrous Sulfate (Feosol Liq) 300 mg PEG BID [facility] Last Admin: 05/27/18 09:01 Dose: 300 mg Finasteride (Proscar) 5 mg PO DAILY [facility] Last Admin: 05/27/18 09:01 Dose: 5 mg Cefepime HCl 2 gm/ Sodium (Chloride) 100 mls @ 100 mls/hr IVPB Q12 [facility] Last Admin: 05/27/18 09:02 Dose: 100 mls/hr Multivitamins/Vitamin C (Multi-Delyn Liquid) 15 ml PEG DAILY [facility] Last Admin: 05/27/18 09:01 Dose: 15 ml Pantoprazole Sodium (Protonix Susp) 40 mg PEG DAILY [facility] Last Admin: 05/27/18 10:02 Dose: 40 mg - Labs Labs: 05/25/18 04:30 05/25/18 04:30 - Constitutional Appears: Non-toxic, Chronically Ill - Head Exam Head Exam: NORMOCEPHALIC - Eye Exam Eye Exam: PERRL - ENT Exam ENT Exam: Mucous Membranes Dry - Neck Exam Neck Exam: absent: Lymphadenopathy - Respiratory Exam Respiratory Exam: Decreased Breath Sounds - Cardiovascular Exam Cardiovascular Exam: REGULAR RHYTHM - GI/Abdominal Exam GI & Abdominal Exam: Distended, Soft Assessment and Plan (1) Anemia Status: Acute (2) DVT (deep venous thrombosis) Status: Acute (3) Obstructive uropathy Status: Acute (4) Sepsis Status: Acute (5) UTI (urinary tract infection) Status: Acute - Assessment and Plan (Free Text) Assessment: cont iv cefepime
[2018-05-28] MEDS: Cefepime 2 GM in Sodium Chloride 0.9% 100 ML IVPB SCH ×2 (09:48→20:26)
[2018-05-28] MEDS: Ferrous Sulfate 300 mg/5 mL Liq UD PEG SCH ×2 (09:49→16:29)
[2018-05-28] MEDS: Multi Vitamins 15 mL UD Oral Solution PEG SCH (09:49)
[2018-05-28] MEDS: Pantoprazole 40 mg Susp UD PEG SCH (09:50)
--- NOTE | 2018-05-29 00:33 | PN ---
DATE: 05/28/2018 FOLLOWUP NOTE SUBJECTIVE: The patient seems to be slowly improving, status post hemorrhagic stroke, causing eventually acute urinary retention with a history of BPH. The patient was on Flomax 0.8 mg daily plus finasteride 5 mg daily for treatment of both BPH and acute urinary retention, but the Flomax was discontinued one week ago when they found that it could not be placed via the PEG tube. The patient has had his Rashid catheter indwelling for almost three weeks and should be changed approximately every six weeks. LABORATORY DATA: His CBC on 05/25/2018 shows a WBC count of 7.8, hemoglobin of 9.4, and hematocrit of 27.9 with a platelet count of 309,000. His chem profile shows a sodium of 138, potassium 3.8, CO2 of 22, BUN and creatinine 30 and 0.8 respectively with a GFR of greater than 60. His random glucose is 126. Calcium 8.9. Total bilirubin 0.4, AST 50, ALT 63, alkaline phosphatase 187. DIAGNOSTIC IMPRESSION: As discussed with the nursing staff this evening, he will have followup evaluation done on 05/28/2018 roughly at around 6:45 p.m. We will now try the patient on Hytrin instead of Flomax, and this can be crushed and passed through the percutaneous endoscopic gastrostomy tube. The patient has a history of hypotension, status post the stroke. Hytrin can affect the blood pressure to some degree. PLAN: Plan will be to start this patient on Hytrin 2 mg at bedtime and gradually increase to 5 mg daily. We will start the patient with 2 mg for one day, monitoring his blood pressure, and if his blood pressure stays stable, we can increase this to 4 mg the next day, and if his blood pressure still stays stable, we can increase to the normal dose of 5 mg daily for treatment of BPH. The patient can be seen for office followup in about three weeks. Akira Lopez MD
[2018-05-29] MEDS: Pantoprazole 40 mg Susp UD PEG SCH (10:04)
[2018-05-29] MEDS: Multi Vitamins 15 mL UD Oral Solution PEG SCH (10:04)
[2018-05-29] MEDS: Cefepime 2 GM in Sodium Chloride 0.9% 100 ML IVPB SCH ×2 (10:04→22:07)
[2018-05-29] MEDS: Ferrous Sulfate 300 mg/5 mL Liq UD PEG SCH ×2 (10:05→18:13)
--- NOTE | 2018-05-29 12:57 | CP.PCM.PN ---
Subjective - Date & Time of Evaluation Date of Evaluation: 05/28/18 Time of Evaluation: 16:00 - Subjective Subjective: Appears comfortable Objective - Vital Signs/Intake and Output Vital Signs (last 24 hours): Temp Pulse Resp BP Pulse Ox 97.7 F 107 H 20 120/73 94 L 05/29/18 07:47 05/29/18 07:47 05/29/18 07:47 05/29/18 07:47 05/29/18 07:47 - Medications Medications: Current Medications Acetaminophen (Tylenol 650 Mg Supp) 650 mg [place] Q4 PRN PRN Reason: Temperature Acetaminophen (Tylenol 650mg/20.3ml Solution Ud) 650 mg [place] Q4 PRN PRN Reason: Fever >100.4 F Ferrous Sulfate (Feosol Liq) 300 mg PEG BID [facility] Last Admin: 05/29/18 10:05 Dose: 300 mg Finasteride (Proscar) 5 mg PO DAILY [facility] Last Admin: 05/29/18 10:04 Dose: 5 mg Cefepime HCl 2 gm/ Sodium (Chloride) 100 mls @ 100 mls/hr IVPB Q12 [facility] Last Admin: 05/29/18 10:04 Dose: 100 mls/hr Multivitamins/Vitamin C (Multi-Delyn Liquid) 15 ml PEG DAILY [facility] Last Admin: 05/29/18 10:04 Dose: 15 ml Pantoprazole Sodium (Protonix Susp) 40 mg PEG DAILY [facility] Last Admin: 05/29/18 10:04 Dose: 40 mg Terazosin HCl (Hytrin) 2 mg PO HS [facility] Last Admin: 05/28/18 22:00 Dose: 2 mg - Labs Labs: 05/25/18 04:30 05/25/18 04:30 - Head Exam Head Exam: ATRAUMATIC - Eye Exam Eye Exam: Normal appearance - ENT Exam ENT Exam: Mucous Membranes Dry - Respiratory Exam Respiratory Exam: NORMAL BREATHING PATTERN - Cardiovascular Exam Cardiovascular Exam: +S1, +S2 - GI/Abdominal Exam GI & Abdominal Exam: Normal Bowel Sounds Assessment and Plan (1) DVT (deep venous thrombosis) Assessment & Plan: provoked from immobility unable to anticoagulate given intracranial hemorrhage family deferred IVC filter placement Status: Acute (2) Anemia Assessment & Plan: chronic disease Status: Acute
--- NOTE | 2018-05-29 14:20 | CP.PCM.PN ---
Subjective - Date & Time of Evaluation Date of Evaluation: 05/29/18 Time of Evaluation: 09:00 - Subjective Subjective: alert confused more congested CXR ordered Objective - Vital Signs/Intake and Output Vital Signs (last 24 hours): Temp Pulse Resp BP Pulse Ox 97.7 F 107 H 20 120/73 94 L 05/29/18 07:47 05/29/18 07:47 05/29/18 07:47 05/29/18 07:47 05/29/18 07:47 - Medications Medications: Current Medications Acetaminophen (Tylenol 650 Mg Supp) 650 mg [place] Q4 PRN PRN Reason: Temperature Acetaminophen (Tylenol 650mg/20.3ml Solution Ud) 650 mg GT Q4 PRN PRN Reason: Fever >100.4 F Ferrous Sulfate (Feosol Liq) 300 mg PEG BID [facility] Last Admin: 05/29/18 10:05 Dose: 300 mg Finasteride (Proscar) 5 mg PO DAILY [facility] Last Admin: 05/29/18 10:04 Dose: 5 mg Cefepime HCl 2 gm/ Sodium (Chloride) 100 mls @ 100 mls/hr IVPB Q12 [facility] Last Admin: 05/29/18 10:04 Dose: 100 mls/hr Multivitamins/Vitamin C (Multi-Delyn Liquid) 15 ml PEG DAILY [facility] Last Admin: 05/29/18 10:04 Dose: 15 ml Pantoprazole Sodium (Protonix Susp) 40 mg PEG DAILY [facility] Last Admin: 05/29/18 10:04 Dose: 40 mg Terazosin HCl (Hytrin) 2 mg PO HS [facility] Last Admin: 05/28/18 22:00 Dose: 2 mg - Labs Labs: 05/25/18 04:30 05/25/18 04:30 - Constitutional Appears: Confused, Cachectic, Chronically Ill - Head Exam Head Exam: NORMOCEPHALIC - Eye Exam Eye Exam: PERRL - ENT Exam ENT Exam: Mucous Membranes Dry - Neck Exam Neck Exam: absent: Lymphadenopathy - Respiratory Exam Respiratory Exam: Decreased Breath Sounds - Cardiovascular Exam Cardiovascular Exam: REGULAR RHYTHM - GI/Abdominal Exam GI & Abdominal Exam: Distended - Rectal Exam Rectal Exam: Deferred - Exam Exam: NORMAL INSPECTION Assessment and Plan (1) Anemia Status: Acute (2) DVT (deep venous thrombosis) Status: Acute (3) Obstructive uropathy Status: Acute (4) Sepsis Status: Acute (5) UTI (urinary tract infection) Status: Acute
--- NOTE | 2018-05-29 15:29 | RAD ---
Date of service: 05/29/2018 HISTORY: r/o pneumonia r/o chf COMPARISON: 05/21/2018. FINDINGS: LUNGS: No active pulmonary disease. PLEURA: No significant pleural effusion identified, no pneumothorax apparent. CARDIOVASCULAR: No radiographic findings to suggest acute or significant cardiovascular disease. OSSEOUS STRUCTURES: No significant abnormalities. VISUALIZED UPPER ABDOMEN: Normal. OTHER FINDINGS: None. IMPRESSION: No active disease. No significant interval change compared to the prior examination(s).
[2018-05-30 07:15] LABS: BASO % 0.4 % (0.0-2.0); EOS # 0.2 K/uL (0.0-0.7); EOS % 2.5 % (0.0-4.0); HEMOGLOBIN 9.9 g/dL (12.0-18.0); LYMPH # 1.9 K/uL (1.0-4.3); LYMPH % 23.4 % (20.0-40.0); MEAN CELL VOLUME 86.9 fl (80.0-94.0); MEAN CORPUSCULAR HEMOGLOBIN 29.5 pg (27.0-31.0); MEAN PLATELET VOLUME 8.7 fl (7.2-11.7); MONO # 0.4 K/uL (0.0-0.8); MONO % 5.2 % (0.0-10.0); NEUT # 5.6 K/uL (1.8-7.0); NEUT % 68.5 % (50.0-75.0); RBC 3.34 Mil/uL (4.40-5.90); RED CELL DISTRIBUTION WIDTH 16.3 % (11.5-14.5); WHITE BLOOD COUNT 8.2 K/uL (4.8-10.8)
[2018-05-30 07:39] LABS: ALB/GLOB RATIO 0.7 (1.0-2.1); ALBUMIN 3.4 g/dL (3.5-5.0); ALT/SGPT 38 U/L (21-72); AST/SGOT 36 U/L (17-59); BLOOD UREA NITROGEN 27 mg/dl (9-20); CALCIUM 9.3 mg/dL (8.4-10.2); GFR NON-AFRICAN AMERICAN > 60
[2018-05-30] MEDS: Ferrous Sulfate 300 mg/5 mL Liq UD PEG SCH ×2 (09:49→17:59)
[2018-05-30] MEDS: Multi Vitamins 15 mL UD Oral Solution PEG SCH (09:49)
[2018-05-30] MEDS: Cefepime 2 GM in Sodium Chloride 0.9% 100 ML IVPB SCH ×2 (09:49→21:32)
[2018-05-30] MEDS: Pantoprazole 40 mg Susp UD PEG SCH (09:50)
[2018-05-30 14:08] LABS: BASO % 0.5 % (0.0-2.0); EOS # 0.2 K/uL (0.0-0.7); EOS % 2.4 % (0.0-4.0); HEMOGLOBIN 9.5 g/dL (12.0-18.0); LYMPH # 1.7 K/uL (1.0-4.3); LYMPH % 20.6 % (20.0-40.0); MEAN CELL VOLUME 87.1 fl (80.0-94.0); MEAN CORPUSCULAR HEMOGLOBIN 29.7 pg (27.0-31.0); MEAN CORPUSCULAR HGB CONC 34.1 g/dL (33.0-37.0); MEAN PLATELET VOLUME 8.6 fl (7.2-11.7); MONO # 0.7 K/uL (0.0-0.8); MONO % 8.1 % (0.0-10.0); NEUT # 5.5 K/uL (1.8-7.0); NEUT % 68.4 % (50.0-75.0); RBC 3.21 Mil/uL (4.40-5.90); RED CELL DISTRIBUTION WIDTH 16.4 % (11.5-14.5)
[2018-05-30 14:19] LABS: ALB/GLOB RATIO 0.7 (1.0-2.1); ALBUMIN 3.3 g/dL (3.5-5.0); ALT/SGPT 36 U/L (21-72); AST/SGOT 41 U/L (17-59); BLOOD UREA NITROGEN 28 mg/dl (9-20); CALCIUM 9.1 mg/dL (8.4-10.2); GFR NON-AFRICAN AMERICAN > 60
[2018-05-30 14:50] LABS: URINE BACTERIA RARE (<OCC); URINE BILIRUBIN NEGATIVE (NEGATIVE); URINE BLOOD SMALL (NEGATIVE); URINE CLARITY SLIGHTY-CLOUDY (Clear); URINE COLOR YELLOW (YELLOW); URINE GLUCOSE (UA) NEG (Normal); URINE LEUKOCYTE ESTERASE TRACE Leu/uL (Negative); URINE PROTEIN 30 mg/dL (NEGATIVE); URINE UROBILINOGEN 0.2-1.0 mg/dL (0.2-1.0)
--- NOTE | 2018-05-30 21:33 | CP.PCM.PN ---
Subjective - Date & Time of Evaluation Date of Evaluation: 05/26/18 Time of Evaluation: 15:05 - Subjective Subjective: Seen and examined at the bed side. No Complaint. Family Requesting repeat swallow evaluation. Objective - Vital Signs/Intake and Output Vital Signs (last 24 hours): Temp Pulse Resp BP Pulse Ox 97.8 F 104 H 20 97/61 L 97 05/30/18 16:55 05/30/18 16:55 05/30/18 16:55 05/30/18 16:55 05/30/18 16:55 Intake and Output: 05/30/18 05/31/18 18:59 06:59 Intake Total 1000 Balance 1000 - Medications Medications: Current Medications Acetaminophen (Tylenol 650 Mg Supp) 650 mg [place] Q4 PRN PRN Reason: Temperature Acetaminophen (Tylenol 650mg/20.3ml Solution Ud) 650 mg GT Q4 PRN PRN Reason: Fever >100.4 F Ferrous Sulfate (Feosol Liq) 300 mg PEG BID [facility] Last Admin: 05/30/18 17:59 Dose: 300 mg Finasteride (Proscar) 5 mg PO DAILY [facility] Last Admin: 05/30/18 09:50 Dose: 5 mg Cefepime HCl 2 gm/ Sodium (Chloride) 100 mls @ 100 mls/hr IVPB Q12 [facility] Last Admin: 05/30/18 09:49 Dose: 100 mls/hr Multivitamins/Vitamin C (Multi-Delyn Liquid) 15 ml PEG DAILY [facility] Last Admin: 05/30/18 09:49 Dose: 15 ml Pantoprazole Sodium (Protonix Susp) 40 mg PEG DAILY [facility] Last Admin: 05/30/18 09:50 Dose: 40 mg Terazosin HCl (Hytrin) 2 mg PO HS [facility] Last Admin: 05/29/18 22:06 Dose: 2 mg - Labs Labs: 05/30/18 13:38 05/30/18 13:38 Assessment and Plan (1) Acute deep vein thrombosis (DVT) of left lower extremity Assessment & Plan: Anticoagulation Contraindicated due to Recent SDH with Mass Effect Family Declined IVC Filter, and family understands the risk for PE Physical Therapy to the Right LE and Upper body Status: Acute Priority: High (2)Toxic metabolic encephalopathy Assessment and Plan: Urosepsis, Bactremia Continue IV Cefepime for atotal of 14 days (Today Day#4) C/W IV Cefepime ID On board Status: Resolved Priority: Medium (3) Cerebrovascular accident (CVA) with left hemiparesis, Dysphagia Assessment and Plan: Continue Statin Swallow eval Speech Therapy Status: Chronic Priority: Medium (4) Obstructive uropathy Assessment and Plan: due to BPH, Septic Shock Acute Renal Failure0 Resolved after Rashid Catheter B/L Hydronephrosis Continue Folycath IV Cefepime for 10 More days [facility] Status: Acute (5) Hypertension Status: Chronic Priority: Low (6) Physical deconditioning Assessment and Plan: PT/OT Status: Chronic Priority: Low (7) DNR/DNI Status: Acute
--- NOTE | 2018-05-30 21:34 | CP.PCM.PN ---
Subjective - Date & Time of Evaluation Date of Evaluation: 05/27/18 Time of Evaluation: 15:15 - Subjective Subjective: No New complaint. Objective - Vital Signs/Intake and Output Vital Signs (last 24 hours): Temp Pulse Resp BP Pulse Ox 97.8 F 104 H 20 97/61 L 97 05/30/18 16:55 05/30/18 16:55 05/30/18 16:55 05/30/18 16:55 05/30/18 16:55 Intake and Output: 05/30/18 05/31/18 18:59 06:59 Intake Total 1000 Balance 1000 - Medications Medications: Current Medications Acetaminophen (Tylenol 650 Mg Supp) 650 mg [place] Q4 PRN PRN Reason: Temperature Acetaminophen (Tylenol 650mg/20.3ml Solution Ud) 650 mg GT Q4 PRN PRN Reason: Fever >100.4 F Ferrous Sulfate (Feosol Liq) 300 mg PEG BID [facility] Last Admin: 05/30/18 17:59 Dose: 300 mg Finasteride (Proscar) 5 mg PO DAILY [facility] Last Admin: 05/30/18 09:50 Dose: 5 mg Cefepime HCl 2 gm/ Sodium (Chloride) 100 mls @ 100 mls/hr IVPB Q12 [facility] Last Admin: 05/30/18 21:32 Dose: 100 mls/hr Multivitamins/Vitamin C (Multi-Delyn Liquid) 15 ml PEG DAILY [facility] Last Admin: 05/30/18 09:49 Dose: 15 ml Pantoprazole Sodium (Protonix Susp) 40 mg PEG DAILY [facility] Last Admin: 05/30/18 09:50 Dose: 40 mg Terazosin HCl (Hytrin) 2 mg PO HS [facility] Last Admin: 05/30/18 21:33 Dose: 2 mg - Labs Labs: 05/30/18 13:38 05/30/18 13:38 Assessment and Plan (1) Acute deep vein thrombosis (DVT) of left lower extremity Assessment & Plan: Anticoagulation Contraindicated due to Recent SDH with Mass Effect Family Declined IVC Filter, and family understands the risk for PE Physical Therapy to the Right LE and Upper body Status: Acute Priority: High (2)Toxic metabolic encephalopathy- Improved Assessment and Plan: Urosepsis, Bactremia Continue IV Cefepime for atotal of 14 days (Today Day#9) C/W IV Cefepime ID On board Status: Resolved Priority: Medium (3) Cerebrovascular accident (CVA) with left hemiparesis, Dysphagia S/P PEG Assessment and Plan: Continue Statin Swallow eval Periodically Speech Therapy Continue Tube feeding Status: Chronic Priority: Medium (4) Obstructive uropathy Assessment and Plan: due to BPH, Septic Shock Acute Renal Failure0 Resolved after Rashid Catheter B/L Hydronephrosis Continue Folycath IV Cefepime for 10 More days [facility] Status: Acute (5) Hypertension Status: Chronic Priority: Low (6) Physical deconditioning Assessment and Plan: PT/OT Status: Chronic Priority: Low (7) DNR/DNI Status: Acute
--- NOTE | 2018-05-30 21:35 | CP.PCM.PN ---
Subjective - Date & Time of Evaluation Date of Evaluation: 05/28/18 Time of Evaluation: 16:10 - Subjective Subjective: Seen and examined at the bed side. Daughter at the bed side. Patient has congestion. Objective - Vital Signs/Intake and Output Vital Signs (last 24 hours): Temp Pulse Resp BP Pulse Ox 97.8 F 104 H 20 97/61 L 97 05/30/18 16:55 05/30/18 16:55 05/30/18 16:55 05/30/18 16:55 05/30/18 16:55 Intake and Output: 05/30/18 05/31/18 18:59 06:59 Intake Total 1000 Balance 1000 - Medications Medications: Current Medications Acetaminophen (Tylenol 650 Mg Supp) 650 mg [place] Q4 PRN PRN Reason: Temperature Acetaminophen (Tylenol 650mg/20.3ml Solution Ud) 650 mg [place] Q4 PRN PRN Reason: Fever >100.4 F Ferrous Sulfate (Feosol Liq) 300 mg PEG BID [facility] Last Admin: 05/30/18 17:59 Dose: 300 mg Finasteride (Proscar) 5 mg PO DAILY [facility] Last Admin: 05/30/18 09:50 Dose: 5 mg Cefepime HCl 2 gm/ Sodium (Chloride) 100 mls @ 100 mls/hr IVPB Q12 [facility] Last Admin: 05/30/18 21:32 Dose: 100 mls/hr Multivitamins/Vitamin C (Multi-Delyn Liquid) 15 ml PEG DAILY [facility] Last Admin: 05/30/18 09:49 Dose: 15 ml Pantoprazole Sodium (Protonix Susp) 40 mg PEG DAILY [facility] Last Admin: 05/30/18 09:50 Dose: 40 mg Terazosin HCl (Hytrin) 2 mg PO HS [facility] Last Admin: 05/30/18 21:33 Dose: 2 mg - Labs Labs: 05/30/18 13:38 05/30/18 13:38 Assessment and Plan (1) Acute deep vein thrombosis (DVT) of left lower extremity Assessment & Plan: Anticoagulation Contraindicated due to Recent SDH with Mass Effect Family Declined IVC Filter, and family understands the risk for PE Physical Therapy to the Right LE and Upper body Status: Acute Priority: High (2)Toxic metabolic encephalopathy Assessment and Plan: Urosepsis, Bactremia Continue IV Cefepime for atotal of 14 days (Today Day#10) ID On board Status: Resolved Priority: Medium (3) Cerebrovascular accident (CVA) with left hemiparesis, Dysphagia Assessment and Plan: Continue Statin Swallow eval Speech Therapy Status: Chronic Priority: Medium (4) Obstructive uropathy Assessment and Plan: due to BPH, Septic Shock Acute Renal Failure Resolved after Rashid Catheter B/L Hydronephrosis Continue Folycath IV Cefepime [facility] Status: Acute (5) Hypertension Status: Chronic Priority: Low (6) Physical deconditioning Assessment and Plan: PT/OT Status: Chronic Priority: Low (7) DNR/DNI Status: Acute
--- NOTE | 2018-05-30 21:37 | CP.PCM.PN ---
Subjective - Date & Time of Evaluation Date of Evaluation: 05/29/18 Time of Evaluation: 16:30 - Subjective Subjective: NO New complaint. Urologist Re-consulted about the D/c plan, and recommended Hytrin. Objective - Vital Signs/Intake and Output Vital Signs (last 24 hours): Temp Pulse Resp BP Pulse Ox 97.8 F 104 H 20 97/61 L 97 05/30/18 16:55 05/30/18 16:55 05/30/18 16:55 05/30/18 16:55 05/30/18 16:55 Intake and Output: 05/30/18 05/31/18 18:59 06:59 Intake Total 1000 Balance 1000 - Medications Medications: Current Medications Acetaminophen (Tylenol 650 Mg Supp) 650 mg [place] Q4 PRN PRN Reason: Temperature Acetaminophen (Tylenol 650mg/20.3ml Solution Ud) 650 mg [place] Q4 PRN PRN Reason: Fever >100.4 F Ferrous Sulfate (Feosol Liq) 300 mg PEG BID [facility] Last Admin: 05/30/18 17:59 Dose: 300 mg Finasteride (Proscar) 5 mg PO DAILY [facility] Last Admin: 05/30/18 09:50 Dose: 5 mg Cefepime HCl 2 gm/ Sodium (Chloride) 100 mls @ 100 mls/hr IVPB Q12 [facility] Last Admin: 05/30/18 21:32 Dose: 100 mls/hr Multivitamins/Vitamin C (Multi-Delyn Liquid) 15 ml PEG DAILY [facility] Last Admin: 05/30/18 09:49 Dose: 15 ml Pantoprazole Sodium (Protonix Susp) 40 mg PEG DAILY [facility] Last Admin: 05/30/18 09:50 Dose: 40 mg Terazosin HCl (Hytrin) 2 mg PO HS [facility] Last Admin: 05/30/18 21:33 Dose: 2 mg - Labs Labs: 05/30/18 13:38 05/30/18 13:38 - Head Exam Head Exam: ATRAUMATIC, NORMAL INSPECTION, NORMOCEPHALIC - Eye Exam Pupil Exam: PERRL - ENT Exam ENT Exam: Mucous Membranes Moist - Neck Exam Neck Exam: Full ROM, Normal Inspection - Respiratory Exam Respiratory Exam: Clear to Ausculation Bilateral. absent: Accessory Muscle Use , Rales - Cardiovascular Exam Cardiovascular Exam: REGULAR RHYTHM, +S1, +S2 - GI/Abdominal Exam GI & Abdominal Exam: Soft, Normal Bowel Sounds - Additional Findings Additional findings: HISTORY: r/o pneumonia r/o chf COMPARISON: 05/21/2018. FINDINGS: LUNGS: No active pulmonary disease. PLEURA: No significant pleural effusion identified, no pneumothorax apparent. CARDIOVASCULAR: No radiographic findings to suggest acute or significant cardiovascular disease. OSSEOUS STRUCTURES: No significant abnormalities. VISUALIZED UPPER ABDOMEN: Normal. OTHER FINDINGS: None. IMPRESSION: No active disease. No significant interval change compared to the prior examination(s). Assessment and Plan (1) Acute deep vein thrombosis (DVT) of left lower extremity Assessment & Plan: Anticoagulation Contraindicated due to Recent SDH with Mass Effect Family Declined IVC Filter, and family understands the risk for PE Physical Therapy to the Right LE and Upper body Status: Acute Priority: High (2)Toxic metabolic encephalopathy Assessment and Plan: Urosepsis, Bactremia Continue IV Cefepime for atotal of 14 days (Today Day#11) C/W IV Cefepime ID On board Status: Resolved Priority: Medium (3) Cerebrovascular accident (CVA) with left hemiparesis, Dysphagia Assessment and Plan: Continue Statin Swallow eval Speech Therapy Status: Chronic Priority: Medium (4) Obstructive uropathy Assessment and Plan: due to BPH, Septic Shock Acute Renal Failure0 Resolved after Rashid Catheter B/L Hydronephrosis Continue Folycath IV Cefepime for 10 More days [facility] Status: Acute (5) Hypertension Status: Chronic Priority: Low (6) Physical deconditioning Assessment and Plan: PT/OT Status: Chronic Priority: Low (7) DNR/DNI Status: Acute
--- NOTE | 2018-05-30 21:39 | CP.PCM.PN ---
Subjective - Date & Time of Evaluation Date of Evaluation: 05/30/18 Time of Evaluation: 15:35 - Subjective Subjective: No New complaint. Continue to have some congestion. Objective - Vital Signs/Intake and Output Vital Signs (last 24 hours): Temp Pulse Resp BP Pulse Ox 97.8 F 104 H 20 97/61 L 97 05/30/18 16:55 05/30/18 16:55 05/30/18 16:55 05/30/18 16:55 05/30/18 16:55 Intake and Output: 05/30/18 05/31/18 18:59 06:59 Intake Total 1000 Balance 1000 - Medications Medications: Current Medications Acetaminophen (Tylenol 650 Mg Supp) 650 mg [place] Q4 PRN PRN Reason: Temperature Acetaminophen (Tylenol 650mg/20.3ml Solution Ud) 650 mg [place] Q4 PRN PRN Reason: Fever >100.4 F Ferrous Sulfate (Feosol Liq) 300 mg PEG BID [facility] Last Admin: 05/30/18 17:59 Dose: 300 mg Finasteride (Proscar) 5 mg PO DAILY [facility] Last Admin: 05/30/18 09:50 Dose: 5 mg Cefepime HCl 2 gm/ Sodium (Chloride) 100 mls @ 100 mls/hr IVPB Q12 [facility] Last Admin: 05/30/18 21:32 Dose: 100 mls/hr Multivitamins/Vitamin C (Multi-Delyn Liquid) 15 ml PEG DAILY [facility] Last Admin: 05/30/18 09:49 Dose: 15 ml Pantoprazole Sodium (Protonix Susp) 40 mg PEG DAILY [facility] Last Admin: 05/30/18 09:50 Dose: 40 mg Terazosin HCl (Hytrin) 2 mg PO HS [facility] Last Admin: 05/30/18 21:33 Dose: 2 mg - Labs Labs: 05/30/18 13:38 05/30/18 13:38 Assessment and Plan (1) Acute deep vein thrombosis (DVT) of left lower extremity Assessment & Plan: Anticoagulation Contraindicated due to Recent SDH with Mass Effect Family Declined IVC Filter, and family understands the risk for PE Physical Therapy to the Right LE and Upper body Status: Acute Priority: High (2)Toxic metabolic encephalopathy Assessment and Plan: Urosepsis, Bactremia Continue IV Cefepime for atotal of 14 days (Today Day#12) ID On board Status: Resolved Priority: Medium (3) Cerebrovascular accident (CVA) with left hemiparesis, Dysphagia Assessment and Plan: Continue Statin Swallow eval Speech Therapy Status: Chronic Priority: Medium (4) Obstructive uropathy Assessment and Plan: due to BPH, Septic Shock Acute Renal Failure0 Resolved after Rashid Catheter B/L Hydronephrosis Continue Folycath IV Cefepime [facility] Status: Acute (5) Hypertension Status: Chronic Priority: Low (6) Physical deconditioning Assessment and Plan: PT/OT Status: Chronic Priority: Low (7) DNR/DNI Status: Acute
--- NOTE | 2018-05-30 21:56 | CP.PCM.PN ---
Subjective - Date & Time of Evaluation Date of Evaluation: 05/24/18 Time of Evaluation: 17:15 - Subjective Subjective: Seen and examined at the bed side. No new complaint Objective - Vital Signs/Intake and Output Vital Signs (last 24 hours): Temp Pulse Resp BP Pulse Ox 97.8 F 104 H 20 97/61 L 97 05/30/18 16:55 05/30/18 16:55 05/30/18 16:55 05/30/18 16:55 05/30/18 16:55 Intake and Output: 05/30/18 05/31/18 18:59 06:59 Intake Total 1000 Balance 1000 - Medications Medications: Current Medications Acetaminophen (Tylenol 650 Mg Supp) 650 mg [place] Q4 PRN PRN Reason: Temperature Acetaminophen (Tylenol 650mg/20.3ml Solution Ud) 650 mg [place] Q4 PRN PRN Reason: Fever >100.4 F Ferrous Sulfate (Feosol Liq) 300 mg PEG BID [facility] Last Admin: 05/30/18 17:59 Dose: 300 mg Finasteride (Proscar) 5 mg PO DAILY [facility] Last Admin: 05/30/18 09:50 Dose: 5 mg Cefepime HCl 2 gm/ Sodium (Chloride) 100 mls @ 100 mls/hr IVPB Q12 [facility] Last Admin: 05/30/18 21:32 Dose: 100 mls/hr Multivitamins/Vitamin C (Multi-Delyn Liquid) 15 ml PEG DAILY [facility] Last Admin: 05/30/18 09:49 Dose: 15 ml Pantoprazole Sodium (Protonix Susp) 40 mg PEG DAILY [facility] Last Admin: 05/30/18 09:50 Dose: 40 mg Terazosin HCl (Hytrin) 2 mg PO HS [facility] Last Admin: 05/30/18 21:33 Dose: 2 mg - Labs Labs: 05/30/18 13:38 05/30/18 13:38 Assessment and Plan (1) Acute deep vein thrombosis (DVT) of left lower extremity Assessment & Plan: Anticoagulation Contraindicated due to Recent SDH with Mass Effect Family Declined IVC Filter, and family understands the risk for PE Physical Therapy to the Right LE and Upper body Status: Acute Priority: High (2)Toxic metabolic encephalopathy- Resolved Assessment and Plan: Urosepsis, Bactremia-Negative BC Continue IV Cefepime for atotal of 14 days ID On board Status: Resolved Priority: Medium (3) Cerebrovascular accident (CVA) with left hemiparesis, Dysphagia Assessment and Plan: Continue Statin Swallow eval Speech Therapy Status: Chronic Priority: Medium (4) Obstructive uropathy Assessment and Plan: due to BPH, Septic Shock Acute Renal Failure- Resolved after Rashid Catheter B/L Hydronephrosis Continue Folycath as long as the patient is not ambulating IV Cefepime for 10 More days Urology reconsulted Status: Acute (5) Hypertension Status: Chronic Priority: Low (6) Physical deconditioning- Improved Assessment and Plan: PT/OT Status: Chronic Priority: Low (7) DNR/DNI Status: Acute
[2018-05-31] MEDS: Multi Vitamins 15 mL UD Oral Solution PEG SCH (10:03)
[2018-05-31] MEDS: Pantoprazole 40 mg Susp UD PEG SCH (10:03)
[2018-05-31] MEDS: Ferrous Sulfate 300 mg/5 mL Liq UD PEG SCH ×2 (10:04→17:56)
[2018-05-31] MEDS: Cefepime 2 GM in Sodium Chloride 0.9% 100 ML IVPB SCH ×2 (10:05→20:56)
--- NOTE | 2018-05-31 22:12 | CP.PCM.PN ---
Subjective - Date & Time of Evaluation Date of Evaluation: 05/30/18 Time of Evaluation: 15:20 - Subjective Subjective: Appears comfortable Objective - Vital Signs/Intake and Output Vital Signs (last 24 hours): Temp Pulse Resp BP Pulse Ox 97.9 F 103 H 20 108/73 95 05/31/18 19:54 05/31/18 19:54 05/31/18 19:54 05/31/18 19:54 05/31/18 19:54 Intake and Output: 05/31/18 06/01/18 18:59 06:59 Intake Total 880 1261 Output Total 800 900 Balance 80 361 - Medications Medications: Current Medications Acetaminophen (Tylenol 650 Mg Supp) 650 mg IN Q4 PRN PRN Reason: Temperature Acetaminophen (Tylenol 650mg/20.3ml Solution Ud) 650 mg GT Q4 PRN PRN Reason: Fever >100.4 F Ferrous Sulfate (Feosol Liq) 300 mg PEG BID [facility] Last Admin: 05/31/18 17:56 Dose: 300 mg Finasteride (Proscar) 5 mg PO DAILY [facility] Last Admin: 05/31/18 10:03 Dose: 5 mg Cefepime HCl 2 gm/ Sodium (Chloride) 100 mls @ 100 mls/hr IVPB Q12 [facility] Last Admin: 05/31/18 20:56 Dose: 100 mls/hr Multivitamins/Vitamin C (Multi-Delyn Liquid) 15 ml PEG DAILY [facility] Last Admin: 05/31/18 10:03 Dose: 15 ml Pantoprazole Sodium (Protonix Susp) 40 mg PEG DAILY [facility] Last Admin: 05/31/18 10:03 Dose: 40 mg Terazosin HCl (Hytrin) 2 mg PO HS [facility] Last Admin: 05/30/18 21:33 Dose: 2 mg - Labs Labs: 05/30/18 13:38 05/30/18 13:38 - Head Exam Head Exam: ATRAUMATIC - Eye Exam Eye Exam: Normal appearance - ENT Exam ENT Exam: Mucous Membranes Dry - Respiratory Exam Respiratory Exam: NORMAL BREATHING PATTERN - Cardiovascular Exam Cardiovascular Exam: +S1, +S2 - GI/Abdominal Exam GI & Abdominal Exam: Normal Bowel Sounds Assessment and Plan (1) DVT (deep venous thrombosis) Assessment & Plan: provoked from immobility not an anticoagulation candidate given intracranial hemorrhage family declined IVC filter Status: Acute (2) Anemia Assessment & Plan: chronic disease Status: Acute
--- NOTE | 2018-05-31 23:14 | CP.PCM.PN ---
Subjective - Date & Time of Evaluation Date of Evaluation: 05/31/18 Time of Evaluation: 19:45 - Subjective Subjective: Seen and examined at the bed side. His son at the bed side. No new complaint. Objective - Vital Signs/Intake and Output Vital Signs (last 24 hours): Temp Pulse Resp BP Pulse Ox 97.9 F 103 H 20 108/73 95 05/31/18 19:54 05/31/18 19:54 05/31/18 19:54 05/31/18 19:54 05/31/18 19:54 Intake and Output: 05/31/18 06/01/18 18:59 06:59 Intake Total 880 1261 Output Total 800 900 Balance 80 361 - Medications Medications: Current Medications Acetaminophen (Tylenol 650 Mg Supp) 650 mg FL Q4 PRN PRN Reason: Temperature Acetaminophen (Tylenol 650mg/20.3ml Solution Ud) 650 mg GT Q4 PRN PRN Reason: Fever >100.4 F Ferrous Sulfate (Feosol Liq) 300 mg PEG BID [facility] Last Admin: 05/31/18 17:56 Dose: 300 mg Finasteride (Proscar) 5 mg PO DAILY [facility] Last Admin: 05/31/18 10:03 Dose: 5 mg Cefepime HCl 2 gm/ Sodium (Chloride) 100 mls @ 100 mls/hr IVPB Q12 [facility] Last Admin: 05/31/18 20:56 Dose: 100 mls/hr Multivitamins/Vitamin C (Multi-Delyn Liquid) 15 ml PEG DAILY [facility] Last Admin: 05/31/18 10:03 Dose: 15 ml Pantoprazole Sodium (Protonix Susp) 40 mg PEG DAILY [facility] Last Admin: 05/31/18 10:03 Dose: 40 mg Terazosin HCl (Hytrin) 2 mg PO HS [facility] Last Admin: 05/31/18 21:52 Dose: 2 mg - Labs Labs: 05/30/18 13:38 05/30/18 13:38 - Constitutional Appears: Well, No Acute Distress - Head Exam Head Exam: ATRAUMATIC, NORMAL INSPECTION, NORMOCEPHALIC - Eye Exam Eye Exam: EOMI, Normal appearance, PERRL Pupil Exam: NORMAL ACCOMODATION, PERRL - ENT Exam ENT Exam: Mucous Membranes Moist, Normal Exam - Neck Exam Neck Exam: Full ROM, Normal Inspection. absent: Lymphadenopathy - Respiratory Exam Respiratory Exam: Clear to Ausculation Bilateral, NORMAL BREATHING PATTERN - Cardiovascular Exam Cardiovascular Exam: REGULAR RHYTHM, +S1, +S2. absent: Murmur - GI/Abdominal Exam GI & Abdominal Exam: absent: Tenderness Additional comments: +PEG site - Extremities Exam Extremities Exam: Full ROM, Normal Capillary Refill, Normal Inspection. absent : Joint Swelling, Pedal Edema - Back Exam Back Exam: NORMAL INSPECTION - Neurological Exam Neurological Exam: Altered, CN II-XII Intact, Motor Sensory Deficit Additional comments: Power Point. - Psychiatric Exam Psychiatric exam: Normal Affect, Normal Mood - Skin Skin Exam: Dry, Intact, Normal Color, Warm Assessment and Plan (1) Acute deep vein thrombosis (DVT) of left lower extremity Assessment & Plan: Anticoagulation Contraindicated due to Recent SDH with Mass Effect Family Declined IVC Filter, and family understands the risk for PE Physical Therapy to the Right LE and Upper body Status: Acute Priority: High (2)Toxic metabolic encephalopathy Assessment and Plan: Urosepsis, Bactremia Continue IV Cefepime for atotal of 14 days (Today Day#13) ID On board Status: Resolved Priority: Medium (3) Cerebrovascular accident (CVA) with left hemiparesis, Dysphagia Assessment and Plan: Continue Statin Swallow eval Speech Therapy Status: Chronic Priority: Medium (4) Obstructive uropathy Assessment and Plan: due to BPH, Septic Shock Acute Renal Failure0 Resolved after Rashid Catheter B/L Hydronephrosis Continue Folycath IV Cefepime Urology onbaord Status: Acute (5) Hypertension Status: Chronic Priority: Low (6) Physical deconditioning Assessment and Plan: PT/OT Status: Chronic Priority: Low (7) DNR/DNI Status: Acute
[2018-06-01] MEDS: Cefepime 2 GM in Sodium Chloride 0.9% 100 ML IVPB SCH (09:05)
[2018-06-01] MEDS: Ferrous Sulfate 300 mg/5 mL Liq UD PEG SCH ×2 (09:06→16:39)
[2018-06-01] MEDS: Pantoprazole 40 mg Susp UD PEG SCH (09:07)
[2018-06-01] MEDS: Multi Vitamins 15 mL UD Oral Solution PEG SCH (09:07)
[2018-06-01 15:36] VITALS: BP 99/66; PULSE 99; TEMP 97.7; O2SAT 100
--- NOTE | 2018-06-04 17:14 | CP.PCM.DIS ---
Provider - Provider Date of Admission: 05/22/18 16:20 Attending physician: Millie Murphy MD Time Spent in preparation of Discharge (in minutes): 25 Diagnosis - Discharge Diagnosis (1) Acute deep vein thrombosis (DVT) of left lower extremity Status: Acute Priority: High (2) Obstructive uropathy Status: Resolved (3) Pulmonary congestion Status: Acute Priority: Low (4) Sepsis Status: Resolved (5) UTI (urinary tract infection) Status: Resolved Priority: Medium (6) Cerebrovascular accident (CVA) with left hemiparesis Status: Chronic Priority: Medium (7) Dyslipidemia Status: Chronic Priority: Low (8) Dysphagia as late effect of stroke Status: Chronic Priority: High (9) Hypertension Status: Chronic Priority: Low (10) Physical deconditioning Status: Chronic Priority: Low (11) Acute renal failure Status: Resolved Priority: Low (12) Altered mental status Status: Resolved Priority: Low (13) Toxic metabolic encephalopathy Status: Resolved Priority: Low Hospital Course - Lab Results Lab Results: Micro Results 05/25/18 12:53 Penis Gram Stain - Final 05/25/18 12:53 Penis Genital Culture - Final NORMAL VAGINAL ELIZABETH Most Recent Lab Values WBC 8.0 K/uL (4.8-10.8) 05/30/18 13:38 RBC 3.21 Mil/uL (4.40-5.90) L 05/30/18 13:38 Hgb 9.5 g/dL (12.0-18.0) L 05/30/18 13:38 Hct 27.9 % (35.0-51.0) L 05/30/18 13:38 MCV 87.1 fl (80.0-94.0) 05/30/18 13:38 MCH 29.7 pg (27.0-31.0) 05/30/18 13:38 MCHC 34.1 g/dL (33.0-37.0) 05/30/18 13:38 RDW 16.4 % (11.5-14.5) H 05/30/18 13:38 Plt Count 278 K/uL (130-400) 05/30/18 13:38 MPV 8.6 fl (7.2-11.7) 05/30/18 13:38 Neut % (Auto) 68.4 % (50.0-75.0) 05/30/18 13:38 Lymph % (Auto) 20.6 % (20.0-40.0) 05/30/18 13:38 [place] % (Auto) 8.1 % (0.0-10.0) 05/30/18 13:38 Eos % (Auto) 2.4 % (0.0-4.0) 05/30/18 13:38 Baso % (Auto) 0.5 % (0.0-2.0) 05/30/18 13:38 Neut # (Auto) 5.5 K/uL (1.8-7.0) 05/30/18 13:38 Lymph # (Auto) 1.7 K/uL (1.0-4.3) 05/30/18 13:38 [place] # (Auto) 0.7 K/uL (0.0-0.8) 05/30/18 13:38 Eos # (Auto) 0.2 K/uL (0.0-0.7) 05/30/18 13:38 Baso # (Auto) 0.0 K/uL (0.0-0.2) 05/30/18 13:38 Sodium 136 mmol/l (132-148) 05/30/18 13:38 Potassium 3.8 MMOL/L (3.6-5.0) 05/30/18 13:38 Chloride 105 mmol/L (98-107) 05/30/18 13:38 Carbon Dioxide 21 mmol/L (22-30) L 05/30/18 13:38 Anion Gap 14 (10-20) 05/30/18 13:38 BUN 28 mg/dl (9-20) H 05/30/18 13:38 Creatinine 0.8 mg/dl (0.8-1.5) 05/30/18 13:38 Est GFR ( Amer) > 60 05/30/18 13:38 Est GFR (Non-Af Amer) > 60 05/30/18 13:38 Random Glucose 112 mg/dL (75-110) H 05/30/18 13:38 Calcium 9.1 mg/dL (8.4-10.2) 05/30/18 13:38 Magnesium 2.0 MG/DL (1.6-2.3) 05/30/18 13:38 Total Bilirubin 0.4 mg/dl (0.2-1.3) 05/30/18 13:38 AST 41 U/L (17-59) 05/30/18 13:38 ALT 36 U/L (21-72) 05/30/18 13:38 Alkaline Phosphatase 178 U/L (38-126) H 05/30/18 13:38 Total Protein 8.1 G/DL (6.3-8.2) 05/30/18 13:38 Albumin 3.3 g/dL (3.5-5.0) L 05/30/18 13:38 Globulin 4.8 gm/dL (2.2-3.9) H 05/30/18 13:38 Albumin/Globulin Ratio 0.7 (1.0-2.1) L 05/30/18 13:38 Urine Color Yellow (YELLOW) 05/30/18 14:39 Urine Clarity Slighty-cloudy (Clear) 05/30/18 14:39 Urine pH 6.0 (5.0-8.0) 05/30/18 14:39 Ur Specific [place] 1.015 (1.003-1.030) 05/30/18 14:39 Urine Protein 30 mg/dL (NEGATIVE) 05/30/18 14:39 Urine Glucose (UA) Neg mg/dL (Normal) 05/30/18 14:39 Urine Ketones Negative mg/dL (NEGATIVE) 05/30/18 14:39 Urine Blood Small (NEGATIVE) 05/30/18 14:39 Urine Nitrate Negative (NEGATIVE) 05/30/18 14:39 Urine Bilirubin Negative (NEGATIVE) 05/30/18 14:39 Urine Urobilinogen 0.2-1.0 mg/dL (0.2-1.0) 05/30/18 14:39 Ur Leukocyte Esterase Trace [place]/uL (Negative) 05/30/18 14:39 Urine RBC (Auto) 32 /hpf (0-3) H 05/30/18 14:39 Urine Microscopic WBC 3 /hpf (0-5) 05/30/18 14:39 Urine Bacteria Rare (<OCC) 05/30/18 14:39 Discharge Exam - Head Exam Head Exam: ATRAUMATIC, NORMAL INSPECTION, NORMOCEPHALIC Discharge Plan - Follow Up Plan Condition: GOOD Disposition: DISCHARGED TO HOME CARE Instructions: High Blood Pressure (DC), How to Care for Your Rashid Catheter, Male, Left-Side Stroke (DC), How to Give a Tube Feeding Referrals: Akira Lopez MD [Staff Provider] - Ivette Rothman MD [Medical Doctor] - Parag Rodney MD [Staff Provider] -
== END 2018-06-01 17:15 | disposition home health service (06) | DRG 871 ==
LOC: H.TCU 16:20
PROVIDERS: ADMIT Internal Medicine; ATTEND Internal Medicine
PROC: 3E03329 Introduction of Other Anti-infective into Peripheral Vein, Percutaneous Approach (ICD-10-PCS; principal; 2018-05-22)
PROC: F08Z4FZ Home Management Treatment using Assistive, Adaptive, Supportive or Protective Equipment (ICD-10-PCS; 2018-05-23)
PROC: F07M6FZ Therapeutic Exercise Treatment of Musculoskeletal System - Whole Body using Assistive, Adaptive, Supportive or Protective Equipment (ICD-10-PCS; 2018-05-23)
DX: A41.9 Sepsis, unspecified organism (principal); G92 Toxic encephalopathy; I82.412 Acute embolism and thrombosis of left femoral vein; N13.6 Pyonephrosis; N17.9 Acute kidney failure, unspecified; I69.354 Hemiplegia and hemiparesis following cerebral infarction affecting left non-dominant side; N18.9 Chronic kidney disease, unspecified; N40.1 Benign prostatic hyperplasia with lower urinary tract symptoms; I69.391 Dysphagia following cerebral infarction; Z66 Do not resuscitate; Z87.891 Personal history of nicotine dependence; Z93.1 Gastrostomy status; Z95.1 Presence of aortocoronary bypass graft; Z95.5 Presence of coronary angioplasty implant and graft; H26.9 Unspecified cataract; K59.00 Constipation, unspecified; K80.20 Calculus of gallbladder without cholecystitis without obstruction; M19.90 Unspecified osteoarthritis, unspecified site; D63.8 Anemia in other chronic diseases classified elsewhere; F03.90 Unspecified dementia, unspecified severity, without behavioral disturbance, psychotic disturbance, mood disturbance, and anxiety; H91.90 Unspecified hearing loss, unspecified ear; I12.9 Hypertensive chronic kidney disease with stage 1 through stage 4 chronic kidney disease, or unspecified chronic kidney disease